=== PATIENT | female | born 1990 | race Caucasian/White ===

== ENCOUNTER 2023-04-15 14:06 | Outpatient (OUT) | payer MEDICAID, SELFPAY ==
[2023-04-15 14:37] LABS: Hematocrit 36.8 % (36.0-48.0); Hemoglobin 12.6 g/dL (12.0-16.0)
[2023-04-15 15:06] LABS: Thyroid Stimulating Hormone 0.007 uIU/mL (0.358-3.740)
[2023-04-15 15:23] LABS: Free T4 1.17 ng/dL (0.76-1.46)
== END 2023-04-15 14:07 ==
PROVIDERS: PCP Nurse Practitioner; Visit Provider Nurse Practitioner
DX: R53.83 Other fatigue (principal); E03.9 Hypothyroidism, unspecified
CPT/HCPCS: 36415; 82306; 82607; 82746; 83540; 84439; 84443; 85014; 85018

== ENCOUNTER 2023-07-23 14:34 | Outpatient (OUT) | payer MEDICAID, SELFPAY ==
[2023-07-23 15:27] LABS: Free T3 2.99 pg/mL (2.18-3.98); Thyroid Stimulating Hormone 1.413 uIU/mL (0.358-3.740)
[2023-07-23 15:32] LABS: Free T4 1.19 ng/dL (0.76-1.46)
== END 2023-07-23 14:35 | disposition home or self-care (01) ==
PROVIDERS: PCP Nurse Practitioner; Visit Provider Nurse Practitioner
DX: E03.9 Hypothyroidism, unspecified (principal)
CPT/HCPCS: 36415; 84439; 84443; 84481

== ENCOUNTER 2024-03-18 13:12 | Outpatient (OUT) | payer MEDICAID, SELFPAY ==
--- NOTE | 2024-03-18 13:14 | US_ITS ---
[address] [address] Patient Name: MOHAMUD CEE MRN: [id number] date: 1990 Sex: F Assigned Patient Location: [facility] Current Patient Location: [facility] Accession/Order Number: [id number] Exam Date: 03/18/2024 13:15 Report Date: 03/18/2024 14:10 At the request of: MARITZA BISWAS Procedure: US OB transvaginal EXAMINATION: US OB transvaginal HISTORY: MISSED MENSES COMPARISON: No relevant comparison available. FINDINGS: GESTATIONAL SAC: Present and normal appearing. YOLK SAC: Present and normal appearing. POLE: Present and normal appearing. CARDIAC: Present. UTERUS: Normal size and appearance. OVARIES: Right: Normal. Left: Normal. CERVIX: 5.2 cm in length and closed. CUL-DE-SAC: Normal. OTHER: None. AGE BY LMP: 8 weeks 5 days JAIR BY LMP: 10/23/2024 AGE BY US CRL: 8 weeks 2 days JAIR BY US CRL: 10/26/2024 US/US OB transvaginal IMPRESSION: 1. Single live intrauterine . Electronically authenticated by: RAHEL MACKAY Date: 03/18/2024 14:10
== END 2024-03-18 13:13 | disposition home or self-care (01) ==
LOC: NOMS 13:12
PROVIDERS: PCP Nurse Practitioner; Visit Provider Obstetrics & Gynecology
DX: Z34.91 Encounter for supervision of normal pregnancy, unspecified, first trimester (principal); Z3A.08 8 weeks gestation of pregnancy; N92.6 Irregular menstruation, unspecified
CPT/HCPCS: 76817

== ENCOUNTER 2024-04-07 15:58 | Outpatient (OUT) | payer MEDICAID, SELFPAY ==
--- OUTSIDE RECORDS SUMMARY | 2024-04-07 16:08 | XMS_ITS | CCD ---
Author Organization [facility] Informat [facility] Care Team Providers Care Pipe Setter Name Role Phone NITA BARROS Referring Unavailable NITA BARROS Primary Care Unavailable AICHHOLZ, MILITARY COMMUNICATIONS SPECIALIST REED Primary Care Unavailable AICHHOLZ, MILITARY COMMUNICATIONS SPECIALIST REED Consulting Unavailable AICHHOLZ, MILITARY COMMUNICATIONS SPECIALIST REED Attending Unavailable AICHHOLZ, MILITARY COMMUNICATIONS SPECIALIST REED Admitting Unavailable AICHHOLZ, MILITARY COMMUNICATIONS SPECIALIST REED Primary Care Unavailable AICHHOLZ, MILITARY COMMUNICATIONS SPECIALIST REED Consulting Unavailable AICHHOLZ, MILITARY COMMUNICATIONS SPECIALIST REED Attending Unavailable AICHHOLZ, MILITARY COMMUNICATIONS SPECIALIST REED Admitting Unavailable MAGALI MCKNIGHT Consulting Unavailable AICHHOLZ, MILITARY COMMUNICATIONS SPECIALIST REED Primary Care Unavailable AICHHOLZ, MILITARY COMMUNICATIONS SPECIALIST REED Consulting Unavailable AICHHOLZ, MILITARY COMMUNICATIONS SPECIALIST REED Attending Unavailable AICHHOLZ, MILITARY COMMUNICATIONS SPECIALIST REED Admitting Unavailable AICHHOLZ, REED Attending Unavailable Problems Problem Classification Problem Date Documented Da te Episodic/Chronic Essential hypertension (1 source) Essential (primary) hypertension; Translations: [ESSENTIAL PRIMARY HYPERTENSION] Onset: 11-29-2022 Chronic Other nutritional; endocrine; and metabolic disorders (1 source) Morbid (severe) obesity due to excess calories; Translations: [MORBID SEVERE OBES D/T EXCESS JOSÉ] Onset: 11-29-2022 Chronic Other nutritional; endocrine; and metabolic disorders (1 source) Body mass index (BMI) 40.0-44.9, adult; Translations: [BODY MASS INDEX BMI 40.0-44.9 ADULT] Onset: 11-29-2022 Chronic Thyroid disorders (4 sources) Hypothyroidism, unspecified; Translations: [HYPOTHYROIDISM UNSPECIFIED] Onset: 02-19-2023 Chronic Results Test Name Value Interpretation Reference Range Facil ity FREE T4on 02-19-2023 Free T4 [Mass/Vol] 1.39 ng/dL Normal 0.76-1.46 [facility] Comment on above: Performed By: #### F T4 #### [facility] [address] [address] [address] Alfredito Rendon TSHon 02-19-2023 TSH 0.012 uIU/mL Critically low 0.358-3.740 [facility] Comment on above: Performed By: #### T SH #### [facility] [address] [address] [address] Alfredito Rendon US THYROIDon 12-11-2022 US THYROID EXAM: US THYROID HISTORY: Hypothyroidism COMPARISON: None. TECHNIQUE: Multiple sonographic images of the thyroid gland were obtained, supplemented with Doppler. FINDINGS: The right lobe measures 3.9 x 1.3 x 1.4 cm. Homogeneous echoes are noted throughout. No nodule is identified within. The left lobe measures 3.5 x 1.1 x 1.4 cm. Homogeneous echoes are noted throughout. No nodule is identified within. The isthmus measures 3 mm in thickness. Along the left side there is a solid nodular structure measuring 0.8 x 0.6 x 0.4 cm. There is no evidence of a focal mass or abnormal fluid collection surrounding the gland. IMPRESSION: No nodule is identified in either lobe. A small nodule is seen in the isthmus eccentric to the left. This nodule is considered TI RADS 4. Biopsy is not recommended at this time. Direct comparison with a previous study would be helpful. A follow-up study in 12 months recommended. Electronically authenticated by: MAGALI MCKNIGHT Date: 2022-12-11 15:05 Normal [facility] THYROID ANTIBODIESon 023 Thyroglobulin Antibody 21.5 IU/mL Critically high 0.0-0.9 [facility] Comment on above: Result Comment: Thyr oglobulin Antibody measured by [facility] Performed By: #### T HYRABS #### [facility] [address] [address] [address] Alfredito Rendon Thyroid Peroxidase (TPO) Ab 73 IU/mL Critically high 0-34 [facility] Comment on above: Performed By: #### T HYRABS #### [facility] [address] [place] [address] Dr. Alfredito Rendon CBC AUTO DIFFon 11-28-2022 BASO # 0.0 103/ul Normal 0.0-0.1 [facility] Comment on above: Performed By: #### C BC #### [facility] [address] [place] [address] Dr. Alfredito Rendon Basophils/100 WBC (Bld) 0.3 % Normal 0.2-2.0 [facility] Comment on above: Performed By: #### C BC #### [facility] [address] [place] [address] Dr. Alfredito Rendon EO # 0.2 103/ul Normal 0.0-0.7 [facility] Comment on above: Performed By: #### C BC #### [facility] [address] [place] [address] Dr. Alfredito Rendon Eosinophils/100 WBC (Bld) 2.3 % Normal 0.9-7.0 [facility] Comment on above: Performed By: #### C BC #### [facility] [address] [place] [address] Dr. Alfredito Rendon Erythrocyte distribution width (RBC) [Ratio] 13.0 % Normal 11.0-15.0 [facility] Comment on above: Performed By: #### C BC #### [facility] [address] [place] [address] Dr. Alfredito Rendon Hematocrit (Bld) [Volume fraction] 41.2 % Normal 36.0-48.0 [facility] Comment on above: Performed By: #### C BC #### [facility] [address] [place] [address] Dr. Alfredito Rendon Hemoglobin (Bld) [Mass/Vol] 12.5 g/dL Normal 12.0-16.0 [facility] Comment on above: Performed By: #### C BC #### [facility] [address] [place] [address] Dr. Alfredito Rendon IG # 0.02 10e3/ul Normal 0.00-0.03 [facility] Comment on above: Performed By: #### C BC #### [facility] [address] [place] [address] Dr. Alfredito Rendon IG % 0.2 % Normal 0.0-0.5 [facility] Comment on above: Performed By: #### C BC #### [facility] [address] [place] [address] Dr. Alfredito Rendon LYMPH # 2.7 103/ul Normal 1.2-3.8 [facility] Comment on above: Performed By: #### C BC #### [facility] [address] [place] [address] Dr. Alfredito Rendon Lymphocytes/100 WBC (Bld) 25.3 % Normal 20.5-60.0 [facility] Comment on above: Performed By: #### C BC #### [facility] [address] [place] [address] Dr. Alfredito Rendon MANUAL DIFF REQ NO Normal [facility] Comment on above: Performed By: #### C BC #### [facility] [address] [place] [address] Dr. Alfredito Rendon MCH (RBC) [Entitic mass] 29.6 pg Normal 26.7-34.0 [facility] Comment on above: Performed By: #### C BC #### [facility] [address] [place] [address] Dr. Alfredito Rendon MCHC (RBC) [Mass/Vol] 30.3 g/dL Normal 29.9-35.2 [facility] Comment on above: Performed By: #### C BC #### [facility] [address] [place] [address] Dr. Alfredito Rendon MCV (RBC) [Entitic vol] 97.6 fL Normal 81.0-99.0 [facility] Comment on above: Performed By: #### C BC #### [facility] [address] [place] [address] Dr. Alfredito Rendon MONO # 0.7 103/ul Normal 0.3-0.8 [facility] Comment on above: Performed By: #### C BC #### [facility] [address] [place] [address] Dr. Alfredito Rendon Monocytes/100 WBC (Bld) 6.4 % Normal 1.7-12.0 [facility] Comment on above: Performed By: #### C BC #### [facility] [address] [address] [address] Alfredito Rendon NEUT # 6.9 103/ul Critically high 1.4-6.5 [facility] Comment on above: Performed By: #### C BC #### [facility] [address] [address] [address] Alfredito Rendon Neutrophils/100 WBC (Bld) 65.5 % Normal 43.0-75.0 [facility] Comment on above: Performed By: #### C BC #### [facility] [address] [address] [address] Alfredito Rendon Platelet mean volume (Bld) [Entitic vol] 10.1 fL Normal 9.5-13.5 [facility] Comment on above: Performed By: #### C BC #### [facility] [address] [place] [address] Dr. Alfredito Rendon PLT 253 103/ul Normal 150-450 [facility] Comment on above: Performed By: #### C BC #### [facility] [address] [address] [address] Alfredito Rendon RBC 4.22 106/ul Normal 4.20-5.40 [facility] Comment on above: Performed By: #### C BC #### [facility] [address] [place] [address] Dr. Alfredito Rendon WBC 10.6 103/ul Normal 4.0-11.0 [facility] Comment on above: Performed By: #### C BC #### [facility] [address] [place] [address] Dr. Alfredito Rendon FREE T3on 11-28-2022 FREE T3 2.65 pg/mlL Normal 2.18-3.98 [facility] Comment on above: Performed By: #### T SH, FT3, LIPID, CMP #### [facility] [address] [place] [address] Dr. Alfredito Rendon FREE T4on 11-28-2022 Free T4 [Mass/Vol] 0.86 ng/dL Normal 0.76-1.46 [facility] Comment on above: Performed By: #### F T4 #### [facility] [address] [address] [address] Alfredito Rendon LIPID PROFILEon 11-28-2022 CHOL-HDL RATIO NORM SEE BELOW Normal [facility] Comment on above: Result Comment: 3.3 - 4.4 LOW RISK 4.4 - 7.1 AVERAGE RISK 7.1 - 11.0 MODERATE RISK >11.0 HIGH RISK Performed By: #### T SH, FT3, LIPID, CMP #### [facility] [address] [address] [address] Alfredito Rendon Cholesterol [Mass/Vol] 172 mg/dL Normal <=200 [facility] Comment on above: Performed By: #### T SH, FT3, LIPID, CMP #### [facility] [address] [place] [address] Dr. Alfredito Rendon Cholesterol in HDL [Mass/Vol] 49 mg/dL Normal 40-60 [facility] Comment on above: Performed By: #### T SH, FT3, LIPID, CMP #### [facility] [address] [address] [address] Alfredito Rendon Cholesterol in LDL [Mass/Vol] 96.2 mg/dL Normal [facility] Comment on above: Performed By: #### T SH, FT3, LIPID, CMP #### [facility] [address] [place] [address] Dr. Alfredito Rendon Cholesterol.total/Ch olesterol in HDL [Mass ratio] 3.5 {ratio} Normal [facility] Comment on above: Performed By: #### T SH, FT3, LIPID, CMP #### [facility] [address] [address] [address] Alfredito Rendon HDL NORMAL > or = 60 mg/dl - LOW CARDIOVASCULAR RISK <40 mg/dl - HIGH CARDIOVASCULAR RISK Normal [facility] Comment on above: Performed By: #### T SH, FT3, LIPID, CMP #### [facility] [address] [place] [address] Dr. Alfredito Rendon LDL CALC NORMAL SEE BELOW Normal [facility] Comment on above: Result Comment: <100 mg/dl OPTIMAL 100 - 129 mg/dl NEAR OR ABOVE OPTIMAL 130 - 159 mg/dl BORDERLINE HIGH 160 - 189 mg/dl HIGH >190 mg/dl VERY HIGH Performed By: #### T SH, FT3, LIPID, CMP #### [facility] [address] [address] [address] Alfredito Rendon Triglyceride [Mass/Vol] 134 mg/dL Normal <=150 [facility] Comment on above: Performed By: #### T SH, FT3, LIPID, CMP #### [facility] [address] [address] [address] Alfredito Rendon VLDL CALC 26.8 mg/dL Normal [facility] Comment on above: Performed By: #### T SH, FT3, LIPID, CMP #### [facility] [address] [place] [address] Dr. Alfredito Rendon PROF 14(COMP METB)on 023 Albumin [Mass/Vol] 3.3 g/dL Critically low 3.4-5.0 [facility] Comment on above: Performed By: #### T SH, FT3, LIPID, CMP #### [facility] [address] [place] [address] Dr. Alfredito Rendon Albumin/Globulin [Mass ratio] 0.9 {ratio} Normal [facility] Comment on above: Performed By: #### T SH, FT3, LIPID, CMP #### [facility] [address] [place] [address] Dr. Alfredito Rendon ALP [Catalytic activity/Vol] 63 U/L Normal 46-116 [facility] Comment on above: Performed By: #### T SH, FT3, LIPID, CMP #### [facility] [address] [address] [address] Alfredito Rendon ALT [Catalytic activity/Vol] 27 U/L Normal 14-59 [facility] Comment on above: Performed By: #### T SH, FT3, LIPID, CMP #### [facility] [address] [place] [address] Dr. Alfredito Rendon Anion gap [Moles/Vol] 14.1 mmol/L Normal [facility] Comment on above: Performed By: #### T SH, FT3, LIPID, CMP #### [facility] [address] [place] [address] Dr. Alfredito Rendon AST [Catalytic activity/Vol] 20 U/L Normal 15-37 [facility] Comment on above: Performed By: #### T SH, FT3, LIPID, CMP #### [facility] [address] [address] [address] Alfredito Rendon Bilirubin [Mass/Vol] 0.3 mg/dL Normal 0.2-1.0 [facility] Comment on above: Performed By: #### T SH, FT3, LIPID, CMP #### [facility] [address] [place] [address] Dr. Alfredito Rendon Calcium [Mass/Vol] 9.2 mg/dL Normal 8.5-10.1 [facility] Comment on above: Performed By: #### T SH, FT3, LIPID, CMP #### [facility] [address] [place] [address] Dr. Alfredito Rendon Chloride [Moles/Vol] 103 mmol/L Normal 98-107 [facility] Comment on above: Performed By: #### T SH, FT3, LIPID, CMP #### [facility] [address] [place] [address] Dr. Alfredito Rendon CO2 [Moles/Vol] 24.1 mmol/L Normal 21.0-32.0 [facility] Comment on above: Performed By: #### T SH, FT3, LIPID, CMP #### [facility] [address] [place] [address] Dr. Alfredito Rendon Creatinine [Mass/Vol] 0.71 mg/dL Normal 0.55-1.02 [facility] Comment on above: Performed By: #### T SH, FT3, LIPID, CMP #### [facility] [address] [place] [address] Dr. Alfredito Rendon EGFR-AF DANISH >60 Normal >=60 [facility] Comment on above: Performed By: #### T SH, FT3, LIPID, CMP #### [facility] [address] [place] [address] Dr. Alfredito Rendon EGFR-NON AF DANISH >60 Normal >=60 [facility] Comment on above: Performed By: #### T SH, FT3, LIPID, CMP #### [facility] [address] [place] [address] Dr. Alfredito Rendon Globulin (S) [Mass/Vol] 3.8 g/dL Normal [facility] Comment on above: Performed By: #### T SH, FT3, LIPID, CMP #### [facility] [address] [place] [address] Dr. Alfredito Rendon Glucose [Mass/Vol] 106 mg/dL Normal 74-106 [facility] Comment on above: Performed By: #### T SH, FT3, LIPID, CMP #### [facility] [address] [place] [address] Dr. Alfredito Rendon Potassium [Moles/Vol] 4.2 mmol/L Normal 3.5-5.1 [facility] Comment on above: Performed By: #### T SH, FT3, LIPID, CMP #### [facility] [address] [place] [address] Dr. Alfredito Rendon Protein [Mass/Vol] 7.1 g/dL Normal 6.4-8.2 [facility] Comment on above: Performed By: #### T SH, FT3, LIPID, CMP #### [facility] [address] [place] [address] Dr. Alfredito Rendon Sodium [Moles/Vol] 137 mmol/L Normal 136-145 [facility] Comment on above: Performed By: #### T SH, FT3, LIPID, CMP #### [facility] [address] [place] [address] Dr. Alfredito Rendon Urea nitrogen [Mass/Vol] 14.0 mg/dL Normal 7.0-18.0 [facility] Comment on above: Performed By: #### T SH, FT3, LIPID, CMP #### [facility] [address] [place] [address] Dr. Alfredito Rendon Urea nitrogen/Creatinine [Mass ratio] 19.7 mg/mg Normal [facility] Comment on above: Performed By: #### T SH, FT3, LIPID, CMP #### [facility] [address] [address] [address] Alfredito Rendon TSHon 11-28-2022 TSH 5.010 uIU/mL Critically high 0.358-3.740 [facility] Comment on above: Performed By: #### T SH, FT3, LIPID, CMP #### [facility] [address] [address] [address] Alfredito Rendon Thyroid Stim. Horm.on 2020 TSH Qn 10.79 m[IU]/L High 0.30-5.00 [facility] Comment on above: Performed By: #### T SH, FT4 #### [facility] [address] [place], [place] [id number] [employer] Estimator: Titus Pagan MD Thyroxine, Freeon 08-22-2021 Thyroxine, Free 0.89 ng/dL Low 0.93-1.70 [facility] Comment on above: Performed By: #### T SH, FT4 #### [facility] [address], [place] [id number] [employer] Estimator: Titus Pagan MD Basic Metab, Fastingon 03-15 (cont.) Normal [facility] Comment on above: Result Comment: Aver age GFR for 30-39 years old: 107 mL/min/1.73sq m Chronic Kidney Disease: <60 mL/min/1.73sq m Kidney failure: <15 mL/min/1.73sq m eGFR calculated using average adult body mass. Additional eGFR calculator available at: http://www.[employer].com/multiple_crcl_2012.htm Performed By: #### B MPF, FT4, TSH #### [facility] [address], [place] [id number] [employer] Estimator: Titus Pagan MD Anion gap [Moles/Vol] 10 mmol/L Normal 9-17 [facility] Comment on above: Performed By: #### B MPF, FT4, TSH #### [facility] [address] [place] [address] [employer] Est[employer]ator: Titus Pagan MD Calcium [Mass/Vol] 9.4 mg/dL Normal 8.6-10.4 [facility] Comment on above: Performed By: #### B MPF, FT4, TSH #### [facility] [address] [place] [id number] [employer] Est[employer]ator: Titus Pagan MD Chloride [Moles/Vol] 102 mmol/L Normal 98-107 [facility] Comment on above: Performed By: #### B MPF, FT4, TSH #### [address] [address] [employer]ator: Titus Pagan MD CO2 [Moles/Vol] 25 mmol/L Normal 20-31 [facility] Comment on above: Performed By: #### B MPF, FT4, TSH #### [address] [address] [employer] Estimator: Titus Pagan MD Creatinine [Mass/Vol] 0.62 mg/dL Normal 0.50-0.90 [facility] Comment on above: Performed By: #### B MPF, FT4, TSH #### [facility] [address] [place] [id number] [employer] Est[employer]ator: Titus Pagan MD GFR, Amer >60 Normal >60 [facility] Comment on above: Performed By: #### B MPF, FT4, TSH #### [facility] [address] [place] [address] [employer] Est[employer]ator: Titus Pagan MD GFR,non Amer >60 Normal >60 [facility] Comment on above: Performed By: #### B MPF, FT4, TSH #### [facility] [address] [place] [address] [employer] Est[employer]ator: Titus Pagan MD Glucose [Mass/Vol] 93 mg/dL Normal 70-99 [facility] Comment on above: Performed By: #### B MPF, FT4, TSH #### [facility] [address] [place] [id number] [employer] Est[employer]ator: Titus Pagan MD Potassium [Moles/Vol] 4.6 mmol/L Normal 3.7-5.3 [facility] Comment on above: Performed By: #### B MPF, FT4, TSH #### [facility] [address] [place] [address] [employer] Est[employer]ator: Titus Pagan MD Sodium [Moles/Vol] 137 mmol/L Normal 135-144 [facility] Comment on above: Performed By: #### B MPF, FT4, TSH #### [facility] [address] [place] [id number] [employer]ator: Titus Pagan MD Urea nitrogen [Mass/Vol] 13 mg/dL Normal -20 [facility] Comment on above: Performed By: #### B MPF, FT4, TSH #### [facility] [address] [place] [id number] [employer] Est[employer]ator: Titus Pagan MD BUN/CRE Ratio NOT REPORTED Normal -20 [facility] Comment on above: Performed By: #### B MPF, FT4, TSH #### [facility] [address] [place] [id number] [employer] Estimator: Titus Pagan MD Staging: NOT REPORTED Normal [facility] Comment on above: Performed By: #### B MPF, FT4, TSH #### [facility] [address] [place] [id number] [employer] Estimator: Titus Pagan MD Thyroid Stim. Horm.on 2020 TSH Qn 13.08 m[IU]/L High 0.30-5.00 [facility] Comment on above: Performed By: #### B MPF, FT4, TSH #### [facility] [address], [place] [id number] [employer] Est[employer]ator: Titus Pagan MD Thyroxine, Freeon 03-15-2021 Thyroxine, Free 0.90 ng/dL Low 0.93-1.70 [facility] Comment on above: Performed By: #### B MPF, FT4, TSH #### [facility] [address] [place] [address] [employer] Est[employer]ator: Titus Pagan MD Encounters Encounter Date Encounter Type Care Provider Facility Start: 03-18-2024 End: 03-18-2024 ambulatory REED AICHHOLZ Not Available Start: 12-31-2023 End: 12-31-2023 ambulatory REED AICHHOLZ Not Available Start: 02-19-2023 End: 02-20-2023 ambulatory MILITARY COMMUNICATIONS SPECIALIST REED AICHHOLZ Facility:[facility] Start: 12-11-2022 End: 12-12-2022 ambulatory MILITARY COMMUNICATIONS SPECIALIST REED AICHHOLZ Facility:[facility] Start: 11-28-2022 End: 11-29-2022 ambulatory MILITARY COMMUNICATIONS SPECIALIST REED AICHHOLZ Facility:[facility] Start: 03-15-2021 End: 03-16-2021 ambulatory NITA BARROS [facility] Payers Date Payer Category Payer Medicaid [id number] 2019 Unknown [id number] 1989 Unknown [id number] 2.16.8 [id number] 1989 Unknown [id number] 2.16.84 [id number] 1989 Unknown [id number] 2.16.84 [id number] 1989 Unknown [id number] 2.16.84 [id number] 1989 Unknown [id number] 2.16.84 [id number] 1989 Unknown [id number] 2.16.84 [id number] 1959 Unknown [id number] Summary Purpose Family History No Family History Records FoundNo Family History Records FoundNo Family History Records FoundNo Family History Records Found Advance Directives No Advanced Directives Records FoundNo Advanced Directives Records FoundNo Advanced Directives Records FoundNo Advanced Directives Records Found Additional Source Comments INFORMATION SOURCE (unrecogn ized section and content) DATE CREATED AUTHOR 03/17/2021 [facility] DATE CREATED AUTHOR AUTHOR'S ORGANIZ ATION 08/23/2021 [facility] DATE CREATED AUTHOR AUTHOR'S ORGANIZ ATION 02/23/2023 [facility] DATE CREATED AUTHOR AUTHOR'S ORGANIZ ATION 03/21/2024 [facility] FOR RECORDS PERTAINING TO PATIENTS WHO ARE OR HAVE BEEN ENROLLED IN A CHEMICAL DEPENDENCY/SUBSTANCEABUSE PROGRAM, SOME INFORMATION MAY BE OMITTED. This clinical summary was aggregated from multiple sources. Caution should be exercised in using it in the provision of clinical care. This summary normalizes information from multiple sources, and as a consequence, information in this document may materially change the coding, format and clinical context of patient data. In addition, data may be omitted in some cases. CLINICAL DECISIONS SHOULD BE BASED ON THE PRIMARY CLINICAL RECORDS. [employer] provides no warranty or guarantee of the accuracy or completeness of information in this document.
[2024-04-07 16:27] LABS: BOX Test Sent Out Y
[2024-04-07 16:29] LABS: Basophils Percent Auto 0.1 % (0.2-2.0); Eosinophils Absolute Auto 0.2 10^3/uL (0.0-0.7); Eosinophils Percent Auto 1.3 % (0.9-7.0); Hematocrit 39.2 % (36.0-48.0); Hemoglobin 13.6 g/dL (12.0-16.0); Immature Granulocytes Abs Auto 0.02 10^3/uL (0.00-0.03); Immature Granulocytes Pct Auto 0.2 % (0.0-0.5); Lymphocytes Percent Auto 25.7 % (20.5-60.0); Mean Corpuscular HGB Conc 34.7 g/dL (29.9-35.2); Mean Corpuscular Hemoglobin 30.7 pg (26.7-34.0); Mean Corpuscular Volume 88.5 fL (81.0-99.0); Monocytes Absolute Auto 0.6 10^3/uL (0.3-0.8); Monocytes Percent Auto 5.2 % (1.7-12.0); Neutrophils Absolute Auto 7.8 10^3/uL (1.4-6.5); Neutrophils Percent Auto 67.5 % (43.0-75.0); Platelet Count 231 10^3/uL (150-450); Red Blood Count 4.43 10^6/uL (4.20-5.40); Red Cell Distribution Width 12.7 % (11.0-15.0); White Blood Count 11.5 10^3/uL (4.0-11.0)
[2024-04-07 17:09] LABS: Estimated Average Glucose 108 mg/dL; Glycohemoglobin A1C 5.4 % (4.5-6.2)
[2024-04-09 06:10] LABS: HBsAg Screen Negative (Negative); HCV Ab Non Reactive (Non Reactive); HIV Ab/p24 Ag Screen Non Reactive (Non Reactive); Rubella Antibodies, IgG 3.12 index (Immune >0.99)
[2024-04-09 11:09] LABS: Rapid Plasma Reagin, Quant Non Reactive titer (NonRea<1:1)
== END 2024-04-07 15:59 | disposition home or self-care (01) ==
LOC: LAB 15:59
PROVIDERS: PCP Nurse Practitioner; Visit Provider Obstetrics & Gynecology
DX: Z36.0 Encounter for antenatal screening for chromosomal anomalies (principal); N92.6 Irregular menstruation, unspecified
CPT/HCPCS: 36415; 81003; 83036; 85025; 86592; 86762; 86803; 86850; 86900; 86901; 87086; 87150; 87186; 87340; 87389

== ENCOUNTER 2024-04-21 16:15 | Outpatient (OUT) | payer MEDICAID, SELFPAY ==
--- OUTSIDE RECORDS SUMMARY | 2024-04-21 16:22 | XMS_ITS | CCD ---
Author Organization [facility] Informat ion Partnership [facility] Care Team Providers Care Switchboard Manager Name Role Phone NITA BARROS Referring Unavailable NITA BARROS Primary Care Unavailable AICHHOLZ, HOME APPLIANCE TECHNICIAN REED Primary Care Unavailable AICHHOLZ, HOME APPLIANCE TECHNICIAN REED Consulting Unavailable AICHHOLZ, HOME APPLIANCE TECHNICIAN REED Attending Unavailable AICHHOLZ, HOME APPLIANCE TECHNICIAN REED Admitting Unavailable AICHHOLZ, HOME APPLIANCE TECHNICIAN REED Primary Care Unavailable AICHHOLZ, HOME APPLIANCE TECHNICIAN REED Consulting Unavailable AICHHOLZ, HOME APPLIANCE TECHNICIAN REED Attending Unavailable AICHHOLZ, HOME APPLIANCE TECHNICIAN REED Admitting Unavailable MAGALI MCKNIGHT Consulting Unavailable AICHHOLZ, HOME APPLIANCE TECHNICIAN REED Primary Care Unavailable AICHHOLZ, HOME APPLIANCE TECHNICIAN REED Consulting Unavailable AICHHOLZ, HOME APPLIANCE TECHNICIAN REED Attending Unavailable AICHHOLZ, HOME APPLIANCE TECHNICIAN REED Admitting Unavailable AICHHOLZ, REED Attending Unavailable [...] T4 [Mass/Vol] 1.39 ng/dL Normal 0.76-1.46 [facility] Comment on above: Performed By: #### F T4 #### [facility] [address] [address] [address] Alfredito Rendon TSHon 02-19-2023 TSH 0.012 uIU/mL Critically low 0.358-3.740 [facility] Comment on above: Performed By: #### T SH #### [facility] [address] [address] [address] Alfredito Rendon US THYROIDon 12-11-2022 US [...] MAGALI MCKNIGHT Date: 2022-12-11 15:05 Normal [facility] THYROID ANTIBODIESon 023 Thyroglobulin Antibody 21.5 IU/mL Critically high 0.0-0.9 [facility] Comment on above: Result Comment: Thyr oglobulin Antibody measured by [facility] [place] Methodology Performed By: #### T HYRABS #### [facility] [address] [address] [address] Alfredito Rendon Thyroid Peroxidase (TPO) Ab 73 IU/mL Critically high 0-34 [facility] Comment on above: Performed By: #### T HYRABS #### [facility] [address] [place] [address] Dr. Alfredito Rendon CBC AUTO DIFFon 11-28-2022 BASO # 0.0 103/ul Normal 0.0-0.1 [facility] Comment on above: Performed By: #### C BC #### [facility] [address] [place] [address] Dr. Alfredito Rendon Basophils/100 WBC (Bld) 0.3 % Normal 0.2-2.0 [facility] Comment on above: Performed By: #### C BC #### [facility] [address] [place] [address] Dr. Alfredito Rendon EO # 0.2 103/ul Normal 0.0-0.7 [facility] Comment on above: Performed By: #### C BC #### [facility] [address] [place] [address] Dr. Alfredito Rendon Eosinophils/100 WBC (Bld) 2.3 % Normal 0.9-7.0 [facility] Comment on above: Performed By: #### C BC #### [facility] [address] [place] [address] Dr. Alfredito Rendon Erythrocyte distribution width (RBC) [Ratio] 13.0 % Normal 11.0-15.0 [facility] Comment on above: Performed By: #### C BC #### [facility] [address] [place] [address] Dr. Alfredito Rendon Hematocrit (Bld) [Volume fraction] 41.2 % Normal 36.0-48.0 [facility] Comment on above: Performed By: #### C BC #### [facility] [address] [place] [address] Dr. Alfredito Rendon Hemoglobin (Bld) [Mass/Vol] 12.5 g/dL Normal 12.0-16.0 [facility] Comment on above: Performed By: #### C BC #### [facility] [address] [place] [address] Dr. Alfredito Rendon IG # 0.02 10e3/ul Normal 0.00-0.03 [facility] Comment on above: Performed By: #### C BC #### [facility] [address] [place] [address] Dr. Alfredito Rendon IG % 0.2 % Normal 0.0-0.5 [facility] Comment on above: Performed By: #### C BC #### [facility] [address] [place] [address] Dr. Alfredito Rendon LYMPH # 2.7 103/ul Normal 1.2-3.8 [facility] Comment on above: Performed By: #### C BC #### [facility] [address] [place] [address] Dr. Alfredito Rendon Lymphocytes/100 WBC (Bld) 25.3 % Normal 20.5-60.0 [facility] Comment on above: Performed By: #### C BC #### [facility] [address] [place] [address] Dr. Alfredito Rendon MANUAL DIFF REQ NO Normal [facility] Comment on above: Performed By: #### C BC #### [facility] [address] [place] [address] Dr. Alfredito Rendon MCH (RBC) [Entitic mass] 29.6 pg Normal 26.7-34.0 [facility] Comment on above: Performed By: #### C BC #### [facility] [address] [place] [address] Dr. Alfredito Rendon MCHC (RBC) [Mass/Vol] 30.3 g/dL Normal 29.9-35.2 [facility] Comment on above: Performed By: #### C BC #### [facility] [address] [place] [address] Dr. Alfredito Rendon MCV (RBC) [Entitic vol] 97.6 fL Normal 81.0-99.0 [facility] Comment on above: Performed By: #### C BC #### [facility] [address] [place] [address] Dr. Alfredito Rendon MONO # 0.7 103/ul Normal 0.3-0.8 [facility] Comment on above: Performed By: #### C BC #### [facility] [address] [place] [address] Dr. Alfredito Rendon Monocytes/100 WBC (Bld) 6.4 % Normal 1.7-12.0 [facility] Comment on above: Performed By: #### C BC #### [facility] [address] [address] [address] Alfredito Rendon NEUT # 6.9 103/ul Critically high 1.4-6.5 [facility] Comment on above: Performed By: #### C BC #### [facility] [address] [address] [address] Alfredito Rendon Neutrophils/100 WBC (Bld) 65.5 % Normal 43.0-75.0 [facility] Comment on above: Performed By: #### C BC #### [facility] [address] [address] [address] Alfredito Rendon Platelet mean volume (Bld) [Entitic vol] 10.1 fL Normal 9.5-13.5 [facility] Comment on above: Performed By: #### C BC #### [facility] [address] [place] [address] Dr. Alfredito Rendon PLT 253 103/ul Normal 150-450 [facility] Comment on above: Performed By: #### C BC #### [facility] [address] [address] [address] Alfredito Rendon RBC 4.22 106/ul Normal 4.20-5.40 [facility] Comment on above: Performed By: #### C BC #### [facility] [address] [place] [address] Dr. Alfredito Rendon WBC 10.6 103/ul Normal 4.0-11.0 [facility] Comment on above: Performed By: #### C BC #### [facility] [address] [place] [address] Dr. Alfredito Rendon FREE T3on 11-28-2022 FREE T3 2.65 pg/mlL Normal 2.18-3.98 [facility] Comment on above: Performed By: #### T SH, FT3, LIPID, CMP #### [facility] [address] [place] [address] Dr. Alfredito Rendon FREE T4on 11-28-2022 Free T4 [Mass/Vol] 0.86 ng/dL Normal 0.76-1.46 [facility] Comment on above: Performed By: #### F T4 #### [facility] [address] [address] [address] Alfredito Rendon LIPID PROFILEon 11-28-2022 CHOL-HDL RATIO NORM SEE BELOW Normal [facility] Comment on above: Result Comment: 3.3 - 4.4 LOW RISK 4.4 - 7.1 AVERAGE RISK 7.1 - 11.0 MODERATE RISK >11.0 HIGH RISK Performed By: #### T SH, FT3, LIPID, CMP #### [facility] [address] [address] [address] Alfredito Rendon Cholesterol [Mass/Vol] 172 mg/dL Normal <=200 [facility] Comment on above: Performed By: #### T SH, FT3, LIPID, CMP #### [facility] [address] [place] [address] Dr. Alfredito Rendon Cholesterol in HDL [Mass/Vol] 49 mg/dL Normal 40-60 [facility] Comment on above: Performed By: #### T SH, FT3, LIPID, CMP #### [facility] [address] [address] [address] Alrfedito Rendon Cholesterol in LDL [Mass/Vol] 96.2 mg/dL Normal [facility] Comment on above: Performed By: #### T SH, FT3, LIPID, CMP #### [facility] [address] [place] [address] Dr. Alfredito Rendon Cholesterol.total/Ch olesterol in HDL [Mass ratio] 3.5 {ratio} Normal [facility] Comment on above: Performed By: #### T SH, FT3, LIPID, CMP #### [facility] [address] [address] [address] Alfredito Rendon HDL NORMAL > or = 60 mg/dl - LOW CARDIOVASCULAR RISK <40 mg/dl - HIGH CARDIOVASCULAR RISK Normal [facility] Comment on above: Performed By: #### T SH, FT3, LIPID, CMP #### [facility] [address] [place] [address] Dr. Alfredito Rendon LDL CALC NORMAL SEE BELOW Normal [facility] Comment on above: Result Comment: <100 mg/dl OPTIMAL 100 - 129 mg/dl NEAR OR ABOVE OPTIMAL 130 - 159 mg/dl BORDERLINE HIGH 160 - 189 mg/dl HIGH >190 mg/dl VERY HIGH Performed By: #### T SH, FT3, LIPID, CMP #### [facility] [address] [address] [address] Alfredito Rendon Triglyceride [Mass/Vol] 134 mg/dL Normal <=150 [facility] Comment on above: Performed By: #### T SH, FT3, LIPID, CMP #### [facility] [address] [address] [address] Alfredito Rendon VLDL CALC 26.8 mg/dL Normal [facility] Comment on above: Performed By: #### T SH, FT3, LIPID, CMP #### [facility] [address] [place] [address] Dr. Alfredito Rendon PROF 14(COMP METB)on 023 Albumin [Mass/Vol] 3.3 g/dL Critically low 3.4-5.[address] [facility] Comment on above: Performed By: #### T SH, FT3, LIPID, CMP #### [facility] [address] [place] [address] Dr. Alfredito Rendon Albumin/Globulin [Mass ratio] 0.9 {ratio} Normal [facility] Comment on above: Performed By: #### T SH, FT3, LIPID, CMP #### [facility] [address] [place] [address] Dr. Alfredito Rendon ALP [Catalytic activity/Vol] 63 U/L Normal 46-116 [facility] Comment on above: Performed By: #### T SH, FT3, LIPID, CMP #### [facility] [address] [address] [address] Alfredito Rendon ALT [Catalytic activity/Vol] 27 U/L Normal 14-59 [facility] Comment on above: Performed By: #### T SH, FT3, LIPID, CMP #### [facility] [address] [place] [address] Dr. Alfredito Rendon Anion gap [Moles/Vol] 14.1 mmol/L Normal [facility] Comment on above: Performed By: #### T SH, FT3, LIPID, CMP #### [facility] [address] [place] [address] Dr. Alfredito Rendon AST [Catalytic activity/Vol] 20 U/L Normal 15-37 [facility] Comment on above: Performed By: #### T SH, FT3, LIPID, CMP #### [facility] [address] [address] [address] Alfredito Rendon Bilirubin [Mass/Vol] 0.3 mg/dL Normal 0.2-1.0 [facility] Comment on above: Performed By: #### T SH, FT3, LIPID, CMP #### [facility] [address] [place] [address] Dr. Alfredito Rendon Calcium [Mass/Vol] 9.2 mg/dL Normal 8.5-10.1 [facility] Comment on above: Performed By: #### T SH, FT3, LIPID, CMP #### [facility] [address] [place] [address] Dr. Alfredito Rendon Chloride [Moles/Vol] 103 mmol/L Normal 98-107 [facility] Comment on above: Performed By: #### T SH, FT3, LIPID, CMP #### [facility] [address] [place] [address] Dr. Alfredito Rendon CO2 [Moles/Vol] 24.1 mmol/L Normal 21.0-32.0 [facility] Comment on above: Performed By: #### T SH, FT3, LIPID, CMP #### [facility] [address] [place] [address] Dr. Alfredito Rendon Creatinine [Mass/Vol] 0.71 mg/dL Normal 0.55-1.02 [facility] Comment on above: Performed By: #### T SH, FT3, LIPID, CMP #### [facility] [address] [place] [address] Dr. Alfredito Rendon EGFR-AF POLISH >60 Normal >=60 [facility] Comment on above: Performed By: #### T SH, FT3, LIPID, CMP #### [facility] [address] [place] [address] Dr. Alfredito Rendon EGFR-NON AF POLISH >60 Normal >=60 [facility] Comment on above: Performed By: #### T SH, FT3, LIPID, CMP #### [facility] [address] [place] [address] Dr. Alfredito Rendon Globulin (S) [Mass/Vol] 3.8 g/dL Normal [facility] Comment on above: Performed By: #### T SH, FT3, LIPID, CMP #### [facility] [address] [place] [address] Dr. Alfredito Rendon Glucose [Mass/Vol] 106 mg/dL Normal 74-106 [facility] Comment on above: Performed By: #### T SH, FT3, LIPID, CMP #### [facility] [address] [place] [address] Dr. Alfredito Rendon Potassium [Moles/Vol] 4.2 mmol/L Normal 3.5-5.1 [facility] Comment on above: Performed By: #### T SH, FT3, LIPID, CMP #### [facility] [address] [place] [address] Dr. Alfredito Rendon Protein [Mass/Vol] 7.1 g/dL Normal 6.4-8.2 [facility] Comment on above: Performed By: #### T SH, FT3, LIPID, CMP #### [facility] [address] [place] [address] Dr. Alfredito Rendon Sodium [Moles/Vol] 137 mmol/L Normal 136-145 [facility] Comment on above: Performed By: #### T SH, FT3, LIPID, CMP #### [facility] [address] [place] [address] Dr. Alfredito Rendon Urea nitrogen [Mass/Vol] 14.0 mg/dL Normal 7.0-18.0 [facility] Comment on above: Performed By: #### T SH, FT3, LIPID, CMP #### [facility] [address] [place] [address] Dr. Alfredito Rendon Urea nitrogen/Creatinine [Mass ratio] 19.7 mg/mg Normal [facility] Comment on above: Performed By: #### T SH, FT3, LIPID, CMP #### [facility] [address] [address] [address] Alfredito Rendon TSHon 11-28-2022 TSH 5.010 uIU/mL Critically high 0.358-3.740 [facility] Comment on above: Performed By: #### T SH, FT3, LIPID, CMP #### [facility] [address] [address] [address] Alfredito Rendon Thyroid Stim. Horm.on 2020 TSH Qn 10.79 m[IU]/L High 0.30-5.00 [facility] Comment on above: Performed By: #### T SH, FT4 #### [facility] [employer] [address] [place], [place] [id number] Fiber Analyst: Titus Pagan MD Thyroxine, Freeon 08-22-2021 Thyroxine, Free 0.89 ng/dL Low 0.93-1.70 [facility] Comment on above: Performed By: #### T SH, FT4 #### [facility] [employer] [address] [place], [place] [id number] Fiber Analyst: Titus Pagan MD Basic Metab, Fastingon 03-15 (cont.) Normal [facility] Comment on above: Result Comment: Aver age GFR for 30-39 years old: 107 mL/min/1.73sq m Chronic Kidney Disease: <60 mL/min/1.73sq m Kidney failure: <15 mL/min/1.73sq m eGFR calculated using average adult body mass. Additional eGFR calculator available at: http://www.[employer]com/multiple_crcl_2012.htm Performed By: #### B MPF, FT4, TSH #### [facility] [employer] [address] [place], [place] [id number] Fiber Analyst: Titus Pagan MD Anion gap [Moles/Vol] 10 mmol/L Normal 9-17 [facility] Comment on above: Performed By: #### B MPF, FT4, TSH #### [facility] [employer] [address] [place] [address] Fiber Analyst: Titus Pagan MD Calcium [Mass/Vol] 9.4 mg/dL Normal 8.6-10.4 [facility] Comment on above: Performed By: #### B MPF, FT4, TSH #### [facility] [employer] [address] [place] [address] Fiber Analyst: Titus Pagan MD Chloride [Moles/Vol] 102 mmol/L Normal 98-107 [facility] Comment on above: Performed By: #### B MPF, FT4, TSH #### [address] [address] Fiber Analyst: Titus Pagan MD CO2 [Moles/Vol] 25 mmol/L Normal 20-31 [facility] Comment on above: Performed By: #### B MPF, FT4, TSH #### [address] [address] Fiber Analyst: Titus Pagan MD Creatinine [Mass/Vol] 0.62 mg/dL Normal 0.50-0.90 [facility] Comment on above: Performed By: #### B MPF, FT4, TSH #### [facility] [employer] [address] [place] [address] Fiber Analyst: Titus Pagan MD GFR, Amer >60 Normal >60 [facility] Comment on above: Performed By: #### B MPF, FT4, TSH #### [facility] [employer] [address] [place] [address] Fiber Analyst: Titus Pagan MD GFR,non Amer >60 Normal >60 [facility] Comment on above: Performed By: #### B MPF, FT4, TSH #### [facility] [address] [place] [address] Fiber Analyst: Titus Pagan MD Glucose [Mass/Vol] 93 mg/dL Normal 70-99 [facility] Comment on above: Performed By: #### B MPF, FT4, TSH #### [facility] [address] [place] [address] Fiber Analyst: Titus Pagan MD Potassium [Moles/Vol] 4.6 mmol/L Normal 3.7-5.3 [facility] Comment on above: Performed By: #### B MPF, FT4, TSH #### [facility] [address] [place] [address] Fiber Analyst: Titus Pagan MD Sodium [Moles/Vol] 137 mmol/L Normal 135-144 [facility] Comment on above: Performed By: #### B MPF, FT4, TSH #### [facility] [address] [place] [address] Fiber Analyst: Titus Pagan MD Urea nitrogen [Mass/Vol] 13 mg/dL Normal -20 [facility] Comment on above: Performed By: #### B MPF, FT4, TSH #### [facility] [address] [place] [address] Fiber Analyst: Titus Pagan MD BUN/CRE Ratio NOT REPORTED Normal -20 [facility] Comment on above: Performed By: #### B MPF, FT4, TSH #### [facility] [address] [place] [address] Fiber Analyst: Titus Pagan MD Staging: NOT REPORTED Normal [facility] Comment on above: Performed By: #### B MPF, FT4, TSH #### [facility] [address] [place] [address] Fiber Analyst: Titus Pagan MD Thyroid Stim. Horm.on 2020 TSH Qn 13.08 m[IU]/L High 0.30-5.00 [facility] Comment on above: Performed By: #### B MPF, FT4, TSH #### [facility] [address] [place], [place] [id number] Fiber Analyst: Titus Pagan MD Thyroxine, Freeon 03-15-2021 Thyroxine, Free 0.90 ng/dL Low 0.93-1.70 [facility] Comment on above: Performed By: #### B MPF, FT4, TSH #### [facility] [address] [place] [address] Fiber Analyst: Titus Pagan MD Encounters Encounter Date Encounter Type Care Provider Facility Start: 03-18-2024 End: 03-18-2024 ambulatory REED AICHHOLZ Not Available Start: 12-31-2023 End: 12-31-2023 ambulatory REED AICHHOLZ Not Available Start: 02-19-2023 End: 02-20-2023 ambulatory HOME APPLIANCE TECHNICIAN REED AICHHOLZ Facility:[facility] Start: 12-11-2022 End: 12-12-2022 ambulatory HOME APPLIANCE TECHNICIAN REED AICHHOLZ Facility:[facility] Start: 11-28-2022 End: 11-29-2022 ambulatory HOME APPLIANCE TECHNICIAN REED AICHHOLZ Facility:[facility] Start: 03-15-2021 End: 03-16-2021 ambulatory NITA BARROS [facility] Payers Date Payer Category Payer Medicaid [id number] 2019 Unknown [id number] 1989 Unknown [id number] 2.16.8 [id number] 1989 Unknown [id number] 2.16.84 [id number] 1989 Unknown [id number] 2.16.84 [id number] 1989 Unknown [id number] 2.16.84 [id number] 1989 Unknown [id number] 2.16.84 [id number] 1989 Unknown [id number] 2.16.84 [id number] 1959 Unknown [id number] Summary Purpose Family History No Family History Records FoundNo Family History Records FoundNo Family History Records FoundNo Family History Records Found Advance Directives No Advanced Directives Records FoundNo Advanced Directives Records FoundNo Advanced Directives Records FoundNo Advanced Directives Records Found Additional Source Comments INFORMATION SOURCE (unrecogn ized section and content) DATE CREATED AUTHOR 03/17/2021 [facility] DATE CREATED AUTHOR AUTHOR'S ORGANIZ ATION 08/23/2021 [facility] DATE CREATED AUTHOR AUTHOR'S ORGANIZ ATION 02/23/2023 [facility] DATE CREATED AUTHOR AUTHOR'S ORGANIZ ATION 03/21/2024 [facility] FOR RECORDS PERTAINING TO PATIENTS WHO ARE [...] BE BASED ON THE PRIMARY CLINICAL RECORDS. [employer] provides no warranty or guarantee of the accuracy or completeness of information in this document.
== END 2024-04-21 16:16 | disposition home or self-care (01) ==
LOC: LAB 16:17
PROVIDERS: PCP Nurse Practitioner; Visit Provider Obstetrics & Gynecology
DX: Z34.92 Encounter for supervision of normal pregnancy, unspecified, second trimester (principal); E03.9 Hypothyroidism, unspecified
CPT/HCPCS: 36415; 84443

== ENCOUNTER 2024-05-19 11:52 | Outpatient (OUT) | payer MEDICAID, SELFPAY ==
--- OUTSIDE RECORDS SUMMARY | 2024-05-19 12:12 | XMS_ITS | CCD ---
Author Organization [facility] Inform ion Partnership [facility] Care Team Providers Care Crew Leader Gluing Name Role Phone NITA BARROS Referring Unavailable NITA BARROS Primary Care Unavailable AICHHOLZ, HIGH SCHOOL ASSISTANT FOOTBALL COACH REED Primary Care Unavailable AICHHOLZ, HIGH SCHOOL ASSISTANT FOOTBALL COACH REED Consulting Unavailable AICHHOLZ, HIGH SCHOOL ASSISTANT FOOTBALL COACH REED Attending Unavailable AICHHOLZ, HIGH SCHOOL ASSISTANT FOOTBALL COACH REED Admitting Unavailable AICHHOLZ, HIGH SCHOOL ASSISTANT FOOTBALL COACH REED Primary Care Unavailable AICHHOLZ, HIGH SCHOOL ASSISTANT FOOTBALL COACH REED Consulting Unavailable AICHHOLZ, HIGH SCHOOL ASSISTANT FOOTBALL COACH REED Attending Unavailable AICHHOLZ, HIGH SCHOOL ASSISTANT FOOTBALL COACH REED Admitting Unavailable MAGALI MCKNIGHT Consulting Unavailable AICHHOLZ, HIGH SCHOOL ASSISTANT FOOTBALL COACH REED Primary Care Unavailable AICHHOLZ, HIGH SCHOOL ASSISTANT FOOTBALL COACH REED Consulting Unavailable AICHHOLZ, HIGH SCHOOL ASSISTANT FOOTBALL COACH REED Attending Unavailable AICHHOLZ, HIGH SCHOOL ASSISTANT FOOTBALL COACH REED Admitting Unavailable AICHHOLZ, REED Attending Unavailable MARITZA BISWAS Attending Unavailable Problems Problem Classification Problem Date [...] T4 [Mass/Vol] 1.39 ng/dL Normal 0.76-1.46 [facility] Comment on above: Performed By: #### F T4 #### [facility] [address] [address] [address] Alfredito Rendon TSHon 02-19-2023 TSH 0.012 uIU/mL Critically low 0.358-3.740 [facility] Comment on above: Performed By: #### T SH #### [facility] [address] [address] [address] Alfredito Rendon US THYROIDon 12-11-2022 US [...] by: MAGALI MCKNIGHT Date: 2022-12-11 15:05 Normal [facility] THYROID ANTIBODIESon 023 Thyroglobulin Antibody 21.5 IU/mL Critically high 0.0-0.9 [facility] Comment on above: Result Comment: Thyr oglobulin Antibody measured by High[employer] Performed By: #### T HYRABS #### [facility] [address] [place] [address] Dr. Alfredito Rendon Thyroid Peroxidase (TPO) Ab 73 IU/mL Critically high 0-34 [facility] Comment on above: Performed By: #### T HYRABS #### [facility] [address] [place] [address] Dr. Alfredito Rendon CBC AUTO DIFFon 11-28-2022 BASO # 0.0 103/ul Normal 0.0-0.1 [facility] Comment on above: Performed By: #### C BC #### [facility] [address] [place] [address] Dr. Alfredito Rendon Basophils/100 WBC (Bld) 0.3 % Normal 0.2-2.0 [facility] Comment on above: Performed By: #### C BC #### [facility] [address] [place] [address] Dr. Alfredito Rendon EO # 0.2 103/ul Normal 0.0-0.7 [facility] Comment on above: Performed By: #### C BC #### [facility] [address] [place] [address] Dr. Alfredito Rendon Eosinophils/100 WBC (Bld) 2.3 % Normal 0.9-7.0 [facility] Comment on above: Performed By: #### C BC #### [facility] [address] [place] [address] Dr. Alfredito Rendon Erythrocyte distribution width (RBC) [Ratio] 13.0 % Normal 11.0-15.0 [facility] Comment on above: Performed By: #### C BC #### [facility] [address] [place] [address] Dr. Alfredito Rendon Hematocrit (Bld) [Volume fraction] 41.2 % Normal 36.0-48.0 [facility] Comment on above: Performed By: #### C BC #### [facility] [address] [place] [address] Dr. Alfredito Rendon Hemoglobin (Bld) [Mass/Vol] 12.5 g/dL Normal 12.0-16.0 [facility] Comment on above: Performed By: #### C BC #### [facility] [address] [place] [address] Dr. Alfredito Rendon IG # 0.02 10e3/ul Normal 0.00-0.03 [facility] Comment on above: Performed By: #### C BC #### [facility] [address] [place] [address] Dr. Alfredito Rendon IG % 0.2 % Normal 0.0-0.5 [facility] Comment on above: Performed By: #### C BC #### [facility] [address] [place] [address] Dr. Alfredito Rendon LYMPH # 2.7 103/ul Normal 1.2-3.8 [facility] Comment on above: Performed By: #### C BC #### [facility] [address] [place] [address] Dr. Alfredito Rendon Lymphocytes/100 WBC (Bld) 25.3 % Normal 20.5-60.0 [facility] Comment on above: Performed By: #### C BC #### [facility] [address] [place] [address] Dr. Alfredito Rendon MANUAL DIFF REQ NO Normal [facility] Comment on above: Performed By: #### C BC #### [facility] [address] [place] [address] Dr. Alfredito Rendon MCH (RBC) [Entitic mass] 29.6 pg Normal 26.7-34.0 [facility] Comment on above: Performed By: #### C BC #### [facility] [address] [place] [address] Dr. Alfredito Rendon MCHC (RBC) [Mass/Vol] 30.3 g/dL Normal 29.9-35.2 [facility] Comment on above: Performed By: #### C BC #### [facility] [address] [place] [address] Dr. Alfredito Rendon MCV (RBC) [Entitic vol] 97.6 fL Normal 81.0-99.0 [facility] Comment on above: Performed By: #### C BC #### [facility] [address] [place] [address] Dr. Alfredito Rendon MONO # 0.7 103/ul Normal 0.3-0.8 [facility] Comment on above: Performed By: #### C BC #### [facility] [address] [place] [address] Dr. Alfredito Rendon Monocytes/100 WBC (Bld) 6.4 % Normal 1.7-12.0 [facility] Comment on above: Performed By: #### C BC #### [facility] [address] [place] [address] Dr. Alfrdeito Rendon NEUT # 6.9 103/ul Critically high 1.4-6.5 [facility] Comment on above: Performed By: #### C BC #### [facility] [address] [address] [address] Alfredito Rendon Neutrophils/100 WBC (Bld) 65.5 % Normal 43.0-75.0 [facility] Comment on above: Performed By: #### C BC #### [facility] [address] [place] [address] Dr. Alfredito Rendon Platelet mean volume (Bld) [Entitic vol] 10.1 fL Normal 9.5-13.5 [facility] Comment on above: Performed By: #### C BC #### [facility] [address] [place] [address] Dr. Alfredito Rendon PLT 253 103/ul Normal 150-450 [facility] Comment on above: Performed By: #### C BC #### [facility] [address] [place] [address] Dr. Alfredito Rendon RBC 4.22 106/ul Normal 4.20-5.40 [facility] Comment on above: Performed By: #### C BC #### [facility] [address] [place] [address] Dr. Alfredito Rendon WBC 10.6 103/ul Normal 4.0-11.0 [facility] Comment on above: Performed By: #### C BC #### [facility] [address] [place] [address] Dr. Alfredito Rendon FREE T3on 11-28-2022 FREE T3 2.65 pg/mlL Normal 2.18-3.98 [facility] Comment on above: Performed By: #### T SH, FT3, LIPID, CMP #### [facility] [address] [place] [address] Dr. Alfredito Rendon FREE T4on 11-28-2022 Free T4 [Mass/Vol] 0.86 ng/dL Normal 0.76-1.46 [facility] Comment on above: Performed By: #### F T4 #### [facility] [address] [place] [address] Dr. Alfredito Rendon LIPID PROFILEon 11-28-2022 CHOL-HDL RATIO NORM SEE BELOW Normal [facility] Comment on above: Result Comment: 3.3 - 4.4 LOW RISK 4.4 - 7.1 AVERAGE RISK 7.1 - 11.0 MODERATE RISK >11.0 HIGH RISK Performed By: #### T SH, FT3, LIPID, CMP #### [facility] [address] [place] [address] Dr. Alfredito Rendon Cholesterol [Mass/Vol] 172 mg/dL Normal <=200 [facility] Comment on above: Performed By: #### T SH, FT3, LIPID, CMP #### [facility] [address] [place] [address] Dr. Alfredito Rendon Cholesterol in HDL [Mass/Vol] 49 mg/dL Normal 40-60 [facility] Comment on above: Performed By: #### T SH, FT3, LIPID, CMP #### [facility] [address] [place] [address] Dr. Alfredito Rendon Cholesterol in LDL [Mass/Vol] 96.2 mg/dL Normal [facility] Comment on above: Performed By: #### T SH, FT3, LIPID, CMP #### [facility] [address] [place] [address] Dr. Alfredito Rendon Cholesterol.total/Ch olesterol in HDL [Mass ratio] 3.5 {ratio} Normal [facility] Comment on above: Performed By: #### T SH, FT3, LIPID, CMP #### [facility] [address] [place] [address] Dr. Alfredito Rendon HDL NORMAL > or = 60 mg/dl - LOW CARDIOVASCULAR RISK <40 mg/dl - HIGH CARDIOVASCULAR RISK Normal [facility] Comment on above: Performed By: #### T SH, FT3, LIPID, CMP #### [facility] [address] [place] [address] Dr. Alfredito Rendon LDL CALC NORMAL SEE BELOW Normal [facility] Comment on above: Result Comment: <100 mg/dl OPTIMAL 100 - 129 mg/dl NEAR OR ABOVE OPTIMAL 130 - 159 mg/dl BORDERLINE HIGH 160 - 189 mg/dl HIGH >190 mg/dl VERY HIGH Performed By: #### T SH, FT3, LIPID, CMP #### [facility] [address] [address] [address] Alfredito Rendon Triglyceride [Mass/Vol] 134 mg/dL Normal <=150 [facility] Comment on above: Performed By: #### T SH, FT3, LIPID, CMP #### [facility] [address] [address] [address] Alfredito Rendon VLDL CALC 26.8 mg/dL Normal [facility] Comment on above: Performed By: #### T SH, FT3, LIPID, CMP #### [facility] [address] [place] [address] Dr. Alfredito Rendon PROF 14(COMP METB)on 023 Albumin [Mass/Vol] 3.3 g/dL Critically low 3.4-5.0 [facility] Comment on above: Performed By: #### T SH, FT3, LIPID, CMP #### [facility] [address] [address] [address] Alfredito Rendon Albumin/Globulin [Mass ratio] 0.9 {ratio} Normal [facility] Comment on above: Performed By: #### T SH, FT3, LIPID, CMP #### [facility] [address] [address] [address] Alfredito Rendon ALP [Catalytic activity/Vol] 63 U/L Normal 46-116 [facility] Comment on above: Performed By: #### T SH, FT3, LIPID, CMP #### [facility] [address] [address] [address] Alfredito Rendon ALT [Catalytic activity/Vol] 27 U/L Normal 14-59 [facility] Comment on above: Performed By: #### T SH, FT3, LIPID, CMP #### [facility] [address] [address] [address] Alfredito Rendon Anion gap [Moles/Vol] 14.1 mmol/L Normal [facility] Comment on above: Performed By: #### T SH, FT3, LIPID, CMP #### [facility] [address] [place] [address] Dr. Alfredito Rendon AST [Catalytic activity/Vol] 20 U/L Normal 15-37 [facility] Comment on above: Performed By: #### T SH, FT3, LIPID, CMP #### [facility] [address] [place] [address] Dr. Alfredito Rendon Bilirubin [Mass/Vol] 0.3 mg/dL Normal 0.2-1.0 [facility] Comment on above: Performed By: #### T SH, FT3, LIPID, CMP #### [facility] [address] [place] [address] Dr. Alfredito Rendon Calcium [Mass/Vol] 9.2 mg/dL Normal 8.5-10.1 [facility] Comment on above: Performed By: #### T SH, FT3, LIPID, CMP #### [facility] [address] [place] [address] Dr. Alfredito Rendon Chloride [Moles/Vol] 103 mmol/L Normal 98-107 [facility] Comment on above: Performed By: #### T SH, FT3, LIPID, CMP #### [facility] [address] [place] [address] Dr. Alfredito Rendon CO2 [Moles/Vol] 24.1 mmol/L Normal 21.0-32.0 [facility] Comment on above: Performed By: #### T SH, FT3, LIPID, CMP #### [facility] [address] [place] [address] Dr. Alfredito Rendon Creatinine [Mass/Vol] 0.71 mg/dL Normal 0.55-1.02 [facility] Comment on above: Performed By: #### T SH, FT3, LIPID, CMP #### [facility] [address] [place] [address] Dr. Alfredito Rendon EGFR-AF SYRIAN >60 Normal >=60 [facility] Comment on above: Performed By: #### T SH, FT3, LIPID, CMP #### [facility] [address] [address] [address] Alfredito Rendon EGFR-NON AF SYRIAN >60 Normal >=60 [facility] Comment on above: Performed By: #### T SH, FT3, LIPID, CMP #### [facility] [address] [place] [address] Dr. Alfredito Rendon Globulin (S) [Mass/Vol] 3.8 g/dL Normal [facility] Comment on above: Performed By: #### T SH, FT3, LIPID, CMP #### [facility] [address] [place] [address] Dr. Alfredito Rendon Glucose [Mass/Vol] 106 mg/dL Normal 74-106 [facility] Comment on above: Performed By: #### T SH, FT3, LIPID, CMP #### [facility] [address] [place] [address] Dr. Alfredito Rendon Potassium [Moles/Vol] 4.2 mmol/L Normal 3.5-5.1 [facility] Comment on above: Performed By: #### T SH, FT3, LIPID, CMP #### [facility] [address] [place] [address] Dr. Alfredito Rendon Protein [Mass/Vol] 7.1 g/dL Normal 6.4-8.2 [facility] Comment on above: Performed By: #### T SH, FT3, LIPID, CMP #### [facility] [address] [place] [address] Dr. Alfredito Rendon Sodium [Moles/Vol] 137 mmol/L Normal 136-145 [facility] Comment on above: Performed By: #### T SH, FT3, LIPID, CMP #### [facility] [address] [place] [address] Dr. Alfredito Rendon Urea nitrogen [Mass/Vol] 14.0 mg/dL Normal 7.0-18.0 [facility] Comment on above: Performed By: #### T SH, FT3, LIPID, CMP #### [facility] [address] [address] [address] Alfredito Rendon Urea nitrogen/Creatinine [Mass ratio] 19.7 mg/mg Normal [facility] Comment on above: Performed By: #### T SH, FT3, LIPID, CMP #### [facility] [address] [address] [address] Alfredito Rendon TSHon 11-28-2022 TSH 5.010 uIU/mL Critically high 0.358-3.740 [facility] Comment on above: Performed By: #### T SH, FT3, LIPID, CMP #### [facility] [address] [address] [address] Alfredito Rendon Thyroid Stim. Horm.on 2020 TSH Qn 10.79 m[IU]/L High 0.30-5.00 [facility] Comment on above: Performed By: #### T SH, FT4 #### [facility] [place], [place] [id number] [employer] Equipment Mechanic: Titus Pagan MD Thyroxine, Freeon 08-22-2021 Thyroxine, Free 0.89 ng/dL Low 0.93-1.70 [facility] Comment on above: Performed By: #### T SH, FT4 #### [facility] [address] [place], [place] [id number] [employer] Equipment Mechanic: Titus Pagan MD Basic Metab, Fastingon 03-15 (cont.) Normal [facility] Comment on above: Result Comment: Aver age GFR for 30-39 years old: 107 mL/min/1.73sq m Chronic Kidney Disease: <60 mL/min/1.73sq m Kidney failure: <15 mL/min/1.73sq m eGFR calculated using average adult body mass. Additional eGFR calculator available at: http://www.Meilapp.com.NUMBER26/multiple_crcl_2012.htm Performed By: #### B MPF, FT4, TSH #### [facility] [facility] [place], [place] [id number] [employer] Equipment Mechanic: Titus Pagan MD Anion gap [Moles/Vol] 10 mmol/L Normal 9-17 [facility] Comment on above: Performed By: #### B MPF, FT4, TSH #### [facility] [employer] [address] [place] [phone] [employer] Equipment Mechanic: Titus Pagan MD Calcium [Mass/Vol] 9.4 mg/dL Normal 8.6-10.4 [facility] Comment on above: Performed By: #### B MPF, FT4, TSH #### [facility] [employer] [address] [place] [phone] [employer] Equipment Mechanic: Titus Pagan MD Chloride [Moles/Vol] 102 mmol/L Normal 98-107 [facility] Comment on above: Performed By: #### B MPF, FT4, TSH #### [facility] [employer] [address] [place] [phone] [employer] Equipment Mechanic: Titus Pagan MD CO2 [Moles/Vol] 25 mmol/L Normal 20-31 [facility] Comment on above: Performed By: #### B MPF, FT4, TSH #### [facility] [employer] [address] [place] [phone] [employer] Equipment Mechanic: Titus Pagan MD Creatinine [Mass/Vol] 0.62 mg/dL Normal 0.50-0.90 [facility] Comment on above: Performed By: #### B MPF, FT4, TSH #### [facility] [address] [place] [phone] [employer] Equipment Mechanic: Ttius Pagan MD GFR, Amer >60 Normal >60 [facility] Comment on above: Performed By: #### B MPF, FT4, TSH #### [facility] [address] [place] [phone] [employer] Equipment Mechanic: Titus Pagan MD GFR,non Amer >60 Normal >60 [facility] Comment on above: Performed By: #### B MPF, FT4, TSH #### [facility] [address] [place] [id number] [employer] Equipment Mechanic: Titus Pagan MD Glucose [Mass/Vol] 93 mg/dL Normal 70-99 [facility] Comment on above: Performed By: #### B MPF, FT4, TSH #### [facility] [address] [place] [address] [employer] Equipment Mechanic: Titus Pagan MD Potassium [Moles/Vol] 4.6 mmol/L Normal 3.7-5.3 [facility] Comment on above: Performed By: #### B MPF, FT4, TSH #### [facility] [address] [place] [phone] [employer] Equipment Mechanic: Titus Pagan MD Sodium [Moles/Vol] 137 mmol/L Normal 135-144 [facility] Comment on above: Performed By: #### B MPF, FT4, TSH #### [facility] [address] [place] [phone] [employer] Equipment Mechanic: Titus Pagan MD Urea nitrogen [Mass/Vol] 13 mg/dL Normal -20 [facility] Comment on above: Performed By: #### B MPF, FT4, TSH #### [facility] [address] [place] [address] [employer] Equipment Mechanic: Titus Pagan MD BUN/CRE Ratio NOT REPORTED Normal -20 [facility] Comment on above: Performed By: #### B MPF, FT4, TSH #### [facility] [address] [place] [id number] [employer] Equipment Mechanic: Titus Pagan MD Staging: NOT REPORTED Normal [facility] Comment on above: Performed By: #### B MPF, FT4, TSH #### [facility] [address] [place] [phone] [employer] Equipment Mechanic: Titus Pagan MD Thyroid Stim. Horm.on 2020 TSH Qn 13.08 m[IU]/L High 0.30-5.00 [facility] Comment on above: Performed By: #### B MPF, FT4, TSH #### [facility] [address] [place], [place] [id number] [employer] Ray Equipment Mechanic: Titus Pagan MD Thyroxine, Freeon 03-15-2021 Thyroxine, Free 0.90 ng/dL Low 0.93-1.70 [facility] Comment on above: Performed By: #### B MPF, FT4, TSH #### [facility] [address] [place], [place] [phone] [employer] Ray Equipment Mechanic: Titus Pagan MD Encounters Encounter Date Encounter Type Care Provider Facility Start: 04-21-2024 End: 04-21-2024 ambulatory MARITZA WEINERO Not Available Start: 03-18-2024 End: 03-18-2024 ambulatory REED AICHHOLZ Not Available Start: 12-31-2023 End: 12-31-2023 ambulatory REED AICHHOLZ Not Available Start: 02-19-2023 End: 02-20-2023 ambulatory [employer]OTBALL COACH REED AICHHOLZ Facility:[facility] Start: 12-11-2022 End: 12-12-2022 ambulatory H[employer]OL ASSISTANT FOOTBALL COACH REED AICHHOLZ Facility:[facility] Start: 11-28-2022 End: 11-29-2022 ambulatory H[employer]OL ASSISTANT FOOTBALL COACH REED AICHHOLZ Facility:[facility] Start: 03-15-2021 End: 03-16-2021 ambulatory NITA BARROS [facility] Payers Date Payer Category Payer Medicaid [id number] 2019 Unknown [id number] 1989 Unknown [id number] 2.16.8 [id number] 1989 Unknown [id number] 2.16.84 [id number] 1989 Unknown [id number] 2.16.84 [id number] 1989 Unknown [id number] 2.16.84 [id number] 1989 Unknown [id number] 2.16.84 [id number] 1989 Unknown [id number] 2.16.84 [id number] 1989 Unknown [id number] 2.16.84 [id number] 1959 Unknown [id number] Summary Purpose Family History No Family History Records FoundNo Family History Records FoundNo Family History Records FoundNo Family History Records Found Advance Directives No Advanced Directives Records FoundNo Advanced Directives Records FoundNo Advanced Directives Records FoundNo Advanced Directives Records Found Additional Source Comments INFORMATION SOURCE (unrecogn ized section and content) DATE CREATED AUTHOR 03/17/2021 [facility] DATE CREATED AUTHOR AUTHOR'S ORGANIZ ATION 08/23/2021 [facility] DATE CREATED AUTHOR AUTHOR'S ORGANIZ ATION 02/23/2023 [facility] DATE CREATED AUTHOR AUTHOR'S ORGANIZ ATION 04/23/2024 [facility] FOR RECORDS PERTAINING TO PATIENTS WHO ARE [...] BE BASED ON THE PRIMARY CLINICAL RECORDS. [facility] [employer] provides no warranty or guarantee of the accuracy or completeness of information in this document.
[2024-05-21 13:09] LABS: AFP Value 33.1 ng/mL (.); Gest. Age on Collection Date 17.1 weeks (.); Gestat. Age Based On Ultrasound (.); Insulin Dep Diabetes No (.); Maternal Age At EDD 35.1 yr (.); OSBR Risk 1 IN 10000 (.); Results Report (.)
== END 2024-05-19 11:53 | disposition home or self-care (01) ==
LOC: LAB 11:53
PROVIDERS: PCP Nurse Practitioner; Visit Provider Obstetrics & Gynecology
DX: Z34.92 Encounter for supervision of normal pregnancy, unspecified, second trimester (principal); Z3A.17 17 weeks gestation of pregnancy
CPT/HCPCS: 36415; 82105

== ENCOUNTER 2024-05-19 20:52 | Outpatient (REF) | payer MEDICAID, SELFPAY ==
--- OUTSIDE RECORDS SUMMARY | 2024-05-19 20:56 | XMS_ITS | CCD ---
Author Organization [facility] Inform ion Partnership [facility] Care Team Providers Care Tax Assessor Name Role Phone NITA BARROS Referring Unavailable NITA BARROS Primary Care Unavailable AICHHOLZ, CLINICAL SAFETY SPECIALIST REED Primary Care Unavailable AICHHOLZ, CLINICAL SAFETY SPECIALIST REED Consulting Unavailable AICHHOLZ, CLINICAL SAFETY SPECIALIST REED Attending Unavailable AICHHOLZ, CLINICAL SAFETY SPECIALIST REED Admitting Unavailable AICHHOLZ, CLINICAL SAFETY SPECIALIST REED Primary Care Unavailable AICHHOLZ, CLINICAL SAFETY SPECIALIST REED Consulting Unavailable AICHHOLZ, CLINICAL SAFETY SPECIALIST REED Attending Unavailable AICHHOLZ, CLINICAL SAFETY SPECIALIST REED Admitting Unavailable MAGALI MCKNIGHT Consulting Unavailable AICHHOLZ, CLINICAL SAFETY SPECIALIST REED Primary Care Unavailable AICHHOLZ, CLINICAL SAFETY SPECIALIST REED Consulting Unavailable AICHHOLZ, CLINICAL SAFETY SPECIALIST REED Attending Unavailable AICHHOLZ, CLINICAL SAFETY SPECIALIST REED Admitting Unavailable AICHHOLZ, REED Attending [...] T4 [Mass/Vol] 1.39 ng/dL Normal 0.76-1.46 [facility] Comment on above: Performed By: #### F T4 #### [facility] [address] [address] [address] Alfredito Rendon TSHon 02-19-2023 TSH 0.012 uIU/mL Critically low 0.358-3.740 [facility] Comment on above: Performed By: #### T SH #### [facility] [address] [address] [address] Alfredito Rendon US THYROIDon 12-11-2022 US [...] by: MAGALI MCKNIGHT Date: 2022-12-11 15:05 Normal [facility] THYROID ANTIBODIESon 023 Thyroglobulin Antibody 21.5 IU/mL Critically high 0.0-0.9 [facility] Comment on above: Result Comment: Thyr oglobulin Antibody measured by [employer] Methodology Performed By: #### T HYRABS #### [facility] [address] [place] [address] Dr. Alfredito Rendon Thyroid Peroxidase (TPO) Ab 73 IU/mL Critically high 0-34 [facility] Comment on above: Performed By: #### T HYRABS #### [facility] [address] [place] [address] Dr. Alfredito Rendon CBC AUTO DIFFon 11-28-2022 BASO # 0.0 103/ul Normal 0.0-0.1 [facility] Comment on above: Performed By: #### C BC #### [facility] [address] [place] [address] Dr. Alfredito Rendon Basophils/100 WBC (Bld) 0.3 % Normal 0.2-2.0 [facility] Comment on above: Performed By: #### C BC #### [facility] [address] [place] [address] Dr. Alfredito Rendon EO # 0.2 103/ul Normal 0.0-0.7 [facility] Comment on above: Performed By: #### C BC #### [facility] [address] [place] [address] Dr. Alfredito Rendon Eosinophils/100 WBC (Bld) 2.3 % Normal 0.9-7.0 [facility] Comment on above: Performed By: #### C BC #### [facility] [address] [place] [address] Dr. Alfredito Rendon Erythrocyte distribution width (RBC) [Ratio] 13.0 % Normal 11.0-15.0 [facility] Comment on above: Performed By: #### C BC #### [facility] [address] [place] [address] Dr. Alfredito Rendon Hematocrit (Bld) [Volume fraction] 41.2 % Normal 36.0-48.0 [facility] Comment on above: Performed By: #### C BC #### [facility] [address] [place] [address] Dr. Alfredito Rendon Hemoglobin (Bld) [Mass/Vol] 12.5 g/dL Normal 12.0-16.0 [facility] Comment on above: Performed By: #### C BC #### [facility] [address] [place] [address] Dr. Alfredito Rendon IG # 0.02 10e3/ul Normal 0.00-0.03 [facility] Comment on above: Performed By: #### C BC #### [facility] [address] [place] [address] Dr. Alfredito Rendon IG % 0.2 % Normal 0.0-0.5 [facility] Comment on above: Performed By: #### C BC #### [facility] [address] [place] [address] Dr. Alfredito Rendon LYMPH # 2.7 103/ul Normal 1.2-3.8 [facility] Comment on above: Performed By: #### C BC #### [facility] [address] [place] [address] Dr. Alfredito Rendon Lymphocytes/100 WBC (Bld) 25.3 % Normal 20.5-60.0 [facility] Comment on above: Performed By: #### C BC #### [facility] [address] [place] [address] Dr. Alfredito Rendon MANUAL DIFF REQ NO Normal [facility] Comment on above: Performed By: #### C BC #### [facility] [address] [place] [address] Dr. Alfredito Rendon MCH (RBC) [Entitic mass] 29.6 pg Normal 26.7-34.0 [facility] Comment on above: Performed By: #### C BC #### [facility] [address] [place] [address] Dr. Alfredito Rendon MCHC (RBC) [Mass/Vol] 30.3 g/dL Normal 29.9-35.2 [facility] Comment on above: Performed By: #### C BC #### [facility] [address] [place] [address] Dr. Alfredito Rendon MCV (RBC) [Entitic vol] 97.6 fL Normal 81.0-99.0 [facility] Comment on above: Performed By: #### C BC #### [facility] [address] [place] [address] Dr. Alfredito Rendon MONO # 0.7 103/ul Normal 0.3-0.8 [facility] Comment on above: Performed By: #### C BC #### [facility] [address] [place] [address] Dr. Alfredito Rendon Monocytes/100 WBC (Bld) 6.4 % Normal 1.7-12.0 [facility] Comment on above: Performed By: #### C BC #### [facility] [address] [place] [address] Dr. Alfredito Rendon NEUT # 6.9 103/ul Critically high 1.4-6.5 [facility] Comment on above: Performed By: #### C BC #### [facility] [address] [address] [address] Alfredito Rendon Neutrophils/100 WBC (Bld) 65.5 % Normal 43.0-75.0 [facility] Comment on above: Performed By: #### C BC #### [facility] [address] [place] [address] Dr. Alfredito Rendon Platelet mean volume (Bld) [Entitic vol] 10.1 fL Normal 9.5-13.5 [facility] Comment on above: Performed By: #### C BC #### [facility] [address] [place] [address] Dr. Alfredito Rendon PLT 253 103/ul Normal 150-450 [facility] Comment on above: Performed By: #### C BC #### [facility] [address] [place] [address] Dr. Alfredito Rendon RBC 4.22 106/ul Normal 4.20-5.40 [facility] Comment on above: Performed By: #### C BC #### [facility] [address] [place] [address] Dr. Alfredito Rendon WBC 10.6 103/ul Normal 4.0-11.0 [facility] Comment on above: Performed By: #### C BC #### [facility] [address] [place] [address] Dr. Alfredito Rendon FREE T3on 11-28-2022 FREE T3 2.65 pg/mlL Normal 2.18-3.98 [facility] Comment on above: Performed By: #### T SH, FT3, LIPID, CMP #### [facility] [address] [place] [address] Dr. Alfredito Rendon FREE T4on 11-28-2022 Free T4 [Mass/Vol] 0.86 ng/dL Normal 0.76-1.46 [facility] Comment on above: Performed By: #### F T4 #### [facility] [address] [place] [address] Dr. Alfredito Rendon LIPID PROFILEon 11-28-2022 CHOL-HDL RATIO NORM SEE BELOW Normal [facility] Comment on above: Result Comment: 3.3 - 4.4 LOW RISK 4.4 - 7.1 AVERAGE RISK 7.1 - 11.0 MODERATE RISK >11.0 HIGH RISK Performed By: #### T SH, FT3, LIPID, CMP #### [facility] [address] [place] [address] Dr. Alfredito Rendon Cholesterol [Mass/Vol] 172 mg/dL Normal <=200 [facility] Comment on above: Performed By: #### T SH, FT3, LIPID, CMP #### [facility] [address] [place] [address] Dr. Alfredito Rendon Cholesterol in HDL [Mass/Vol] 49 mg/dL Normal 40-60 [facility] Comment on above: Performed By: #### T SH, FT3, LIPID, CMP #### [facility] [address] [place] [address] Dr. Alfredito Rendon Cholesterol in LDL [Mass/Vol] 96.2 mg/dL Normal [facility] Comment on above: Performed By: #### T SH, FT3, LIPID, CMP #### [facility] [address] [place] [address] Dr. Alfredito Rendon Cholesterol.total/Ch olesterol in HDL [Mass ratio] 3.5 {ratio} Normal [facility] Comment on above: Performed By: #### T SH, FT3, LIPID, CMP #### [facility] [address] [place] [address] Dr. Alfredito Rendon HDL NORMAL > or = 60 mg/dl - LOW CARDIOVASCULAR RISK <40 mg/dl - HIGH CARDIOVASCULAR RISK Normal [facility] Comment on above: Performed By: #### T SH, FT3, LIPID, CMP #### [facility] [address] [place] [address] Dr. Alfredito Rendon LDL CALC NORMAL SEE BELOW Normal [facility] Comment on above: Result Comment: <100 mg/dl OPTIMAL 100 - 129 mg/dl NEAR OR ABOVE OPTIMAL 130 - 159 mg/dl BORDERLINE HIGH 160 - 189 mg/dl HIGH >190 mg/dl VERY HIGH Performed By: #### T SH, FT3, LIPID, CMP #### [facility] [address] [address] [address] Alfredito Rendon Triglyceride [Mass/Vol] 134 mg/dL Normal <=150 [facility] Comment on above: Performed By: #### T SH, FT3, LIPID, CMP #### [facility] [address] [address] [address] Alfredito Rendon VLDL CALC 26.8 mg/dL Normal [facility] Comment on above: Performed By: #### T SH, FT3, LIPID, CMP #### [facility] [address] [place] [address] Dr. Alfredito Rendon PROF 14(COMP METB)on 023 Albumin [Mass/Vol] 3.3 g/dL Critically low 3.4-5.0 [facility] Comment on above: Performed By: #### T SH, FT3, LIPID, CMP #### [facility] [address] [address] [address] Alfredito Rendon Albumin/Globulin [Mass ratio] 0.9 {ratio} Normal [facility] Comment on above: Performed By: #### T SH, FT3, LIPID, CMP #### [facility] [address] [address] [address] Alfredito Rendon ALP [Catalytic activity/Vol] 63 U/L Normal 46-116 [facility] Comment on above: Performed By: #### T SH, FT3, LIPID, CMP #### [facility] [address] [address] [address] Alfredito Rendon ALT [Catalytic activity/Vol] 27 U/L Normal 14-59 [facility] Comment on above: Performed By: #### T SH, FT3, LIPID, CMP #### [facility] [address] [address] [address] Alfredito Rendon Anion gap [Moles/Vol] 14.1 mmol/L Normal [facility] Comment on above: Performed By: #### T SH, FT3, LIPID, CMP #### [facility] [address] [place] [address] Dr. Alfredito Rendon AST [Catalytic activity/Vol] 20 U/L Normal 15-37 [facility] Comment on above: Performed By: #### T SH, FT3, LIPID, CMP #### [facility] [address] [place] [address] Dr. Alfredito Rendon Bilirubin [Mass/Vol] 0.3 mg/dL Normal 0.2-1.0 [facility] Comment on above: Performed By: #### T SH, FT3, LIPID, CMP #### [facility] [address] [place] [address] Dr. Alfredito Rendon Calcium [Mass/Vol] 9.2 mg/dL Normal 8.5-10.1 [facility] Comment on above: Performed By: #### T SH, FT3, LIPID, CMP #### [facility] [address] [place] [address] Dr. Alfredito Rendon Chloride [Moles/Vol] 103 mmol/L Normal 98-107 [facility] Comment on above: Performed By: #### T SH, FT3, LIPID, CMP #### [facility] [address] [place] [address] Dr. Alfredito Rendon CO2 [Moles/Vol] 24.1 mmol/L Normal 21.0-32.0 [facility] Comment on above: Performed By: #### T SH, FT3, LIPID, CMP #### [facility] [address] [place] [address] Dr. Alfredito Rendon Creatinine [Mass/Vol] 0.71 mg/dL Normal 0.55-1.02 [facility] Comment on above: Performed By: #### T SH, FT3, LIPID, CMP #### [facility] [address] [place] [address] Dr. Alfredito Rendon EGFR-AF SAO TOMEAN >60 Normal >=60 [facility] Comment on above: Performed By: #### T SH, FT3, LIPID, CMP #### [facility] [address] [address] [address] Alfredito Rendon EGFR-NON AF SAO TOMEAN >60 Normal >=60 [facility] Comment on above: Performed By: #### T SH, FT3, LIPID, CMP #### [facility] [address] [place] [address] Dr. Alfredito Rendon Globulin (S) [Mass/Vol] 3.8 g/dL Normal [facility] Comment on above: Performed By: #### T SH, FT3, LIPID, CMP #### [facility] [address] [place] [address] Dr. Alfredito Rendon Glucose [Mass/Vol] 106 mg/dL Normal 74-106 [facility] Comment on above: Performed By: #### T SH, FT3, LIPID, CMP #### [facility] [address] [place] [address] Dr. Alfredito Rendon Potassium [Moles/Vol] 4.2 mmol/L Normal 3.5-5.1 [facility] Comment on above: Performed By: #### T SH, FT3, LIPID, CMP #### [facility] [address] [place] [address] Dr. Alfredito Rendon Protein [Mass/Vol] 7.1 g/dL Normal 6.4-8.2 [facility] Comment on above: Performed By: #### T SH, FT3, LIPID, CMP #### [facility] [address] [place] [address] Dr. Alfredito Rendon Sodium [Moles/Vol] 137 mmol/L Normal 136-145 [facility] Comment on above: Performed By: #### T SH, FT3, LIPID, CMP #### [facility] [address] [place] [address] Dr. Alfredito Rendon Urea nitrogen [Mass/Vol] 14.0 mg/dL Normal 7.0-18.0 [facility] Comment on above: Performed By: #### T SH, FT3, LIPID, CMP #### [facility] [address] [address] [address] Alfredito Rendon Urea nitrogen/Creatinine [Mass ratio] 19.7 mg/mg Normal [facility] Comment on above: Performed By: #### T SH, FT3, LIPID, CMP #### [facility] [address] [address] [address] Alfredito Rendon TSHon 11-28-2022 TSH 5.010 uIU/mL Critically high 0.358-3.740 [facility] Comment on above: Performed By: #### T SH, FT3, LIPID, CMP #### [facility] [address] [address] [address] Alfredito Rendon Thyroid Stim. Horm.on 2020 TSH Qn 10.79 m[IU]/L High 0.30-5.00 [facility] Comment on above: Performed By: #### T SH, FT4 #### [facility] [employer] [facility] [place], [place] [id number] Sheriffs: Titus Pagan MD Thyroxine, Freeon 08-22-2021 Thyroxine, Free 0.89 ng/dL Low 0.93-1.70 [facility] Comment on above: Performed By: #### T SH, FT4 #### [facility] [employer] [address] [place], [place] [id number] Sheriffs: Titus Pagan MD Basic Metab, Fastingon 03-15 (cont.) Normal [facility] Comment on above: Result Comment: Aver age GFR for 30-39 years old: 107 mL/min/1.73sq m Chronic Kidney Disease: <60 mL/min/1.73sq m Kidney failure: <15 mL/min/1.73sq m eGFR calculated using average adult body mass. Additional eGFR calculator available at: http://www.[employer]Turn/multiple_crcl_2012.htm Performed By: #### B MPF, FT4, TSH #### [facility] [employer] [facility] [place], [place] [id number] Sheriffs: Titus Pagan MD Anion gap [Moles/Vol] 10 mmol/L Normal 9-17 [facility] Comment on above: Performed By: #### B MPF, FT4, TSH #### [facility] [employer] [address] [place] [address] Sheriffs: Titus Pgaan MD Calcium [Mass/Vol] 9.4 mg/dL Normal 8.6-10.4 [facility] Comment on above: Performed By: #### B MPF, FT4, TSH #### [facility] [employer] [address] [place] [address] Sheriffs: Titus Pagan MD Chloride [Moles/Vol] 102 mmol/L Normal 98-107 [facility] Comment on above: Performed By: #### B MPF, FT4, TSH #### [facility] [employer] [address] [place] [address] Sheriffs: Titus Pagan MD CO2 [Moles/Vol] 25 mmol/L Normal 20-31 [facility] Comment on above: Performed By: #### B MPF, FT4, TSH #### [facility] [employer] [address] [place] [address] Sheriffs: Titus Pagan MD Creatinine [Mass/Vol] 0.62 mg/dL Normal 0.50-0.90 [facility] Comment on above: Performed By: #### B MPF, FT4, TSH #### [facility] [employer] [address] [place] [phone] Sheriffs: Titus Pagan MD GFR, Amer >60 Normal >60 [facility] Comment on above: Performed By: #### B MPF, FT4, TSH #### [facility] [employer] [address] [place] [phone] Sheriffs: Titus Pagan MD GFR,non Amer >60 Normal >60 [facility] Comment on above: Performed By: #### B MPF, FT4, TSH #### [facility] [address] [place] [phone] Sheriffs: Titus Pagan MD Glucose [Mass/Vol] 93 mg/dL Normal 70-99 [facility] Comment on above: Performed By: #### B MPF, FT4, TSH #### [facility] [address] [place] [address] Sheriffs: Titus Pagan MD Potassium [Moles/Vol] 4.6 mmol/L Normal 3.7-5.3 [facility] Comment on above: Performed By: #### B MPF, FT4, TSH #### [facility] [address] [place] [address] Sheriffs: Titus Pagan MD Sodium [Moles/Vol] 137 mmol/L Normal 135-144 [facility] Comment on above: Performed By: #### B MPF, FT4, TSH #### [facility] [employer] [address] [place] [address] Sheriffs: Titus Pagan MD Urea nitrogen [Mass/Vol] 13 mg/dL Normal -20 [facility] Comment on above: Performed By: #### B MPF, FT4, TSH #### [facility] [employer] [address] [place] [address] Sheriffs: Titus Pagan MD BUN/CRE Ratio NOT REPORTED Normal -20 [facility] Comment on above: Performed By: #### B MPF, FT4, TSH #### [facility] [employer] [address] [place] [address] Sheriffs: Titus Pagan MD Staging: NOT REPORTED Normal [facility] Comment on above: Performed By: #### B MPF, FT4, TSH #### [facility] [employer] [address] [place] [address] Sheriffs: Titus Pagan MD Thyroid Stim. Horm.on 2020 TSH Qn 13.08 m[IU]/L High 0.30-5.00 [facility] Comment on above: Performed By: #### B MPF, FT4, TSH #### [facility] [address] [place], [place] [id number] Sheriffs: Titus Pagan MD Thyroxine, Freeon 03-15-2021 Thyroxine, Free 0.90 ng/dL Low 0.93-1.70 [facility] Comment on above: Performed By: #### B MPF, FT4, TSH #### [facility] [address] [place], [place] [id number] Sheriffs: Titus Pagan MD Encounters Encounter Date Encounter Type Care Provider Facility Start: 04-21-2024 End: 04-21-2024 ambulatory MARITZA WEINERO Not Available Start: 03-18-2024 End: 03-18-2024 ambulatory REED AICHHOLZ Not Available Start: 12-31-2023 End: 12-31-2023 ambulatory REED AICHHOLZ Not Available Start: 02-19-2023 End: 02-20-2023 ambulatory CLINICAL SAFETY SPECIALIST REED AICHHOLZ Facility:[facility] Start: 12-11-2022 End: 12-12-2022 ambulatory CLINICAL SAFETY SPECIALIST REED AICHHOLZ Facility:[facility] Start: 11-28-2022 End: 11-29-2022 ambulatory CLINICAL SAFETY SPECIALIST REED AICHHOLZ Facility:[facility] Start: 03-15-2021 End: 03-16-2021 ambulatory NITA ABRROS [facility] Payers Date Payer Category Payer Medicaid [id number] 2019 Unknown [id number] 1989 Unknown [id number] 2.16.8 [id number] 1989 Unknown [id number] 2.16.84 [id number] 1989 Unknown [id number] 2.16.84 [id number] 1989 Unknown [id number] 2.16.84 [id number] 1989 Unknown [id number] 2.16.84 [id number] 1989 Unknown [id number] 2.16.84 [id number] 1989 Unknown [id number] 2.16.84 [id number] 1959 Unknown [id number] Summary Purpose Family History No Family History Records FoundNo Family History Records FoundNo Family History Records FoundNo Family History Records Found Advance Directives No Advanced Directives Records FoundNo Advanced Directives Records FoundNo Advanced Directives Records FoundNo Advanced Directives Records Found Additional Source Comments INFORMATION SOURCE (unrecogn ized section and content) DATE CREATED AUTHOR 03/17/2021 [facility] DATE CREATED AUTHOR AUTHOR'S ORGANIZ ATION 08/23/2021 [facility] DATE CREATED AUTHOR AUTHOR'S ORGANIZ ATION 02/23/2023 [facility] DATE CREATED AUTHOR AUTHOR'S ORGANIZ ATION 04/23/2024 [facility] FOR RECORDS PERTAINING TO PATIENTS WHO ARE [...] BE BASED ON THE PRIMARY CLINICAL RECORDS. [facility] [employer] provides no warranty or guarantee of the accuracy or completeness of information in this document.
[2024-05-25 11:11] LABS: Age Gdln ACOG Testing Note (.); HPV Aptima Negative (Negative); IGP, Aptima HPV, rfx 16/18,45 Note (.)
== END 2024-05-19 20:53 | disposition home or self-care (01) ==
LOC: LAB 20:52
PROVIDERS: PCP Nurse Practitioner; Visit Provider Obstetrics & Gynecology
DX: Z34.92 Encounter for supervision of normal pregnancy, unspecified, second trimester (principal); Z3A.17 17 weeks gestation of pregnancy
CPT/HCPCS: 36415; 82105; 87624; 88175

== ENCOUNTER 2024-06-22 10:56 | Outpatient (OUT) | payer MEDICAID, SELFPAY ==
--- OUTSIDE RECORDS SUMMARY | 2024-06-22 11:13 | XMS_ITS | CCD ---
Author Organization [facility] Inform ion Partnership [facility] Care Team Providers Care Radiology Therapist Name Role Phone NITA BARROS Referring Unavailable NITA BARROS Primary Care Unavailable AICHHOLZ, CHARGE ACCOUNT IDENTIFICATION CLERK REED Primary Care Unavailable AICHHOLZ, CHARGE ACCOUNT IDENTIFICATION CLERK REED Consulting Unavailable AICHHOLZ, CHARGE ACCOUNT IDENTIFICATION CLERK REED Attending Unavailable AICHHOLZ, CHARGE ACCOUNT IDENTIFICATION CLERK REED Admitting Unavailable AICHHOLZ, CHARGE ACCOUNT IDENTIFICATION CLERK REED Primary Care Unavailable AICHHOLZ, CHARGE ACCOUNT IDENTIFICATION CLERK REED Consulting Unavailable AICHHOLZ, CHARGE ACCOUNT IDENTIFICATION CLERK REED Attending Unavailable AICHHOLZ, CHARGE ACCOUNT IDENTIFICATION CLERK REED Admitting Unavailable MAGALI MCKNIGHT Consulting Unavailable AICHHOLZ, CHARGE ACCOUNT IDENTIFICATION CLERK REED Primary Care Unavailable AICHHOLZ, CHARGE ACCOUNT IDENTIFICATION CLERK REED Consulting Unavailable AICHHOLZ, CHARGE ACCOUNT IDENTIFICATION CLERK REED Attending Unavailable AICHHOLZ, CHARGE ACCOUNT IDENTIFICATION CLERK REED Admitting Unavailable AICHHOLZ, REED Attending Unavailable MARITZA BISWAS Attending Unavailable MARITZA BISWAS Attending Unavailable Problems [...] T4 [Mass/Vol] 1.39 ng/dL Normal 0.76-1.46 [facility] Comment on above: Performed By: #### F T4 #### [facility] [address] [address] [address] Alfredito Rendon TSHon 02-19-2023 TSH 0.012 uIU/mL Critically low 0.358-3.740 [facility] Comment on above: Performed By: #### T SH #### [facility] [address] [place] [address] Dr. Alfredito Rendon US THYROIDon 12-11-2022 US [...] by: MAGALI MCKNIGHT Date: 2022-12-11 15:05 Normal [facility] THYROID ANTIBODIESon 023 Thyroglobulin Antibody 21.5 IU/mL Critically high 0.0-0.9 [facility] Comment on above: Result Comment: Thyr oglobulin Antibody measured by VDI Space Methodology Performed By: #### T HYRABS #### [facility] [address] [place] [address] Dr. Alfredito Rendon Thyroid Peroxidase (TPO) Ab 73 IU/mL Critically high 0-34 [facility] Comment on above: Performed By: #### T HYRABS #### [facility] [address] [place] [address] Dr. Alfredito Rendon CBC AUTO DIFFon 11-28-2022 BASO # 0.0 103/ul Normal 0.0-0.1 [facility] Comment on above: Performed By: #### C BC #### [facility] [address] [place] [address] Dr. Alfredito Rendon Basophils/100 WBC (Bld) 0.3 % Normal 0.2-2.0 [facility] Comment on above: Performed By: #### C BC #### [facility] [address] [place] [address] Dr. Alfredito Rendon EO # 0.2 103/ul Normal 0.0-0.7 [facility] Comment on above: Performed By: #### C BC #### [facility] [address] [place] [address] Dr. Alfredito Rendon Eosinophils/100 WBC (Bld) 2.3 % Normal 0.9-7.0 [facility] Comment on above: Performed By: #### C BC #### [facility] [address] [place] [address] Dr. Alfredito Rendon Erythrocyte distribution width (RBC) [Ratio] 13.0 % Normal 11.0-15.0 [facility] Comment on above: Performed By: #### C BC #### [facility] [address] [place] [address] Dr. Alfredito Rendon Hematocrit (Bld) [Volume fraction] 41.2 % Normal 36.0-48.0 [facility] Comment on above: Performed By: #### C BC #### [facility] [address] [place] [address] Dr. Alfredito Rendon Hemoglobin (Bld) [Mass/Vol] 12.5 g/dL Normal 12.0-16.0 [facility] Comment on above: Performed By: #### C BC #### [facility] [address] [place] [address] Dr. Alfredito Rendon IG # 0.02 10e3/ul Normal 0.00-0.03 [facility] Comment on above: Performed By: #### C BC #### [facility] [address] [place] [address] Dr. Alfredito Rendon IG % 0.2 % Normal 0.0-0.5 [facility] Comment on above: Performed By: #### C BC #### [facility] [address] [place] [address] Dr. Alfredito Rendon LYMPH # 2.7 103/ul Normal 1.2-3.8 [facility] Comment on above: Performed By: #### C BC #### [facility] [address] [place] [address] Dr. Alfredito Rendon Lymphocytes/100 WBC (Bld) 25.3 % Normal 20.5-60.0 [facility] Comment on above: Performed By: #### C BC #### [facility] [address] [place] [address] Dr. Alfredito Rendon MANUAL DIFF REQ NO Normal [facility] Comment on above: Performed By: #### C BC #### [facility] [address] [place] [address] Dr. Alfredito Rendon MCH (RBC) [Entitic mass] 29.6 pg Normal 26.7-34.0 [facility] Comment on above: Performed By: #### C BC #### [facility] [address] [place] [address] Dr. Alfredito Rendon MCHC (RBC) [Mass/Vol] 30.3 g/dL Normal 29.9-35.2 [facility] Comment on above: Performed By: #### C BC #### [facility] [address] [place] [address] Dr. Alfredito Rendon MCV (RBC) [Entitic vol] 97.6 fL Normal 81.0-99.0 [facility] Comment on above: Performed By: #### C BC #### [facility] [address] [place] [address] Dr. Alfredito Rendon MONO # 0.7 103/ul Normal 0.3-0.8 [facility] Comment on above: Performed By: #### C BC #### [facility] [address] [place] [address] Dr. Alfredito Rendon Monocytes/100 WBC (Bld) 6.4 % Normal 1.7-12.0 [facility] Comment on above: Performed By: #### C BC #### [facility] [address] [place] [address] Dr. Alfredito Rendon NEUT # 6.9 103/ul Critically high 1.4-6.5 [facility] Comment on above: Performed By: #### C BC #### [facility] [address] [place] [address] Dr. Alfredito Rendon Neutrophils/100 WBC (Bld) 65.5 % Normal 43.0-75.0 [facility] Comment on above: Performed By: #### C BC #### [facility] [address] [place] [address] Dr. Alfredito Rendon Platelet mean volume (Bld) [Entitic vol] 10.1 fL Normal 9.5-13.5 [facility] Comment on above: Performed By: #### C BC #### [facility] [address] [place] [address] Dr. Alfredito Rendon PLT 253 103/ul Normal 150-450 [facility] Comment on above: Performed By: #### C BC #### [facility] [address] [place] [address] Dr. Alfredito Rendon RBC 4.22 106/ul Normal 4.20-5.40 [facility] Comment on above: Performed By: #### C BC #### [facility] [address] [place] [address] Dr. Alfredito Rendon WBC 10.6 103/ul Normal 4.0-11.0 [facility] Comment on above: Performed By: #### C BC #### [facility] [address] [place] [address] Dr. Alfredito Rendon FREE T3on 11-28-2022 FREE T3 2.65 pg/mlL Normal 2.18-3.98 [facility] Comment on above: Performed By: #### T SH, FT3, LIPID, CMP #### [facility] [address] [place] [address] Dr. Alfredito Rendon FREE T4on 11-28-2022 Free T4 [Mass/Vol] 0.86 ng/dL Normal 0.76-1.46 [facility] Comment on above: Performed By: #### F T4 #### [facility] [address] [place] [address] Dr. Alfredito Rendon LIPID PROFILEon 11-28-2022 CHOL-HDL RATIO NORM SEE BELOW Normal [facility] Comment on above: Result Comment: 3.3 - 4.4 LOW RISK 4.4 - 7.1 AVERAGE RISK 7.1 - 11.0 MODERATE RISK >11.0 HIGH RISK Performed By: #### T SH, FT3, LIPID, CMP #### [facility] [address] [place] [address] Dr. Alfredito Rendon Cholesterol [Mass/Vol] 172 mg/dL Normal <=200 [facility] Comment on above: Performed By: #### T SH, FT3, LIPID, CMP #### [facility] [address] [place] [address] Dr. Alfredito Rendon Cholesterol in HDL [Mass/Vol] 49 mg/dL Normal 40-60 [facility] Comment on above: Performed By: #### T SH, FT3, LIPID, CMP #### [facility] [address] [place] [address] Dr. Alfredito Rendon Cholesterol in LDL [Mass/Vol] 96.2 mg/dL Normal [facility] Comment on above: Performed By: #### T SH, FT3, LIPID, CMP #### [facility] [address] [place] [address] Dr. Alfredito Rendon Cholesterol.total/Ch olesterol in HDL [Mass ratio] 3.5 {ratio} Normal [facility] Comment on above: Performed By: #### T SH, FT3, LIPID, CMP #### [facility] [address] [place] [address] Dr. Alfredito Rendon HDL NORMAL > or = 60 mg/dl - LOW CARDIOVASCULAR RISK <40 mg/dl - HIGH CARDIOVASCULAR RISK Normal [facility] Comment on above: Performed By: #### T SH, FT3, LIPID, CMP #### [facility] [address] [place], [place] [id number] Dr. Alfredito Rendon LDL CALC NORMAL SEE BELOW Normal [facility] Comment on above: Result Comment: <100 mg/dl OPTIMAL 100 - 129 mg/dl NEAR OR ABOVE OPTIMAL 130 - 159 mg/dl BORDERLINE HIGH 160 - 189 mg/dl HIGH >190 mg/dl VERY HIGH Performed By: #### T SH, FT3, LIPID, CMP #### [facility] [address] [address] [address] Alfredito Rendon Triglyceride [Mass/Vol] 134 mg/dL Normal <=150 [facility] Comment on above: Performed By: #### T SH, FT3, LIPID, CMP #### [facility] [address] [address] [address] Alfredito Rendon VLDL CALC 26.8 mg/dL Normal [facility] Comment on above: Performed By: #### T SH, FT3, LIPID, CMP #### [facility] [address] [place] [address] Dr. Alfredito Rendon PROF 14(COMP METB)on 023 Albumin [Mass/Vol] 3.3 g/dL Critically low 3.4-5.0 [facility] Comment on above: Performed By: #### T SH, FT3, LIPID, CMP #### [facility] [address] [place] [address] Dr. Alfredito Rendon Albumin/Globulin [Mass ratio] 0.9 {ratio} Normal [facility] Comment on above: Performed By: #### T SH, FT3, LIPID, CMP #### [facility] [address] [place] [address] Dr. Alfredito Rendon ALP [Catalytic activity/Vol] 63 U/L Normal 46-116 [facility] Comment on above: Performed By: #### T SH, FT3, LIPID, CMP #### [facility] [address] [place] [address] Dr. Alfredito Rendon ALT [Catalytic activity/Vol] 27 U/L Normal 14-59 [facility] Comment on above: Performed By: #### T SH, FT3, LIPID, CMP #### [facility] [address] [address] [address] Alfredito Rendon Anion gap [Moles/Vol] 14.1 mmol/L Normal [facility] Comment on above: Performed By: #### T SH, FT3, LIPID, CMP #### [facility] [address] [address] [address] Alfredito Rendon AST [Catalytic activity/Vol] 20 U/L Normal 15-37 [facility] Comment on above: Performed By: #### T SH, FT3, LIPID, CMP #### [facility] [address] [place] [address] Dr. Alfredito Rendon Bilirubin [Mass/Vol] 0.3 mg/dL Normal 0.2-1.0 [facility] Comment on above: Performed By: #### T SH, FT3, LIPID, CMP #### [facility] [address] [place] [address] Dr. Alfredito Rendon Calcium [Mass/Vol] 9.2 mg/dL Normal 8.5-10.1 [facility] Comment on above: Performed By: #### T SH, FT3, LIPID, CMP #### [facility] [address] [address] [address] Alfredito Rendon Chloride [Moles/Vol] 103 mmol/L Normal 98-107 [facility] Comment on above: Performed By: #### T SH, FT3, LIPID, CMP #### [facility] [address] [place] [address] Dr. Alfredito Rendon CO2 [Moles/Vol] 24.1 mmol/L Normal 21.0-32.0 [facility] Comment on above: Performed By: #### T SH, FT3, LIPID, CMP #### [facility] [address] [address] [address] Alfredito Rendon Creatinine [Mass/Vol] 0.71 mg/dL Normal 0.55-1.02 [facility] Comment on above: Performed By: #### T SH, FT3, LIPID, CMP #### [facility] [address] [address] [address] Alfredito Rendon EGFR-AF GUYANESE >60 Normal >=60 [facility] Comment on above: Performed By: #### T SH, FT3, LIPID, CMP #### [facility] [address] [address] [address] Alfredito Rendon EGFR-NON AF GUYANESE >60 Normal >=60 [facility] Comment on above: Performed By: #### T SH, FT3, LIPID, CMP #### [facility] [address] [address] [address] Alfredito Rendon Globulin (S) [Mass/Vol] 3.8 g/dL Normal [facility] Comment on above: Performed By: #### T SH, FT3, LIPID, CMP #### [facility] [address] [place] [address] Dr. Alfredito Rendon Glucose [Mass/Vol] 106 mg/dL Normal 74-106 [facility] Comment on above: Performed By: #### T SH, FT3, LIPID, CMP #### [facility] [address] [place] [address] Dr. Alfredito Rendon Potassium [Moles/Vol] 4.2 mmol/L Normal 3.5-5.1 [facility] Comment on above: Performed By: #### T SH, FT3, LIPID, CMP #### [facility] [address] [place] [address] Dr. Alfredito Rendon Protein [Mass/Vol] 7.1 g/dL Normal 6.4-8.2 [facility] Comment on above: Performed By: #### T SH, FT3, LIPID, CMP #### [facility] [address] [place] [address] Dr. Alfredito Rendon Sodium [Moles/Vol] 137 mmol/L Normal 136-145 [facility] Comment on above: Performed By: #### T SH, FT3, LIPID, CMP #### [facility] [address] [place] [address] Dr. Alfredito Rendon Urea nitrogen [Mass/Vol] 14.0 mg/dL Normal 7.0-18.0 [facility] Comment on above: Performed By: #### T SH, FT3, LIPID, CMP #### [facility] [address] [address] [address] Alfredito Rendon Urea nitrogen/Creatinine [Mass ratio] 19.7 mg/mg Normal [facility] Comment on above: Performed By: #### T SH, FT3, LIPID, CMP #### [facility] [address] [place], [place] [address] Dr. Alfredito Rendon TSHon 11-28-2022 TSH 5.010 uIU/mL Critically high 0.358-3.740 [facility] Comment on above: Performed By: #### T SH, FT3, LIPID, CMP #### [facility] [address] [address] [address] Alfredito Rendon Thyroid Stim. Horm.on 2020 TSH Qn 10.79 m[IU]/L High 0.30-5.00 [facility] Comment on above: Performed By: #### T SH, FT4 #### [facility] [address] [place] [address] [phone] Work Order Sorting Clerk: Titus Pagan MD Thyroxine, Freeon 08-22-2021 Thyroxine, Free 0.89 ng/dL Low 0.93-1.70 [facility] Comment on above: Performed By: #### T SH, FT4 #### [facility] [address] [place] [address] [phone] Work Order Sorting Clerk: Titus Pgaan MD Basic Metab, Fastingon 03-15 (cont.) Normal [facility] Comment on above: Result Comment: Aver age GFR for 30-39 years old: 107 mL/min/1.73sq m Chronic Kidney Disease: <60 mL/min/1.73sq m Kidney failure: <15 mL/min/1.73sq m eGFR calculated using average adult body mass. Additional eGFR calculator available at: http://www.[employer].Vook/multiple_crcl_2012.htm Performed By: #### B MPF, FT4, TSH #### [facility] [address] [place] [address] [phone] Work Order Sorting Clerk: Titus Pagan MD Anion gap [Moles/Vol] 10 mmol/L Normal 9-17 [facility] Comment on above: Performed By: #### B MPF, FT4, TSH #### [facility] [address] [place] [phone] Work Order Sorting Clerk: Titus Pagan MD Calcium [Mass/Vol] 9.4 mg/dL Normal 8.6-10.4 [facility] Comment on above: Performed By: #### B MPF, FT4, TSH #### [facility] [address] [place] [phone] Work Order Sorting Clerk: Titus Pagan MD Chloride [Moles/Vol] 102 mmol/L Normal 98-107 [facility] Comment on above: Performed By: #### B MPF, FT4, TSH #### [facility] [address] [place] [phone] Work Order Sorting Clerk: Titus Pagan MD CO2 [Moles/Vol] 25 mmol/L Normal 20-31 [facility] Comment on above: Performed By: #### B MPF, FT4, TSH #### [facility] [address] [place] [phone] Work Order Sorting Clerk: Titus Pagan MD Creatinine [Mass/Vol] 0.62 mg/dL Normal 0.50-0.90 [facility] Comment on above: Performed By: #### B MPF, FT4, TSH #### [facility] [address] [place] [phone] Work Order Sorting Clerk: Titus Pagan MD GFR, Amer >60 Normal >60 [facility] Comment on above: Performed By: #### B MPF, FT4, TSH #### [facility] [address] [place] [phone] Work Order Sorting Clerk: Titus Pagan MD GFR,non Amer >60 Normal >60 [facility] Comment on above: Performed By: #### B MPF, FT4, TSH #### [facility] [address] [place] [phone] Work Order Sorting Clerk: Titus Pagan MD Glucose [Mass/Vol] 93 mg/dL Normal 70-99 [facility] Comment on above: Performed By: #### B MPF, FT4, TSH #### [facility] [address] [place] [phone] Work Order Sorting Clerk: Titus Pagan MD Potassium [Moles/Vol] 4.6 mmol/L Normal 3.7-5.3 [facility] Comment on above: Performed By: #### B MPF, FT4, TSH #### [facility] [address] [place] [phone] Work Order Sorting Clerk: Titus Pagan MD Sodium [Moles/Vol] 137 mmol/L Normal 135-144 [facility] Comment on above: Performed By: #### B MPF, FT4, TSH #### [facility] [address] [place] [phone] Work Order Sorting Clerk: Titus Pagan MD Urea nitrogen [Mass/Vol] 13 mg/dL Normal 6-20 [facility] Comment on above: Performed By: #### B MPF, FT4, TSH #### [facility] [address] [place] [phone] Work Order Sorting Clerk: Titus Pagan MD BUN/CRE Ratio NOT REPORTED Normal 9-20 [facility] Comment on above: Performed By: #### B MPF, FT4, TSH #### [facility] [address] [place] [phone] Work Order Sorting Clerk: Titus Pagan MD Staging: NOT REPORTED Normal [facility] Comment on above: Performed By: #### B MPF, FT4, TSH #### [facility] [address] [place] [address] [phone] Work Order Sorting Clerk: Titus Pagan MD Thyroid Stim. Horm.on 2020 TSH Qn 13.08 m[IU]/L High 0.30-5.00 [facility] Comment on above: Performed By: #### B MPF, FT4, TSH #### [facility] [address] [place] [address] Work Order Sorting Clerk: Titus Pagan MD Thyroxine, Freeon 03-15-2021 Thyroxine, Free 0.90 ng/dL Low 0.93-1.70 [facility] Comment on above: Performed By: #### B MPF, FT4, TSH #### [facility] [address] [place] [address] Work Order Sorting Clerk: Titus Pagan MD Encounters Encounter Date Encounter Type Care Provider Facility Start: 05-19-2024 End: 05-19-2024 ambulatory MARITZA TRUE Not Available Start: 04-21-2024 End: 04-21-2024 ambulatory MARITZA TRUE Not Available Start: 03-18-2024 End: 03-18-2024 ambulatory REED AICHHOLZ Not Available Start: 12-31-2023 End: 12-31-2023 ambulatory REED AICHHOLZ Not Available Start: 02-19-2023 End: 02-20-2023 ambulatory CHARGE ACCOUNT IDENTIFICATION CLERK REED AICHHOLZ Facility:[facility] Start: 12-11-2022 End: 12-12-2022 ambulatory CHARGE ACCOUNT IDENTIFICATION CLERK REED AICHHOLZ Facility:[facility] Start: 11-28-2022 End: 11-29-2022 ambulatory CHARGE ACCOUNT IDENTIFICATION CLERK REED AICHHOLZ Facility:[facility] Start: 03-15-2021 End: 03-16-2021 ambulatory NITA BARROS [facility] Payers Date Payer Category Payer Medicaid [id number] 2019 Unknown [id number] 1989 Unknown [id number] 2.16.8 [id number] 1989 Unknown [id number] 2.16.84 [id number] 1989 Unknown [id number] 2.16.84 [id number] 1989 Unknown [id number] 2.16.84 [id number] 1989 Unknown [id number] 2.16.84 [id number] 1989 Unknown [id number] 2.16.84 [id number] 1989 Unknown [id number] 2.16.84 [id number] 1989 Unknown [id number] 2.16.84 [id number] 1959 Unknown [id number] Summary Purpose Family History No Family History Records FoundNo Family History Records FoundNo Family History Records FoundNo Family History Records Found Advance Directives No Advanced Directives Records FoundNo Advanced Directives Records FoundNo Advanced Directives Records FoundNo Advanced Directives Records Found Additional Source Comments INFORMATION SOURCE (unrecogn ized section and content) DATE CREATED AUTHOR 03/17/2021 [facility] DATE CREATED AUTHOR AUTHOR'S ORGANIZ ATION 08/23/2021 [facility] DATE CREATED AUTHOR AUTHOR'S ORGANIZ ATION 02/23/2023 [facility] DATE CREATED AUTHOR AUTHOR'S ORGANIZ ATION 05/23/2024 [facility] PSYCHIATRIC FOR RECORDS PERTAINING TO PATIENTS WHO ARE [...] THE PRIMARY CLINICAL RECORDS. [facility] [employer] [facility]. provides no warranty or guarantee of the accuracy or completeness of information in this document.
[2024-06-22 12:14] LABS: Basophils Percent Auto 0.2 % (0.2-2.0); Eosinophils Absolute Auto 0.3 10^3/uL (0.0-0.7); Eosinophils Percent Auto 2.1 % (0.9-7.0); Hematocrit 34.1 % (36.0-48.0); Hemoglobin 11.4 g/dL (12.0-16.0); Immature Granulocytes Abs Auto 0.03 10^3/uL (0.00-0.03); Immature Granulocytes Pct Auto 0.2 % (0.0-0.5); Lymphocytes Absolute Auto 2.4 10^3/uL (1.2-3.8); Lymphocytes Percent Auto 19.5 % (20.5-60.0); Mean Corpuscular HGB Conc 33.4 g/dL (29.9-35.2); Mean Corpuscular Hemoglobin 30.8 pg (26.7-34.0); Mean Corpuscular Volume 92.2 fL (81.0-99.0); Mean Platelet Volume 9.8 fL (9.5-13.5); Monocytes Absolute Auto 0.6 10^3/uL (0.3-0.8); Monocytes Percent Auto 4.6 % (1.7-12.0); Neutrophils Percent Auto 73.4 % (43.0-75.0); Platelet Count 226 10^3/uL (150-450); Red Cell Distribution Width 12.8 % (11.0-15.0); White Blood Count 12.3 10^3/uL (4.0-11.0)
[2024-06-22 12:32] LABS: Glucose 1 Hour 109 mg/dL (<130)
== END 2024-06-22 10:57 | disposition home or self-care (01) ==
LOC: LAB 10:57
PROVIDERS: PCP Nurse Practitioner; Visit Provider Obstetrics & Gynecology
DX: Z13.1 Encounter for screening for diabetes mellitus (principal)
CPT/HCPCS: 36415; 82950; 85025

== ENCOUNTER 2024-08-11 09:33 | Outpatient (OUT) | payer MEDICAID, SELFPAY ==
--- NOTE | 2024-08-11 09:37 | US_ITS ---
[address] [address] Patient Name: MOHAMUD CEE MRN: [id number] date: 1990 Sex: F Assigned Patient Location: [facility] Current Patient Location: [facility] Accession/Order Number: [id number] Exam Date: 08/11/2024 09:37 Report Date: 08/11/2024 10:22 At the request of: DAWOOD ANN Procedure: US OB growth EXAMINATION: US OB growth HISTORY: MELVA'S DISEASE COMPARISON: Ultrasound OB transvaginal 03/18/2024 FINDINGS: Heart Rate: 138 bpm Amniotic Fluid Volume: 17.5 cm; normal range Number: 1 Position: CEPHALIC BIOMETRY: BPD: 7.15 cm; 28 weeks 5 days; 24.30 % HC: 27.06 cm; 29 weeks 4 days; 26.90 % AC: 25.56 cm; 29 weeks 5 days; 62.20 % FL: 5.62 cm; 29 weeks 4 days; 46.50 % EFW: 1472.97 g; 53 % FL/AC: 21.99 FL/BPD: 78.60 HC/AC: 1.06 GESTATIONAL AGE: Age by EDC: 29 weeks 1 day JAIR by EDC: 2024-10-26 Age by US: 29 weeks 3 days JAIR by US: 2024-10-24 US/US OB growth IMPRESSION: 1. Single live intrauterine with growth detailed above. Electronically authenticated by: RAHEL MACKAY Date: 08/11/2024 10:22
--- OUTSIDE RECORDS SUMMARY | 2024-08-11 09:55 | XMS_ITS | CCD ---
Author Organization [facility] Inform ion Partnership [facility] Care Team Providers Care Hotel Or Motel Receptionist Name Role Phone NITA BARROS Referring Unavailable NITA BARROS Primary Care Unavailable AICHHOLZ, INFORMATION ASSURANCE MANAGER REED Primary Care Unavailable AICHHOLZ, INFORMATION ASSURANCE MANAGER REED Consulting Unavailable AICHHOLZ, INFORMATION ASSURANCE MANAGER REED Attending Unavailable AICHHOLZ, INFORMATION ASSURANCE MANAGER REED Admitting Unavailable AICHHOLZ, INFORMATION ASSURANCE MANAGER REED Primary Care Unavailable AICHHOLZ, INFORMATION ASSURANCE MANAGER REED Consulting Unavailable AICHHOLZ, INFORMATION ASSURANCE MANAGER REED Attending Unavailable AICHHOLZ, INFORMATION ASSURANCE MANAGER REED Admitting Unavailable MAGALI MCKNIGHT Consulting Unavailable AICHHOLZ, INFORMATION ASSURANCE MANAGER REED Primary Care Unavailable AICHHOLZ, INFORMATION ASSURANCE MANAGER REED Consulting Unavailable AICHHOLZ, INFORMATION ASSURANCE MANAGER REED Attending Unavailable AICHHOLZ, INFORMATION ASSURANCE MANAGER REED Admitting Unavailable AICHHOLZ, REED Attending Unavailable MARITZA BISWAS Attending Unavailable MARITZA BISWAS Attending Unavailable DAWOOD ANN Attending Unavailable MARITZA BISWAS Referring Unavailable NITA BARROS Primary Care Unavailable EULALIA KINCAID Attending Unavailable MARITZA BISWAS Referring Unavailable NITA BARROS Primary Care Unavailable Allergies Allergy Classification Reported Allergen(s) Allergy Type Date of Onset Reaction(s) Facility (1 source) varenicline; Translations: [VARENICLINE] Drug Allergy 05-20-2024 [facility] Problems Problem Classification Problem Date Documented Date Episodic/Chronic Attention-deficit, conduct, and disruptive behavior disorders (1 source) Attention-deficit hyperactivity disorder, combined type; Translations: [Attention-deficit hyperactivity disorder, combined type] Onset: 04-25-2020 Chronic Essential hypertension (1 source) Essential (primary) hypertension; Translations: [ESSENTIAL PRIMARY HYPERTENSION] Onset: 11-29-2022 Chronic Hypertension complicating ; childbirth and the puerperium (1 source) Unspecified pre-existing hypertension complicating , unspecified trimester; Translations: [Unspecified pre-existing hypertension complicating , unspecified trimester] Onset: 06-30-2024 Chronic Other complications of (1 source) Obesity complicating , unspecified trimester; Translations: [Obesity complicating , unspecified trimester] Onset: 06-30-2024 Chronic Other complications of (1 source) Supervision of high risk , unspecified, unspecified trimester; Translations: [Supervision of high risk , unspecified, unspecified trimester] Onset: 06-30-2024 Episodic Other nutritional; endocrine; and metabolic disorders (1 source) Morbid (severe) obesity due to excess calories; Translations: [MORBID SEVERE OBES D/T EXCESS JOSÉ] Onset: 11-29-2022 Chronic Other nutritional; endocrine; and metabolic disorders (1 source) Body mass index (BMI) 40.0-44.9, adult; Translations: [BODY MASS INDEX BMI 40.0-44.9 ADULT] Onset: 11-29-2022 Chronic Other screening for suspected conditions (not mental disorders or infectious disease) (2 sources) Encounter for other specified screening; Translations: [Encounter for screening for cervical length] Onset: 06-30-2024 Episodic Previous (1 source) Maternal care for unspecified type scar from previous delivery; Translations: [Maternal care for unspecified type scar from previous delivery] Onset: 06-30-2024 Episodic Thyroid disorders (5 sources) Hypothyroidism, unspecified; Translations: [Hypothyroidism] Onset: 02-19-2023 Chronic Unclassified (1 source) Suboxone Use Onset: 06-30-2024 Results Test Name Value Interpretation Reference Range Facil ity FREE T4on 02-19-2023 Free T4 [Mass/Vol] 1.39 ng/dL Normal 0.76-1.46 [facility] Comment on above: Performed By: #### F T4 #### [facility] [address] [address] [address] Alfredito Rendon TSHon 02-19-2023 TSH 0.012 uIU/mL Critically low 0.358-3.740 [facility] Comment on above: Performed By: #### T SH #### [facility] [address] [address] [address] Alfredito Rendon US THYROIDon 12-11-2022 US [...] MAGALI MCKNIGHT Date: 2022-12-11 15:05 Normal [facility] THYROID ANTIBODIESon 023 Thyroglobulin Antibody 21.5 IU/mL Critically high 0.0-0.9 [facility] Comment on above: Result Comment: Thyr oglobulin Antibody measured by Wedge Buster Methodology Performed By: #### T HYRABS #### [facility] [address] [place] [address] Dr. Alfredito Rendon Thyroid Peroxidase (TPO) Ab 73 IU/mL Critically high 0-34 [facility] Comment on above: Performed By: #### T HYRABS #### [facility] [address] [place] [address] Dr. Alfredito Rendon CBC AUTO DIFFon 11-28-2022 BASO # 0.0 103/ul Normal 0.0-0.1 [facility] Comment on above: Performed By: #### C BC #### [facility] [address] [place] [address] Dr. Alfredito Rendon Basophils/100 WBC (Bld) 0.3 % Normal 0.2-2.0 [facility] Comment on above: Performed By: #### C BC #### [facility] [address] [place] [address] Dr. Alfredito Rendon EO # 0.2 103/ul Normal 0.0-0.7 [facility] Comment on above: Performed By: #### C BC #### [facility] [address] [place] [address] Dr. Alfredito Rendon Eosinophils/100 WBC (Bld) 2.3 % Normal 0.9-7.0 [facility] Comment on above: Performed By: #### C BC #### [facility] [address] [place] [address] Dr. Alfredito Rendon Erythrocyte distribution width (RBC) [Ratio] 13.0 % Normal 11.0-15.0 [facility] Comment on above: Performed By: #### C BC #### [facility] [address] [place] [address] Dr. Alfredito Rendon Hematocrit (Bld) [Volume fraction] 41.2 % Normal 36.0-48.0 [facility] Comment on above: Performed By: #### C BC #### [facility] [address] [place] [address] Dr. Alfredito Rendon Hemoglobin (Bld) [Mass/Vol] 12.5 g/dL Normal 12.0-16.0 [facility] Comment on above: Performed By: #### C BC #### [facility] [address] [place] [address] Dr. Alfredito Rendon IG # 0.02 10e3/ul Normal 0.00-0.03 [facility] Comment on above: Performed By: #### C BC #### [facility] [address] [place] [address] Dr. Alfredito Rendon IG % 0.2 % Normal 0.0-0.5 [facility] Comment on above: Performed By: #### C BC #### [facility] [address] [place] [address] Dr. Alfredito Rendon LYMPH # 2.7 103/ul Normal 1.2-3.8 [facility] Comment on above: Performed By: #### C BC #### [facility] [address] [place] [address] Dr. Alfredito Rendon Lymphocytes/100 WBC (Bld) 25.3 % Normal 20.5-60.0 [facility] Comment on above: Performed By: #### C BC #### [facility] [address] [place] [address] Dr. Alfredito Rendon MANUAL DIFF REQ NO Normal [facility] Comment on above: Performed By: #### C BC #### [facility] [address] [address] [address] Alfredito Rendon MCH (RBC) [Entitic mass] 29.6 pg Normal 26.7-34.0 [facility] Comment on above: Performed By: #### C BC #### [facility] [address] [place] [address] Dr. Alfredito Rendon MCHC (RBC) [Mass/Vol] 30.3 g/dL Normal 29.9-35.2 [facility] Comment on above: Performed By: #### C BC #### [facility] [address] [place] [address] Dr. Alfredito Rendon MCV (RBC) [Entitic vol] 97.6 fL Normal 81.0-99.0 [facility] Comment on above: Performed By: #### C BC #### [facility] [address] [place] [address] Dr. Alfredito Rendon MONO # 0.7 103/ul Normal 0.3-0.8 [facility] Comment on above: Performed By: #### C BC #### [facility] [address] [place] [address] Dr. Alfredito Rendon Monocytes/100 WBC (Bld) 6.4 % Normal 1.7-12.0 [facility] Comment on above: Performed By: #### C BC #### [facility] [address] [place] [address] Dr. Alfredito Rendon NEUT # 6.9 103/ul Critically high 1.4-6.5 [facility] Comment on above: Performed By: #### C BC #### [facility] [address] [place] [address] Dr. Alfredito Rendon Neutrophils/100 WBC (Bld) 65.5 % Normal 43.0-75.0 [facility] Comment on above: Performed By: #### C BC #### [facility] [address] [address] [address] Alfredito Rendon Platelet mean volume (Bld) [Entitic vol] 10.1 fL Normal 9.5-13.5 [facility] Comment on above: Performed By: #### C BC #### [facility] [address] [address] [address] Alfredito Rendon PLT 253 103/ul Normal 150-450 [facility] Comment on above: Performed By: #### C BC #### [facility] [address] [place] [address] Dr. Alfredito Rendon RBC 4.22 106/ul Normal 4.20-5.40 [facility] Comment on above: Performed By: #### C BC #### [facility] [address] [address] [address] Alfredito Rendon WBC 10.6 103/ul Normal 4.0-11.0 [facility] Comment on above: Performed By: #### C BC #### [facility] [address] [place] [address] Dr. Alfredito Rendon FREE T3on 11-28-2022 FREE T3 2.65 pg/mlL Normal 2.18-3.98 [facility] Comment on above: Performed By: #### T SH, FT3, LIPID, CMP #### [facility] [address] [place] [address] Dr. Alfredito Rendon FREE T4on 11-28-2022 Free T4 [Mass/Vol] 0.86 ng/dL Normal 0.76-1.46 [facility] Comment on above: Performed By: #### F T4 #### [facility] [address] [place] [address] Dr. Alfredito Rendon LIPID PROFILEon 11-28-2022 CHOL-HDL RATIO NORM SEE BELOW Normal [facility] Comment on above: Result Comment: 3.3 - 4.4 LOW RISK 4.4 - 7.1 AVERAGE RISK 7.1 - 11.0 MODERATE RISK >11.0 HIGH RISK Performed By: #### T SH, FT3, LIPID, CMP #### [facility] [address] [place] [address] Dr. Alfredito Rendon Cholesterol [Mass/Vol] 172 mg/dL Normal <=200 [facility] Comment on above: Performed By: #### T SH, FT3, LIPID, CMP #### [facility] [address] [place] [address] Dr. Alfredito Rendon Cholesterol in HDL [Mass/Vol] 49 mg/dL Normal 40-60 [facility] Comment on above: Performed By: #### T SH, FT3, LIPID, CMP #### [facility] [address] [place] [address] Dr. Alfredito Rendon Cholesterol in LDL [Mass/Vol] 96.2 mg/dL Normal [facility] Comment on above: Performed By: #### T SH, FT3, LIPID, CMP #### [facility] [address] [place] [address] Dr. Alfredito Rendon Cholesterol.total/Ch olesterol in HDL [Mass ratio] 3.5 {ratio} Normal [facility] Comment on above: Performed By: #### T SH, FT3, LIPID, CMP #### [facility] [address] [place] [address] Dr. Alfredito Rendon HDL NORMAL > or = 60 mg/dl - LOW CARDIOVASCULAR RISK <40 mg/dl - HIGH CARDIOVASCULAR RISK Normal [facility] Comment on above: Performed By: #### T SH, FT3, LIPID, CMP #### [facility] [address] [place] [address] Dr. Alfredito Rendon LDL CALC NORMAL SEE BELOW Normal [facility] Comment on above: Result Comment: <100 mg/dl OPTIMAL 100 - 129 mg/dl NEAR OR ABOVE OPTIMAL 130 - 159 mg/dl BORDERLINE HIGH 160 - 189 mg/dl HIGH >190 mg/dl VERY HIGH Performed By: #### T SH, FT3, LIPID, CMP #### [facility] [address] [place] [address] Dr. Alfredito Rendon Triglyceride [Mass/Vol] 134 mg/dL Normal <=150 [facility] Comment on above: Performed By: #### T SH, FT3, LIPID, CMP #### [facility] [address] [address] [address] Alfredito Rendon VLDL CALC 26.8 mg/dL Normal [facility] Comment on above: Performed By: #### T SH, FT3, LIPID, CMP #### [facility] [address] [address] [address] Alfredito Rendon PROF 14(COMP METB)on 023 Albumin [Mass/Vol] 3.3 g/dL Critically low 3.4-5.0 [facility] Comment on above: Performed By: #### T SH, FT3, LIPID, CMP #### [facility] [address] [place] [address] Dr. Alfredito Rendon Albumin/Globulin [Mass ratio] 0.9 {ratio} Normal [facility] Comment on above: Performed By: #### T SH, FT3, LIPID, CMP #### [facility] [address] [place] [address] Dr. Alfredito Rendon ALP [Catalytic activity/Vol] 63 U/L Normal 46-116 [facility] Comment on above: Performed By: #### T SH, FT3, LIPID, CMP #### [facility] [address] [place] [address] Dr. Alfredito Rendon ALT [Catalytic activity/Vol] 27 U/L Normal 14-59 [facility] Comment on above: Performed By: #### T SH, FT3, LIPID, CMP #### [facility] [address] [address] [address] Alfredito Rendon Anion gap [Moles/Vol] 14.1 mmol/L Normal [facility] Comment on above: Performed By: #### T SH, FT3, LIPID, CMP #### [facility] [address] [place] [address] Dr. Alfredito Rendon AST [Catalytic activity/Vol] 20 U/L Normal 15-37 [facility] Comment on above: Performed By: #### T SH, FT3, LIPID, CMP #### [facility] [address] [place] [address] Dr. lAfredito Rendon Bilirubin [Mass/Vol] 0.3 mg/dL Normal 0.2-1.0 [facility] Comment on above: Performed By: #### T SH, FT3, LIPID, CMP #### [facility] [address] [place] [address] Dr. Alfredito Rendon Calcium [Mass/Vol] 9.2 mg/dL Normal 8.5-10.1 [facility] Comment on above: Performed By: #### T SH, FT3, LIPID, CMP #### [facility] [address] [place] [address] Dr. Alfredito Rendon Chloride [Moles/Vol] 103 mmol/L Normal 98-107 [facility] Comment on above: Performed By: #### T SH, FT3, LIPID, CMP #### [facility] [address] [place] [address] Dr. Alfredito Rendon CO2 [Moles/Vol] 24.1 mmol/L Normal 21.0-32.0 [facility] Comment on above: Performed By: #### T SH, FT3, LIPID, CMP #### [facility] [address] [place] [address] Dr. Alfredito Rendon Creatinine [Mass/Vol] 0.71 mg/dL Normal 0.55-1.02 [facility] Comment on above: Performed By: #### T SH, FT3, LIPID, CMP #### [facility] [address] [place] [address] Dr. Alfredito Rendon EGFR-AF BRITISH >60 Normal >=60 [facility] Comment on above: Performed By: #### T SH, FT3, LIPID, CMP #### [facility] [address] [place] [address] Dr. Alfredito Rendon EGFR-NON AF BRITISH >60 Normal >=60 [facility] Comment on above: Performed By: #### T SH, FT3, LIPID, CMP #### [facility] [address] [place] [address] Dr. Alfredito Rendon Globulin (S) [Mass/Vol] 3.8 g/dL Normal [facility] Comment on above: Performed By: #### T SH, FT3, LIPID, CMP #### [facility] [address] [address] [address] Alfredito Rendon Glucose [Mass/Vol] 106 mg/dL Normal 74-106 [facility] Comment on above: Performed By: #### T SH, FT3, LIPID, CMP #### [facility] [address] [address] [address] Alfredito Rendno Potassium [Moles/Vol] 4.2 mmol/L Normal 3.5-5.1 [facility] Comment on above: Performed By: #### T SH, FT3, LIPID, CMP #### [facility] [address] [place] [address] Dr. Alfredito Rendon Protein [Mass/Vol] 7.1 g/dL Normal 6.4-8.2 [facility] Comment on above: Performed By: #### T SH, FT3, LIPID, CMP #### [facility] [address] [place] [address] Dr. Alfredito Rendon Sodium [Moles/Vol] 137 mmol/L Normal 136-145 [facility] Comment on above: Performed By: #### T SH, FT3, LIPID, CMP #### [facility] [address] [place] [address] Dr. Alfredito Rendon Urea nitrogen [Mass/Vol] 14.0 mg/dL Normal 7.0-18.0 [facility] Comment on above: Performed By: #### T SH, FT3, LIPID, CMP #### [facility] [address] [place] [address] Dr. Alfredito Rendon Urea nitrogen/Creatinine [Mass ratio] 19.7 mg/mg Normal [facility] Comment on above: Performed By: #### T SH, FT3, LIPID, CMP #### [facility] [address] [place] [address] Dr. Alfredito Rendon TSHon 11-28-2022 TSH 5.010 uIU/mL Critically high 0.358-3.740 [facility] Comment on above: Performed By: #### T SH, FT3, LIPID, CMP #### [facility] [address] [address] [address] Alfredito Rendon Thyroid Stim. Horm.on 2020 TSH Qn 10.79 m[IU]/L High 0.30-5.00 [facility] Comment on above: Performed By: #### T SH, FT4 #### [address] [address] [employer] Operator: Titus Pagan MD Thyroxine, Freeon 08-22-2021 Thyroxine, Free 0.89 ng/dL Low 0.93-1.70 [facility] Comment on above: Performed By: #### T SH, FT4 #### [address] [address] [employer] Operator: Titus Pagan MD Basic Metab, Fastingon 03-15 (cont.) Normal [facility] Comment on above: Result Comment: Aver age GFR for 30-39 years old: 107 mL/min/1.73sq m Chronic Kidney Disease: <60 mL/min/1.73sq m Kidney failure: <15 mL/min/1.73sq m eGFR calculated using average adult body mass. Additional eGFR calculator available at: http://www.InVisioneer.Razmir/multiple_crcl_2012.htm Performed By: #### B MPF, FT4, TSH #### [facility] [place], [place] [id number] [employer] Operator: Titus Pagan MD Anion gap [Moles/Vol] 10 mmol/L Normal 9-17 [facility] Comment on above: Performed By: #### B MPF, FT4, TSH #### [facility] [address] [place] [address] [employer] Operator: Titus Pagan MD Calcium [Mass/Vol] 9.4 mg/dL Normal 8.6-10.4 [facility] Comment on above: Performed By: #### B MPF, FT4, TSH #### [facility] [address] [place] [address] [employer] Operator: Titus Pagan MD Chloride [Moles/Vol] 102 mmol/L Normal 98-107 [facility] Comment on above: Performed By: #### B MPF, FT4, TSH #### [facility] [address] [place] [address] [employer] Operator: Titus Pagan MD CO2 [Moles/Vol] 25 mmol/L Normal 20-31 [facility] Comment on above: Performed By: #### B MPF, FT4, TSH #### [facility] [address] [place] [address] [employer] Operator: Titus Pagan MD Creatinine [Mass/Vol] 0.62 mg/dL Normal 0.50-0.90 [facility] Comment on above: Performed By: #### B MPF, FT4, TSH #### [address] [address] [employer] Operator: Titus Pagan MD GFR, Amer >60 Normal >60 [facility] Comment on above: Performed By: #### B MPF, FT4, TSH #### [facility] [address] [place] [address] [employer] Operator: Titus Pagan MD GFR,non Amer >60 Normal >60 [facility] Comment on above: Performed By: #### B MPF, FT4, TSH #### [facility] [address] [place] [address] [employer] Operator: Titus Pagan MD Glucose [Mass/Vol] 93 mg/dL Normal 70-99 [facility] Comment on above: Performed By: #### B MPF, FT4, TSH #### [facility] [address] [place] [address] [employer] Operator: Titus Pagan MD Potassium [Moles/Vol] 4.6 mmol/L Normal 3.7-5.3 [facility] Comment on above: Performed By: #### B MPF, FT4, TSH #### [address] [address] [employer] Operator: Titus Pagan MD Sodium [Moles/Vol] 137 mmol/L Normal 135-144 [facility] Comment on above: Performed By: #### B MPF, FT4, TSH #### [address] [address] [employer] Operator: Titus Pagan MD Urea nitrogen [Mass/Vol] 13 mg/dL Normal 6-20 [facility] Comment on above: Performed By: #### B MPF, FT4, TSH #### [address] [address] [employer] Operator: Titus Pagan MD BUN/CRE Ratio NOT REPORTED Normal -20 [facility] Comment on above: Performed By: #### B MPF, FT4, TSH #### [address] [address] [employer] Operator: Titus Pagan MD Staging: NOT REPORTED Normal [facility] Comment on above: Performed By: #### B MPF, FT4, TSH #### [facility] [address] [place] [address] [employer] Operator: Titus Pagan MD Thyroid Stim. Horm.on 2020 TSH Qn 13.08 m[IU]/L High 0.30-5.00 [facility] Comment on above: Performed By: #### B MPF, FT4, TSH #### [facility] [address] [place] [phone] [employer] Operator: Titus Pagan MD Thyroxine, Freeon 03-15-2021 Thyroxine, Free 0.90 ng/dL Low 0.93-1.70 [facility] Comment on above: Performed By: #### B MPF, FT4, TSH #### [facility] [address] [place] [address] [employer] Operator: Titus Pagan MD Encounters Encounter Date Encounter Type Care Provider Facility Start: 06-30-2024 End: 06-30-2024 ambulatory MARITZA R TRUE [facility] Start: 06-22-2024 End: 06-22-2024 ambulatory DAWOOD ANN Not Available Start: 05-19-2024 End: 05-19-2024 ambulatory MARITZA TRUE Not Available Start: 04-21-2024 End: 04-21-2024 ambulatory MARITZA TRUE Not Available Start: 03-18-2024 End: 03-18-2024 ambulatory REED AICHHOLZ Not Available Start: 12-31-2023 End: 12-31-2023 ambulatory REED AICHHOLZ Not Available Start: 02-19-2023 End: 02-20-2023 ambulatory INFORMATION ASSURANCE MANAGER REED AICHHOLZ Facility:[facility] Start: 12-11-2022 End: 12-12-2022 ambulatory INFORMATION ASSURANCE MANAGER REED AICHHOLZ Facility:[facility] Start: 11-28-2022 End: 11-29-2022 ambulatory INFORMATION ASSURANCE MANAGER REED AICHHOLZ Facility:[facility] Start: 03-15-2021 End: 03-16-2021 ambulatory NITA BARROS [facility] [facility] Date Payer Category Payer Medicaid [id number] 2019 Unknown [id number] 1989 Unknown [id number] 2.16.8 40.1.747316.3.579.2.175 1989 Unknown [id number] 2.16.84 0.1.396661.3.579.2.593 1989 Unknown [id number] 2.16.84 0.1.417670.3.579.2.593 1989 Unknown [id number] 2.16.84 0.1.729101.3.579.2.593 1989 Unknown [id number] 2.16.84 0.1.892270.3.579.2.1259 1989 Unknown [id number] 2.16.84 0.1.791035.3.579.2.1259 1989 Unknown [id number] 2.16.84 0.1.614051.3.579.2.9 1989 Unknown [id number] 2.16.84 0.1.378930.3.579.2.1259 1989 Unknown [id number] 2.16.84 0.1.722116.3.579.2.1259 1989 Unknown [id number] 2.16.8 40.1.917665.3.579.2.1286 1989 Unknown [id number] 2.16.8 40.1.733014.3.579.2.1286 1959 Unknown [id number] Summary Purpose Family History No Family History Records FoundNo Family History Records FoundNo Family History Records FoundNo Family History Records FoundNo Family History Records Found Advance Directives No Advanced Directives Records FoundNo Advanced Directives Records FoundNo Advanced Directives Records FoundNo Advanced Directives Records FoundNo Advanced Directives Records Found Additional Source Comments INFORMATION SOURCE (unrecogn ized section and content) DATE CREATED AUTHOR 03/17/2021 [facility] DATE CREATED AUTHOR AUTHOR'S ORGANIZ ATION 08/23/2021 [facility] DATE CREATED AUTHOR AUTHOR'S ORGANIZ ATION 02/23/2023 [facility] DATE CREATED AUTHOR AUTHOR'S ORGANIZ ATION 06/23/2024 [facility] DATE CREATED AUTHOR AUTHOR'S ORGANIZ ATION 07/02/2024 [facility] FOR RECORDS PERTAINING TO PATIENTS WHO [...] BE BASED ON THE PRIMARY CLINICAL RECORDS. [employer] [facility]. provides no warranty or guarantee of the accuracy or completeness of information in this document.
== END 2024-08-11 09:34 | disposition home or self-care (01) ==
LOC: NOMS 09:33
PROVIDERS: PCP Nurse Practitioner; Visit Provider Physician Assistant
DX: E06.3 Autoimmune thyroiditis (principal); Z3A.29 29 weeks gestation of pregnancy
CPT/HCPCS: 76816

== ENCOUNTER 2024-09-13 14:37 | Outpatient (OUT) | payer MEDICAID, SELFPAY ==
--- OUTSIDE RECORDS SUMMARY | 2024-09-13 14:49 | XMS_ITS | CCD ---
Author Organization [facility] Care Team Providers Care Core Sticker Name Role Phone NITA BARROS Referring Unavailable NITA BARROS Primary Care Unavailable AICHHOLZ, PROTEIN CHEMIST MERRY Primary Care Unavailable AICHHOLZ, PROTEIN CHEMIST MERRY Consulting Unavailable AICHHOLZ, PROTEIN CHEMIST MERRY Attending Unavailable AICHHOLZ, PROTEIN CHEMIST MERRY Admitting Unavailable AICHHOLZ, PROTEIN CHEMIST MERRY Primary Care Unavailable AICHHOLZ, PROTEIN CHEMIST MERRY Consulting Unavailable AICHHOLZ, PROTEIN CHEMIST MERRY Attending Unavailable AICHHOLZ, PROTEIN CHEMIST MERRY Admitting Unavailable MAGALI MCKNIGHT Consulting Unavailable AICHHOLZ, PROTEIN CHEMIST MERRY Primary Care Unavailable AICHHOLZ, PROTEIN CHEMIST MERRY Consulting Unavailable AICHHOLZ, PROTEIN CHEMIST MERRY Attending Unavailable AICHHOLZ, PROTEIN CHEMIST MERRY Admitting Unavailable MARITZA HA Referring Unavailable NITA BARROS Primary Care Unavailable EULALIA KINCAID Attending Unavailable MARITZA HA Referring Unavailable NITA BARROS Primary Care Unavailable AICHHOLZ, MERRY Attending Unavailable JERICA HAY Attending Unavailable TRUE, MARITZA Attending Unavailable SPARKLE ANN Attending Unavailable SPARKLE ANN Attending Unavailable Aichholz MANUFACTURING RECRUITER, Merry Unavailable Billy Lopez MD Primary Care Provider [phone] Allergies Allergy Classification Reported Allergen(s) Allergy Type Date of Onset Reaction(s) Facility (4 sources) varenicline; Translations: [VARENICLINE] Drug Allergy 02-12-2021 [facility] Medications Current Medications Medication Drug Class(es) Dates Sig (Normalized) Sig (Original) buprenorphine 8 mg sublingual tablet (3 sources) Partial Opioid Agonist Start: 02-26-2024 buprenorphine (Subtex) 8 MG TAKE 1.5 TAB UNDER TONGUE 3 DAYS PER WEEK, 1.25 TAB UNDER TONGUE 4 DAYS PER WEEK 02/26/2024 Active 12 hr buPROPion hydrochloride 150 mg extended release oral tablet (3 sources) Aminoketone Start: 07-29-2024 End: 07-29-2025 take 1 tablet by mouth every twelve hours in the morning buPROPion SR (Wellbutrin SR) 150 MG 12 hr tablet Indications: Anxiety, generalized (CMS/HCC) Take 1 tablet (150 mg) by mouth in the morning and 1 tablet (150 mg) before bedtime. Do not crush, chew, or split.. 60 tablet 11 07/29/2024 07/29/2025 Active levothyroxine sodium 0.05 mg oral tablet (3 sources) l-Thyroxine Start: 04-22-2024 End: 04-22-2025 take 1 tablet by mouth before mealtime levothyroxine (Synthroid) 50 MCG tablet Indications: Hyperthyroidism (CMS/HCC) Take 1 tablet (50 mcg) by mouth in the morning. Take before meals. 90 tablet 3 04/22/2024 04/22/2025 Active metoclopramide 10 mg oral tablet (3 sources) Dopamine-2 Receptor Antagonist Start: 05-19-2024 End: 08-10-2024 metoclopramide (Reglan) 10 MG tablet Indications: Nausea and vomiting during Take 1 tablet (10 mg) by mouth in the morning and 1 tablet (10 mg) at noon and 1 tablet (10 mg) in the evening. Take before meals. 90 tablet 2 05/19/2024 08/10/2024 Discontinued ondansetron 4 mg oral tablet (3 sources) Serotonin-3 Receptor Antagonist Start: 07-12-2024 take 1 tablet by mouth every eight hours for nausea ondansetron (Zofran) 4 MG tablet Indications: Nausea and vomiting during Take 1 tablet (4 mg) by mouth every 8 (eight) hours if needed for nausea 20 tablet 3 07/12/2024 Active Vit-Fe Fumarate-FA ( Vitamins) 28-0.8 MG tablet (3 sources) Start: 08-03-2024 End: 08-03-2025 take 1 tablet by mouth once daily Vit-Fe Fumarate-FA ( Vitamins) 28-0.8 MG tablet Indications: 28 weeks gestation of , Third trimester Take 1 tablet by mouth Daily 30 tablet 3 08/03/2024 08/03/2025 Active Problems Active Problems Problem Classification Problem Date Documented Date Episodic/Chronic Anxiety disorders (3 sources) Mixed anxiety and depressive disorder; Translations: [Anxiety disorder, unspecified] Onset: 12-20-2020 12-10-2023 Chronic Attention-deficit, conduct, and disruptive behavior disorders (1 source) Attention-deficit hyperactivity disorder, combined type; Translations: [Attention-deficit hyperactivity disorder, combined type] Onset: 04-25-2020 Chronic Attention-deficit, conduct, and disruptive behavior disorders (3 sources) Attention deficit hyperactivity disorder, combined type; Translations: [Attention-deficit hyperactivity disorder, combined type] Onset: 10-15-2019 12-10-2023 Chronic Blindness and vision defects (3 sources) Visual impairment; Translations: [Unspecified visual loss] Onset: 12-31-2023 12-31-2023 Chronic Essential hypertension (4 sources) Essential (primary) hypertension; Translations: [Hypertensive disorder] Onset: 11-29-2022 12-31-2023 Chronic Hypertension complicating ; childbirth and the puerperium (1 source) Unspecified pre-existing hypertension complicating , unspecified trimester; Translations: [Unspecified pre-existing hypertension complicating , unspecified trimester] Onset: 06-30-2024 Chronic Nutritional deficiencies (3 sources) Vitamin D deficiency; Translations: [Vitamin D deficiency, unspecified] Onset: 12-31-2023 12-31-2023 Chronic Other complications of (1 source) Obesity [...] BMI 40.0-44.9 ADULT] Onset: 11-29-2022 Chronic Other nutritional; endocrine; and metabolic disorders (3 sources) Body mass index 30+ - obesity; Translations: [Obesity, unspecified] Onset: 12-31-2023 12-31-2023 Chronic Other and delivery including normal (2 sources) Third trimester ; Translations: [Encounter for supervision of normal , unspecified, third trimester] 08-10-2024 Episodic Previous (1 source) Maternal care for unspecified type scar from previous delivery; Translations: [Maternal care for unspecified type scar from previous delivery] Onset: 06-30-2024 Episodic Residual codes; unclassified (2 sources) Gestation period, 29 weeks; Translations: [29 weeks gestation of ] 08-10-2024 Episodic Substance-related disorders (9 sources) Opioid dependence; Translations: [Opioid dependence, uncomplicated] Onset: 11-03-2017 12-10-2023 Chronic Thyroid disorders (18 sources) Hypothyroidism, unspecified; Translations: [Hypothyroidism] Onset: 02-19-2023 Chronic Unclassified (1 source) Suboxone Use Onset: 06-30-2024 Past or Other Problems Problem Classification Problem Date Documented Date Episodic/Chronic Cardiac dysrhythmias (3 sources) Sinus tachycardia; Translations: [Tachycardia, unspecified] Onset: 12-20-2020 12-10-2023 Episodic Inflammatory diseases of female pelvic organs (3 sources) Bacterial vaginosis; Translations: [Acute vaginitis] Onset: 10-07-2023 10-07-2023 Episodic Nausea and vomiting (3 sources) Nausea; Translations: [Nausea] Onset: 01-07-2024 01-07-2024 Episodic Other aftercare (3 sources) Long-term current use of drug therapy; Translations: [Other penitentiary (current) drug therapy] Onset: 12-20-2020 12-10-2023 Episodic Other nutritional; endocrine; and metabolic disorders (3 sources) Obese class I; Translations: [Obesity (BMI 30.0-34.9)] Onset: 06-27-2015 Resolved: 12-31-2023 12-31-2023 Chronic Other nutritional; endocrine; and metabolic disorders (3 sources) Overweight in adulthood with body mass index of 25 or more but less than 30; Translations: [Body mass index (BMI) 28.0-28.9, adult] Onset: 12-31-2023 Resolved: 12-31-2023 12-31-2023 Episodic Other screening for suspected conditions (not mental disorders or infectious disease) (5 sources) Encounter for other specified screening; Translations: [Encounter for screening for cervical length] Onset: 12-31-2023 12-31-2023 Episodic Residual codes; unclassified (3 sources) Tobacco user; Translations: [Tobacco use] Onset: 12-31-2023 12-31-2023 Episodic Residual codes; unclassified (3 sources) H/O: ectopic ; Translations: [Personal history of other complications of , childbirth and the puerperium] Onset: 12-31-2023 Resolved: 12-31-2023 12-31-2023 Episodic Results Test Name Value Interpretation Reference Range Facility Urinalysis macro (dipstick) panel (U)on 08-10-2024 Bilirubin, UA Negative Negative - 4(70) +++ mg/dL [facility] Blood, UA Negative Negative - 50 Shaan/mcL [facility] Clarity, UA [facility] re Color, UA Yellow [facility] Glucose, UA Negative Negative - 1999(110) ++++ mg/dL [facility] Interpretation and review of laboratory results Normal [facility] Ketones, UA Negative Negative - 160(16) ++++ mg/dL [facility] Leukocytes, UA Negative Negative - 500+++ Milton/mcL [facility] Nitrite, UA Negative Negative - Positive [facility] pH, UA 6.0 5 - 9 [facility] Protein, UA Negative Negative - 1999(20) ++++ mg/dL [facility] Spec Grav, UA 1.030 1 - 1.03 [facility] Urobilinogen, UA 0.2 0.2 - 12 mg/dL [facility] FREE T4on 02-19-2023 Free T4 [Mass/Vol] 1.39 ng/dL Normal 0.76-1.46 [facility] Comment on above: Performed By: #### F T4 #### [facility] [address] [address] [address] Alfredito Rendon TSHon 02-19-2023 TSH 0.012 uIU/mL Critically low 0.358-3.740 [facility] Comment on above: Performed By: #### T SH #### [facility] [address] [address] [address] Alfredito Rendon US THYROIDon 12-11-2022 US [...] MAGALI MCKNIGHT Date: 2022-12-11 15:05 Normal [facility] THYROID ANTIBODIESon 023 Thyroglobulin Antibody 21.5 IU/mL Critically high 0.0-0.9 [facility] Comment on above: Result Comment: Thyr oglobulin Antibody measured by [facility] Methodology Performed By: #### T HYRABS #### [facility] [address] [address] [address] Alfredito Rendon Thyroid Peroxidase (TPO) Ab 73 IU/mL Critically high 0-34 [facility] Comment on above: Performed By: #### T HYRABS #### [facility] [address] [address] [address] Alfredito Rendon CBC AUTO DIFFon 11-28-2022 BASO # 0.0 103/ul Normal 0.0-0.1 [facility] Comment on above: Performed By: #### C BC #### [facility] [address] [address] [address] Alfredito Rendon Basophils/100 WBC (Bld) 0.3 % Normal 0.2-2.0 [facility] Comment on above: Performed By: #### C BC #### [facility] [address] [place] [address] Dr. Alfredito Rendon EO # 0.2 103/ul Normal 0.0-0.7 [facility] Comment on above: Performed By: #### C BC #### [facility] [address] [place] [address] Dr. Alfredito Rendon Eosinophils/100 WBC (Bld) 2.3 % Normal 0.9-7.0 [facility] Comment on above: Performed By: #### C BC #### [facility] [address] [place] [address] Dr. Alfredito Rendon Erythrocyte distribution width (RBC) [Ratio] 13.0 % Normal 11.0-15.0 [facility] Comment on above: Performed By: #### C BC #### [facility] [address] [place] [address] Dr. Alfredito Rendon Hematocrit (Bld) [Volume fraction] 41.2 % Normal 36.0-48.0 [facility] Comment on above: Performed By: #### C BC #### [facility] [address] [place] [address] Dr. Alfredito Rendon Hemoglobin (Bld) [Mass/Vol] 12.5 g/dL Normal 12.0-16.0 [facility] Comment on above: Performed By: #### C BC #### [facility] [address] [place] [address] Dr. Alfredito Rendon IG # 0.02 10e3/ul Normal 0.00-0.03 [facility] Comment on above: Performed By: #### C BC #### [facility] [address] [place] [address] Dr. Alfredito Rendon IG % 0.2 % Normal 0.0-0.5 [facility] Comment on above: Performed By: #### C BC #### [facility] [address] [place] [address] Dr. Alfredito Rendon LYMPH # 2.7 103/ul Normal 1.2-3.8 [facility] Comment on above: Performed By: #### C BC #### [facility] [address] [place] [address] Dr. Alfredito Rendon Lymphocytes/100 WBC (Bld) 25.3 % Normal 20.5-60.0 [facility] Comment on above: Performed By: #### C BC #### [facility] [address] [place] [address] Dr. Alfredito Rendon MANUAL DIFF REQ NO Normal [facility] Comment on above: Performed By: #### C BC #### [facility] [address] [place] [address] Dr. Alfredito Rendon MCH (RBC) [Entitic mass] 29.6 pg Normal 26.7-34.0 [facility] Comment on above: Performed By: #### C BC #### [facility] [address] [place] [address] Dr. Alfredito Rendon MCHC (RBC) [Mass/Vol] 30.3 g/dL Normal 29.9-35.2 [facility] Comment on above: Performed By: #### C BC #### [facility] [address] [place] [address] Dr. Alfredito Rendon MCV (RBC) [Entitic vol] 97.6 fL Normal 81.0-99.0 [facility] Comment on above: Performed By: #### C BC #### [facility] [address] [place] [address] Dr. Alfredito Rendon MONO # 0.7 103/ul Normal 0.3-0.8 [facility] Comment on above: Performed By: #### C BC #### [facility] [address] [place] [address] Dr. Alfredito Rendon Monocytes/100 WBC (Bld) 6.4 % Normal 1.7-12.0 [facility] Comment on above: Performed By: #### C BC #### [facility] [address] [place] [address] Dr. Alfredito Rendon NEUT # 6.9 103/ul Critically high 1.4-6.5 [facility] Comment on above: Performed By: #### C BC #### [facility] [address] [address] [address] Alfredito Rendon Neutrophils/100 WBC (Bld) 65.5 % Normal 43.0-75.0 [facility] Comment on above: Performed By: #### C BC #### [facility] [address] [address] [address] Alfredito Rendon Platelet mean volume (Bld) [Entitic vol] 10.1 fL Normal 9.5-13.5 [facility] Comment on above: Performed By: #### C BC #### [facility] [address] [place] [address] Dr. Alfredito Rendon PLT 253 103/ul Normal 150-450 [facility] Comment on above: Performed By: #### C BC #### [facility] [address] [place] [address] Dr. Alfredito Rendon RBC 4.22 106/ul Normal 4.20-5.40 [facility] Comment on above: Performed By: #### C BC #### [facility] [address] [place] [address] Dr. Alfredito Rendon WBC 10.6 103/ul Normal 4.0-11.0 [facility] Comment on above: Performed By: #### C BC #### [facility] [address] [place] [address] Dr. Alfredito Rendon FREE T3on 11-28-2022 FREE T3 2.65 pg/mlL Normal 2.18-3.98 [facility] Comment on above: Performed By: #### T SH, FT3, LIPID, CMP #### [facility] [address] [place] [address] Dr. Alfredito Rendon FREE T4on 11-28-2022 Free T4 [Mass/Vol] 0.86 ng/dL Normal 0.76-1.46 [facility] Comment on above: Performed By: #### F T4 #### [facility] [address] [place] [address] Dr. Alfredito Rendon LIPID PROFILEon 11-28-2022 CHOL-HDL RATIO NORM SEE BELOW Normal [facility] Comment on above: Result Comment: 3.3 - 4.4 LOW RISK 4.4 - 7.1 AVERAGE RISK 7.1 - 11.0 MODERATE RISK >11.0 HIGH RISK Performed By: #### T SH, FT3, LIPID, CMP #### [facility] [address] [address] [address] Alfredito Rendon Cholesterol [Mass/Vol] 172 mg/dL Normal <=200 [facility] Comment on above: Performed By: #### T SH, FT3, LIPID, CMP #### [facility] [address] [place] [address] Dr. Alfredito Rendon Cholesterol in HDL [Mass/Vol] 49 mg/dL Normal 40-60 [facility] Comment on above: Performed By: #### T SH, FT3, LIPID, CMP #### [facility] [address] [place] [address] Dr. Alfredito Rendon Cholesterol in LDL [Mass/Vol] 96.2 mg/dL Normal [facility] Comment on above: Performed By: #### T SH, FT3, LIPID, CMP #### [facility] [address] [place] [address] Dr. Alfredito Rendon Cholesterol.total/Ch olesterol in HDL [Mass ratio] 3.5 {ratio} Normal [facility] Comment on above: Performed By: #### T SH, FT3, LIPID, CMP #### [facility] [address] [place] [address] Dr. Alfredito Rendon HDL NORMAL > or = 60 mg/dl - LOW CARDIOVASCULAR RISK <40 mg/dl - HIGH CARDIOVASCULAR RISK Normal [facility] Comment on above: Performed By: #### T SH, FT3, LIPID, CMP #### [facility] [address] [place] [address] Dr. Alfredito Rendon LDL CALC NORMAL SEE BELOW Normal [facility] Comment on above: Result Comment: <100 mg/dl OPTIMAL 100 - 129 mg/dl NEAR OR ABOVE OPTIMAL 130 - 159 mg/dl BORDERLINE HIGH 160 - 189 mg/dl HIGH >190 mg/dl VERY HIGH Performed By: #### T SH, FT3, LIPID, CMP #### [facility] [address] [address] [address] Alfredito Rendon Triglyceride [Mass/Vol] 134 mg/dL Normal <=150 [facility] Comment on above: Performed By: #### T SH, FT3, LIPID, CMP #### [facility] [address] [address] [address] Alfredito Rendon VLDL CALC 26.8 mg/dL Normal [facility] Comment on above: Performed By: #### T SH, FT3, LIPID, CMP #### [facility] [address] [address] [address] Alfredito Rendon PROF 14(COMP METB)on 023 Albumin [Mass/Vol] 3.3 g/dL Critically low 3.4-5.0 [facility] Comment on above: Performed By: #### T SH, FT3, LIPID, CMP #### [facility] [address] [place] [address] Dr. Alfredito Rendon Albumin/Globulin [Mass ratio] 0.9 {ratio} Normal [facility] Comment on above: Performed By: #### T SH, FT3, LIPID, CMP #### [facility] [address] [address] [address] Alfredito Rendon ALP [Catalytic activity/Vol] 63 U/L Normal 46-116 [facility] Comment on above: Performed By: #### T SH, FT3, LIPID, CMP #### [facility] [address] [address] [address] Alfredito Rendon ALT [Catalytic activity/Vol] 27 U/L Normal 14-59 [facility] Comment on above: Performed By: #### T SH, FT3, LIPID, CMP #### [facility] [address] [address] [address] Alfredito Rendon Anion gap [Moles/Vol] 14.1 mmol/L Normal [facility] Comment on above: Performed By: #### T SH, FT3, LIPID, CMP #### [facility] [address] [place] [address] Dr. Alfredito Rendon AST [Catalytic activity/Vol] 20 U/L Normal 15-37 [facility] Comment on above: Performed By: #### T SH, FT3, LIPID, CMP #### [facility] [address] [place] [address] Dr. Alfredito Rendon Bilirubin [Mass/Vol] 0.3 mg/dL Normal 0.2-1.0 [facility] Comment on above: Performed By: #### T SH, FT3, LIPID, CMP #### [facility] [address] [place] [address] Dr. Alfredito Rendon Calcium [Mass/Vol] 9.2 mg/dL Normal 8.5-10.1 [facility] Comment on above: Performed By: #### T SH, FT3, LIPID, CMP #### [facility] [address] [place] [address] Dr. Alfredito Rendon Chloride [Moles/Vol] 103 mmol/L Normal 98-107 [facility] Comment on above: Performed By: #### T SH, FT3, LIPID, CMP #### [facility] [address] [place] [address] Dr. Alfredito Rendon CO2 [Moles/Vol] 24.1 mmol/L Normal 21.0-32.0 [facility] Comment on above: Performed By: #### T SH, FT3, LIPID, CMP #### [facility] [address] [place] [address] Dr. Alfredito Rendon Creatinine [Mass/Vol] 0.71 mg/dL Normal 0.55-1.02 [facility] Comment on above: Performed By: #### T SH, FT3, LIPID, CMP #### [facility] [address] [place] [address] Dr. Alfredito Rendon EGFR-AF BANGLADESHI >60 Normal >=60 [facility] Comment on above: Performed By: #### T SH, FT3, LIPID, CMP #### [facility] [address] [place] [address] Dr. Alfredito Rendon EGFR-NON AF BANGLADESHI >60 Normal >=60 [facility] Comment on above: Performed By: #### T SH, FT3, LIPID, CMP #### [facility] [address] [place] [address] Dr. Alfredito Rendon Globulin (S) [Mass/Vol] 3.8 g/dL Normal [facility] Comment on above: Performed By: #### T SH, FT3, LIPID, CMP #### [facility] [address] [place] [address] Dr. Alfredito Rendon Glucose [Mass/Vol] 106 mg/dL Normal 74-106 [facility] Comment on above: Performed By: #### T SH, FT3, LIPID, CMP #### [facility] [address] [place] [address] Dr. Alfredito Rendon Potassium [Moles/Vol] 4.2 mmol/L Normal 3.5-5.1 [facility] Comment on above: Performed By: #### T SH, FT3, LIPID, CMP #### [facility] [address] [place] [address] Dr. Alfredito Rendon Protein [Mass/Vol] 7.1 g/dL Normal 6.4-8.2 [facility] Comment on above: Performed By: #### T SH, FT3, LIPID, CMP #### [facility] [address] [place] [address] Dr. Alfredito Rendon Sodium [Moles/Vol] 137 mmol/L Normal 136-145 [facility] Comment on above: Performed By: #### T SH, FT3, LIPID, CMP #### [facility] [address] [place] [address] Dr. Alfredito Rendon Urea nitrogen [Mass/Vol] 14.0 mg/dL Normal 7.0-18.0 [facility] Comment on above: Performed By: #### T SH, FT3, LIPID, CMP #### [facility] [address] [place] [address] Dr. Alfredito Rendon Urea nitrogen/Creatinine [Mass ratio] 19.7 mg/mg Normal [facility] Comment on above: Performed By: #### T SH, FT3, LIPID, CMP #### [facility] [address] [place] [address] Dr. Alfredito Rendon TSHon 11-28-2022 TSH 5.010 uIU/mL Critically high 0.358-3.740 [facility] Comment on above: Performed By: #### T SH, FT3, LIPID, CMP #### [facility] [address] [address] [address] Alfredito Rendon Thyroid Stim. Horm.on 2020 TSH Qn 10.79 m[IU]/L High 0.30-5.00 [facility] Comment on above: Performed By: #### T SH, FT4 #### [facility] [place] [address] Customer Agent: Titus Pagan MD Thyroxine, Freeon 08-22-2021 Thyroxine, Free 0.89 ng/dL Low 0.93-1.70 [facility] Comment on above: Performed By: #### T SH, FT4 #### [address] [address] Customer Agent: Titus Pagan MD Basic Metab, Fastingon 03-15 (cont.) Normal [facility] Comment on above: Result Comment: Aver age GFR for 30-39 years old: 107 mL/min/1.73sq m Chronic Kidney Disease: <60 mL/min/1.73sq m Kidney failure: <15 mL/min/1.73sq m eGFR calculated using average adult body mass. Additional eGFR calculator available at: [email or web address]://[email or web address] Performed By: #### B MPF, FT4, TSH #### [address] [address] Customer Agent: Titus Pagan MD Anion gap [Moles/Vol] 10 mmol/L Normal - [facility] Comment on above: Performed By: #### B MPF, FT4, TSH #### [facility] [employer] [address] [place] [address] Customer Agent: Titus Pagan MD Calcium [Mass/Vol] 9.4 mg/dL Normal 8.6-10.4 [facility] Comment on above: Performed By: #### B MPF, FT4, TSH #### [address] [address] Customer Agent: Titus Pagan MD Chloride [Moles/Vol] 102 mmol/L Normal 98-107 [facility] Comment on above: Performed By: #### B MPF, FT4, TSH #### [facility] [employer] [address] [place] [address] Customer Agent: Titus Pagan MD CO2 [Moles/Vol] 25 mmol/L Normal 20-31 [facility] Comment on above: Performed By: #### B MPF, FT4, TSH #### [address] [address] Customer Agent: Titus Pagan MD Creatinine [Mass/Vol] 0.62 mg/dL Normal 0.50-0.90 [facility] Comment on above: Performed By: #### B MPF, FT4, TSH #### [facility] [employer] [address] [place] [address] Customer Agent: Titus Pagan MD GFR, Amer >60 Normal >60 [facility] Comment on above: Performed By: #### B MPF, FT4, TSH #### [facility] [employer] [address] [place] [address] Customer Agent: Titus Pagan MD GFR,non Amer >60 Normal >60 [facility] Comment on above: Performed By: #### B MPF, FT4, TSH #### [facility] [employer] [address] [place] [address] Customer Agent: Titus Pagan MD Glucose [Mass/Vol] 93 mg/dL Normal 70-99 [facility] Comment on above: Performed By: #### B MPF, FT4, TSH #### [facility] [employer] [address] [place] [address] Customer Agent: Titus Pagan MD Potassium [Moles/Vol] 4.6 mmol/L Normal 3.7-5.3 [facility] Comment on above: Performed By: #### B MPF, FT4, TSH #### [facility] [employer] [address] [place] [address] Customer Agent: Titus Pagan MD Sodium [Moles/Vol] 137 mmol/L Normal 135-144 [facility] Comment on above: Performed By: #### B MPF, FT4, TSH #### [address] [address] Customer Agent: Titus Pagan MD Urea nitrogen [Mass/Vol] 13 mg/dL Normal - [facility] Comment on above: Performed By: #### B MPF, FT4, TSH #### [address] [address] Customer Agent: Titus Pagan MD BUN/CRE Ratio NOT REPORTED Normal - [facility] Comment on above: Performed By: #### B MPF, FT4, TSH #### [facility] [employer] [address] [place] [address] Customer Agent: Titus Pagan MD Staging: NOT REPORTED Normal [facility] Comment on above: Performed By: #### B MPF, FT4, TSH #### [facility] [employer] [address] [place] [address] Customer Agent: Titus Pagan MD Thyroid Stim. Horm.on 2020 TSH Qn 13.08 m[IU]/L High 0.30-5.00 [facility] Comment on above: Performed By: #### B MPF, FT4, TSH #### [facility] [address] [place] [address], [place] [phone] Customer Agent: Titus Pagan MD Thyroxine, Freeon 03-15-2021 Thyroxine, Free 0.90 ng/dL Low 0.93-1.70 [facility] Comment on above: Performed By: #### B MPF, FT4, TSH #### [facility] [employer] [address] [place], [place] [phone] Customer Agent: Titus Pagan MD Vital Signs Date Time Vital Sign Value Performing Clinician Faci lity 08-10-2024 09: Body mass index (BMI) [Ratio] 40.53 kg/m2 Sparkle TRIMBLE Work Phone: [facility] 08-10-2024 09:13040 Body weight 103.78 kg Sparkle TRIMBLE Work Phone: [facility] 08-10-2024 09:13-0400 Diastolic blood pressure 70 mm[Hg] Sparkle TRIMBLE Work Phone: [facility] 08-10-2024 09:13-0400 Systolic blood pressure 110 mm[Hg] Sparkle TRIMBLE Work Phone: [facility] Healthcare Encounters Encounter Date Encounter Type Care Provider Facility Start: 08-10-2024 End: 08-10-2024 Bamboo flowsheet Sparkle TRIMBLE Work Phone: [facility] Start: 08-10-2024 End: 08-10-2024 Bamboo flowsheet Sparkle TRIMBLE Work Phone: [facility] Start: 08-10-2024 End: 08-10-2024 Office outpatient visit 15 minutes Sparkle TRIMBLE Work Phone: [facility] Comment on above: Third trimester preg marlin; 29 weeks gestation of ; Nava's disease (CMS/HCC); Hypothyroidism, unspecified type (CMS/HCC) Start: 08-10-2024 End: 08-10-2024 ambulatory SPARKLE ANN Not Available Start: 06-30-2024 End: 06-30-20[facility] Start: 06-22-2024 End: 06-22-2024 ambulatory SPARKLE ANN Not Available Start: 05-19-2024 End: 05-19-2024 ambulatory MARITZA YBARRAZIO Not Available Start: 04-21-2024 End: 04-21-2024 ambulatory MARITZA TRUE Not Available Start: 03-18-2024 End: 03-18-2024 ambulatory MERRY AICHHOLZ Not Available Start: 12-31-2023 End: 12-31-2023 ambulatory MERRY AICHHOLZ Not Available Start: 02-19-2023 End: 02-20-2023 ambulatory PROTEIN CHEMIST MERRY AICHHOLZ Facility:[facility]1 Start: 12-11-2022 End: 12-12-2022 ambulatory PROTEIN CHEMIST MERRY AICHHOLZ Facility:[facility] Start: 11-28-2022 End: 11-29-2022 ambulatory PROTEIN CHEMIST MERRY AICHHOLZ Facility:[facility] Start: 03-15-2021 End: 03-16-2021 ambulatory NITA ZAPATA [facility] Procedures Date Procedure Procedure Detail Performing Clinician Start: 08-10-2024 Urnls dip stick/tabl et rgnt non-auto w/o micrscp Sparkle Ann PA Work Phone: Plan of Treatment Date Care Activity Detail Author Start: 08-24-2024 End: 08-24-2024 Patient encounter procedure 08/24/2024 9:20 AM EDT Routine [facility] [address] [place] [address] Maritza Ha, DO [address] [place] [address] [facility] Start: 08-11-2024 End: 08-11-2024 Professional / ancillary services management 08/11/2024 9:30 AM EDT Ancillary Procedure [facility] [address] [place] [address] [facility] Start: 08-10-2024 End: 08-10-2025 US for US OB SCAN FOR GROWTH Imaging Routine Nava's disease (CMS/HCC) Hypothyroidism, unspecified type (CMS/HCC) Expected: 08/10/2024 (Approximate), Expires: 08/10/2025 [facility] Work Phone: Comment on above: Expected: 08/10/2024 (Approximate), Expires: 08/10/2025 Start: 08-10-2024 End: 08-10-2024 Patient encounter procedure 08/10/2024 8:50 AM EDT Routine [facility] [address] [place] [address] Sparkle Ann PA [address] [place] [address] Arrived [facility] Comment on above: Arrived Start: 2019 Screening for malign ant neoplasm of cervix [facility] Start: 2010 Screening for malign ant neoplasm of cervix Pap Smear [facility] Thyrotropin [Units/volume] in Serum or Plasma TSH Lab Routine Nava's disease (CMS/HCC) Hypothyroidism, unspecified type (CMS/HCC) Ordered: 08/10/2024 [facility] Comment on above: Ordered: 08/10/2024 Thyroxine (T4) free [Mass/volume] in Serum or Plasma T4, free Lab Routine Nava's disease (CMS/HCC) Hypothyroidism, unspecified type (CMS/HCC) Ordered: 08/10/2024 [facility] Comment on above: Ordered: 08/10/2024 Immunizations Immunization Date Immunization Notes Care Provider Farhad jackson 05-03-2018 tetanus toxoid, redu bravo diphtheria toxoid, and acellular pertussis vaccine, adsorbed Sparkle TRIMBLE Work Phone: [facility] 06-16-2008 human papilloma viru s vaccine, quadrivalent Sparkle TRIMBLE Work Phone: [facility] 03-08-2008 human papilloma viru s vaccine, quadrivalent Sparkle TRIMBLE Work Phone: [facility] Payers Date Payer Category Payer Medicaid [employer] [employer] [place] [id number] 2022-Present [address] [place] [address] [id number] 2022 Medicaid [id number] 2019 Unknown [id number] 1989 Unknown [id number] 1989 Unknown [id number] 1989 Unknown [id number] 1989 Unknown [id number] [id number] 1989 Unknown [id number] [id number] 1989 Unknown [id number] [id number] 1989 Unknown [id number] [id number] 1989 Unknown [id number] [id number] 1989 Unknown [id number] [id number] 1989 Unknown [id number] [id number] 1989 Unknown [id number] [id number] 1989 Unknown [id number] 1959 Unknown [id number] Social History Date Type Detail Facility Start: 12-31-2023 Tobacco smoking stat [facility] Ex-smoker [facility] End: 11-03-2021 History of tobacco use Current smoker [facility] End: 11-03-2021 History of tobacco use Cigarette Smoker [facility] Start: 12-31-2023 Tobacco use and exposure Smoke less tobacco non-user [facility] Start: 06-22-2024 End: 08-10-2024 Alcoholic beverage intake Lifetime non-drinker (finding) [facility] Start: 12-31-2023 History of Social function [facility] Start: 12-31-2023 Tobacco use panel [facility] Start: 12-31-2023 Alcohol Comment caffine: none [facility] Start: 02-03-2024 [facility] Start: 1989 Sex assigned at Not on file [facility] History of Present illness Narrative 08-10-2024 ATILIO Soliz - 08/10/2024 8:50 AM EDT Note Date & Type Note Facility 08-10-2024 History of Presen t illness Narrative Reason for Appointment: Patient ID: Giuliana Vazquez is a 33 y.o. female who presents for Routine Visit Patient presents today for Return OB appointment. MEDICATIONS Current Outpatient Medications Medication Instructions buprenorphine (Subtex) 8 MG TAKE 1.5 TAB UNDER TONGUE 3 DAYS PER WEEK, 1.25 TAB UNDER TONGUE 4 DAYS PER WEEK buPROPion SR (WELLBUTRIN SR) 150 mg, Oral, 2 times daily, Do not crush, chew, or split. levothyroxine (SYNTHROID) 50 mcg, Oral, Daily before breakfast ondansetron (ZOFRAN) 4 mg, Oral, Every 8 hours PRN Vit-Fe Fumarate-FA ( Vitamins) 28-0.8 MG tablet 1 tablet, Oral, Daily ALLERGIES Allergies Allergen Reactions Varenicline Made pt violent and mortensen. PROBLEMS Active Ambulatory Problems Diagnosis Date Noted Bacterial vaginosis 10/07/2023 Anxiety and depression ([facility] 12/20/2020 Attention deficit hyperactivity disorder (ADHD), combined type ([facility]) 10/15/2019 Encounter for long-term (current) use of high-risk medication 12/20/2020 Sinus tachycardia 12/20/2020 Uncomplicated opioid dependence ([facility]) 10/15/2019 Hypertension ([facility]) 12/31/2023 Vitamin D deficiency 12/31/2023 Thyroid nodule ([facility]) 12/31/2023 Hypothyroidism (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 History of ectopic 12/31/2023 History of opioid abuse ([facility] 2018 using subtex Hypertension ([facility]) 12/31/2023 Hypothyroidism ([facility]) 12/31/2023 Opioid abuse ([facility]) 12/31/2023 Thyroid nodule ([facility]) 12/31/2023 Tobacco user 12/31/2023 Visual impairment 12/31/2023 Vitamin D deficiency 12/31/2023 Social History Tobacco Use Smoking status: Former Current packs/day: 0.00 Types: Cigarettes Quit date: 2021 Years since quittin.7 Smokeless tobacco: Never Vaping Use Vaping status: Some Days Substances: Nicotine, Flavoring Devices: Disposable Passive vaping exposure: Yes Substance Use Topics Alcohol use: Never Comment: caffine: none Drug use: Never FAMILY HISTORY No family history on file. SURGICAL HISTORY Past Surgical History: Procedure Laterality Date SECTION, LOW TRANSVERSE 2017 SECTION, LOW TRANSVERSE 2014 ECTOPIC SURGERY REVIEW OF SYSTEMS Review of Systems: Review of Systems All other systems reviewed and are negative. OBJECTIVE Objective: Physical Exam Constitutional: Appearance: Normal appearance. She is well-developed. Cardiovascular: Rate and Rhythm: Normal rate and regular rhythm. Pulmonary: Effort: Pulmonary effort is normal. Breath sounds: Normal breath sounds. Abdominal: General: Bowel sounds are normal. There is no distension. Palpations: Abdomen is soft. Tenderness: There is no abdominal tenderness. There is no guarding or rebound. Musculoskeletal: General: No swelling. Normal range of motion. Right lower leg: No edema. Left lower leg: No edema. Neurological: Mental Status: She is alert and oriented to person, place, and time. Skin: General: Skin is warm and dry. Psychiatric: Mood and Affect: Mood normal. Behavior: Behavior normal. Vitals and nursing note reviewed. Exam conducted with a religious healer present. Vitals: Estimated body mass index is 40.53 kg/m as calculated from the following: Height as of 12/31/23: 5' 3 . Weight as of this encounter: 228 lb 12.8 oz. BP: 110/70 Patient's last menstrual period was 01/14/2024. ASSESSMENT & PLAN ICD-10-CM 1. Third trimester Z34.93 POCT urinalysis dipstick manually resulted 2. 29 weeks gestation of Z3A.29 POCT urinalysis dipstick manually resulted 3. 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 Hypothyroidism, unspecified type (CMS/HCC) E03.9 US OB SCAN FOR GROWTH TSH T4, free Return OB: Patient presents today for a routine obstetrics appointment. Patient is currently 29w0d . Patient states she is doing well but has complaints of being tired due to current . Patient has verbalizes frequent movement. labor precautions was discussed/given and patient was instructed to perform kick counts three times a day. Patient given orders for Growth ultrasound and labs to be completed every 4 weeks for Free T4 and TSH. Orders Placed This Encounter Procedures US OB SCAN FOR GROWTH TSH T4, free POCT urinalysis dipstick manually resulted Follow Up: Patient is to return to office in 2 week for routine OB appointment. Documented by Erma Moise LPN on behalf of: ATILIO Soliz documented in this encounter [facility] Evaluation note Note Date & Type Note Facility Evaluation note Diagnosis Third trimester state, incidental 29 weeks gestation of Nava's disease (CMS/HCC) Chronic lymphocytic thyroiditis Hypothyroidism, unspecified type (CMS/HCC) documented in this encounter [facility] Summary Purpose Family History No Family History Records FoundNo Family History Records FoundNo Family History Records FoundNo Family History Records FoundNo Family History Records Found Advance Directives No Advanced Directives Records FoundNo Advanced Directives Records FoundNo Advanced Directives Records FoundNo Advanced Directives Records FoundNo Advanced Directives Records Found Additional Source Comments INFORMATION SOURCE (unrecogn ized section and content) DATE CREATED AUTHOR 03/17/2021 [facility] DATE CREATED AUTHOR AUTHOR'S ORGANIZ ATION 08/23/2021 [facility] DATE CREATED AUTHOR AUTHOR'S ORGANIZ ATION 02/23/2023 [facility] DATE CREATED AUTHOR AUTHOR'S ORGANIZ ATION 07/02/2024 [facility] DATE CREATED AUTHOR AUTHOR'S ORGANIZ ATION 08/11/2024 [facility] EP[employer] Care Teams (unrecognized sec tion and content) Core Sticker Relationship Specialty Start Date End Date Billy Lopez MD [address] [place] [id number] PCP - General Family Medicine 11/21/23 Merry Arceo NP [address] [place] [address] Nurse Practitioner Family Medicine 11/03/22 Core Sticker Relationship Specialty Start Date End Date Billy Lopez MD [address] [place] [address] PCP - General Family Medicine 11/21/23 Merry Arceo NP [address] [place] [address] Nurse Practitioner Family Medicine 11/03/22 Reason for Visit (unrecogniz ed section and content) Reason Comments Routine Visit FOR RECORDS PERTAINING TO PATIENTS WHO ARE [...] BE BASED ON THE PRIMARY CLINICAL RECORDS. [facility] [employer] [facility]. provides no warranty or guarantee of the accuracy or completeness of information in this document.
[2024-09-13 15:30] LABS: Thyroid Stimulating Hormone 3.736 uIU/mL (0.358-3.740)
[2024-09-13 16:49] LABS: Free T4 0.82 ng/dL (0.76-1.46)
== END 2024-09-13 14:38 | disposition home or self-care (01) ==
LOC: LAB 14:38
PROVIDERS: PCP Nurse Practitioner; Visit Provider Physician Assistant
DX: E06.3 Autoimmune thyroiditis (principal)
CPT/HCPCS: 36415; 84439; 84443

== ENCOUNTER 2024-09-28 19:17 | Outpatient (REF) | payer MEDICAID, SELFPAY ==
--- OUTSIDE RECORDS SUMMARY | 2024-09-28 19:24 | XMS_ITS | CCD ---
Author Organization [facility] Inform ion Partnership [facility] Care Team Providers Care Vmware Consultant Name Role Phone NITA BARROS Referring Unavailable NITA BARROS Primary Care Unavailable AICHHOLZ, DENTAL TECHNOLOGY ADVISOR MERRY Primary Care Unavailable AICHHOLZ, DENTAL TECHNOLOGY ADVISOR MERRY Consulting Unavailable AICHHOLZ, DENTAL TECHNOLOGY ADVISOR MERRY Attending Unavailable AICHHOLZ, DENTAL TECHNOLOGY ADVISOR MERRY Admitting Unavailable AICHHOLZ, DENTAL TECHNOLOGY ADVISOR MERRY Primary Care Unavailable AICHHOLZ, DENTAL TECHNOLOGY ADVISOR MERRY Consulting Unavailable AICHHOLZ, DENTAL TECHNOLOGY ADVISOR MERRY Attending Unavailable AICHHOLZ, DENTAL TECHNOLOGY ADVISOR MERRY Admitting Unavailable MAGALI MCKNIGHT Consulting Unavailable AICHHOLZ, DENTAL TECHNOLOGY ADVISOR EMRRY Primary Care Unavailable AICHHOLZ, DENTAL TECHNOLOGY ADVISOR MERRY Consulting Unavailable AICHHOLZ, DENTAL TECHNOLOGY ADVISOR MERRY Attending Unavailable AICHHOLZ, DENTAL TECHNOLOGY ADVISOR MERRY Admitting Unavailable MARITZA HA Referring Unavailable NITA BARROS Primary Care Unavailable EULALIA KINCAID Attending Unavailable MARITZA HA Referring Unavailable NITA BARROS Primary Care Unavailable Aichholz LAB INTERN, Merry Unavailable Billy Lopez MD Primary Care Provider MANNY MERRY Attending Unavailable MARITZA HA Attending Unavailable MARITZA HA Attending Unavailable SPARKLE ANN Attending Unavailable SPARKLE ANN Attending Unavailable SPARKLE ANN Attending Unavailable EULALIA KINCAID Referring Unavailable NITA BARROS Primary Care Unavailable Allergies Allergy Classification Reported Allergen(s) Allergy Type Date of Onset Reaction(s) Facility (9 sources) varenicline; Translations: [VARENICLINE] Drug Allergy 02-12-2021 [facility] Medications Current Medications Medication Drug Class(es) Dates Sig (Normalized) Sig (Original) 24 hr amphetamine aspartate 5 mg / amphetamine sulfate 5 mg / dextroamphetamine saccharate 5 mg / dextroamphetamine sulfate 5 mg extended release oral capsule (2 sources) Central Nervous System Stimulant take 1 capsule by mouth in the morning, then take 1 capsule by mouth every twenty-four hours amphetamine-dextro amphetamine XR (Adderall XR) 20 MG 24 hr capsule Take 20 mg by mouth in the morning. Active buprenorphine 8 mg sublingual tablet (7 sources) Partial Opioid Agonist Start: 02-26-2024 buprenorphine (Subtex) 8 MG TAKE 1.5 TAB UNDER TONGUE 3 DAYS PER WEEK, 1.25 TAB UNDER TONGUE 4 DAYS PER WEEK 02/26/2024 Active buprenorphine 8 mg / naloxone 2 mg sublingual film (2 sources) Partial Opioid Agonist, Opioid Antagonist Start: 02-12-2024 Buprenorphine HCl-Naloxone HCl (Suboxone) 8-2 MG SL film DISSOLVE 1 AND 1/2 FILMS UNDER TONGUE 3 DAYS PER WEEK,1 AND 1/4 FILMS 4 DAYS PER WEEK 02/12/2024 Active 12 hr buPROPion hydrochloride 150 mg extended release oral tablet (7 sources) Aminoketone Start: 07-29-2024 End: 07-29-2025 take 1 tablet by mouth every twelve hours in the morning buPROPion SR (Wellbutrin SR) 150 MG 12 hr tablet Indications: Anxiety, generalized (CMS/HCC) Take 1 tablet (150 mg) by mouth in the morning and 1 tablet (150 mg) before bedtime. Do not crush, chew, or split.. 60 tablet 07/29/2024 07/29/2025 Active docusate sodium 100 mg oral capsule (2 sources) Start: 07-20-2024 docusate sodium (Colace) 100 MG capsule TAKE 2 CAPSULES BY MOUTH TWICE A DAY UNTIL ABLE TO HAVE REGULAR BOWEL MOVEMENTS THEN TAKE NEEDED 07/20/2024 Active levothyroxine sodium 0.15 mg oral tablet (9 sources) l-Thyroxine Start: 09-14-2024 End: 09-14-2025 take 1 tablet by mouth before mealtime levothyroxine (Synthroid) 150 MCG tablet Indications: Thyroid disease (CMS/HCC) Take 1 tablet (150 mcg) by mouth in the morning. Take before meals. 30 tablet 09/14/2024 09/14/2025 Active Start: 04-22-2024 End: 04-22-2025 take 1 tablet by mouth before mealtime levothyroxine (Synthroid) 50 MCG tablet Indications: Hyperthyroidism (CMS/HCC) Take 1 tablet (50 mcg) by mouth in the morning. Take before meals. 90 tablet 3 04/22/2024 09/16/2024 Discontinued metoclopramide 10 mg oral tablet (3 sources) Dopamine-2 Receptor Antagonist Start: 05-19-2024 End: 08-10-2024 metoclopramide (Reglan) 10 MG tablet Indications: Nausea and vomiting during Take 1 tablet (10 mg) by mouth in the morning and 1 tablet (10 mg) at noon and 1 tablet (10 mg) in the evening. Take before meals. 90 tablet 2 05/19/2024 08/10/2024 Discontinued ondansetron 4 mg oral tablet (7 sources) Serotonin-3 Receptor Antagonist Start: 07-12-2024 take 1 tablet by mouth every eight hours for nausea ondansetron (Zofran) 4 MG tablet Indications: Nausea and vomiting during Take 1 tablet (4 mg) by mouth every 8 (eight) hours if needed for nausea 20 tablet 3 07/12/2024 Active Vit-Fe Fumarate-FA ( Vitamins) 28-0.8 MG tablet (7 sources) Start: 08-03-2024 End: 08-03-2025 take 1 tablet by mouth once daily Vit-Fe Fumarate-FA ( Vitamins) 28-0.8 MG tablet Indications: 28 weeks gestation of , Third trimester Take 1 tablet by mouth Daily 30 tablet 3 08/03/2024 08/03/2025 Active Problems Active Problems Problem Classification Problem Date Documented Date Episodic/Chronic Anxiety disorders (7 sources) Mixed anxiety and depressive disorder; Translations: [Anxiety disorder, unspecified] Onset: 12-20-2020 12-10-2023 Chronic Attention-deficit, conduct, and disruptive behavior disorders (1 source) Attention-deficit hyperactivity disorder, combined type; Translations: [Attention-deficit hyperactivity disorder, combined type] Onset: 04-25-2020 Chronic Attention-deficit, conduct, and disruptive behavior disorders (7 sources) Attention deficit hyperactivity disorder, combined type; Translations: [Attention-deficit hyperactivity disorder, combined type] Onset: 10-15-2019 12-10-2023 Chronic Blindness and vision defects (7 sources) Visual impairment; Translations: [Unspecified visual loss] Onset: 12-31-2023 12-31-2023 Chronic Essential hypertension (8 sources) Essential (primary) hypertension; Translations: [Hypertensive disorder] Onset: 11-29-2022 12-31-2023 Chronic Hypertension complicating ; childbirth and the puerperium (1 source) Unspecified pre-existing hypertension complicating , unspecified trimester; Translations: [Unspecified pre-existing hypertension complicating , unspecified trimester] Onset: 06-30-2024 Chronic Nutritional deficiencies (7 sources) Vitamin D deficiency; Translations: [Vitamin D deficiency, unspecified] Onset: 12-31-2023 12-31-2023 Chronic Other complications of (1 source) Obesity complicating , unspecified trimester; Translations: [Obesity complicating , unspecified trimester] Onset: 06-30-2024 Chronic Other complications of (1 source) Supervision of high risk , unspecified, unspecified trimester; Translations: [Supervision of high risk , unspecified, unspecified trimester] Onset: 06-30-2024 Episodic Other complications of (1 source) Endocrine, nutritional and metabolic diseases complicating , unspecified trimester; Translations: [Endocrine, nutritional and metabolic diseases complicating , unspecified trimester] Onset: 09-23-2024 Episodic Other complications of (1 source) Supervision of with other poor reproductive or obstetric history, second trimester; Translations: [Supervision of with other poor reproductive or obstetric history, second trimester] Onset: 09-23-2024 Episodic Other nutritional; endocrine; and metabolic disorders (1 source) Morbid (severe) obesity due to excess calories; Translations: [MORBID SEVERE OBES D/T EXCESS JOSÉ] Onset: 11-29-2022 Chronic Other nutritional; endocrine; and metabolic disorders (1 source) Body mass index (BMI) 40.0-44.9, adult; Translations: [BODY MASS INDEX BMI 40.0-44.9 ADULT] Onset: 11-29-2022 Chronic Other nutritional; endocrine; and metabolic disorders (7 sources) Body mass index 30+ - obesity; Translations: [Obesity, unspecified] Onset: 12-31-2023 12-31-2023 Chronic Other and delivery including normal (4 sources) Third trimester ; Translations: [Encounter for supervision of normal , unspecified, third trimester] 08-10-2024 Episodic Previous (2 sources) Maternal care for unspecified type scar from previous delivery; Translations: [Maternal care for unspecified type scar from previous delivery] Onset: 06-30-2024 Episodic Residual codes; unclassified (2 sources) Gestation period, 29 weeks; Translations: [29 weeks gestation of ] 08-10-2024 Episodic Residual codes; unclassified (2 sources) Gestation period, 34 weeks; Translations: [34 weeks gestation of ] 09-14-2024 Episodic Substance-related disorders (20 sources) Opioid dependence; Translations: [Opioid dependence, uncomplicated] Onset: 11-03-2017 12-10-2023 Chronic Thyroid disorders (20 sources) Hypothyroidism, unspecified; Translations: [Hypothyroidism] Onset: 02-19-2023 Chronic Thyroid disorders (2 sources) Disorder of thyroid gland; Translations: [Disorder of thyroid, unspecified] 09-14-2024 Episodic Unclassified (1 source) Suboxone Use Onset: 06-30-2024 Past or Other Problems Problem Classification Problem Date Documented Date Episodic/Chronic Cardiac dysrhythmias (7 sources) Sinus tachycardia; Translations: [Tachycardia, unspecified] Onset: 12-20-2020 12-10-2023 Episodic Inflammatory diseases of female pelvic organs (7 sources) Bacterial vaginosis; Translations: [Acute vaginitis] Onset: 10-07-2023 10-07-2023 Episodic Nausea and vomiting (7 sources) Nausea; Translations: [Nausea] Onset: 01-07-2024 01-07-2024 Episodic Other aftercare (7 sources) Long-term current use of drug therapy; Translations: [Other terminal block assembler (current) drug therapy] Onset: 12-20-2020 12-10-2023 Episodic Other nutritional; endocrine; and metabolic disorders (7 sources) Obese class I; Translations: [Obesity (BMI 30.0-34.9)] Onset: 06-27-2015 Resolved: 12-31-2023 12-31-2023 Chronic Other nutritional; endocrine; and metabolic disorders (7 sources) Overweight in adulthood with body mass index of 25 or more but less than 30; Translations: [Body mass index (BMI) 28.0-28.9, adult] Onset: 12-31-2023 Resolved: 12-31-2023 12-31-2023 Episodic Other screening for suspected conditions (not mental disorders or infectious disease) (9 sources) Encounter for other specified screening; Translations: [Encounter for screening for cervical length] Onset: 12-31-2023 12-31-2023 Episodic Residual codes; unclassified (7 sources) Tobacco user; Translations: [Tobacco use] Onset: 12-31-2023 12-31-2023 Episodic Residual codes; unclassified (7 sources) H/O: ectopic ; Translations: [Personal history of other complications of , childbirth and the puerperium] Onset: 12-31-2023 Resolved: 12-31-2023 12-31-2023 Episodic Results Test Name Value Interpretation Reference Range Facility Urinalysis macro (dipstick) panel (U)on 09-14-2024 Bilirubin, UA Negative Negative - 4(70) +++ mg/dL [facility] Blood, UA Negative Negative - 50 Shaan/mcL [facility] Clarity, UA Clear [facility] re Color, UA Yellow [facility] Glucose, UA Negative Negative - 1999(110) ++++ mg/dL [facility] Interpretation and review of laboratory results Abnormal [facility] Ketones, UA Negative Negative - 160(16) ++++ mg/dL [facility] Leukocytes, UA Positive Negative - 500+++ Milton/mcL [facility] Comment on above: small Nitrite, UA Negative Negative - Positive [facility] pH, UA 6.5 5 - 9 [facility] Protein, UA Negative Negative - 1999(20) ++++ mg/dL [facility] Spec Grav, UA 1.03 1 - 1.03 [facility] Urobilinogen, UA 1.0 0.2 - 12 mg/dL [facility] e ALL THYROID STIM HORMONEon 1 11-13-2023 TSH Qn 3.736 m[IU]/L [facility]YROXINE (T4) FREEon Free T4 [Mass/Vol] 0.82 ng/dL 0.76 - 1. 46 ng/dL [facility] e Urinalysis macro (dipstick) panel (U)on 08-10-2024 Bilirubin, UA Negative Negative - 4(70) +++ mg/dL [facility] Blood, UA Negative Negative - 50 Shaan/mcL [facility] Clarity, UA Clear [facility] re Color, UA Yellow [facility] Glucose, UA Negative Negative - 1999(110) ++++ mg/dL [facility] Interpretation and review of laboratory results Normal [facility] Ketones, UA Negative Negative - 160(16) ++++ mg/dL [facility] Leukocytes, UA Negative Negative - 500+++ Milton/mcL [facility] Nitrite, UA Negative Negative - Positive [facility] pH, UA 6.0 5 - 9 [facility] e Protein, UA Negative Negative - 1999(20) ++++ mg/dL [facility] Spec Grav, UA 1.030 1 - 1.03 [facility] Urobilinogen, UA 0.2 0.2 - 12 mg/[facility] Cervical or vaginal smear or scraping studyon 05-19-2024 [facility] FREE T4on 02-19-2023 Free T4 [Mass/Vol] 1.39 ng/dL Normal 0.76-1.46 [facility] Comment on above: Performed By: #### F T4 #### [facility] [address] [address] [address] Alfredito Rendon TSHon 02-19-2023 TSH 0.012 uIU/mL Critically low 0.358-3.740 [facility] Comment on above: Performed By: #### T SH #### [facility] [id number] Alfredito Rendon US THYROIDon 12-11-2022 US [...] MAGALI MCKNIGHT Date: 2022-12-11 15:05 Normal [facility] THYROID ANTIBODIESon 023 Thyroglobulin Antibody 21.5 IU/mL Critically high 0.0-0.9 [facility] Comment on above: Result Comment: Thyr oglobulin Antibody measured by [employer] Performed By: #### T HYRABS #### [facility] [address] [place] [address] Dr. Alfredito Rendon Thyroid Peroxidase (TPO) Ab 73 IU/mL Critically high 0-34 [facility] Comment on above: Performed By: #### T HYRABS #### [facility] [address] [place] [address] Dr. Alfredito Rendon CBC AUTO DIFFon 11-28-2022 BASO # 0.0 103/ul Normal 0.0-0.1 [facility] Comment on above: Performed By: #### C BC #### [facility] [address] [place] [address] Dr. Alfredito Rendon Basophils/100 WBC (Bld) 0.3 % Normal 0.2-2.0 [facility] Comment on above: Performed By: #### C BC #### [facility] [address] [place] [address] Dr. Alfredito Rendon EO # 0.2 103/ul Normal 0.0-0.7 [facility] Comment on above: Performed By: #### C BC #### [facility] [address] [place] [address] Dr. Alfredito Rendon Eosinophils/100 WBC (Bld) 2.3 % Normal 0.9-7.0 [facility] Comment on above: Performed By: #### C BC #### [facility] [address] [place] [address] Dr. Alfredito Rendon Erythrocyte distribution width (RBC) [Ratio] 13.0 % Normal 11.0-15.0 [facility] Comment on above: Performed By: #### C BC #### [facility] [address] [place] [address] Dr. Alfredito Rendon Hematocrit (Bld) [Volume fraction] 41.2 % Normal 36.0-48.0 [facility] Comment on above: Performed By: #### C BC #### [facility] [address] [place] [address] Dr. Alfredito Rendon Hemoglobin (Bld) [Mass/Vol] 12.5 g/dL Normal 12.0-16.0 [facility] Comment on above: Performed By: #### C BC #### [facility] [address] [place] [address] Dr. Alfredito Rendon IG # 0.02 10e3/ul Normal 0.00-0.03 [facility] Comment on above: Performed By: #### C BC #### [facility] [address] [place] [address] Dr. Alfredito Rendon IG % 0.2 % Normal 0.0-0.5 [facility] Comment on above: Performed By: #### C BC #### [facility] [address] [place] [address] Dr. Alfredito Rendon LYMPH # 2.7 103/ul Normal 1.2-3.8 [facility] Comment on above: Performed By: #### C BC #### [facility] [address] [place] [address] Dr. Alfredito Rendon Lymphocytes/100 WBC (Bld) 25.3 % Normal 20.5-60.0 [facility] Comment on above: Performed By: #### C BC #### [facility] [address] [place] [address] Dr. Alfredito Rendon MANUAL DIFF REQ NO Normal [facility] Comment on above: Performed By: #### C BC #### [facility] [address] [place] [address] Dr. Alfredito Rendon MCH (RBC) [Entitic mass] 29.6 pg Normal 26.7-34.0 [facility] Comment on above: Performed By: #### C BC #### [facility] [address] [address] [address] Alfredito Rendon MCHC (RBC) [Mass/Vol] 30.3 g/dL Normal 29.9-35.2 [facility] Comment on above: Performed By: #### C BC #### [facility] [address] [address] [address] Alfredito Rendon MCV (RBC) [Entitic vol] 97.6 fL Normal 81.0-99.0 [facility] Comment on above: Performed By: #### C BC #### [facility] [address] [address] [address] Alfredito Rendon MONO # 0.7 103/ul Normal 0.3-0.8 [facility] Comment on above: Performed By: #### C BC #### [facility] [address] [address] [address] Alfredito Rendon Monocytes/100 WBC (Bld) 6.4 % Normal 1.7-12.0 [facility] Comment on above: Performed By: #### C BC #### [facility] [address] [place] [address] Dr. Alfredito Rendon NEUT # 6.9 103/ul Critically high 1.4-6.5 [facility] Comment on above: Performed By: #### C BC #### [facility] [address] [address] [address] Alfredito Rendon Neutrophils/100 WBC (Bld) 65.5 % Normal 43.0-75.0 [facility] Comment on above: Performed By: #### C BC #### [facility] [address] [address] [address] Alfredito Rendon Platelet mean volume (Bld) [Entitic vol] 10.1 fL Normal 9.5-13.5 [facility] Comment on above: Performed By: #### C BC #### [facility] [address] [address] [address] Alfredito Rendon PLT 253 103/ul Normal 150-450 [facility] Comment on above: Performed By: #### C BC #### [facility] [address] [place] [address] Dr. Alfredito Rendon RBC 4.22 106/ul Normal 4.20-5.40 [facility] Comment on above: Performed By: #### C BC #### [facility] [address] [place] [address] Dr. Alfredito Rendon WBC 10.6 103/ul Normal 4.0-11.0 [facility] Comment on above: Performed By: #### C BC #### [facility] [address] [place] [address] Dr. Alfredito Rendon FREE T3on 11-28-2022 FREE T3 2.65 pg/mlL Normal 2.18-3.98 [facility] Comment on above: Performed By: #### T SH, FT3, LIPID, CMP #### [facility] [address] [place] [address] Dr. Alfredito Rendon FREE T4on 11-28-2022 Free T4 [Mass/Vol] 0.86 ng/dL Normal 0.76-1.46 [facility] Comment on above: Performed By: #### F T4 #### [facility] [address] [place] [address] Dr. Alfredito Rendon LIPID PROFILEon 11-28-2022 CHOL-HDL RATIO NORM SEE BELOW Normal [facility] Comment on above: Result Comment: 3.3 - 4.4 LOW RISK 4.4 - 7.1 AVERAGE RISK 7.1 - 11.0 MODERATE RISK >11.0 HIGH RISK Performed By: #### T SH, FT3, LIPID, CMP #### [facility] [address] [place] [address] Dr. Alfredito Rendon Cholesterol [Mass/Vol] 172 mg/dL Normal <=200 [facility] Comment on above: Performed By: #### T SH, FT3, LIPID, CMP #### [facility] [address] [place] [address] Dr. Alfredito Rendon Cholesterol in HDL [Mass/Vol] 49 mg/dL Normal 40-60 [facility] Comment on above: Performed By: #### T SH, FT3, LIPID, CMP #### [facility] [address] [address] [address] Alfredito Rendon Cholesterol in LDL [Mass/Vol] 96.2 mg/dL Normal [facility] Comment on above: Performed By: #### T SH, FT3, LIPID, CMP #### [facility] [address] [address] [address] Alfredito Rendon Cholesterol.total/Ch olesterol in HDL [Mass ratio] 3.5 {ratio} Normal [facility] Comment on above: Performed By: #### T SH, FT3, LIPID, CMP #### [facility] [address] [address] [address] Alfredito Rendon HDL NORMAL > or = 60 mg/dl - LOW CARDIOVASCULAR RISK <40 mg/dl - HIGH CARDIOVASCULAR RISK Normal [facility] Comment on above: Performed By: #### T SH, FT3, LIPID, CMP #### [facility] [address] [address] [address] Alfredito Rendon LDL CALC NORMAL SEE BELOW Normal [facility] Comment on above: Result Comment: <100 mg/dl OPTIMAL 100 - 129 mg/dl NEAR OR ABOVE OPTIMAL 130 - 159 mg/dl BORDERLINE HIGH 160 - 189 mg/dl HIGH >190 mg/dl VERY HIGH Performed By: #### T SH, FT3, LIPID, CMP #### [facility] [address] [address] [address] Alfredito Rendon Triglyceride [Mass/Vol] 134 mg/dL Normal <=150 [facility] Comment on above: Performed By: #### T SH, FT3, LIPID, CMP #### [facility] [address] [address] [address] Alfredito Rendon VLDL CALC 26.8 mg/dL Normal [facility] Comment on above: Performed By: #### T SH, FT3, LIPID, CMP #### [facility] [address] [address] [address] Alfredito Rendon PROF 14(COMP METB)on 023 Albumin [Mass/Vol] 3.3 g/dL Critically low 3.4-5.0 [facility] Comment on above: Performed By: #### T SH, FT3, LIPID, CMP #### [facility] [address] [place] [address] Dr. Alfredito Rendon Albumin/Globulin [Mass ratio] 0.9 {ratio} Normal [facility] Comment on above: Performed By: #### T SH, FT3, LIPID, CMP #### [facility] [address] [place] [address] Dr. Alfredito Rendon ALP [Catalytic activity/Vol] 63 U/L Normal 46-116 [facility] Comment on above: Performed By: #### T SH, FT3, LIPID, CMP #### [facility] [address] [place] [address] Dr. Alfredito Rendon ALT [Catalytic activity/Vol] 27 U/L Normal 14-59 [facility] Comment on above: Performed By: #### T SH, FT3, LIPID, CMP #### [facility] [address] [place] [address] Dr. Alfredito Rendon Anion gap [Moles/Vol] 14.1 mmol/L Normal [facility] Comment on above: Performed By: #### T SH, FT3, LIPID, CMP #### [facility] [address] [place] [address] Dr. Alfredito Rendon AST [Catalytic activity/Vol] 20 U/L Normal 15-37 [facility] Comment on above: Performed By: #### T SH, FT3, LIPID, CMP #### [facility] [address] [place] [address] Dr. Alfredito Rendon Bilirubin [Mass/Vol] 0.3 mg/dL Normal 0.2-1.0 [facility] Comment on above: Performed By: #### T SH, FT3, LIPID, CMP #### [facility] [address] [place] [address] Dr. Alfredito Rendon Calcium [Mass/Vol] 9.2 mg/dL Normal 8.5-10.1 [facility] Comment on above: Performed By: #### T SH, FT3, LIPID, CMP #### [facility] [address] [address] [address] Alfredito Rendon Chloride [Moles/Vol] 103 mmol/L Normal 98-107 [facility] Comment on above: Performed By: #### T SH, FT3, LIPID, CMP #### [facility] [address] [address] [address] Alfredito Rendon CO2 [Moles/Vol] 24.1 mmol/L Normal 21.0-32.0 [facility] Comment on above: Performed By: #### T SH, FT3, LIPID, CMP #### [facility] [address] [address] [address] Alfredito Rendon Creatinine [Mass/Vol] 0.71 mg/dL Normal 0.55-1.02 [facility] Comment on above: Performed By: #### T SH, FT3, LIPID, CMP #### [facility] [address] [address] [address] Alfredito Rendon EGFR-AF BULGARIAN >60 Normal >=60 [facility] Comment on above: Performed By: #### T SH, FT3, LIPID, CMP #### [facility] [address] [address] [address] Alfredito Rendon EGFR-NON AF BULGARIAN >60 Normal >=60 [facility] Comment on above: Performed By: #### T SH, FT3, LIPID, CMP #### [facility] [address] [address] [address] Alfredito Rendon Globulin (S) [Mass/Vol] 3.8 g/dL Normal [facility] Comment on above: Performed By: #### T SH, FT3, LIPID, CMP #### [facility] [address] [address] [address] Alfredito Rendon Glucose [Mass/Vol] 106 mg/dL Normal 74-106 [facility] Comment on above: Performed By: #### T SH, FT3, LIPID, CMP #### [facility] [address] [address] [address] Alfredito Rendon Potassium [Moles/Vol] 4.2 mmol/L Normal 3.5-5.1 [facility] Comment on above: Performed By: #### T SH, FT3, LIPID, CMP #### [facility] [address] [place] [address] Dr. Alfredito Rendon Protein [Mass/Vol] 7.1 g/dL Normal 6.4-8.2 [facility] Comment on above: Performed By: #### T SH, FT3, LIPID, CMP #### [facility] [address] [place] [address] Dr. Alfredito Rendon Sodium [Moles/Vol] 137 mmol/L Normal 136-145 [facility] Comment on above: Performed By: #### T SH, FT3, LIPID, CMP #### [facility] [address] [place] [address] Dr. Alfredito Rendon Urea nitrogen [Mass/Vol] 14.0 mg/dL Normal 7.0-18.0 [facility] Comment on above: Performed By: #### T SH, FT3, LIPID, CMP #### [facility] [address] [place] [address] Dr. Alfredito Rendon Urea nitrogen/Creatinine [Mass ratio] 19.7 mg/mg Normal [facility] Comment on above: Performed By: #### T SH, FT3, LIPID, CMP #### [facility] [address] [place] [address] Dr. Alfredito Rendon TSHon 11-28-2022 TSH 5.010 uIU/mL Critically high 0.358-3.740 [facility] Comment on above: Performed By: #### T SH, FT3, LIPID, CMP #### [facility] [address] [place] [address] Dr. Alfredito Rendon Thyroid Stim. Horm.on 2020 TSH Qn 10.79 m[IU]/L High 0.30-5.00 [facility] Comment on above: Performed By: #### T SH, FT4 #### [address] [address] Supervisor Maintenance And Custodians: Titus Pagan MD Thyroxine, Freeon 08-22-2021 Thyroxine, Free 0.89 ng/dL Low 0.93-1.70 [facility] Comment on above: Performed By: #### T SH, FT4 #### [address] [address] Supervisor Maintenance And Custodians: Titus Pagan MD Basic Metab, Fastingon 03-15 (cont.) Normal [facility] Comment on above: Result Comment: Aver age GFR for 30-39 years old: 107 mL/min/1.73sq m Chronic Kidney Disease: <60 mL/min/1.73sq m Kidney failure: <15 mL/min/1.73sq m eGFR calculated using average adult body mass. Additional eGFR calculator available at: http://www.Cloud[employer]/multiple_crcl_2011.htm Performed By: #### B MPF, FT4, TSH #### [facility] [employer] [address] [place] [address] Supervisor Maintenance And Custodians: Titus Pagan MD Anion gap [Moles/Vol] 10 mmol/L Normal 9-17 [facility] Comment on above: Performed By: #### B MPF, FT4, TSH #### [facility] [address] [place] [address] Supervisor Maintenance And Custodians: Titus Pagan MD Calcium [Mass/Vol] 9.4 mg/dL Normal 8.6-10.4 [facility] Comment on above: Performed By: #### B MPF, FT4, TSH #### [facility] [address] [place] [address] Supervisor Maintenance And Custodians: Titus Pagan MD Chloride [Moles/Vol] 102 mmol/L Normal 98-107 [facility] Comment on above: Performed By: #### B MPF, FT4, TSH #### [employer] [address] [place] [address] Supervisor Maintenance And Custodians: Titus Pagan MD CO2 [Moles/Vol] 25 mmol/L Normal 20-31 [facility] Comment on above: Performed By: #### B MPF, FT4, TSH #### [facility] [employer] [address] [place] [address] Supervisor Maintenance And Custodians: Titus Pagan MD Creatinine [Mass/Vol] 0.62 mg/dL Normal 0.50-0.90 [facility] Comment on above: Performed By: #### B MPF, FT4, TSH #### [facility] [address] [place] [address] Supervisor Maintenance And Custodians: Titus Pagan MD GFR, Amer >60 Normal >60 [facility] Comment on above: Performed By: #### B MPF, FT4, TSH #### [facility] [employer] [address] [place] [address] Supervisor Maintenance And Custodians: Titus Pagan MD GFR,non Amer >60 Normal >60 [facility] Comment on above: Performed By: #### B MPF, FT4, TSH #### [facility] [employer] [address] [place] [address] Supervisor Maintenance And Custodians: Titsu Pagan MD Glucose [Mass/Vol] 93 mg/dL Normal 70-99 [facility] Comment on above: Performed By: #### B MPF, FT4, TSH #### [facility] [employer] [address] [place] [address] Supervisor Maintenance And Custodians: Titus Pagan MD Potassium [Moles/Vol] 4.6 mmol/L Normal 3.7-5.3 [facility] Comment on above: Performed By: #### B MPF, FT4, TSH #### [facility] [address] [place] [address] Supervisor Maintenance And Custodians: Titus Pagan MD Sodium [Moles/Vol] 137 mmol/L Normal 135-144 [facility] Comment on above: Performed By: #### B MPF, FT4, TSH #### [address] [place] [address] Supervisor Maintenance And Custodians: Titsu Pagan MD Urea nitrogen [Mass/Vol] 13 mg/dL Normal 04-22 [facility] Comment on above: Performed By: #### B MPF, FT4, TSH #### [address] [address] Supervisor Maintenance And Custodians: Titus Pagan MD BUN/CRE Ratio NOT REPORTED Normal 07-23 [facility] Comment on above: Performed By: #### B MPF, FT4, TSH #### [address] [address] Supervisor Maintenance And Custodians: Titus Pagan MD Staging: NOT REPORTED Normal [facility] Comment on above: Performed By: #### B MPF, FT4, TSH #### [address] [address] Supervisor Maintenance And Custodians: Titus Pagan MD Thyroid Stim. Horm.on 2020 TSH Qn 13.08 m[IU]/L High 0.30-5.00 [facility] Comment on above: Performed By: #### B MPF, FT4, TSH #### [address] [address] Supervisor Maintenance And Custodians: Titus Pagan MD Thyroxine, Freeon 03-15-2021 Thyroxine, Free 0.90 ng/dL Low 0.93-1.70 [facility] Comment on above: Performed By: #### B MPF, FT4, TSH #### [address] [address] Supervisor Maintenance And Custodians: Titus Pagan MD Vital Signs Date Time Vital Sign Value Performing Clinician Faci lity 09-14-2024 11:45-0500 Body mass index (BMI) [Ratio] 40.21 kg/m2 Sparkle TRIMBLE Work Phone: [facility] 09-14-2024 11:45-0500 Body weight 102.97 kg Sparkle Ann PA Work Phone: [facility] 09-14-2024 11:45-0500 Diastolic blood pressure 78 mm[Hg] Sparkle Ann PA Work Phone: [facility] 09-14-2024 11:45-0500 Systolic blood pressure 124 mm[Hg] Sparkle Ann PA Work Phone: [facility] 08-10-2024 09:13-0400 Body mass index (BMI) [Ratio] 40.53 kg/m2 Sparkle Ann PA Work Phone: [facility] 08-10-2024 09:13-0400 Body weight 103.78 kg Sparkle Ann PA Work Phone: [facility] 08-10-2024 09:13-0400 Diastolic blood pressure 70 mm[Hg] Sparkle Ann PA Work Phone: [facility] 08-10-2024 09:13-0400 Systolic blood pressure 110 mm[Hg] Sparkle Ann PA Work Phone: [facility] Healthcare Encounters Encounter Date Encounter Type Care Provider Facility Start: 09-23-2024 End: 09-23-[address] [facility] Start: 09-14-2024 End: 09-14-2024 Bamboo flowsheet Sparkle TRIMBLE Work Phone: [facility] Start: 09-14-2024 End: 09-14-2024 Bamboo flowsheet Sparkle Ann PA Work Phone: [facility] Start: 09-14-2024 End: 09-14-2024 Office outpatient visit 15 minutes Sparkle TRIMBLE Work Phone: [facility] Comment on above: Third trimester preg marlin; 34 weeks gestation of ; Thyroid disease (CMS/HCC) Start: 09-14-2024 End: 09-14-2024 ambulatory SPARKLE ANN Not Available Start: 09-13-2024 End: 09-13-2024 Clinisync Result Encounter Sparkle TRIMBLE Work Phone: [facility] Unsolicited Start: 09-13-2024 End: 09-13-2024 Clinisync Result Encounter Sparkle TRIMBLE Work Phone: [facility] Unsolicited Start: 08-10-2024 End: 08-10-2024 Bamboo flowsheet Sparkle TRIMBLE Work Phone: [facility] Start: 08-10-2024 End: 08-10-2024 Bamboo flowsheet Sparkle TRIMBLE Work Phone: [facility] Start: 08-10-2024 End: 08-10-2024 Office outpatient visit 15 minutes Sparkle TRIMBLE Work Phone: [facility] Comment on above: Third trimester preg marlin; 29 weeks gestation of ; Nava's disease (CMS/HCC); Hypothyroidism, unspecified type (CMS/HCC) Start: 08-10-2024 End: 08-10-2024 ambulatory SPARKLE ANN Not Available Start: 06-30-2024 End: 06-30-2024 ambulatory MARITZA R TRUE [facility] Start: 06-22-2024 End: 06-22-2024 ambulatory SPARKLE SETH Not Available Start: 05-19-2024 End: 05-19-2024 ambulatory MARITZA TRUE Not Available Start: 04-21-2024 End: 04-21-2024 ambulatory MARITZA TRUE Not Available Start: 03-18-2024 End: 03-18-2024 ambulatory MERRY AICHHOLZ Not Available Start: 12-31-2023 End: 12-31-2023 ambulatory MERRY AICHHOLZ Not Available Start: 02-19-2023 End: 02-20-2023 ambulatory DENTAL TECHNOLOGY ADVISOR MERRY AICHHOLZ Facility:[facility] Start: 12-11-2022 End: 12-12-2022 ambulatory DENTAL TECHNOLOGY ADVISOR MERRY AICHHOLZ Facility:[facility] Start: 11-28-2022 End: 11-29-2022 ambulatory DENTAL TECHNOLOGY ADVISOR MERRY AICHHOLZ Facility:[facility] Start: 03-15-2021 End: 03-16-2021 ambulatory NITA BARROS [facility] Procedures Date Procedure Procedure Detail Performing Clinician Start: 09-14-2024 Urnls dip stick/tabl et rgnt non-auto w/o micrscp Sparkle TRIMBLE Work Phone: Start: 09-13-2024 ALL THYROID STIM HORMONE Generic External Data Provider Start: 09-13-2024 ALL THYROXINE (T4) FREE Sparkle TRIMBLE Work Phone: Start: 08-10-2024 Urnls dip stick/tabl et rgnt non-auto w/o micrscp Sparkle TRIMBLE Work Phone: Start: 05-19-2024 Microscopic observat ion [Identifier] in Cervix by Cyto stain Sparkle TRIMBLE Work Phone: Start: 05-19-2024 Cytp cerv/vag auto t hin layer prep mnl screen Sparkle TRIMBLE Work Phone: Plan of Treatment Date Care Activity Detail Author Start: 05-19-2029 Screening for malign ant neoplasm of cervix [facility] Start: 09-28-2024 End: 09-28-2024 Patient encounter procedure 09/28/2024 10:00 AM EST Routine [facility] [address] [place] [id number] Maritza Ha, DO [address] [place] [address] [facility] Start: 08-24-2024 End: 08-24-2024 Patient encounter procedure 08/24/2024 9:20 AM EDT Routine [facility] [address] [place] [id number] Maritza Ha, DO [address] [place] [address] [facility] Start: 08-11-2024 End: 08-11-2024 Professional / ancillary services management 08/11/2024 9:30 AM EDT Ancillary Procedure [facility] [address] [place] [id number] [facility] Start: 08-10-2024 End: 08-10-2025 US for US OB SCAN FOR GROWTH Imaging Routine Nava's disease (CMS/HCC) Hypothyroidism, unspecified type (CMS/HCC) Expected: 08/10/2024 (Approximate), Expires: 08/10/2025 [facility] Work Phone: Comment on above: Expected: 08/10/2024 (Approximate), Expires: 08/10/2025 Start: 08-10-2024 End: 08-10-2024 Patient encounter procedure 08/10/2024 8:50 AM EDT Routine [facility] [address] [place] [address] Sparkle Ann PA [address] [place] [address] Arrived [facility] Comment on above: Arrived Start: 2019 Screening for malign ant neoplasm of cervix [facility] Start: 2010 Screening for malign ant neoplasm of cervix Pap Smear [facility] Thyrotropin [Units/volume] in Serum or Plasma TSH Lab Routine Nava's disease (CMS/HCC) Hypothyroidism, unspecified type (CMS/HCC) Ordered: 08/10/2024 [facility] Comment on above: Ordered: 08/10/2024 Thyroxine (T4) free [Mass/volume] in Serum or Plasma T4, free Lab Routine Nava's disease (CMS/HCC) Hypothyroidism, unspecified type (CMS/HCC) Ordered: 08/10/2024 [facility] Comment on above: Ordered: 08/10/2024 Immunizations Immunization Date Immunization Notes Care Provider Fa [facility] 05-03-2018 tetanus toxoid, redu bravo diphtheria toxoid, and acellular pertussis vaccine, adsorbed Sparkle TRIMBLE Work Phone: [facility] 06-16-2008 human papilloma viru s vaccine, quadrivalent Sparkle TRIMBLE Work Phone: [facility] 03-08-2008 human papilloma viru s vaccine, quadrivalent Sparkle TRIMBLE Work Phone: [facility] Payers Date Payer Category Payer Medicaid [id number] 2022 Medicaid [id number] 2019 Unknown [id number] 1989 Unknown [id number] 2.16.8 [id number] 1989 Unknown [id number] 2.16.84 [id number] 1989 Unknown [id number] 2.16.84 [id number] 1989 Unknown [id number] 2.16.84 [id number] 1989 Unknown [id number] 2.16.8 [id number] 1989 Unknown [id number] 2.16.8 [id number] 1989 Unknown [id number] 2.16.84 [id number] 1989 Unknown [id number] 2.16.84 [id number] 1989 Unknown [id number] 2.16.84 [id number] 1989 Unknown [id number] 2.16.84 [id number] 1989 Unknown [id number] 2.16.84 [id number] 1989 Unknown [id number] 2.16.84 [id number] 1989 Unknown [id number] 2.16.84 [id number] 1989 Unknown [id number] 2.16.8 [id number] 1959 Unknown [id number] Social History Date Type Detail Facility Start: [facility]31[facility]23 [facility] End: 11-03-2021 History of tobacco use Current smoker [facility] End: 11-03-2021 History of tobacco use Cigarette Smoker [facility] Start: 12-31-2023 Tobacco use and exposure Smoke less tobacco non-user [facility] Start: 06-22-2024 End: 09-14-2024 Alcoholic beverage intake Lifetime non-drinker (finding) [facility] Start: 12-31-2023 History of Social function [facility] Start: 12-31-2023 Tobacco use panel [facility] Start: 12-31-2023 Alcohol Comment caffine: none [facility] Start: 02-03-2024 [facility] Start: 1989 Sex assigned at Not on file [facility] History of Present illness Narrative 09-14-2024 ATILIO Solzi - 09/14/2024 11:30 AM EST Note Date & Type Note Facility 09-14-2024 History of Presen t illness Narrative Reason for Appointment: Patient ID: Giuliana Vazquez is a 34 y.o. female who presents for Routine Visit Patient presents today for Return OB appointment. MEDICATIONS Current Outpatient Medications Medication Instructions amphetamine-dextroamphetamine XR (Adderall XR) 20 MG 24 hr capsule 20 mg, Oral, Every morning buprenorphine (Subtex) 8 MG TAKE 1.5 TAB UNDER TONGUE 3 DAYS PER WEEK, 1.25 TAB UNDER TONGUE 4 DAYS PER WEEK Buprenorphine HCl-Naloxone HCl (Suboxone) 8-2 MG SL film DISSOLVE 1 AND 1/2 FILMS UNDER TONGUE 3 DAYS PER WEEK,1 AND 1/4 FILMS 4 DAYS PER WEEK buPROPion SR (WELLBUTRIN SR) 150 mg, Oral, 2 times daily, Do not crush, chew, or split. docusate sodium (Colace) 100 MG capsule TAKE 2 CAPSULES BY MOUTH TWICE A DAY UNTIL ABLE TO HAVE REGULAR BOWEL MOVEMENTS THEN TAKE NEEDED levothyroxine (SYNTHROID) 50 mcg, Oral, Daily before breakfast ondansetron (ZOFRAN) 4 mg, Oral, Every 8 hours PRN Vit-Fe Fumarate-FA ( Vitamins) 28-0.8 MG tablet 1 tablet, Oral, Daily ALLERGIES Allergies Allergen Reactions Varenicline Made pt violent and mrotensen. PROBLEMS Active Ambulatory Problems Diagnosis Date Noted Bacterial vaginosis 10/07/2023 Anxiety and depression ([facility]) 12/20/2020 Attention deficit hyperactivity disorder (ADHD), combined type ([facility]) 10/15/2019 Encounter for long-term (current) use of high-risk medication 12/20/2020 Sinus tachycardia 12/20/2020 Uncomplicated opioid dependence ([facility]) 10/15/2019 Hypertension ([facility]) 12/31/2023 Vitamin D deficiency 12/31/2023 Thyroid nodule ([facility]) 12/31/2023 Hypothyroidism ([facility]) 12/31/2023 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 Visual impairment 12/31/2023 Tobacco user 12/31/2023 Opioid abuse ([facility]) 12/31/2023 Obesity (BMI 30-39.9) 12/31/2023 Cervical cancer screening 12/31/2023 Nausea 01/07/2024 History of opioid abuse ([facility]) 2018 Resolved Ambulatory Problems Diagnosis Date Noted Obesity (BMI 30.0-34.9) 06/27/2015 History of ectopic 12/31/2023 BMI 28.0-28.9,adult 12/31/2023 No Additional Past Medical History HISTORY PAST MEDICAL HISTORY SOCIAL HISTORY Past Medical History: Diagnosis Date Anxiety and depression ([facility]) Bacterial vaginosis 10/07/2023 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 History of ectopic 12/31/2023 History of opioid abuse ([facility]) 2018 using subtex Hypertension ([facility]) 12/31/2023 Hypothyroidism ([facility]) 12/31/2023 Opioid abuse ([facility]) 12/31/2023 Thyroid nodule ([facility]) 12/31/2023 Tobacco user 12/31/2023 Visual impairment 12/31/2023 Vitamin D deficiency 12/31/2023 Social History Tobacco Use Smoking status: Former Current packs/day: 0.00 Types: Cigarettes Quit date: 2021 Years since quittin.8 Smokeless tobacco: Never Vaping Use Vaping status: [...] SYSTEMS Review of Systems: Review of Systems Constitutional: Negative. HENT: Negative. Eyes: Negative. Respiratory: Negative. Cardiovascular: Negative. Gastrointestinal: Negative. Genitourinary: Negative. Musculoskeletal: Negative. Skin: Negative. Neurological: Negative. All other systems reviewed and are negative. Hematological: Negative. Endocrine: Negative. Allergic/Immunologic: Negative. OBJECTIVE Objective: Physical Exam Constitutional: Appearance: Normal appearance. She is normal weight. HENT: Head: Normocephalic. Cardiovascular: Rate and Rhythm: Normal rate. Pulses: Normal pulses. Pulmonary: Effort: Pulmonary effort is normal. Breath sounds: Normal breath sounds. Abdominal: Palpations: Abdomen is soft. Musculoskeletal: General: Normal range of motion. Neurological: General: No focal deficit present. Mental Status: She is alert and oriented to person, place, and time. Psychiatric: Mood and Affect: Mood normal. Behavior: Behavior normal. Thought Content: Thought content normal. Judgment: Judgment normal. Vitals and nursing note reviewed. Vitals: Estimated body mass index is 40.21 kg/m as calculated from the following: Height as of 12/31/23: 5' 3 . Weight as of this encounter: 227 lb. BP: 124/78 Patient's last menstrual period was 01/14/2024. ASSESSMENT & PLAN ICD-10-CM 1. Third trimester Z34.93 POCT urinalysis dipstick manually resulted 2. 34 weeks gestation of Z3A.34 Return OB: Patient presents today for a routine obstetrics appointment. Patient is currently 34w0d . Patient states she is doing well but has complaints of being tired due to current . Patient has verbalizes frequent movement. labor precautions was discussed/given and patient was instructed to perform kick counts three times a day. Orders Placed This Encounter Procedures POCT urinalysis dipstick manually resulted Follow Up: Patient is to return to office in 2 week for routine OB appointment. Documented by ATILIO Soliz on behalf of: ATILIO Soliz documented in this encounter [facility] Healthcare Note 09-14-2024 Addendum Note - Renetta Leal LPN - 09/14/2024 11:30 AM EST Note Date & Type Note Facility 09-14-2024 Miscellaneous Notes Addended by: RENETTA LEAL on: 09/14/2024 03:28 PM Modules accepted: Orders documented in this encounter [facility] Clinical Note 09-14-2024 Addendum Note - Renetta Leal LPN - 09/14/2024 11:30 AM EST Note Date & Type Note Facility 09-14-2024 Note Addended by: RENETTA YORK on: 09/14/2024 03:28 PM Modules accepted: Orders [facility] Clinical Note 09-14-2024 Addendum Note - Renetta Leal LPN - 09/14/2024 11:30 AM EST Note Date & Type Note Facility 09-14-2024 Note Addended by: RENETTA YORK on: 09/14/2024 03:28 PM Modules accepted: Orders [facility] History of Present illness Narrative 08-10-2024 ATILIO [...] Noted Bacterial vaginosis 10/07/2023 Anxiety and depression ([facility]) 12/20/2020 Attention deficit hyperactivity disorder (ADHD), combined type ([facility]) 10/15/2019 Encounter for long-term (current) use of high-risk medication 12/20/2020 Sinus tachycardia 12/20/2020 Uncomplicated opioid dependence ([facility]) 10/15/2019 Hypertension ([facility]) 12/31/2023 Vitamin D deficiency 12/31/2023 Thyroid nodule ([facility]) 12/31/2023 Hypothyroidism ([facility]) 12/31/2023 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 Visual impairment 12/31/2023 Tobacco user 12/31/2023 Opioid abuse ([facility]) 12/31/2023 Obesity (BMI 30-39.9) 12/31/2023 Cervical cancer screening 12/31/2023 Nausea 01/07/2024 History of opioid abuse ([facility] [facility] 2018 Resolved Ambulatory Problems Diagnosis Date Noted Obesity (BMI 30.0-34.9) 06/27/2015 History of ectopic 12/31/2023 BMI 28.0-28.9,adult 12/31/2023 No Additional Past Medical History HISTORY PAST MEDICAL HISTORY SOCIAL HISTORY Past Medical History: Diagnosis Date Anxiety and depression ([facility] [place] Bacterial vaginosis 10/07/2023 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 History of ectopic 12/31/2023 History of opioid abuse ([facility] 2018 using subtex Hypertension ([facility]) 12/31/2023 Hypothyroidism ([facility]) 12/31/2023 Opioid abuse ([facility]) 12/31/2023 Thyroid nodule ([facility]) 12/31/2023 Tobacco user 12/31/2023 Visual impairment 12/31/2023 [...] nursing note reviewed. Exam conducted with a stage manager present. Vitals: Estimated body mass index is [...] (CMS/HCC) documented in this encounter [facility] Evaluation note Note Date & Type Note Facility Evaluation note Diagnosis Attention deficit hyperactivity disorder (ADHD), combined type (CMS/HCC)- Primary Opioid dependence, uncomplicated (F11.20) Vitamin D deficiency Hypothyroidism, unspecified type (CMS/HCC) Anxiety and depression (CMS/HCC) Primary hypertension (CMS/HCC) Unspecified essential hypertension Tobacco user Tobacco use disorder Obesity (BMI 30-39.9) Opioid abuse (CMS/HCC) Nondependent opioid abuse, unspecified Cervical cancer screening Screening for malignant neoplasm of the cervix Third trimester state, incidental 34 weeks gestation of Thyroid disease (CMS/HCC) Unspecified disorder of thyroid documented in this encounter [facility] Summary [...] section and content) DATE CREATED AUTHOR 03/17/2021 [facility] DATE CREATED AUTHOR AUTHOR'S ORGANIZ ATION 08/23/2021 [facility] DATE CREATED AUTHOR AUTHOR'S ORGANIZ ATION 02/23/2023 [facility] DATE CREATED AUTHOR AUTHOR'S ORGANIZ ATION 07/02/2024 [facility] DATE CREATED AUTHOR AUTHOR'S ORGANIZ ATION 09/16/2024 [facility] EPIC DATE CREATED AUTHOR AUTHOR'S ORGANIZ ATION 09/26/2024 [facility] Care Teams (unrecognized sec tion and content) [employer] Consultant Relationship Specialty Start Date End Date Billy Lopez MD [address] [place] [phone] PCP - General Family Medicine 11/21/23 Merry Arceo, SHUN [address] [place] [phone] Nurse Practitioner Family Medicine 11/03/22 [employer] Consult[employer] Relationship Specialty Start Date End Date Billy Lopez MD [address] [place] [phone] PCP - General Family Medicine 11/21/23 Merry Arceo NP [address] [place] [phone] Nurse Practitioner Family Medicine 11/03/22 [employer] Consultant Relationship Specialty Start Date End Date Billy Lopez MD [address] [place] [phone] PCP - General Family Medicine 11/21/23 Merry Arceo NP [address] [place] [phone] Nurse Practitioner Family Medicine 11/03/22 [employer] Consult[employer] Relationship Specialty Start Date End Date Billy Lopez MD [address] [place] [phone] PCP - General Family Medicine 11/21/23 Merry Arceo NP [address] [place] [phone] Nurse Practitioner [facility] 11/03/22 [employer] Consult[employer] Relationship Specialty Start Date End Date Billy Lopez MD [address] [place] [phone] PCP - General [facility] 11/21/23 Merry Arceo NP [address] [place] [phone] Nurse Practitioner [facility] 11/03/22 Reason for Visit (unrecogniz ed section [...] BE BASED ON THE PRIMARY CLINICAL RECORDS. [facility] [employer] [facility] provides no warranty or guarantee of the accuracy or completeness of information in this document.
== END 2024-09-28 19:18 | disposition home or self-care (01) ==
LOC: LAB 19:17
PROVIDERS: PCP Nurse Practitioner; Visit Provider Obstetrics & Gynecology
DX: Z34.93 Encounter for supervision of normal pregnancy, unspecified, third trimester (principal)
CPT/HCPCS: 87081; 87150

== ENCOUNTER 2024-10-13 12:56 | Outpatient (OUT) | payer MEDICAID, SELFPAY ==
[2024-10-13 13:08] VITALS: BP 140/94; PULSE 100
[2024-10-13 13:13] VITALS: BP 149/100; PULSE 92
--- OUTSIDE RECORDS SUMMARY | 2024-10-13 13:19 | XMS_ITS | CCD ---
Author Organization [facility] Care Team Providers Care Sales Branch Manager Name Role Phone NITA BARROS Referring Unavailable NITA BARROS Primary Care Unavailable AICHHOLZ, GOLF BALL TRIMMER MERRY Primary Care Unavailable AICHHOLZ, GOLF BALL TRIMMER MERRY Consulting Unavailable AICHHOLZ, GOLF BALL TRIMMER MERRY Attending Unavailable AICHHOLZ, GOLF BALL TRIMMER MERRY Admitting Unavailable AICHHOLZ, GOLF BALL TRIMMER MERRY Primary Care Unavailable AICHHOLZ, GOLF BALL TRIMMER MERRY Consulting Unavailable AICHHOLZ, GOLF BALL TRIMMER MERRY Attending Unavailable AICHHOLZ, GOLF BALL TRIMMER MERRY Admitting Unavailable MAGALI MCKNIGHT Consulting Unavailable AICHHOLZ, GOLF BALL TRIMMER MERRY Primary Care Unavailable AICHHOLZ, GOLF BALL TRIMMER MERRY Consulting Unavailable AICHHOLZ, GOLF BALL TRIMMER MERRY Attending Unavailable AICHHOLZ, GOLF BALL TRIMMER MERRY Admitting Unavailable MARITZA HA Referring Unavailable NITA BARROS Primary Care Unavailable EULALIA KINCAID Attending Unavailable MARITZA HA Referring Unavailable NITA BARROS Primary Care Unavailable Aichholz MIXER WHIPPED TOPPING, Merry Unavailable Billy Lopez MD Primary Care Provider LEA ARCEOA Attending Unavailable MARITZA HA Attending Unavailable MARITZA HA Attending Unavailable SPARKLE ANN Attending Unavailable SPARKLE ANN Attending Unavailable SPARKLE ANN Attending Unavailable EULALIA KINCAID Referring Unavailable NITA BARROS Primary Care Unavailable Allergies Allergy Classification Reported Allergen(s) Allergy Type Date of Onset Reaction(s) Facility (15 sources) varenicline; Translations: [VARENICLINE] Drug Allergy 02-12-2021 [facility] Medications Current Medications Medication Drug Class(es) Dates Sig (Normalized) Sig (Original) 24 hr amphetamine aspartate 5 mg / amphetamine sulfate 5 mg / dextroamphetamine saccharate 5 mg / dextroamphetamine sulfate 5 mg extended release oral capsule (8 sources) Central Nervous System Stimulant take 1 capsule by mouth in the morning, then take 1 capsule by mouth every twenty-four hours amphetamine-dextroam phetamine XR (Adderall XR) 20 MG 24 hr capsule Take 20 mg by mouth in the morning. Active buprenorphine 8 mg sublingual tablet (13 sources) Partial Opioid Agonist Start: 02-26-2024 buprenorphine (Subtex) 8 MG TAKE 1.5 TAB UNDER TONGUE 3 DAYS PER WEEK, 1.25 TAB UNDER TONGUE 4 DAYS PER WEEK 02/26/2024 Active buprenorphine 8 mg / naloxone 2 mg sublingual film (8 sources) Partial Opioid Agonist, Opioid Antagonist Start: 02-12-2024 Buprenorphine HCl-Naloxone HCl (Suboxone) 8-2 MG SL film DISSOLVE 1 AND 1/2 FILMS UNDER TONGUE 3 DAYS PER WEEK,1 AND 1/4 FILMS 4 DAYS PER WEEK 02/12/2024 Active 12 hr buPROPion hydrochloride 150 mg extended release oral tablet (13 sources) Aminoketone Start: 07-29-2024 End: 07-29-2025 take [...] Active docusate sodium 100 mg oral capsule (8 sources) Start: 07-20-2024 docusate sodium (Colace) 100 MG capsule TAKE 2 CAPSULES BY MOUTH TWICE A DAY UNTIL ABLE TO HAVE REGULAR BOWEL MOVEMENTS THEN TAKE NEEDED 07/20/2024 Active levothyroxine sodium 0.025 mg oral tablet (20 sources) l-Thyroxine Start: 09-16-2024 End: 09-16-2025 take 1 tablet by mouth in the morning levothyroxine (Synthroid) 25 MCG tablet Indications: Hyperthyroidism (CMS/HCC) Take 1 tablet (25 mcg) by mouth in the morning. Take before meals. Patient to take with current 150mcg dose to equal 175mcg total.. 30 tablet 09/16/2024 09/16/2025 Active Start: 09-14-2024 End: 09-14-2025 take 1 tablet by mouth before mealtime levothyroxine (Synthroid) 150 MCG tablet Indications: Thyroid disease (CMS/HCC) Take 1 tablet (150 mcg) by mouth in the morning. Take before meals. 30 tablet 11 09/14/2024 09/14/2025 Active Start: 04-22-2024 End: 04-22-2025 [...] 08/10/2024 Discontinued ondansetron 4 mg oral tablet (13 sources) Serotonin-3 Receptor Antagonist Start: 07-12-2024 take 1 tablet by mouth every eight hours for nausea ondansetron (Zofran) 4 MG tablet Indications: Nausea and vomiting during Take 1 tablet (4 mg) by mouth every 8 (eight) hours if needed for nausea 20 tablet 3 07/12/2024 Active Vit-Fe Fumarate-FA ( Vitamins) 28-0.8 MG tablet (13 sources) Start: 08-03-2024 End: 08-03-2025 take 1 tablet by mouth once daily Vit-Fe Fumarate-FA ( Vitamins) 28-0.8 MG tablet Indications: 28 weeks gestation of , Third trimester Take 1 tablet by mouth Daily 30 tablet 3 08/03/2024 08/03/2025 Active terconazole 4 mg/ml vaginal cream (2 sources) Azole Antifungal Start: 10-06-2024 End: 10-13-2024 terconazole (Terazol 7) 0.4 % vaginal cream Indications: Yeast infection Insert 1 applicator into the vagina at bedtime for 7 days 45 g 10/06/2024 10/13/2024 Active Problems Active Problems Problem Classification Problem Date Documented Date Episodic/Chronic Anxiety disorders (13 sources) Mixed anxiety and depressive disorder; Translations: [Anxiety disorder, unspecified] Onset: 12-20-2020 12-10-2023 Chronic Attention-deficit, conduct, and disruptive behavior disorders (1 source) Attention-deficit hyperactivity disorder, combined type; Translations: [Attention-deficit hyperactivity disorder, combined type] Onset: 04-25-2020 Chronic Attention-deficit, conduct, and disruptive behavior disorders (13 sources) Attention deficit hyperactivity disorder, combined type; Translations: [Attention-deficit hyperactivity disorder, combined type] Onset: 10-15-2019 12-10-2023 Chronic Blindness and vision defects (13 sources) Visual impairment; Translations: [Unspecified visual loss] Onset: 12-31-2023 12-31-2023 Chronic Essential hypertension (14 sources) Essential (primary) hypertension; Translations: [Hypertensive disorder] Onset: 11-29-2022 12-31-2023 Chronic Hypertension complicating ; childbirth and the puerperium (1 source) Unspecified pre-existing hypertension complicating , unspecified trimester; Translations: [Unspecified pre-existing hypertension complicating , unspecified trimester] Onset: 06-30-2024 Chronic Mycoses (2 sources) Mycosis; Translations: [Candidiasis, unspecified] 10-06-2024 Episodic Nutritional deficiencies (13 sources) Vitamin D deficiency; Translations: [Vitamin D [...] history, second trimester] Onset: 09-23-2024 Episodic Other complications of (2 sources) Vomiting of , unspecified; Translations: [Unspecified vomiting of , unspecified as to episode of care or not applicable] 09-29-2024 Episodic Other nutritional; endocrine; and metabolic disorders (1 source) Morbid (severe) obesity due to excess calories; Translations: [MORBID SEVERE OBES D/T EXCESS JOSÉ] Onset: 11-29-2022 Chronic Other nutritional; endocrine; and metabolic disorders (1 source) Body mass index (BMI) 40.0-44.9, adult; Translations: [BODY MASS INDEX BMI 40.0-44.9 ADULT] Onset: 11-29-2022 Chronic Other nutritional; endocrine; and metabolic disorders (13 sources) Body mass index 30+ - obesity; Translations: [Obesity, unspecified] Onset: 12-31-2023 12-31-2023 Chronic Other and delivery including normal (8 sources) Third trimester ; Translations: [Encounter for [...] [34 weeks gestation of ] 09-14-2024 Episodic Residual codes; unclassified (2 sources) Gestation period, 36 weeks; Translations: [36 weeks gestation of ] 09-29-2024 Episodic Residual codes; unclassified (2 sources) Gestation period, 37 weeks; Translations: [37 weeks gestation of ] 10-06-2024 Episodic Substance-related disorders (20 sources) Opioid dependence; Translations: [Opioid dependence, uncomplicated] Onset: 11-03-2017 12-10-2023 Chronic Thyroid disorders (20 sources) Hypothyroidism, unspecified; Translations: [Hypothyroidism] Onset: 02-19-2023 Chronic Thyroid disorders (2 sources) Disorder of thyroid gland; Translations: [Disorder of thyroid, unspecified] 09-14-2024 Episodic Unclassified (1 source) Suboxone Use Onset: 06-30-2024 Past or Other Problems Problem Classification Problem Date Documented Date Episodic/Chronic Cardiac dysrhythmias (13 sources) Sinus tachycardia; Translations: [Tachycardia, unspecified] Onset: 12-20-2020 12-10-2023 Episodic Inflammatory diseases of female pelvic organs (13 sources) Bacterial vaginosis; Translations: [Acute vaginitis] Onset: 10-07-2023 10-07-2023 Episodic Nausea and vomiting (13 sources) Nausea; Translations: [Nausea] Onset: 01-07-2024 01-07-2024 Episodic Other aftercare (13 sources) Long-term current use of drug therapy; Translations: [Other director long term care (current) drug therapy] Onset: 12-20-2020 12-10-2023 Episodic Other nutritional; endocrine; and metabolic disorders (13 sources) Obese class I; Translations: [Obesity (BMI 30.0-34.9)] Onset: 06-27-2015 Resolved: 12-31-2023 12-31-2023 Chronic Other nutritional; endocrine; and metabolic disorders (13 sources) Overweight in adulthood with body mass index of 25 or more but less than 30; Translations: [Body mass index (BMI) 28.0-28.9, adult] Onset: 12-31-2023 Resolved: 12-31-2023 12-31-2023 Episodic Other screening for suspected conditions (not mental disorders or infectious disease) (15 sources) Encounter for other specified screening; Translations: [Encounter for screening for cervical length] Onset: 12-31-2023 12-31-2023 Episodic Residual codes; unclassified (13 sources) Tobacco user; Translations: [Tobacco use] Onset: 12-31-2023 12-31-2023 Episodic Residual codes; unclassified (13 sources) H/O: ectopic ; Translations: [Personal history of other complications of , childbirth and the puerperium] Onset: 12-31-2023 Resolved: 12-31-2023 12-31-2023 Episodic Results Test Name Value Interpretation Reference Range Facility STREP GP B NAAon 10-01-2024 STREP GP B RICARDO Strep Gp B RICARDO [facility] STREP GP B RICARDO *ABNORMAL* [facility] STREP GP B RICARDO Positive [facility] STREP GP B RICARDO Centers for Disease Control and Prevention (CDC) and [facility] STREP GP B RICARDO [place] [employer] [facility] STREP GP B RICARDO (ACOG) guidelines for prevention of group B [facility] STREP GP B RICARDO streptococcal (GBS) disease specify co-collection of [facility] STREP GP B RICARDO a vaginal and rectal swab specimen to maximize [facility] STREP GP B RICARDO sensitivity of GBS detection. Per the CDC and ACOG, [facility] STREP GP B RICARDO swabbing both the lower vagina and rectum [facility] STREP GP B RICARDO substantially increases the yield of detection [facility] STREP GP B RICARDO compared with sampling the vagina alone. [facility] STREP GP B RICARDO Penicillin G, ampicillin, or cefazolin are indicated [facility] STREP GP B RICARDO for intrapartum prophylaxis of GBS [facility] STREP GP B RICARDO colonization. Reflex susceptibility testing should be [facility] STREP GP B RICARDO performed prior to use of clindamycin only on GBS [facility] STREP GP B RICARDO isolates from penicillin-allergic women who are [facility] STREP GP B RICARDO considered a high risk for anaphylaxis. Treatment with [facility] STREP GP B RICARDO vancomycin without additional testing is warranted if [facility] STREP GP B RICARDO resistance to clindamycin is noted. [facility] STREP GP B RICARDO Performed at: [facility] STREP GP B RICARDO [address], [place] [id number] [facility] STREP GP B RICARDO Pants Closer: Balwinder Pereira PhD, Phone: [phone] [facility] Urinalysis macro (dipstick) panel (U)on 09-29-2024 Bilirubin, UA Negative Negative - 4(70) +++ mg/dL [facility] Blood, UA Negative Negative - 50 Shaan/mcL [facility] Clarity, UA Clear [facility], UA Yellow [facility] Glucose, UA Negative Negative - 1999(110) ++++ mg/dL [facility] Interpretation and review of laboratory results Abnormal [facility] Ketones, UA Negative Negative - 160(16) ++++ mg/dL [facility] Leukocytes, UA Few Negative - 500+++ Milton/mcL [facility] Nitrite, UA Negative Negative - Positive [facility] pH, UA 6 5 - 9 [facility] Health[facility] e Protein, UA Trace Negative - 2000(20) ++++ mg/dL [facility] Spec Grav, UA 1.03 1 - 1.03 [facility] Urobilinogen, UA 1.0 0.2 - 12 mg/dL [facility] Health[facility] e Urinalysis macro (dipstick) panel (U)on 09-14-2024 Bilirubin, UA Negative Negative - 4(70) +++ mg/dL [facility] Blood, UA Negative Negative - 50 Shaan/mcL [facility] Clarity, UA Clear [facility] Healthca re Color, UA Yellow [facility] e Glucose, UA Negative Negative - 1999(110) ++++ mg/dL [facility] Interpretation and review of laboratory results Abnormal [facility] Ketones, UA Negative Negative - 160(16) ++++ mg/dL [facility] Leukocytes, UA Positive Negative - 500+++ [place]/mcL [facility] Comment on above: small Nitrite, UA Negative Negative - Positive [facility] pH, UA 6.5 5 - 9 [facility] Protein, UA Negative Negative - 1999(20) ++++ mg/dL [facility] Spec Grav, UA 1.03 1 - 1.03 [facility] Urobilinogen, UA 1.0 0.2 - 12 mg/dL [facility] ALL THYROID STIM HORMONEon 1 11-13-2023 TSH Qn 3.736 m[IU]/L Pending sale to [facility] e ALL THYROXINE (T4) FREEon Free T4 [Mass/Vol] 0.82 ng/dL 0.76 - 1. 46 ng/dL [facility] Urinalysis macro (dipstick) panel (U)on 08-10-2024 Bilirubin, UA Negative Negative - 4(70) +++ mg/dL [facility] Blood, UA Negative Negative - 50 Shaan/mcL [facility] Clarity, UA Clear [facility] Healthca re Color, UA Yellow [facility] Health[facility] Glucose, UA Negative Negative - 1999(110) ++++ mg/dL [facility] Interpretation and review of laboratory results Normal [facility] Ketones, UA Negative Negative - 160(16) ++++ mg/dL [facility] Leukocytes, UA Negative Negative - 500+++ [place]/mcL [facility] Nitrite, UA Negative Negative - Positive [facility] pH, UA 6.0 5 - 9 [facility] Health[facility] e Protein, UA Negative Negative - 1999(20) ++++ mg/dL [facility] Spec Grav, UA 1.030 1 - 1.03 [facility] care Urobilinogen, UA 0.2 0.2 - 12 mg/dL [facility] Cytology Cervical or vaginal smear or scraping studyon 05-19-2024 [facility] FREE T4on 02-19-2023 Free T4 [Mass/Vol] 1.39 ng/dL Normal 0.76-1.46 [facility] Comment on above: Performed By: #### F T4 #### [facility] [address] [address] [address] Alfredito Rendon TSHon 02-19-2023 TSH 0.012 uIU/mL Critically low 0.358-3.740 [facility] Comment on above: Performed By: #### T SH #### [facility] [address] [address] [address] Alfredito Rendon US THYROIDon 12-11-2022 US [...] by: MAGALI MCKNIGHT Date: 2022-12-11 15:05 Normal [facility] THYROID ANTIBODIESon 01-28-2 023 Thyroglobulin Antibody 21.5 IU/mL Critically high 0.0-0.9 [facility] Comment on above: Result Comment: Thyr oglobulin Antibody measured by [employer] Methodology Performed By: #### T HYRABS #### [facility] [address] [place] [address] Dr. Alfredito Rendon Thyroid Peroxidase (TPO) Ab 73 IU/mL Critically high 0-34 [facility] Comment on above: Performed By: #### T HYBS #### [facility] [address] [place] [address] Dr. Alfredito Rendon CBC AUTO DIFFon 11-28-2022 BASO # 0.0 103/ul Normal 0.0-0.1 [facility] Comment on above: Performed By: #### C BC #### [facility] [address] [place] [address] Dr. Alfredito Rendon Basophils/100 WBC (Bld) 0.3 % Normal 0.2-2.0 [facility] Comment on above: Performed By: #### C BC #### [facility] [address] [place] [address] Dr. Alfredito Rendon EO # 0.2 103/ul Normal 0.0-0.7 [facility] Comment on above: Performed By: #### C BC #### [facility] [address] [place] [address] Dr. Alfredito Rendon Eosinophils/100 WBC (Bld) 2.3 % Normal 0.9-7.0 [facility] Comment on above: Performed By: #### C BC #### [facility] [address] [place] [address] Dr. Alfredito Rendon Erythrocyte distribution width (RBC) [Ratio] 13.0 % Normal 11.0-15.0 [facility] Comment on above: Performed By: #### C BC #### [facility] [address] [place] [address] Dr. Alfredito Rendon Hematocrit (Bld) [Volume fraction] 41.2 % Normal 36.0-48.0 [facility] Comment on above: Performed By: #### C BC #### [facility] [address] [place] [address] Dr. Alfredito Rendon Hemoglobin (Bld) [Mass/Vol] 12.5 g/dL Normal 12.0-16.0 [facility] Comment on above: Performed By: #### C BC #### [facility] [address] [place] [address] Dr. Alfredito Rendon IG # 0.02 10e3/ul Normal 0.00-0.03 [facility] Comment on above: Performed By: #### C BC #### [facility] [address] [place] [address] Dr. Alfredito Rendon IG % 0.2 % Normal 0.0-0.5 [facility] Comment on above: Performed By: #### C BC #### [facility] [address] [place] [address] Dr. Alfredito Rendon LYMPH # 2.7 103/ul Normal 1.2-3.8 [facility] Comment on above: Performed By: #### C BC #### [facility] [address] [place] [address] Dr. Alfredito Rendon Lymphocytes/100 WBC (Bld) 25.3 % Normal 20.5-60.0 [facility] Comment on above: Performed By: #### C BC #### [facility] [address] [place] [address] Dr. Alfredito Rendon MANUAL DIFF REQ NO Normal [facility] Comment on above: Performed By: #### C BC #### [facility] [address] [place] [address] Dr. Alfredito Rendon MCH (RBC) [Entitic mass] 29.6 pg Normal 26.7-34.0 [facility] Comment on above: Performed By: #### C BC #### [facility] [address] [place] [address] Dr. Alfredito Rendon MCHC (RBC) [Mass/Vol] 30.3 g/dL Normal 29.9-35.2 [facility] Comment on above: Performed By: #### C BC #### [facility] [address] [place] [address] Dr. Alfredito Rendon MCV (RBC) [Entitic vol] 97.6 fL Normal 81.0-99.0 [facility] Comment on above: Performed By: #### C BC #### [facility] [address] [place] [address] Dr. Alfredito Rendon MONO # 0.7 103/ul Normal 0.3-0.8 [facility] Comment on above: Performed By: #### C BC #### [facility] [address] [place] [address] Dr. Alfredito Rendon Monocytes/100 WBC (Bld) 6.4 % Normal 1.7-12.0 [facility] Comment on above: Performed By: #### C BC #### [facility] [address] [place] [address] Dr. Alfredito Rendon NEUT # 6.9 103/ul Critically high 1.4-6.5 [facility] Comment on above: Performed By: #### C BC #### [facility] [address] [place] [address] Dr. Alfredito Rendon Neutrophils/100 WBC (Bld) 65.5 % Normal 43.0-75.0 [facility] Comment on above: Performed By: #### C BC #### [facility] [address] [place] [address] Dr. Alfredito Rendon Platelet mean volume (Bld) [Entitic vol] 10.1 fL Normal 9.5-13.5 [facility] Comment on above: Performed By: #### C BC #### [facility] [address] [place] [address] Dr. Alfredito Rendon PLT 253 103/ul Normal 150-450 [facility] Comment on above: Performed By: #### C BC #### [facility] [address] [place] [address] Dr. Alfredito Rendon RBC 4.22 106/ul Normal 4.20-5.40 [facility] Comment on above: Performed By: #### C BC #### [facility] [address] [place] [address] Dr. Alfredito Rendon WBC 10.6 103/ul Normal 4.0-11.0 [facility] Comment on above: Performed By: #### C BC #### [facility] [address] [place] [address] Dr. Alfredito Rendon FREE T3on 11-28-2022 FREE T3 2.65 pg/mlL Normal 2.18-3.98 [facility] Comment on above: Performed By: #### T SH, FT3, LIPID, CMP #### [facility] [address] [place] [address] Dr. Alfredito Rendon FREE T4on 11-28-2022 Free T4 [Mass/Vol] 0.86 ng/dL Normal 0.76-1.46 [facility] Comment on above: Performed By: #### F T4 #### [facility] [address] [place] [address] Dr. Alfredito Rendon LIPID PROFILEon 11-28-2022 CHOL-HDL RATIO NORM SEE BELOW Normal [facility] Comment on above: Result Comment: 3.3 - 4.4 LOW RISK 4.4 - 7.1 AVERAGE RISK 7.1 - 11.0 MODERATE RISK >11.0 HIGH RISK Performed By: #### T SH, FT3, LIPID, CMP #### [facility] [address] [place] [address] Dr. Alfredito Rendon Cholesterol [Mass/Vol] 172 mg/dL Normal <=200 [facility] Comment on above: Performed By: #### T SH, FT3, LIPID, CMP #### [facility] [address] [place] [address] Dr. Alfredito Rendon Cholesterol in HDL [Mass/Vol] 49 mg/dL Normal 40-60 [facility] Comment on above: Performed By: #### T SH, FT3, LIPID, CMP #### [facility] [address] [place] [address] Dr. Alfredito Rendon Cholesterol in LDL [Mass/Vol] 96.2 mg/dL Normal [facility] Comment on above: Performed By: #### T SH, FT3, LIPID, CMP #### [facility] [address] [place] [address] Dr. Alfredito Rendon Cholesterol.total/Ch olesterol in HDL [Mass ratio] 3.5 {ratio} Normal [facility] Comment on above: Performed By: #### T SH, FT3, LIPID, CMP #### [facility] [address] [address] [address] Alfredito Rendon HDL NORMAL > or = 60 mg/dl - LOW CARDIOVASCULAR RISK <40 mg/dl - HIGH CARDIOVASCULAR RISK Normal [facility] Comment on above: Performed By: #### T SH, FT3, LIPID, CMP #### [facility] [address] [place] [address] Dr. Alfredito Rendon LDL CALC NORMAL SEE BELOW Normal [facility] Comment on above: Result Comment: <100 mg/dl OPTIMAL 100 - 129 mg/dl NEAR OR ABOVE OPTIMAL 130 - 159 mg/dl BORDERLINE HIGH 160 - 189 mg/dl HIGH >190 mg/dl VERY HIGH Performed By: #### T SH, FT3, LIPID, CMP #### [facility] [address] [place] [address] Dr. Alfredito Rendon Triglyceride [Mass/Vol] 134 mg/dL Normal <=150 [facility] Comment on above: Performed By: #### T SH, FT3, LIPID, CMP #### [facility] [address] [place] [address] Dr. Alfredito Rendon VLDL CALC 26.8 mg/dL Normal [facility] Comment on above: Performed By: #### T SH, FT3, LIPID, CMP #### [facility] [address] [place] [address] Dr. Alfredito Rendon PROF 14(COMP METB)on 023 Albumin [Mass/Vol] 3.3 g/dL Critically low 3.4-5.0 Th e [facility] Comment on above: Performed By: #### T SH, FT3, LIPID, CMP #### [facility] [address] [place] [address] Dr. Alfredito Rendon Albumin/Globulin [Mass ratio] 0.9 {ratio} Normal [facility] Comment on above: Performed By: #### T SH, FT3, LIPID, CMP #### [facility] [address] [address] [address] Alfredito Rendon ALP [Catalytic activity/Vol] 63 U/L Normal 46-116 [facility] Comment on above: Performed By: #### T SH, FT3, LIPID, CMP #### [facility] [address] [address] [address] Alfredito Rendon ALT [Catalytic activity/Vol] 27 U/L Normal 14-59 [facility] Comment on above: Performed By: #### T SH, FT3, LIPID, CMP #### [facility] [address] [address] [address] Alfredito Rendon Anion gap [Moles/Vol] 14.1 mmol/L Normal [facility] Comment on above: Performed By: #### T SH, FT3, LIPID, CMP #### [facility] [address] [place] [address] Dr. Alfredito Rendon AST [Catalytic activity/Vol] 20 U/L Normal 15-37 [facility] Comment on above: Performed By: #### T SH, FT3, LIPID, CMP #### [facility] [address] [place] [address] Dr. Alfredito Rendon Bilirubin [Mass/Vol] 0.3 mg/dL Normal 0.2-1.0 [facility] Comment on above: Performed By: #### T SH, FT3, LIPID, CMP #### [facility] [address] [place] [address] Dr. Alfredito Rendon Calcium [Mass/Vol] 9.2 mg/dL Normal 8.5-10.1 [facility] Comment on above: Performed By: #### T SH, FT3, LIPID, CMP #### [facility] [address] [address] [address] Alfredito Rendon Chloride [Moles/Vol] 103 mmol/L Normal 98-107 [facility] Comment on above: Performed By: #### T SH, FT3, LIPID, CMP #### [facility] [address] [place] [address] Dr. Alfredito Rendon CO2 [Moles/Vol] 24.1 mmol/L Normal 21.0-32.0 [facility] Comment on above: Performed By: #### T SH, FT3, LIPID, CMP #### [facility] [address] [place] [address] Dr. Alfredito Rendon Creatinine [Mass/Vol] 0.71 mg/dL Normal 0.55-1.02 [facility] Comment on above: Performed By: #### T SH, FT3, LIPID, CMP #### [facility] [address] [place] [address] Dr. Alfredito Rendon EGFR-AF SYRIAN >60 Normal >=60 [facility] Comment on above: Performed By: #### T SH, FT3, LIPID, CMP #### [facility] [address] [place] [address] Dr. Alfredito Rendon EGFR-NON AF SYRIAN >60 Normal >=60 [facility] Comment on above: Performed By: #### T SH, FT3, LIPID, CMP #### [facility] [address] [place] [address] Dr. Alfredito Rendon Globulin (S) [Mass/Vol] 3.8 g/dL Normal [facility] Comment on above: Performed By: #### T SH, FT3, LIPID, CMP #### [facility] [address] [place] [address] Dr. Alfredito Rendon Glucose [Mass/Vol] 106 mg/dL Normal 74-106 [facility] Comment on above: Performed By: #### T SH, FT3, LIPID, CMP #### [facility] [address] [place] [address] Dr. Alfredito Rendon Potassium [Moles/Vol] 4.2 mmol/L Normal 3.5-5.1 [facility] Comment on above: Performed By: #### T SH, FT3, LIPID, CMP #### [facility] [address] [place] [address] Dr. Alfredito Rendon Protein [Mass/Vol] 7.1 g/dL Normal 6.4-8.2 [facility] Comment on above: Performed By: #### T SH, FT3, LIPID, CMP #### [facility] [address] [address] [address] Alfredito Rendon Sodium [Moles/Vol] 137 mmol/L Normal 136-145 [facility] Comment on above: Performed By: #### T SH, FT3, LIPID, CMP #### [facility] [address] [place] [address] Dr. Alfredito Rendon Urea nitrogen [Mass/Vol] 14.0 mg/dL Normal 7.0-18.0 [facility] Comment on above: Performed By: #### T SH, FT3, LIPID, CMP #### [facility] [address] [place] [address] Dr. Alfredito Rendon Urea nitrogen/Creatinine [Mass ratio] 19.7 mg/mg Normal [facility] Comment on above: Performed By: #### T SH, FT3, LIPID, CMP #### [facility] [address] [place] [address] Dr. Alfredito Rendon TSHon 11-28-2022 TSH 5.010 uIU/mL Critically high 0.358-3.740 [facility] Comment on above: Performed By: #### T SH, FT3, LIPID, CMP #### [facility] [address] [place] [address] Dr. Alfredito Rendon Thyroid Stim. Horm.on 2020 TSH Qn 10.79 m[IU]/L High 0.30-5.00 [facility] Comment on above: Performed By: #### T SH, FT4 #### [facility] [employer] [address] [place] [address] [phone] Pants Closer: Titus Pagan MD Thyroxine, Freeon 08-22-2021 Thyroxine, Free 0.89 ng/dL Low 0.93-1.70 [facility] Comment on above: Performed By: #### T SH, FT4 #### [facility] [address] [place] [address] [phone] Pants Closer: Titus Pagan MD Basic Metab, Fastingon 03-15 (cont.) Normal [facility] Comment on above: Result Comment: Aver age GFR for 30-39 years old: 107 mL/min/1.73sq m Chronic Kidney Disease: <60 mL/min/1.73sq m Kidney failure: <15 mL/min/1.73sq m eGFR calculated using average adult body mass. Additional eGFR calculator available at: http://www.[employer]/multiple_crcl_2012.htm Performed By: #### B MPF, FT4, TSH #### [facility] [address] [place] [address] [phone] Pants Closer: Titus Pagan MD Anion gap [Moles/Vol] 10 mmol/L Normal 9-17 [facility] Comment on above: Performed By: #### B MPF, FT4, TSH #### [facility] [address] [place] [address] [id number] Pants Closer: Titus Pagan MD Calcium [Mass/Vol] 9.4 mg/dL Normal 8.6-10.4 [facility] Comment on above: Performed By: #### B MPF, FT4, TSH #### [facility] [address] [place] [address] [phone] Pants Closer: Titus Pagan MD Chloride [Moles/Vol] 102 mmol/L Normal 98-107 [facility] Comment on above: Performed By: #### B MPF, FT4, TSH #### [facility] [address] [place] [address] [id number] P[employer] Closer: Titus Pagan MD CO2 [Moles/Vol] 25 mmol/L Normal 20-31 [facility] Comment on above: Performed By: #### B MPF, FT4, TSH #### [facility] [address] [place] [address] [phone] Pants Closer: Titus Pagan MD Creatinine [Mass/Vol] 0.62 mg/dL Normal 0.50-0.90 [facility] Comment on above: Performed By: #### B MPF, FT4, TSH #### [facility] [address] [place] [address] [phone] Pants Closer: Titus Pagan MD GFR, Amer >60 Normal >60 [facility] Comment on above: Performed By: #### B MPF, FT4, TSH #### [facility] [address] [place] [address] [phone] Pants Closer: Titus Pagan MD GFR,non Amer >60 Normal >60 [facility] Comment on above: Performed By: #### B MPF, FT4, TSH #### [facility] [address] [place] [address] [phone] Pants Closer: Titus Pagan MD Glucose [Mass/Vol] 93 mg/dL Normal 70-99 [facility] Comment on above: Performed By: #### B MPF, FT4, TSH #### [facility] [address] [place] [address] 13880 Pants Closer: Titus Pagan MD Potassium [Moles/Vol] 4.6 mmol/L Normal 3.7-5.3 [facility] Comment on above: Performed By: #### B MPF, FT4, TSH #### [facility] [address] [place] [address] [phone] Pants Closer: Titus Pagan MD Sodium [Moles/Vol] 137 mmol/L Normal 135-144 [facility] Comment on above: Performed By: #### B MPF, FT4, TSH #### [facility] [address] [place] [address] [phone] Pants Closer: Titus Pagan MD Urea nitrogen [Mass/Vol] 13 mg/dL Normal 6-20 [facility] Comment on above: Performed By: #### B MPF, FT4, TSH #### [facility] [address] [place] [address] [phone] Pants Closer: Titus Pagan MD BUN/CRE Ratio NOT REPORTED Normal - [facility] Comment on above: Performed By: #### B MPF, FT4, TSH #### [facility] [address] [place] [address] [phone] Pants Closer: Titus Pagan MD Staging: NOT REPORTED Normal [facility] Comment on above: Performed By: #### B MPF, FT4, TSH #### [facility] [address] [place] [address] [phone] Pants Closer: Titus Pagan MD Thyroid Stim. Horm.on 2020 TSH Qn 13.08 m[IU]/L High 0.30-5.00 [facility] Comment on above: Performed By: #### B MPF, FT4, TSH #### [facility] [address] [place] [address] [phone] Pants Closer: Titus Pagan MD Thyroxine, Freeon 03-15-2021 Thyroxine, Free 0.90 ng/dL Low 0.93-1.70 [facility] Comment on above: Performed By: #### B MPF, FT4, TSH #### [facility] [address] [place] [address] [phone] Pants Closer: Titus Pagan MD Vital Signs Date Time Vital Sign Value Performing Clinician Monica agudelo 10-06-2024 13:11-0500 Body mass index (BMI) [Ratio] 41.24 kg/m2 Sparkle TRIMBLE Work Phone: [facility] 10-06-2024 13:11050 Body weight 105.6 kg Sparkle TRIMBLE Work Phone: [facility] 10-06-2024 13:11-0500 Diastolic blood pressure 76 mm[Hg] Sparkle TRIMBLE Work Phone: [facility] 10-06-2024 13:11-0500 Systolic blood pressure 124 mm[Hg] Sparkle TRIMBLE Work Phone: [facility] 09-14-2024 11:45-0500 Body mass index (BMI) [Ratio] 40.21 kg/m2 Sparkle Ann PA Work Phone: [facility] 09-14-2024 11:45-0500 Body weight 102.97 kg Sparkle Seth PA Work Phone: [facility] 09-14-2024 11:45-0500 Diastolic blood pressure 78 mm[Hg] Sparkle Ann PA Work Phone: [facility] 09-14-2024 11:45-0500 Systolic blood pressure 124 mm[Hg] Sparkle Seth PA Work Phone: [facility] 08-10-2024 09:13-0400 Body mass index (BMI) [Ratio] 40.53 kg/m2 Sparkle [place] PA Work Phone: [facility] 08-10-2024 09:13-0400 Body weight 103.78 kg Sparkle Ann PA Work Phone: [facility] 08-10-2024 09:13-0400 Diastolic blood pressure 70 mm[Hg] Sparkle Seth PA Work Phone: [facility] 08-10-2024 09:13-0400 Systolic blood pressure 110 mm[Hg] Sparkle Ann PA Work Phone: [facility] Healthcare Encounters Encounter Date Encounter Type Care Provider Facility Start: 10-06-2024 End: 10-06-2024 Bamboo flowsheet Sparkle Ann PA Work Phone: [facility] Start: 10-06-2024 End: 10-06-2024 Bamboo flowsheet Sparkle Ann PA Work Phone: [facility] Start: 10-06-2024 End: 10-06-2024 Office outpatient visit 15 minutes Sparkle TRIMBLE Work Phone: [facility] Comment on above: Third trimester preg marlin; 37 weeks gestation of ; Yeast infection Start: 09-28-2024 End: 10-01-2024 Clinisync Result Encounter Generic External Data Provider [facility] External Department Unsolicited Start: 09-28-2024 End: 10-01-2024 Clinisync Result Encounter Generic External Data Provider [facility] External Department Unsolicited Start: 09-28-2024 End: 09-28-2024 Office outpatient visit 15 minutes Marizta Weinerti FERRER Work Phone: [facility] Comment on above: Third trimester preg marlin; 36 weeks gestation of ; Nausea/vomiting in Start: 09-23-2024 End: 09-23-2024 ambulatory [facility] Start: 09-14-2024 End: 09-14-2024 Bamboo flowsheet Sparkle TRIMBLE Work Phone: [facility] Start: 09-14-2024 End: 09-14-2024 Bamboo flowsheet Sparkle TRIMBLE Work Phone: [facility] Start: 09-14-2024 End: 09-14-2024 Office [...] Clinisync Result Encounter Sparkle TRIMBLE Work Phone: [facility] External Department Unsolicited Start: 08-10-2024 End: 08-10-2024 [...] (CMS/HCC) Start: 08-10-2024 End: 08-10-2024 ambulatory SPARKLE SETH Not Available Start: 06-30-2024 End: 06-30-2024 ambulatory MARITZA Nai WEINERO [facility] Start: 06-22-2024 End: 06-22-2024 ambulatory SPARKLE ANN Not Available Start: 05-19-2024 End: 05-19-2024 ambulatory MARITZA LELAND Not Available Start: 04-21-2024 End: 04-21-2024 ambulatory MARITZA LELAND Not Available Start: 03-18-2024 End: 03-18-2024 ambulatory MERRY AICHHOLZ Not Available Start: 12-31-2023 End: 12-31-2023 ambulatory MERRY AICHHOLZ Not Available Start: 02-19-2023 End: 02-20-2023 ambulatory GOLF BALL TRIMMER MERRY AICHHOLZ Facility:[facility] Start: 12-11-2022 End: 12-12-2022 ambulatory GOLF BALL TRIMMER MERRY AICHHOLZ Facility:[facility] Start: 11-28-2022 End: 11-29-2022 ambulatory GOLF BALL TRIMMER MERRY AICHHOLZ Facility:[facility] Start: 03-15-2021 End: 03-16-2021 ambulatory NITA BARROS [facility] Procedures Date Procedure Procedure Detail Performing Clinician Start: 09-28-2024 STREP GP B RICARDO Generic External Data Provider Start: 09-28-2024 Urnls dip stick/tabl et rgnt non-auto w/o micrscp Maritza Weinero DO Work Phone: Start: 09-14-2024 Urnls dip stick/tabl et rgnt [...] ant neoplasm of cervix [facility] Start: 10-13-2024 End: 10-13-2024 Patient encounter procedure 10/13/2024 11:20 AM EST Routine [facility] [address] [place] [address] Maritza Ha, DO [address] [place] [address] [facility] Start: 09-29-2024 End: 09-29-2025 Strep B DNA probe, amplification Strep B DNA probe, amplification Lab Routine Third trimester Expected: 09/29/2024 (Approximate), Expires: 09/29/2025 [facility] Work Phone: Comment on above: Expected: 09/29/2024 (Approximate), Expires: 09/29/2025 Start: 09-28-2024 End: 09-28-2024 Patient encounter procedure 09/28/2024 10:00 AM EST Routine [facility] [address] [place] [address] Maritza Ha, DO [address] [place], [place] [id number] [facility] Start: 08-24-2024 End: 08-24-2024 Patient encounter procedure 08/24/2024 9:20 AM EDT Routine [facility] [address] [place] [address] Maritza Ha, DO [address] [place] [address] [facility] Start: 08-11-2024 End: 08-11-2024 Professional / ancillary services management 08/11/2024 9:30 AM EDT Ancillary Procedure [facility] [address] [place] [id number] [facility] Start: 08-10-2024 End: 08-10-2025 US for US OB SCAN FOR GROWTH Imaging Routine Nava's disease (CMS/HCC) Hypothyroidism, unspecified type (CMS/HCC) Expected: 08/10/2024 (Approximate), Expires: 08/10/2025 [facility] Healthcare Work Phone: Comment on above: Expected: 08/10/2024 (Approximate), Expires: 08/10/2025 Start: 08-10-2024 End: 08-10-2024 Patient encounter procedure 08/10/2024 8:50 AM EDT Routine [facility] [address] [place] [id number] Sparkle Ann PA [address] [place] [address] Arrived [facility] Comment on above: Arrived Start: 2019 Screening for malign ant neoplasm of cervix [facility] Start: 2010 Screening for malign ant neoplasm of cervix Pap Smear [facility] Thyrotropin [Units/volume] in Serum or Plasma TSH Lab Routine Nava's disease (CMS/HCC) Hypothyroidism, unspecified type (CMS/HCC) Ordered: 08/10/2024 [facility] Comment on above: Ordered: 08/10/2024 Thyroxine (T4) free [Mass/volume] in Serum or Plasma T4, free Lab Routine Nava's disease (CMS/HCC) Hypothyroidism, unspecified type (CMS/HCC) Ordered: 08/10/2024 [facility] Comment on above: Ordered: 08/10/2024 Immunizations Immunization Date Immunization Notes Care Provider Fa manuel 05-03-2018 tetanus toxoid, redu bravo diphtheria toxoid, and acellular pertussis vaccine, adsorbed Sparkle TRIMBLE Work Phone: [facility] 06-16-2008 human papilloma viru s vaccine, quadrivalent Sparkle TRIMBLE Work Phone: [facility] 03-08-2008 human papilloma viru s vaccine, quadrivalent Sparkle TRIMBLE Work Phone: [facility] Payers Date Payer Category Payer Medicaid [id number] 2022 Medicaid [id number] 2019 Unknown [id number] 1989 Unknown [id number] 2.16.8 [id number] 1989 Unknown [id number] 2.16.84 [id number] 1989 Unknown [id number] 2.16.84 [id number] 1989 Unknown [id number] 2.16.84 [id number] 1989 Unknown [id number] 2.16.8 [id number] 1989 Unknown [id number] 2.16.8 [id number] 1989 Unknown [id number] 2.16.84 [id number] 1989 Unknown [id number] 2.16.84 [id number] 1989 Unknown [id number] 2.16.84 [id number] 1989 Unknown [id number] 2.16.84 [id number] 1989 Unknown [id number] 2.16.84 [id number] 1989 Unknown [id number] 2.16.84 [id number] 1989 Unknown [id number] 2.16.84 [id number] 1989 Unknown [id number] 2.16.8 [id number] 1959 Unknown [id number] Social History Date Type Detail Facility Start: 12-31-2023 Tobacco smoking stat [facility] Ex-smoker [facility] End: 11-03-2021 History of [...] Sex assigned at Not on file N [facility] Clinical Notes 08-10-2024 to 10-06-2024 ATILIO Soliz - 10/06/2024 1:00 PM Naga Dorado LPN - 09/28/2024 10:00 AM ATILIO Roca - 09/14/2024 11:30 AM ESTAddendum Note - Renetta Leal LPN - 09/14/2024 11:30 AM EST Note Date & Type Note Facility 10-06-2024 History of Presen t illness Narrative Reason [...] BOWEL MOVEMENTS THEN TAKE NEEDED levothyroxine (SYNTHROID) 150 mcg, Oral, Daily before breakfast levothyroxine (SYNTHROID) 25 mcg, Oral, Daily before breakfast, Patient to take with current 150mcg dose to equal 175mcg total. ondansetron (ZOFRAN) 4 mg, Oral, Every 8 hours PRN Vit-Fe Fumarate-FA ( Vitamins) 28-0.8 MG tablet 1 tablet, Oral, Daily terconazole (Terazol 7) 0.4 % vaginal cream 1 applicator, Vaginal, Nightly ALLERGIES Allergies Allergen Reactions Varenicline Made pt violent and mortensen. PROBLEMS Active Ambulatory Problems Diagnosis Date Noted Bacterial vaginosis 10/07/2023 Anxiety and depression ([facility]) 12/20/2020 Attention deficit hyperactivity disorder (ADHD), combined type ([facility]) 10/15/2019 Encounter for long-term (current) use of high-risk medication 12/20/2020 Sinus tachycardia 12/20/2020 Uncomplicated opioid dependence ([facility]) 10/15/2019 Hypertension ([facility]) 12/31/2023 Vitamin D deficiency 12/31/2023 Thyroid nodule ([facility]) 12/31/2023 Hypothyroidism ([facility]) 12/31/2023 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 Visual impairment 12/31/2023 Tobacco user 12/31/2023 Opioid abuse ([facility]) 12/31/2023 Obesity (BMI 30-39.9) 12/31/2023 Cervical cancer screening 12/31/2023 Nausea 01/07/2024 History of opioid abuse ([facility]) 2018 Resolved Ambulatory Problems Diagnosis Date Noted Obesity (BMI 30.0-34.9) 06/27/2015 History of ectopic 12/31/2023 BMI 28.0-28.9,adult 12/31/2023 No Additional Past Medical History HISTORY PAST MEDICAL HISTORY SOCIAL HISTORY Past Medical History: Diagnosis Date Anxiety and depression ([facility]) Bacterial vaginosis 10/07/2023 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 History of ectopic 12/31/2023 History of opioid abuse ([facility]) 2018 using subtex Hypertension ([facility]) 12/31/2023 Hypothyroidism ([facility]) 12/31/2023 Opioid abuse ([facility]) 12/31/2023 Thyroid nodule ([facility]) 12/31/2023 Tobacco user 12/31/2023 Visual impairment 12/31/2023 Vitamin D deficiency 12/31/2023 Social History Tobacco Use Smoking status: Former Current packs/day: 0.00 Types: Cigarettes Quit date: 2021 Years since quittin.9 Smokeless tobacco: Never Vaping Use Vaping status: [...] reviewed. Vitals: Estimated body mass index is 41.24 kg/m as calculated from the following: Height as of 12/31/23: 5' 3 . Weight as of this encounter: 232 lb 12.8 oz. BP: 124/76 Patient's last menstrual period was 01/14/2024. ASSESSMENT & PLAN ICD-10-CM 1. Third trimester Z34.93 2. 37 weeks gestation of Z3A.37 3. Yeast infection B37.9 terconazole (Terazol 7) 0.4 % vaginal cream Return OB: Patient presents today for a routine obstetrics appointment. Patient is currently 37w1d . Patient states she is doing well but has complaints of being tired due to current . Patient has verbalizes frequent movement. labor precautions was discussed/given and patient was instructed to perform kick counts three times a day. No orders of the defined types were placed in this encounter. Follow Up: Patient is to return to office in 1 week for routine OB appointment. Documented by ATILIO Soliz on behalf of: ATILIO Soliz documented in this encounter [facility] 09-28-2024 History of Presen t illness Narrative Reason for Appointment: Patient ID: Giuliana Vazquez is a 34 y.o. female who presents for No chief complaint on file. Patient presents today for Return OB appointment. [...] BOWEL MOVEMENTS THEN TAKE NEEDED levothyroxine (SYNTHROID) 150 mcg, Oral, Daily before breakfast levothyroxine (SYNTHROID) 25 mcg, Oral, Daily before breakfast, Patient to take with current 150mcg dose to equal 175mcg total. ondansetron (ZOFRAN) 4 mg, Oral, Every 8 hours PRN Vit-Fe Fumarate-FA ( Vitamins) 28-0.8 MG tablet 1 tablet, Oral, Daily ALLERGIES Allergies Allergen Reactions Varenicline Made pt violent and mortensen. PROBLEMS Active Ambulatory Problems Diagnosis Date Noted Bacterial vaginosis 10/07/2023 Anxiety and depression ([facility]) 12/20/2020 Attention deficit hyperactivity disorder (ADHD), combined type ([facility]) 10/15/2019 Encounter for long-term (current) use of high-risk medication 12/20/2020 Sinus tachycardia 12/20/2020 Uncomplicated opioid dependence ([facility]) 10/15/2019 Hypertension ([facility]) 12/31/2023 Vitamin D deficiency 12/31/2023 Thyroid nodule ([facility]) 12/31/2023 Hypothyroidism ([facility]) 12/31/2023 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 Visual impairment 12/31/2023 Tobacco user 12/31/2023 Opioid abuse ([facility]) 12/31/2023 Obesity (BMI 30-39.9) 12/31/2023 Cervical cancer screening 12/31/2023 Nausea 01/07/2024 History of opioid abuse ([facility]) 2018 Resolved Ambulatory Problems Diagnosis Date Noted Obesity (BMI 30.0-34.9) 06/27/2015 History of ectopic 12/31/2023 BMI 28.0-28.9,adult 12/31/2023 No Additional Past Medical History HISTORY PAST MEDICAL HISTORY SOCIAL HISTORY Past Medical History: Diagnosis Date Anxiety and depression ([facility]) Bacterial vaginosis 10/07/2023 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 History of ectopic 12/31/2023 History of opioid abuse ([facility]) 2018 using subtex Hypertension ([facility]) 12/31/2023 Hypothyroidism ([facility]) 12/31/2023 Opioid abuse ([facility]) 12/31/2023 Thyroid nodule ([facility]) 12/31/2023 Tobacco user 12/31/2023 Visual impairment 12/31/2023 Vitamin D deficiency 12/31/2023 Social History Tobacco Use Smoking status: Former Current packs/day: 0.00 Types: Cigarettes Quit date: 2021 Years since quittin.9 Smokeless tobacco: Never Vaping Use Vaping status: [...] Negative. Endocrine: Negative. Allergic/Immunologic: Negative. OBJECTIVE Objective: OBGyn Exam Vitals: Estimated body mass index is 40.21 kg/m as calculated from the following: Height as of 12/31/23: 5' 3 . Weight as of 09/14/24: 227 lb. BP: Patient's last menstrual period was 01/14/2024. ASSESSMENT & PLAN ICD-10-CM 1. Third trimester Z34.93 Strep B DNA probe, amplification Strep B DNA probe, amplification 2. 36 weeks gestation of Z3A.36 3. Nausea/vomiting in O21.9 Patient is doing well but has complaints of being tired and having maternal discomfort due to . Patient verbalized frequent movement and was instructed to perform kick counts three times per day. labor precautions were given, LARC consent was signed/declined, and GBS was obtained. Cervical check was performed and patient is 0cm dilated. As previously documented patient desires sterilization during the time of her repeat section. I have discussed with the patient in detail that a salpingectomy is considered to be permanent and patient verbalized understanding and that she does not desire anymore children. Patient will undergo repeat section and bilateral salpingectomy on 10/19/[address] Ha. Surgical consents were signed, partners instructions were given, mmc was reviewed, and patient is to proceed to [facility] OR on her scheduled day. Orders Placed This Encounter Procedures Strep B DNA probe, amplification Follow Up: Patient is to return in 1 week for routine OB appointment. Orders Placed This Encounter Procedures Strep B DNA probe, amplification Follow Up: Patient is to return to office in 1 week for routine OB appointment Documented by eDb Dorado LPN on behalf of: Maritza Ha DO documented in this encounter [facility] 09-14-2024 History of Presen t illness Narrative [...] Noted Bacterial vaginosis 10/07/2023 Anxiety and depression ([facility]) 12/20/2020 Attention deficit hyperactivity disorder (ADHD), combined type ([facility]) 10/15/2019 Encounter for long-term (current) use of high-risk medication 12/20/2020 Sinus tachycardia 12/20/2020 Uncomplicated opioid dependence ([facility]) 10/15/2019 Hypertension ([facility]) 12/31/2023 Vitamin D deficiency 12/31/2023 Thyroid nodule ([facility]) 12/31/2023 Hypothyroidism ([facility]) 12/31/2023 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 Visual impairment 12/31/2023 Tobacco user 12/31/2023 Opioid abuse ([facility]) 12/31/2023 Obesity (BMI 30-39.9) 12/31/2023 Cervical cancer screening 12/31/2023 Nausea 01/07/2024 History of opioid abuse ([facility]) 2018 Resolved Ambulatory Problems Diagnosis Date Noted Obesity (BMI 30.0-34.9) 06/27/2015 History of ectopic 12/31/2023 BMI 28.0-28.9,adult 12/31/2023 No Additional Past Medical History HISTORY PAST MEDICAL HISTORY SOCIAL HISTORY Past Medical History: Diagnosis Date Anxiety and depression ([facility]) Bacterial vaginosis 10/07/2023 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 09-14-2024 Miscellaneous Notes Addended by: RENETTA LEAL on: 09/14/2024 03:28 PM Modules accepted: Orders documented in this encounter [facility] 09-14-2024 Note Addended by: RENETTA YORK on: 09/14/2024 03:28 PM Modules accepted: Orders [facility] 09-14-2024 Note Addended by: RENETTA YORK on: 09/14/2024 03:28 PM Modules accepted: Orders [facility] 08-10-2024 History of Presen t illness Narrative [...] Noted Bacterial vaginosis 10/07/2023 Anxiety and depression ([facility]) 12/20/2020 Attention deficit hyperactivity disorder (ADHD), combined type ([facility]) 10/15/2019 Encounter for long-term (current) use of high-risk medication 12/20/2020 Sinus tachycardia 12/20/2020 Uncomplicated opioid dependence ([facility]) 10/15/2019 Hypertension ([facility]) 12/31/2023 Vitamin D deficiency 12/31/2023 Thyroid nodule ([facility]) 12/31/2023 Hypothyroidism ([facility]) 12/31/2023 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 Visual impairment 12/31/2023 Tobacco user 12/31/2023 Opioid abuse ([facility]) 12/31/2023 Obesity (BMI 30-39.9) 12/31/2023 Cervical cancer screening 12/31/2023 Nausea 01/07/2024 History of opioid abuse ([facility]) 2018 Resolved Ambulatory Problems Diagnosis Date Noted Obesity (BMI 30.0-34.9) 06/27/2015 History of ectopic 12/31/2023 BMI 28.0-28.9,adult 12/31/2023 No Additional Past Medical History HISTORY PAST MEDICAL HISTORY SOCIAL HISTORY Past Medical History: Diagnosis Date Anxiety and depression ([facility]) Bacterial vaginosis 10/07/2023 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 Exam conducted with a manager of creative services present. Vitals: Estimated body mass index is [...] in this encounter [facility] Evaluation note Diagnosis Third trimester state, incidental 29 weeks gestation of Nava's disease (CMS/HCC) Chronic lymphocytic thyroiditis Hypothyroidism, unspecified type (CMS/HCC) [facility] Diagnosis Attention deficit hyperactivity disorder (ADHD), combined [...] of thyroid [facility] Diagnosis Attention deficit hyperactivity disorder (ADHD), combined type (CMS/HCC)- Primary Opioid dependence, uncomplicated (F11.20) Vitamin D deficiency Hypothyroidism, unspecified type (CMS/HCC) Anxiety and depression (CMS/HCC) Primary hypertension (CMS/HCC) Unspecified essential hypertension Tobacco user Tobacco use disorder Obesity (BMI 30-39.9) Opioid abuse (CMS/HCC) Nondependent opioid abuse, unspecified Cervical cancer screening Screening for malignant neoplasm of the cervix Third trimester state, incidental 36 weeks gestation of Nausea/vomiting in Unspecified vomiting of , unspecified as to episode of care [facility] Diagnosis Attention deficit hyperactivity disorder (ADHD), combined type (CMS/HCC)- Primary Opioid dependence, uncomplicated (F11.20) Vitamin D deficiency Hypothyroidism, unspecified type (CMS/HCC) Anxiety and depression (CMS/HCC) Primary hypertension (CMS/HCC) Unspecified essential hypertension Tobacco user Tobacco use disorder Obesity (BMI 30-39.9) Opioid abuse (CMS/HCC) Nondependent opioid abuse, unspecified Cervical cancer screening Screening for malignant neoplasm of the cervix Third trimester state, incidental 37 weeks gestation of Yeast infection documented in this encounter [facility] Summary [...] section and content) DATE CREATED AUTHOR 03/17/2021 [facility] DATE CREATED AUTHOR AUTHOR'S ORGANIZ ATION 08/23/2021 [facility] DATE CREATED AUTHOR AUTHOR'S ORGANIZ ATION 02/23/2023 [facility] DATE CREATED AUTHOR AUTHOR'S ORGANIZ ATION 07/02/2024 [facility] DATE CREATED AUTHOR AUTHOR'S ORGANIZ ATION 09/16/2024 [facility] DATE CREATED AUTHOR AUTHOR'S ORGANIZ ATION 09/26/2024 [facility] Care Teams (unrecognized sec tion and content) Sales Branch Manager Relationship Specialty Start Date End Date Billy Lopez MD [address] [place] [phone] PCP - General Family Medicine 11/21/23 Merry Arceo NP [address] [place] [address] Nurse Practitioner Family Medicine 11/03/22 Sales Branch Manager Relationship Specialty Start Date End Date Billy Lopez MD [address] [place] [phone] PCP - General Family Medicine 11/21/23 Merry Arceo NP [address] [place] [phone] Nurse Practitioner Family Medicine 11/03/22 Sales Branch Manager Relationship Specialty Start Date End Date Billy Lopez MD [address] [place] [phone] PCP - General Family Medicine 11/21/23 Merry Arceo NP [address] [place] [phone] Nurse Practitioner Family Medicine 11/03/22 Sales Branch Manager Relationship Specialty Start Date End Date Billy Lopez MD [address] [place] [phone] PCP - General Family Medicine 11/21/23 Merry Arceo NP [address] [place] [phone] Nurse Practitioner Family Medicine 11/03/22 Sales Branch Manager Relationship Specialty Start Date End Date Billy Lopez MD [address] [place] [phone] PCP - General Family Medicine 11/21/23 Merry Arceo NP [address] [place] [phone] Nurse Practitioner Family Medicine 11/03/22 Sales Branch Manager Relationship Specialty Start Date End Date Billy Lopez MD [address] [place] [phone] PCP - General [facility] 11/21/23 Merry Arceo NP [address] [place] [phone] Nurse Practitioner Family Medicine 11/03/22 Sales Branch Manager Relationship Specialty Start Date End Date Billy Lopez MD [address] [place] [phone] PCP - General [facility] 11/21/23 Merry Arceo NP [address] [place] [phone] Nurse Practitioner Family Medicine 11/03/22 Reason for [...] BE BASED ON THE PRIMARY CLINICAL RECORDS. [facility] provides no warranty or guarantee of the accuracy or completeness of information in this document.
[2024-10-13 13:23] VITALS: BP 136/77; PULSE 96
--- NOTE | 2024-10-13 13:23 | US_ITS ---
[address] [address] Patient Name: MOHAMUD CEE MRN: [id number] date: 1990 Sex: F Assigned Patient Location: [facility] Current Patient Location: [facility] Accession/Order Number: [id number] Exam Date: 10/13/2024 13:30 Report Date: 10/13/2024 13:57 At the request of: MARITZA BISWAS Procedure: US OB BPP w non-stress EXAM: US OB BPP w non-stress HISTORY: . substance abuse subutex . COMPARISON: 08/11/2024 TECHNIQUE: Naranjo scale and color imaging was performed. FINDINGS: There is evidence of an intrauterine in the vertex presentation with a heart rate of 134. Amniotic fluid index is 13.8 cm. breathing 2, tone 2, movement 2, and fluid volume 2 for a score of 8/8. US/US OB BPP w non-stress Impression: 1. Intrauterine in the vertex presentation with a heart rate of 134. 2. Amniotic fluid index 8/8. Electronically authenticated by: DORIS SILVER Date: 10/13/2024 13:57
[2024-10-13 13:29] VITALS: BP 121/81; PULSE 92
--- NOTE | 2024-10-13 13:40 | PC.NURSE ---
Pt.s cuff was too big for first reading.
== END 2024-10-13 14:00 | disposition home or self-care (01) ==
LOC: FBCO 13:04 → FBC 13:05
PROVIDERS: PCP Nurse Practitioner; Visit Provider Obstetrics & Gynecology
DX: O99.320 Drug use complicating pregnancy, unspecified trimester (principal); F11.20 Opioid dependence, uncomplicated; Z3A.38 38 weeks gestation of pregnancy
CPT/HCPCS: 76818

== ENCOUNTER 2024-10-17 12:27 | Outpatient (OUT) | payer MEDICAID, SELFPAY ==
--- OUTSIDE RECORDS SUMMARY | 2024-10-16 00:12 | XMS_ITS | CCD ---
Author Organization [facility] Care Team Providers Care Enforcement Officer Name Role Phone NITA BARROS Referring Unavailable NITA BARROS Primary Care Unavailable AICHHOLZ, BOND TRADER MERRY Primary Care Unavailable AICHHOLZ, BOND TRADER MERRY Consulting Unavailable AICHHOLZ, BOND TRADER MERRY Attending Unavailable AICHHOLZ, BOND TRADER MERRY Admitting Unavailable AICHHOLZ, BOND TRADER MERRY Primary Care Unavailable AICHHOLZ, BOND TRADER MERRY Consulting Unavailable AICHHOLZ, BOND TRADER MERRY Attending Unavailable AICHHOLZ, BOND TRADER MERRY Admitting Unavailable MAGALI MCKNIGHT Consulting Unavailable AICHHOLZ, BOND TRADER MERRY Primary Care Unavailable AICHHOLZ, BOND TRADER MERRY Consulting Unavailable AICHHOLZ, BOND TRADER MERRY Attending Unavailable AICHHOLZ, BOND TRADER MERRY Admitting Unavailable MARITZA HA Referring Unavailable NITA BARROS Primary Care Unavailable EULALIA KINCAID Attending Unavailable MARITZA HA Referring Unavailable NITA BARROS Primary Care Unavailable Aichholz DOOR CLAMPER, Merry Unavailable Billy Lopez MD Primary Care [...] current use of drug therapy; Translations: [Other long term care phlebotomist (current) drug therapy] Onset: 12-20-2020 12-10-2023 Episodic [...] for Disease Control and Prevention (CDC) and [facility]RE[facility] B RICARDO [employer] [employer] [facility]RE[facility] B RICARDO (ACOG) guidelines for prevention of group B [facility]RE[facility] B RICARDO streptococcal (GBS) disease specify co-collection of [facility] STREP GP B RICARDO a vaginal and rectal swab specimen to maximize [facility]RE[facility] B RICARDO sensitivity of GBS detection. Per the CDC and ACOG, [facility] Healthcare STREP [facility] B RICARDO swabbing both the lower vagina and rectum [facility] STRE[facility] B RICARDO substantially increases the yield of detection [facility] B RICARDO compared with sampling the vagina alone. [facility] B RICARDO Penicillin G, ampicillin, or cefazolin are indicated [facility] B RICARDO for intrapartum prophylaxis of GBS [facility] B RIC[facility]O colonization. Reflex susceptibility testing should be [facility]RE[facility] B RICARDO performed prior to use of clindamycin only on GBS [facility] STRE[facility] B RICARDO isolates from penicillin-allergic women who are [facility] STREP GP B RICARDO considered a high risk for anaphylaxis. Treatment with [facility] STREP GP B RICARDO vancomycin without additional testing is warranted if [facility] STRE[facility] B RICARDO resistance to clindamycin is noted. [facility]RE[facility] B RICARDO Performed at: [facility] B [facility] [address] [place], [place] [id number] [facility] STRE[facility] B RICARDO Commercial Property Administrator: Balwinder Pereira PhD, Phone: [phone] [facility] Urinalysis macro (dipstick) panel (U)on 09-29-2024 Bilirubin, UA Negative Negative - 4(70) +++ mg/dL [facility] Blood, UA Negative Negative - 50 Shaan/mcL [facility] Clarity, UA Clear [facility] Color, UA Yellow [facility] Glucose, UA Negative Negative - 1999(110) ++++ mg/dL [facility] Interpretation and review of laboratory results Abnormal [facility] Ketones, UA Negative Negative - 160(16) ++++ mg/dL [facility] Leukocytes, UA Few Negative - 500+++ Milton/mcL [facility] Nitrite, UA Negative Negative - Positive [facility] pH, UA 6 5 - 9 [facility] Protein, UA Trace Negative - 2000(20) ++++ mg/dL [facility] Spec Grav, UA 1.03 1 - 1.03 [facility] Urobilinogen, UA 1.0 0.2 - 12 mg/dL [facility] e Urinalysis macro (dipstick) panel (U)on 09-14-2024 Bilirubin, UA Negative Negative - 4(70) +++ mg/dL [facility] Blood, UA Negative Negative - 50 Shaan/mcL [facility] Clarity, UA Clear [facility] re Color, UA Yellow [facility] e Glucose, UA Negative Negative - 1999(110) ++++ mg/dL [facility] Interpretation and review of laboratory results Abnormal [facility] Ketones, UA Negative Negative - 160(16) ++++ mg/dL [facility] Leukocytes, UA Positive Negative - 500+++ Milton/mcL [facility] Comment on above: small Nitrite, UA Negative Negative - Positive [facility] pH, UA 6.5 5 - 9 [facility] Protein, UA Negative Negative - 1999(20) ++++ mg/dL [facility] Spec Grav, UA 1.03 1 - 1.03 [facility] Urobilinogen, UA 1.0 0.2 - 12 mg/dL [facility] ALL THYROID STIM HORMONEon 1 11-13-2023 TSH Qn 3.736 m[IU]/L [facility] e ALL THYROXINE (T4) FREEon Free T4 [Mass/Vol] 0.82 ng/dL 0.76 - 1. 46 ng/dL [facility] Urinalysis macro (dipstick) panel (U)on 08-10-2024 Bilirubin, UA Negative Negative - 4(70) +++ mg/dL [facility] Blood, UA Negative Negative - 50 Shaan/mcL [facility] Clarity, UA Clear [facility] re Color, UA Yellow [facility] Glucose, UA Negative Negative - 1999(110) ++++ mg/dL [facility] Interpretation and review of laboratory results Normal [facility] Ketones, UA Negative Negative - 160(16) ++++ mg/dL [facility] Leukocytes, UA Negative Negative - 500+++ Milton/mcL [facility] Nitrite, UA Negative Negative - Positive [facility] pH, UA 6.0 5 - 9 [facility] Protein, UA Negative Negative - 1999(20) ++++ mg/dL [facility] Spec Grav, UA 1.030 1 - 1.03 [facility] care Urobilinogen, UA 0.2 0.2 - 12 mg/dL [facility] Cytology Cervical or vaginal smear or scraping studyon 05-19-2024 [facility] FREE T4on 02-19-2023 Free T4 [Mass/Vol] 1.39 ng/dL Normal 0.76-1.46 [facility] Comment on above: Performed By: #### F T4 #### [facility] [address] [address] [address] Alfredito Rendon TSHon 02-19-2023 TSH 0.012 uIU/mL Critically low 0.358-3.740 [facility] Comment on above: Performed By: #### T SH #### [facility] [address] [address] [address] Alfredito Rendon US THYROIDon 12-11-2022 US [...] MCKNIGHT Date: 2022-12-11 15:05 Normal [facility] THYROID ANTIBODIESon 01-28-2 023 Thyroglobulin Antibody 21.5 IU/mL Critically high 0.0-0.9 [facility] Comment on above: Result Comment: Thyr oglobulin Antibody measured by [employer] Performed By: #### T HYRABS #### [facility] [address] [place] [address] Dr. Alfredito Rendon Thyroid Peroxidase (TPO) Ab 73 IU/mL Critically high 0-34 [facility] Comment on above: Performed By: #### T HYBS #### [facility] [address] [place] [address] Dr. Alfredito Rendon CBC AUTO DIFFon 11-28-2022 BASO # 0.0 103/ul Normal 0.0-0.1 [facility] Comment on above: Performed By: #### C BC #### [facility] [address] [place] [address] Dr. Alfredito Rendon Basophils/100 WBC (Bld) 0.3 % Normal 0.2-2.0 [facility] Comment on above: Performed By: #### C BC #### [facility] [address] [place] [address] Dr. Alfredito Rendon EO # 0.2 103/ul Normal 0.0-0.7 [facility] Comment on above: Performed By: #### C BC #### [facility] [address] [place] [address] Dr. Alfredito Rendon Eosinophils/100 WBC (Bld) 2.3 % Normal 0.9-7.0 [facility] Comment on above: Performed By: #### C BC #### [facility] [address] [place] [address] Dr. Alfredito Rendon Erythrocyte distribution width (RBC) [Ratio] 13.0 % Normal 11.0-15.0 [facility] Comment on above: Performed By: #### C BC #### [facility] [address] [place] [address] Dr. Alfredito Rendon Hematocrit (Bld) [Volume fraction] 41.2 % Normal 36.0-48.0 [facility] Comment on above: Performed By: #### C BC #### [facility] [address] [place] [address] Dr. Alfredito Rendon Hemoglobin (Bld) [Mass/Vol] 12.5 g/dL Normal 12.0-16.0 [facility] Comment on above: Performed By: #### C BC #### [facility] [address] [place] [address] Dr. Alfredito Rendon IG # 0.02 10e3/ul Normal 0.00-0.03 [facility] Comment on above: Performed By: #### C BC #### [facility] [address] [place] [address] Dr. Alfredito Rendon IG % 0.2 % Normal 0.0-0.5 [facility] Comment on above: Performed By: #### C BC #### [facility] [address] [place] [address] Dr. Alfredito Rendon LYMPH # 2.7 103/ul Normal 1.2-3.8 [facility] Comment on above: Performed By: #### C BC #### [facility] [address] [place] [address] Dr. Alfredito Rendon Lymphocytes/100 WBC (Bld) 25.3 % Normal 20.5-60.0 [facility] Comment on above: Performed By: #### C BC #### [facility] [address] [place] [address] Dr. Alfredito Rendon MANUAL DIFF REQ NO Normal [facility] Comment on above: Performed By: #### C BC #### [facility] [address] [place] [address] Dr. Alfredito Rendon MCH (RBC) [Entitic mass] 29.6 pg Normal 26.7-34.0 [facility] Comment on above: Performed By: #### C BC #### [facility] [address] [place] [address] Dr. Alfredito Rendon MCHC (RBC) [Mass/Vol] 30.3 g/dL Normal 29.9-35.2 [facility] Comment on above: Performed By: #### C BC #### [facility] [address] [place] [address] Dr. Alfredito Rendon MCV (RBC) [Entitic vol] 97.6 fL Normal 81.0-99.0 [facility] Comment on above: Performed By: #### C BC #### [facility] [address] [place] [address] Dr. Alfredito Rendon MONO # 0.7 103/ul Normal 0.3-0.8 [facility] Comment on above: Performed By: #### C BC #### [facility] [address] [place] [address] Dr. Alfredito Rendon Monocytes/100 WBC (Bld) 6.4 % Normal 1.7-12.0 [facility] Comment on above: Performed By: #### C BC #### [facility] [address] [place] [address] Dr. Alfredito Rendon NEUT # 6.9 103/ul Critically high 1.4-6.5 [facility] Comment on above: Performed By: #### C BC #### [facility] [address] [place] [address] Dr. Alfredito Rendon Neutrophils/100 WBC (Bld) 65.5 % Normal 43.0-75.0 [facility] Comment on above: Performed By: #### C BC #### [facility] [address] [place] [address] Dr. Alfredito Rendon Platelet mean volume (Bld) [Entitic vol] 10.1 fL Normal 9.5-13.5 [facility] Comment on above: Performed By: #### C BC #### [facility] [address] [place] [address] Dr. Alfredito Rendon PLT 253 103/ul Normal 150-450 [facility] Comment on above: Performed By: #### C BC #### [facility] [address] [place] [address] Dr. Alfredito Rendon RBC 4.22 106/ul Normal 4.20-5.40 [facility] Comment on above: Performed By: #### C BC #### [facility] [address] [place] [address] Dr. Alfredito Rendon WBC 10.6 103/ul Normal 4.0-11.0 [facility] Comment on above: Performed By: #### C BC #### [facility] [address] [place] [address] Dr. Alfredito Rednon FREE T3on 11-28-2022 FREE T3 2.65 pg/mlL Normal 2.18-3.98 [facility] Comment on above: Performed By: #### T SH, FT3, LIPID, CMP #### [facility] [address] [place] [address] Dr. Alfredito Rendon FREE T4on 11-28-2022 Free T4 [Mass/Vol] 0.86 ng/dL Normal 0.76-1.46 [facility] Comment on above: Performed By: #### F T4 #### [facility] [address] [place] [address] Dr. Alfredito Rendon LIPID PROFILEon 11-28-2022 CHOL-HDL RATIO NORM SEE BELOW Normal [facility] Comment on above: Result Comment: 3.3 - 4.4 LOW RISK 4.4 - 7.1 AVERAGE RISK 7.1 - 11.0 MODERATE RISK >11.0 HIGH RISK Performed By: #### T SH, FT3, LIPID, CMP #### [facility] [address] [place] [address] Dr. Alfredito Rendon Cholesterol [Mass/Vol] 172 mg/dL Normal <=200 [facility] Comment on above: Performed By: #### T SH, FT3, LIPID, CMP #### [facility] [address] [place] [address] Dr. Alfredito Rendon Cholesterol in HDL [Mass/Vol] 49 mg/dL Normal 40-60 [facility] Comment on above: Performed By: #### T SH, FT3, LIPID, CMP #### [facility] [address] [place] [address] Dr. Alfredito Rendon Cholesterol in LDL [Mass/Vol] 96.2 mg/dL Normal [facility] Comment on above: Performed By: #### T SH, FT3, LIPID, CMP #### [facility] [address] [place] [address] Dr. Alfredito Rendon Cholesterol.total/Ch olesterol in HDL [Mass ratio] 3.5 {ratio} Normal [facility] Comment on above: Performed By: #### T SH, FT3, LIPID, CMP #### [facility] [address] [address] [address] Alfredito Rendon HDL NORMAL > or = 60 mg/dl - LOW CARDIOVASCULAR RISK <40 mg/dl - HIGH CARDIOVASCULAR RISK Normal [facility] Comment on above: Performed By: #### T SH, FT3, LIPID, CMP #### [facility] [address] [place] [address] Dr. Alfredito Rendon LDL CALC NORMAL SEE BELOW Normal [facility] Comment on above: Result Comment: <100 mg/dl OPTIMAL 100 - 129 mg/dl NEAR OR ABOVE OPTIMAL 130 - 159 mg/dl BORDERLINE HIGH 160 - 189 mg/dl HIGH >190 mg/dl VERY HIGH Performed By: #### T SH, FT3, LIPID, CMP #### [facility] [address] [place] [address] Dr. Alfredito Rendon Triglyceride [Mass/Vol] 134 mg/dL Normal <=150 [facility] Comment on above: Performed By: #### T SH, FT3, LIPID, CMP #### [facility] [address] [place] [address] Dr. Alfredito Rendon VLDL CALC 26.8 mg/dL Normal [facility] Comment on above: Performed By: #### T SH, FT3, LIPID, CMP #### [facility] [address] [place] [address] Dr. Alfredito Rendon PROF 14(COMP METB)on 023 Albumin [Mass/Vol] 3.3 g/dL Critically low 3.4-5.0 [facility] Comment on above: Performed By: #### T SH, FT3, LIPID, CMP #### [facility] [address] [place] [address] Dr. Alfredito Rendon Albumin/Globulin [Mass ratio] 0.9 {ratio} Normal [facility] Comment on above: Performed By: #### T SH, FT3, LIPID, CMP #### [facility] [address] [address] [address] Alfredito Rendon ALP [Catalytic activity/Vol] 63 U/L Normal 46-116 [facility] Comment on above: Performed By: #### T SH, FT3, LIPID, CMP #### [facility] [address] [address] [address] Alfredito Rendon ALT [Catalytic activity/Vol] 27 U/L Normal 14-59 [facility] Comment on above: Performed By: #### T SH, FT3, LIPID, CMP #### [facility] [address] [address] [address] Alfredito Rendon Anion gap [Moles/Vol] 14.1 mmol/L Normal [facility] Comment on above: Performed By: #### T SH, FT3, LIPID, CMP #### [facility] [address] [place] [address] Dr. Alfredito Rendon AST [Catalytic activity/Vol] 20 U/L Normal 15-37 [facility] Comment on above: Performed By: #### T SH, FT3, LIPID, CMP #### [facility] [address] [place] [address] Dr. Alfredito Rendon Bilirubin [Mass/Vol] 0.3 mg/dL Normal 0.2-1.0 [facility] Comment on above: Performed By: #### T SH, FT3, LIPID, CMP #### [facility] [address] [place] [address] Dr. Alfredito Rendon Calcium [Mass/Vol] 9.2 mg/dL Normal 8.5-10.1 [facility] Comment on above: Performed By: #### T SH, FT3, LIPID, CMP #### [facility] [address] [address] [address] Alfredito Rednon Chloride [Moles/Vol] 103 mmol/L Normal 98-107 [facility] Comment on above: Performed By: #### T SH, FT3, LIPID, CMP #### [facility] [address] [place] [address] Dr. Alfredito Rendon CO2 [Moles/Vol] 24.1 mmol/L Normal 21.0-32.0 [facility] Comment on above: Performed By: #### T SH, FT3, LIPID, CMP #### [facility] [address] [place] [address] Dr. Alfredito Rendon Creatinine [Mass/Vol] 0.71 mg/dL Normal 0.55-1.02 [facility] Comment on above: Performed By: #### T SH, FT3, LIPID, CMP #### [facility] [address] [place] [address] Dr. Alfredito Rendon EGFR-AF LATVIAN >60 Normal >=60 [facility] Comment on above: Performed By: #### T SH, FT3, LIPID, CMP #### [facility] [address] [place] [address] Dr. Alfredito Rendon EGFR-NON AF LATVIAN >60 Normal >=60 [facility] Comment on above: Performed By: #### T SH, FT3, LIPID, CMP #### [facility] [address] [place] [address] Dr. Alfredito Rendon Globulin (S) [Mass/Vol] 3.8 g/dL Normal [facility] Comment on above: Performed By: #### T SH, FT3, LIPID, CMP #### [facility] [address] [place] [address] Dr. Alfredito Rendon Glucose [Mass/Vol] 106 mg/dL Normal 74-106 [facility] Comment on above: Performed By: #### T SH, FT3, LIPID, CMP #### [facility] [address] [place] [address] Dr. Alfredito Rendon Potassium [Moles/Vol] 4.2 mmol/L Normal 3.5-5.1 [facility] Comment on above: Performed By: #### T SH, FT3, LIPID, CMP #### [facility] [address] [place] [address] Dr. Alfredito Rendon Protein [Mass/Vol] 7.1 g/dL Normal 6.4-8.2 [facility] Comment on above: Performed By: #### T SH, FT3, LIPID, CMP #### [facility] [address] [address] [address] Alfredito Rendon Sodium [Moles/Vol] 137 mmol/L Normal 136-145 [facility] Comment on above: Performed By: #### T SH, FT3, LIPID, CMP #### [facility] [address] [place] [address] Dr. Alfredito Rendon Urea nitrogen [Mass/Vol] 14.0 mg/dL Normal 7.0-18.0 [facility] Comment on above: Performed By: #### T SH, FT3, LIPID, CMP #### [facility] [address] [place] [address] Dr. Alfredito Rendon Urea nitrogen/Creatinine [Mass ratio] 19.7 mg/mg Normal [facility] Comment on above: Performed By: #### T SH, FT3, LIPID, CMP #### [facility] [address] [place] [address] Dr. Alfredito Rendon TSHon 11-28-2022 TSH 5.010 uIU/mL Critically high 0.358-3.740 [facility] Comment on above: Performed By: #### T SH, FT3, LIPID, CMP #### [facility] [address] [place] [address] Dr. Alfredito Rendon Thyroid Stim. Horm.on 2020 TSH Qn 10.79 m[IU]/L High 0.30-5.00 [facility] Comment on above: Performed By: #### T SH, FT4 #### [facility] [address] [place] [address] [phone] Commercial Property Administrator: Titus Pagan MD Thyroxine, Freeon 08-22-2021 Thyroxine, Free 0.89 ng/dL Low 0.93-1.70 [facility] Comment on above: Performed By: #### T SH, FT4 #### [facility] [address] [place] [address] [phone] Commercial Property Administrator: Titus Pagan MD Basic Metab, Fastingon 03-15 (cont.) Normal [facility] Comment on above: Result Comment: Aver age GFR for 30-39 years old: 107 mL/min/1.73sq m Chronic Kidney Disease: <60 mL/min/1.73sq m Kidney failure: <15 mL/min/1.73sq m eGFR calculated using average adult body mass. Additional eGFR calculator available at: http://www.[employer]Merchant View/multiple_crcl_2012.htm Performed By: #### B MPF, FT4, TSH #### [facility] [address] [place] [phone] Commercial Property Administrator: Titus Pagan MD Anion gap [Moles/Vol] 10 mmol/L Normal 9-17 [facility] Comment on above: Performed By: #### B MPF, FT4, TSH #### [facility] [address] [place] [phone] Commercial Property Administrator: Titus Pagan MD Calcium [Mass/Vol] 9.4 mg/dL Normal 8.6-10.4 [facility] Comment on above: Performed By: #### B MPF, FT4, TSH #### [facility] [address] [place] [phone] Commercial Property Administrator: Titus Pagan MD Chloride [Moles/Vol] 102 mmol/L Normal 98-107 [facility] Comment on above: Performed By: #### B MPF, FT4, TSH #### [facility] [address] [place] [phone] Commercial Property Administrator: Titus Pagan MD CO2 [Moles/Vol] 25 mmol/L Normal 20-31 [facility] Comment on above: Performed By: #### B MPF, FT4, TSH #### [facility] [address] [place] [phone] Commercial Property Administrator: Titus Pagan MD Creatinine [Mass/Vol] 0.62 mg/dL Normal 0.50-0.90 [facility] Comment on above: Performed By: #### B MPF, FT4, TSH #### [facility] [address] [place] [phone] Commercial Property Administrator: Titus Pagan MD GFR, Amer >60 Normal >60 [facility] Comment on above: Performed By: #### B MPF, FT4, TSH #### [facility] [address] [place] [phone] Commercial Property Administrator: Titus Pagan MD GFR,non Amer >60 Normal >60 [facility] Comment on above: Performed By: #### B MPF, FT4, TSH #### [facility] [address] [place] [phone] Commercial Property Administrator: Titus Pagan MD Glucose [Mass/Vol] 93 mg/dL Normal 70-99 [facility] Comment on above: Performed By: #### B MPF, FT4, TSH #### [facility] [address] [place] [phone] Commercial Property Administrator: Titus aPgan MD Potassium [Moles/Vol] 4.6 mmol/L Normal 3.7-5.3 [facility] Comment on above: Performed By: #### B MPF, FT4, TSH #### [facility] [address] [place] [phone] Commercial Property Administrator: Titus Pagan MD Sodium [Moles/Vol] 137 mmol/L Normal 135-144 [facility] Comment on above: Performed By: #### B MPF, FT4, TSH #### [facility] [address] [place] [phone] Commercial Property Administrator: Titus Pagan MD Urea nitrogen [Mass/Vol] 13 mg/dL Normal 6-20 [facility] Comment on above: Performed By: #### B MPF, FT4, TSH #### [facility] [address] [place] [phone] Commercial Property Administrator: Titus Pagan MD BUN/CRE Ratio NOT REPORTED Normal - [facility] Comment on above: Performed By: #### B MPF, FT4, TSH #### [facility] [address] [place] [phone] Commercial Property Administrator: Titus Pagan MD Staging: NOT REPORTED Normal [facility] Comment on above: Performed By: #### B MPF, FT4, TSH #### [facility] [address] [place] [address] [phone] Commercial Property Administrator: Titus Pagan MD Thyroid Stim. Horm.on 2020 TSH Qn 13.08 m[IU]/L High 0.30-5.00 [facility] Comment on above: Performed By: #### B MPF, FT4, TSH #### [facility] [address] [place] [id number] Commercial Property Administrator: Titus Pagan MD Thyroxine, Freeon 03-15-2021 Thyroxine, Free 0.90 ng/dL Low 0.93-1.70 [facility] Comment on above: Performed By: #### B MPF, FT4, TSH #### [facility] [address] [place] [address] [phone] Commercial Property Administrator: Titus Pagan MD Vital Signs Date Time Vital Sign Value Performing Clinician Monica agudelo 10-06-2024 13:11-0500 Body mass index (BMI) [Ratio] 41.24 kg/m2 Sparkle TRIMBLE Work Phone: [facility] 10-06-2024 13:11050 Body weight 105.6 kg Sparkle TRIMBLE Work Phone: [facility] 10-06-2024 13:11-0500 Diastolic blood pressure 76 mm[Hg] Sparkle TRIMBLE Work Phone: [facility] 10-06-2024 13:11-0500 Systolic blood pressure 124 mm[Hg] Sparkle TRIMBLE Work Phone: [facility] 09-14-2024 11:45-0500 Body mass index (BMI) [Ratio] 40.21 kg/m2 Sparkle Ann PA Work Phone: [facility] 09-14-2024 11:45-0500 Body weight 102.97 kg Sparkle Seth PA Work Phone: [facility] 09-14-2024 11:45-0500 Diastolic blood pressure 78 mm[Hg] Sparkle Ann PA Work Phone: [facility] 09-14-2024 11:45-0500 Systolic blood pressure 124 mm[Hg] Sparkle Seth PA Work Phone: [facility] 08-10-2024 09:13-0400 Body mass index (BMI) [Ratio] 40.53 kg/m2 Sparkle Orick PA Work Phone: [facility] 08-10-2024 09:13-0400 Body weight 103.78 kg Sparkle Ann PA Work Phone: [facility] 08-10-2024 09:13-0400 Diastolic blood pressure 70 mm[Hg] Sparkle Seth PA Work Phone: [facility] 08-10-2024 09:13-0400 Systolic blood pressure 110 mm[Hg] Sparkle Ann PA Work Phone: [facility] Encounters Encounter Date Encounter Type Care Provider Facility Start: 10-06-2024 End: 10-06-2024 Bamboo flowsheet Sparkle Ann PA Work Phone: [facility] Start: 10-06-2024 End: 10-06-2024 Bamboo flowsheet Sparkle Ann PA Work Phone: [facility] Start: 10-06-2024 End: 10-06-2024 Office outpatient visit 15 minutes Sparkle TRIMBLE Work Phone: [facility] Comment on above: Third trimester preg marlin; 37 weeks gestation of ; Yeast infection Start: 09-28-2024 End: 10-01-2024 Clinisync Result Encounter Generic External Data Provider [facility] External Department Unsolicited Start: 09-28-2024 End: 10-01-2024 Clinisync Result Encounter Generic External Data Provider [facility] External Department Unsolicited Start: 09-28-2024 End: 09-28-2024 Office outpatient visit 15 minutes Maritza Weinerti FERRER Work Phone: [facility] Comment on above: Third trimester preg marlin; 36 weeks gestation of ; Nausea/vomiting in Start: 09-23-2024 End: 09-23-2024 ambulatory [facility] Start: 09-14-2024 End: 09-14-2024 Bamboo flowsheet Sparkle TRIMBLE Work Phone: [facility] Start: 09-14-2024 End: 09-14-2024 Bamboo flowsheet Sparkle TRIMBLE Work Phone: [facility] Start: 09-14-2024 End: 09-14-2024 Office outpatient visit 15 minutes pSarkle TRIMBLE Work Phone: [facility] Comment on above: Third trimester preg marlin; 34 weeks gestation of ; Thyroid disease (CMS/HCC) Start: 09-14-2024 End: 09-14-2024 ambulatory SPARKLE ANN Not Available Start: 09-13-2024 End: 09-13-2024 Clinisync Result Encounter Sparkle TRIMBLE Work Phone: [facility] External Department Unsolicited Start: 09-13-2024 End: 09-13-2024 Clinisync Result Encounter Sparkle TRIMBLE Work Phone: [facility] External Department Unsolicited Start: 08-10-2024 End: 08-10-2024 [...] 06-30-2024 End: 06-30-2024 ambulatory MARITZA Nai WEINERO [facility] Start: 06-22-2024 End: 06-22-2024 ambulatory SPARKLE ANN Not Available Start: 05-19-2024 End: 05-19-2024 ambulatory MARITZA LELAND Not Available Start: 04-21-2024 End: 04-21-2024 ambulatory MARITZA LELAND Not Available Start: 03-18-2024 End: 03-18-2024 ambulatory MERRY AICHHOLZ Not Available Start: 12-31-2023 End: 12-31-2023 ambulatory MERRY AICHHOLZ Not Available Start: 02-19-2023 End: 02-20-2023 ambulatory BOND TRADER MERRY AICHHOLZ Facility:[facility] Start: 12-11-2022 End: 12-12-2022 ambulatory BOND TRADER MERRY AICHHOLZ Facility:[facility] Start: 11-28-2022 End: 11-29-2022 ambulatory BOND TRADER MERRY AICHHOLZ Facility:[facility] Start: 03-15-2021 End: 03-16-2021 ambulatory NITA BARROS [facility] Procedures Date Procedure Procedure Detail Performing Clinician [...] AM EST Routine [facility] [address] [place] [address] Maritza Ha, DO [address] [place] [address] [facility] Start: 09-29-2024 End: 09-29-2025 Strep B DNA probe, amplification Strep B DNA probe, amplification Lab Routine Third trimester Expected: 09/29/2024 (Approximate), Expires: 09/29/2025 [facility] Work Phone: Comment on above: Expected: 09/29/2024 (Approximate), Expires: 09/29/2025 Start: 09-28-2024 End: 09-28-2024 Patient encounter procedure 09/28/2024 10:00 AM EST Routine [facility] [address] [place] [address] Maritza Ha, DO [address] [place], [place] [id number] [facility] Start: 08-24-2024 End: 08-24-2024 Patient encounter procedure 08/24/2024 9:20 AM EDT Routine [facility] [address] [place] [address] Maritza Ha, DO [address] [place] [address] [facility] Start: 08-11-2024 End: 08-11-2024 Professional / ancillary services management 08/11/2024 9:30 AM EDT Ancillary Procedure [facility] [address] [place] [address] [facility] Start: 08-10-2024 End: 08-10-2025 US for US OB SCAN FOR GROWTH Imaging Routine Nava's disease (CMS/HCC) Hypothyroidism, unspecified type (CMS/HCC) Expected: 08/10/2024 (Approximate), Expires: 08/10/2025 [facility] Work Phone: Comment on above: Expected: 08/10/2024 (Approximate), Expires: 08/10/2025 Start: 08-10-2024 End: 08-10-2024 Patient encounter procedure 08/10/2024 8:50 AM EDT Routine [facility] [address] [place] [address] Sparkle Ann PA [address] [place] [address] Arrived [facility] Comment on above: Arrived Start: 2019 Screening for malign ant neoplasm of cervix [facility] Start: 2010 Screening for malign ant neoplasm of cervix Pap Smear [facility] Thyrotropin [Units/volume] in Serum or Plasma TSH Lab Routine Nava's disease (CMS/HCC) Hypothyroidism, unspecified type (CMS/HCC) Ordered: 08/10/2024 [facility] Comment on above: Ordered: 08/10/2024 Thyroxine (T4) free [Mass/volume] in Serum or Plasma T4, free Lab Routine Nava's disease (CMS/HCC) Hypothyroidism, unspecified type (CMS/HCC) Ordered: 08/10/2024 [facility] Comment on above: Ordered: 08/10/2024 Immunizations Immunization Date Immunization Notes Care Provider Fa manuel 05-03-2018 tetanus toxoid, redu bravo diphtheria toxoid, and acellular pertussis vaccine, adsorbed Sparkle TRIMBLE Work Phone: [facility] 06-16-2008 human papilloma viru s vaccine, quadrivalent Sparkle TRIMBLE Work Phone: [facility] 03-08-2008 human papilloma viru s vaccine, quadrivalent Sparkle TRIMBLE Work Phone: [facility] Payers Date Payer Category Payer Medicaid [id number] 2022 Medicaid [id number] 2019 Unknown [id number] 1989 Unknown [id number] 2.16.8 [id number] 1989 Unknown [id number] 2.16.84 [id number] 1989 Unknown [id number] 2.16.84 [id number] 1989 Unknown [id number] 2.16.84 [id number] 1989 Unknown [id number] 2.16.8 [id number] 1989 Unknown [id number] 2.16.8 [id number] 1989 Unknown [id number] 2.16.84 [id number] 1989 Unknown [id number] 2.16.84 [id number] 1989 Unknown [id number] 2.16.84 [id number] 1989 Unknown [id number] 2.16.84 [id number] 1989 Unknown [id number] 2.16.84 [id number] 1989 Unknown [id number] 2.16.84 0.1.329699.3.579.2.1259 1989 Unknown [id number] 2.16.84 [id number] 1989 Unknown [id number] 2.16.8 [id number] 1959 Unknown [id number] Social History Date Type Detail Facility Start: 12-31-2023 Tobacco smoking stat [facility] Ex-smoker [facility] End: 11-03-2021 History [...] Sex assigned at Not on file [facility] Clinical Notes 08-10-2024 to 10-06-2024 ATILIO [...] Noted Bacterial vaginosis 10/07/2023 Anxiety and depression ([facility] 12/20/2020 Attention deficit hyperactivity disorder (ADHD), combined type ([facility]) 10/15/2019 Encounter for long-term (current) use of high-risk medication 12/20/2020 Sinus tachycardia 12/20/2020 Uncomplicated opioid dependence ([facility]) 10/15/2019 Hypertension ([facility]) 12/31/2023 Vitamin D deficiency 12/31/2023 Thyroid nodule ([facility]) 12/31/2023 Hypothyroidism ([facility]) 12/31/2023 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 Visual impairment 12/31/2023 Tobacco user 12/31/2023 Opioid abuse ([facility]) 12/31/2023 Obesity (BMI 30-39.9) 12/31/2023 Cervical cancer screening 12/31/2023 Nausea 01/07/2024 History of opioid abuse ([facility]) 2018 Resolved Ambulatory Problems Diagnosis Date Noted Obesity (BMI 30.0-34.9) 06/27/2015 History of ectopic 12/31/2023 BMI 28.0-28.9,adult 12/31/2023 No Additional Past Medical History HISTORY PAST MEDICAL HISTORY SOCIAL HISTORY Past Medical History: Diagnosis Date Anxiety and depression ([facility]) Bacterial vaginosis 10/07/2023 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..] Noted Bacterial vaginosis 10/07/2023 Anxiety and depression ([facility]) 12/20/2020 Attention deficit hyperactivity disorder (ADHD), combined type ([facility]) 10/15/2019 Encounter for long-term (current) use of high-risk medication 12/20/2020 Sinus tachycardia 12/20/2020 Uncomplicated opioid dependence ([facility]) 10/15/2019 Hypertension ([facility]) 12/31/2023 Vitamin D deficiency 12/31/2023 Thyroid nodule ([facility] 12/31/2023 Hypothyroidism ([facility]) 12/31/2023 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 Visual impairment 12/31/2023 Tobacco user 12/31/2023 Opioid abuse ([facility]) 12/31/2023 Obesity (BMI 30-39.9) 12/31/2023 Cervical cancer screening 12/31/2023 Nausea 01/07/2024 History of opioid abuse ([facility] 2018 Resolved Ambulatory Problems Diagnosis Date Noted Obesity (BMI 30.0-34.9) 06/27/2015 History of ectopic 12/31/2023 BMI 28.0-28.9,adult 12/31/2023 No Additional Past Medical History HISTORY PAST MEDICAL HISTORY SOCIAL HISTORY Past Medical History: Diagnosis Date Anxiety and depression ([facility] Bacterial vaginosis 10/07/2023 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 History of ectopic 12/31/2023 History of opioid abuse ([facility] 2018 using subtex Hypertension ([facility]) 12/31/2023 Hypothyroidism ([facility]) 12/31/2023 Opioid abuse ([facility]) 12/31/2023 Thyroid nodule ([facility]) 12/31/2023 Tobacco user 12/31/2023 Visual impairment 12/31/2023 [...] reviewed, and patient is to proceed to [facility] OR on her scheduled day. Orders Placed This Encounter Procedures Strep B DNA probe, amplification Follow Up: Patient is to return in 1 week for routine OB appointment. Orders Placed This Encounter Procedures Strep B DNA probe, amplification Follow Up: Patient is to return to office in 1 week for routine OB appointment Documented by Deb Dorado LPN on behalf of: Maritza Ha DO documented in this encounter [facility] 09-14-2024 History of Presen t illness [...] Noted Bacterial vaginosis 10/07/2023 Anxiety and depression ([facility]) 12/20/2020 Attention deficit hyperactivity disorder (ADHD), combined type ([facility]) 10/15/2019 Encounter for long-term (current) use of high-risk medication 12/20/2020 Sinus tachycardia 12/20/2020 Uncomplicated opioid dependence ([facility]) 10/15/2019 Hypertension ([facility]) 12/31/2023 Vitamin D deficiency 12/31/2023 Thyroid nodule ([facility]) 12/31/2023 Hypothyroidism ([facility]) 12/31/2023 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 Visual impairment 12/31/2023 Tobacco user 12/31/2023 Opioid abuse ([facility]) 12/31/2023 Obesity (BMI 30-39.9) 12/31/2023 Cervical cancer screening 12/31/2023 Nausea 01/07/2024 History of opioid abuse ([facility] 2018 Resolved Ambulatory Problems Diagnosis Date Noted Obesity (BMI 30.0-34.9) 06/27/2015 History of ectopic 12/31/2023 BMI 28.0-28.9,adult 12/31/2023 No Additional Past Medical History HISTORY PAST MEDICAL HISTORY SOCIAL HISTORY Past Medical History: Diagnosis Date Anxiety and depression ([facility] Bacterial vaginosis 10/07/2023 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 History of ectopic 12/31/2023 History of opioid abuse ([facility] 2018 using subtex Hypertension ([facility]) 12/31/2023 Hypothyroidism ([facility]) 12/31/2023 Opioid abuse ([facility]) 12/31/2023 Thyroid nodule ([facility]) 12/31/2023 Tobacco user 12/31/2023 Visual impairment 12/31/2023 [...] of: ATILIO Soliz documented in this encounter [facility] 09-14-2024 Miscellaneous Notes Addended by: REENTTA LEAL on: 09/14/2024 03:28 PM Modules accepted: Orders documented in this encounter [facility] 09-14-2024 Note Addended by: RENETTA YORK on: 09/14/2024 03:28 PM Modules accepted: Orders [facility] 09-14-2024 Note Addended by: RENETTA YORK on: 09/14/2024 03:28 PM Modules accepted: Orders [facility] 08-10-2024 History of Presen t illness Narrative [...] Noted Bacterial vaginosis 10/07/2023 Anxiety and depression ([facility]) 12/20/2020 Attention deficit hyperactivity disorder (ADHD), combined type ([facility]) 10/15/2019 Encounter for long-term (current) use of high-risk medication 12/20/2020 Sinus tachycardia 12/20/2020 Uncomplicated opioid dependence ([facility]) 10/15/2019 Hypertension ([facility]) 12/31/2023 Vitamin D deficiency 12/31/2023 Thyroid nodule ([facility]) 12/31/2023 Hypothyroidism ([facility]) 12/31/2023 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 Visual impairment 12/31/2023 Tobacco user 12/31/2023 Opioid abuse ([facility]) 12/31/2023 Obesity (BMI 30-39.9) 12/31/2023 Cervical cancer screening 12/31/2023 Nausea 01/07/2024 History of opioid abuse ([facility] 2018 Resolved Ambulatory Problems Diagnosis Date Noted Obesity (BMI 30.0-34.9) 06/27/2015 History of ectopic 12/31/2023 BMI 28.0-28.9,adult 12/31/2023 No Additional Past Medical History HISTORY PAST MEDICAL HISTORY SOCIAL HISTORY Past Medical History: Diagnosis Date Anxiety and depression ([facility]) Bacterial vaginosis 10/07/2023 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 Exam conducted with a stone setter metal optical frames present. Vitals: Estimated body mass index is [...] content) DATE CREATED AUTHOR 03/17/2021 [facility] DATE CREATED AUTHOR AUTHOR'S ORGANIZ ATION 08/23/2021 [facility] DATE CREATED AUTHOR AUTHOR'S ORGANIZ ATION 02/23/2023 [facility] DATE CREATED AUTHOR AUTHOR'S ORGANIZ ATION 07/02/2024 [facility] DATE CREATED AUTHOR AUTHOR'S ORGANIZ ATION 09/16/2024 [facility] DATE CREATED AUTHOR AUTHOR'S ORGANIZ ATION 09/26/2024 [facility] Care Teams (unrecognized sec tion and content) Enforcement Officer Relationship Specialty Start Date End Date Billy Lopez MD [address] [place] [phone] PCP - General Family Medicine 11/21/23 Merry Arceo NP [address] [place] [address] Nurse Practitioner Family Medicine 11/03/22 Enforcement Officer Relationship Specialty Start Date End Date Billy Lopez MD [address] [place] [phone] PCP - General Family Medicine 11/21/23 Merry Arceo NP [address] [place] [phone] Nurse Practitioner Family Medicine 11/03/22 Enforcement Officer Relationship Specialty Start Date End Date Billy Lopez MD [address] [place] [phone] PCP - General Family Medicine 11/21/23 Merry Arceo NP [address] [place] [phone] Nurse Practitioner Family Medicine 11/03/22 Enforcement Officer Relationship Specialty Start Date End Date Billy Lopez MD [address] [place] [phone] PCP - General Family Medicine 11/21/23 Merry Arceo NP [address] [place] [phone] Nurse Practitioner Family Medicine 11/03/22 Enforcement Officer Relationship Specialty Start Date End Date Billy Lopez MD [address] [place] [phone] PCP - General Family Medicine 11/21/23 Merry Arceo NP [address] [place] [phone] Nurse Practitioner Family Medicine 11/03/22 Enforcement Officer Relationship Specialty Start Date End Date Billy Lopez MD [address] [place] [phone] PCP - General [facility] 11/21/23 Merry Arceo NP [address] [place] [phone] Nurse Practitioner Family Medicine 11/03/22 Enforcement Officer Relationship Specialty Start Date End Date Billy Lopez MD [address] [place] [phone] PCP - General [facility] 11/21/23 Merry Arceo NP [address] [place] [phone] Nurse Practitioner Family Medicine 11/03/22 Reason for [...] BE BASED ON THE PRIMARY CLINICAL RECORDS. [facility] provides no warranty or guarantee of the accuracy or completeness of information in this document.
--- OUTSIDE RECORDS SUMMARY | 2024-10-17 12:30 | XMS_ITS | CCD ---
Author Organization [facility] Care Team Providers Care Director Of Resource Development Name Role Phone NITA BARROS Referring Unavailable NITA BARROS Primary Care Unavailable AICHHOLZ, INSURANCE ACTUARY MERRY Primary Care Unavailable AICHHOLZ, INSURANCE ACTUARY MERRY Consulting Unavailable AICHHOLZ, INSURANCE ACTUARY MERRY Attending Unavailable AICHHOLZ, INSURANCE ACTUARY MERRY Admitting Unavailable AICHHOLZ, INSURANCE ACTUARY MERRY Primary Care Unavailable AICHHOLZ, INSURANCE ACTUARY MERRY Consulting Unavailable AICHHOLZ, INSURANCE ACTUARY MERRY Attending Unavailable AICHHOLZ, INSURANCE ACTUARY MERRY Admitting Unavailable MAGALI MCKNIGHT Consulting Unavailable AICHHOLZ, INSURANCE ACTUARY MERRY Primary Care Unavailable AICHHOLZ, INSURANCE ACTUARY MERRY Consulting Unavailable AICHHOLZ, INSURANCE ACTUARY MERRY Attending Unavailable AICHHOLZ, INSURANCE ACTUARY MERRY Admitting Unavailable MARITZA HA Referring Unavailable NITA BARROS Primary Care Unavailable EULALIA KINCAID Attending Unavailable MARITZA HA Referring Unavailable NITA BARROS Primary Care Unavailable Aichholz COMPOSITION WORKER, Merry Unavailable Billy Lopez MD Primary Care Provider [phone] EULALIA KINCAID Referring Unavailable NITA BARROS Primary Care Unavailable AICHHOLZ, MERRY Attending Unavailable JERICA HAY Attending Unavailable JERICA HAY Attending Unavailable SPARKLE ANN Attending Unavailable SPARKLE ANN Attending Unavailable SPARKLE ANN Attending Unavailable SPARKLE ANN Attending Unavailable MARITZA HA Attending Unavailable Allergies Allergy Classification Reported Allergen(s) Allergy Type Date of Onset Reaction(s) Facility (18 sources) varenicline; Translations: [VARENICLINE] Drug Allergy 02-12-2021 [facility] Medications Current Medications Medication Drug Class(es) Dates Sig (Normalized) Sig (Original) 24 hr amphetamine aspartate 5 mg / amphetamine sulfate 5 mg / dextroamphetamine saccharate 5 mg / dextroamphetamine sulfate 5 mg extended release oral capsule (11 sources) Central Nervous System Stimulant take 1 capsule by mouth in the morning, then take 1 capsule by mouth every twenty-four hours amphetamine-dextroam phetamine XR (Adderall XR) 20 MG 24 hr capsule Take 20 mg by mouth in the morning. Active buprenorphine 8 mg sublingual tablet (16 sources) Partial Opioid Agonist Start: 02-26-2024 buprenorphine (Subtex) 8 MG TAKE 1.5 TAB UNDER TONGUE 3 DAYS PER WEEK, 1.25 TAB UNDER TONGUE 4 DAYS PER WEEK 02/26/2024 Active buprenorphine 8 mg / naloxone 2 mg sublingual film (11 sources) Partial Opioid Agonist, Opioid Antagonist Start: 02-12-2024 Buprenorphine HCl-Naloxone HCl (Suboxone) 8-2 MG SL film DISSOLVE 1 AND 1/2 FILMS UNDER TONGUE 3 DAYS PER WEEK,1 AND 1/4 FILMS 4 DAYS PER WEEK 02/12/2024 Active 12 hr buPROPion hydrochloride 150 mg extended release oral tablet (16 sources) Aminoketone Start: 07-29-2024 End: 07-29-2025 take [...] Active docusate sodium 100 mg oral capsule (11 sources) Start: 07-20-2024 docusate sodium (Colace) 100 [...] 08/10/2024 Discontinued ondansetron 4 mg oral tablet (16 sources) Serotonin-3 Receptor Antagonist Start: 07-12-2024 take 1 tablet by mouth every eight hours for nausea ondansetron (Zofran) 4 MG tablet Indications: Nausea and vomiting during Take 1 tablet (4 mg) by mouth every 8 (eight) hours if needed for nausea 20 tablet 3 07/12/2024 Active Vit-Fe Fumarate-FA ( Vitamins) 28-0.8 MG tablet (16 sources) Start: 08-03-2024 End: 08-03-2025 take 1 tablet by mouth once daily Vit-Fe Fumarate-FA ( Vitamins) 28-0.8 MG tablet Indications: 28 weeks gestation of , Third trimester Take 1 tablet by mouth Daily 30 tablet 3 08/03/2024 08/03/2025 Active terconazole 4 mg/ml vaginal cream (5 sources) Azole Antifungal Start: 10-06-2024 End: 10-13-2024 terconazole (Terazol 7) 0.4 % vaginal cream Indications: Yeast infection Insert 1 applicator into the vagina at bedtime for 7 days 45 g 10/06/2024 10/13/2024 Active Problems Active Problems Problem Classification Problem Date Documented Date Episodic/Chronic Anxiety disorders (16 sources) Mixed anxiety and depressive disorder; Translations: [Anxiety disorder, unspecified] Onset: 12-20-2020 12-10-2023 Chronic Attention-deficit, conduct, and disruptive behavior disorders (1 source) Attention-deficit hyperactivity disorder, combined type; Translations: [Attention-deficit hyperactivity disorder, combined type] Onset: 04-25-2020 Chronic Attention-deficit, conduct, and disruptive behavior disorders (16 sources) Attention deficit hyperactivity disorder, combined type; Translations: [Attention-deficit hyperactivity disorder, combined type] Onset: 10-15-2019 12-10-2023 Chronic Blindness and vision defects (16 sources) Visual impairment; Translations: [Unspecified visual loss] Onset: 12-31-2023 12-31-2023 Chronic Essential hypertension (17 sources) Essential (primary) hypertension; Translations: [Hypertensive disorder] Onset: 11-29-2022 12-31-2023 Chronic Hypertension complicating ; childbirth and the puerperium (1 source) Unspecified pre-existing hypertension complicating , unspecified trimester; Translations: [Unspecified pre-existing hypertension complicating , unspecified trimester] Onset: 06-30-2024 Chronic Mycoses (2 sources) Mycosis; Translations: [Candidiasis, unspecified] 10-06-2024 Episodic Nutritional deficiencies (16 sources) Vitamin D deficiency; Translations: [Vitamin D [...] Chronic Other nutritional; endocrine; and metabolic disorders (16 sources) Body mass index 30+ - obesity; Translations: [Obesity, unspecified] Onset: 12-31-2023 12-31-2023 Chronic Other and delivery including normal (10 sources) Third trimester ; Translations: [Encounter for [...] [37 weeks gestation of ] 10-06-2024 Episodic Residual codes; unclassified (2 sources) Gestation period, 38 weeks; Translations: [38 weeks gestation of ] 10-13-2024 Episodic Substance-related disorders (20 sources) Opioid dependence; Translations: [Opioid dependence, uncomplicated] Onset: 11-03-2017 12-10-2023 Chronic Substance-related disorders (2 sources) Drug use complicating , unspecified trimester; Translations: [Drug dependence of mother, antepartum condition or complication] 10-13-2024 Episodic Thyroid disorders (20 sources) Hypothyroidism, unspecified; Translations: [Hypothyroidism] Onset: 02-19-2023 Chronic Thyroid disorders (4 sources) Disorder of thyroid gland; Translations: [Disorder of thyroid, unspecified] 09-14-2024 Episodic Unclassified (1 source) Suboxone Use Onset: 06-30-2024 Past or Other Problems Problem Classification Problem Date Documented Date Episodic/Chronic Cardiac dysrhythmias (16 sources) Sinus tachycardia; Translations: [Tachycardia, unspecified] Onset: 12-20-2020 12-10-2023 Episodic Inflammatory diseases of female pelvic organs (16 sources) Bacterial vaginosis; Translations: [Acute vaginitis] Onset: 10-07-2023 10-07-2023 Episodic Nausea and vomiting (16 sources) Nausea; Translations: [Nausea] Onset: 01-07-2024 01-07-2024 Episodic Other aftercare (16 sources) Long-term current use of drug therapy; Translations: [Other termination clerk (current) drug therapy] Onset: 12-20-2020 12-10-2023 Episodic Other nutritional; endocrine; and metabolic disorders (16 sources) Obese class I; Translations: [Obesity (BMI 30.0-34.9)] Onset: 06-27-2015 Resolved: 12-31-2023 12-31-2023 Chronic Other nutritional; endocrine; and metabolic disorders (16 sources) Overweight in adulthood with body mass index of 25 or more but less than 30; Translations: [Body mass index (BMI) 28.0-28.9, adult] Onset: 12-31-2023 Resolved: 12-31-2023 12-31-2023 Episodic Other screening for suspected conditions (not mental disorders or infectious disease) (18 sources) Encounter for other specified screening; Translations: [Encounter for screening for cervical length] Onset: 12-31-2023 12-31-2023 Episodic Residual codes; unclassified (16 sources) Tobacco user; Translations: [Tobacco use] Onset: 12-31-2023 12-31-2023 Episodic Residual codes; unclassified (16 sources) H/O: ectopic ; Translations: [Personal history of other complications of , childbirth and the puerperium] Onset: 12-31-2023 Resolved: 12-31-2023 12-31-2023 Episodic Results Test Name Value Interpretation Reference Range Facility Urinalysis macro (dipstick) panel (U)on 10-13-2024 Bilirubin, UA Negative Negative - 4(70) +++ mg/dL [facility] Blood, UA Negative Negative - 50 [place]aan/mcL [facility] Clarity, UA Clear [facility] re Color, UA Yellow [facility] Glucose, UA Negative Negative - 1999(110) ++++ mg/dL [facility] Interpretation and review of laboratory results Normal [facility] Ketones, UA Negative Negative - 160(16) ++++ mg/dL [facility] Leukocytes, UA Negative Negative - 500+++ [place]/mcL [facility] Nitrite, UA Negative Negative - Positive [facility] pH, UA 5.5 5 - 9 [facility] e Protein, UA Negative Negative - 1999(20) ++++ mg/dL [facility] Spec Grav, UA 1.03 1 - 1.03 [facility] Urobilinogen, UA 1.0 0.2 - 12 mg/dL [facility] STREP GP B NAAon 10-01-2024 STREP GP B RICARDO Strep Gp B RICARDO [facility] STREP GP B RICARDO *ABNORMAL* [facility] STREP GP B RICARDO Positive [facility] Healt [facility]care STREP GP B RICARDO Centers for Disease Control and Prevention (CDC) and [facility] STREP GP B RICARDO [employer] [facility] STREP GP B RICARDO (ACOG) guidelines for prevention of group B [facility] STREP GP B RICARDO streptococcal (GBS) disease specify co-collection of [facility] Healthcare STREP GP B RICARDO a vaginal and rectal swab specimen to maximize [facility] Healthcare STREP GP B RICARDO sensitivity of GBS detection. Per the CDC and ACOG, [facility] STREP GP B RICARDO swabbing both the lower vagina and rectum [facility] STREP GP B RICARDO substantially increases the yield of detection [facility] Healthcare STREP GP B RICARDO compared with sampling the vagina alone. [facility] STREP GP B RICARDO Penicillin G, ampicillin, or cefazolin are indicated [facility] STREP GP B RICARDO for intrapartum prophylaxis of GBS [facility] Healthcare STREP GP B RICARDO colonization. Reflex susceptibility testing should be [facility] Healthcare STREP GP B RICARDO performed prior to use of clindamycin only on GBS [facility] STREP GP B RICARDO isolates from penicillin-allergic women who are [facility] STREP GP B RICARDO considered a high risk for anaphylaxis. Treatment with [facility] STREP GP B RICARDO vancomycin without additional testing is warranted if [facility] STREP GP B RICARDO resistance to clindamycin is noted. [facility] STREP GP B RICARDO Performed at: [facility] GP B RICARDO [address] [place], [place] [id number] [facility] STREP GP B RICARDO Casting Associate: Balwinder Pereira PhD, Phone: [phone] [facility] Urinalysis macro (dipstick) panel (U)on 09-29-2024 Bilirubin, UA Negative Negative - 4(70) +++ mg/dL [facility] Blood, UA Negative Negative - 50 [place]aan/mcL [facility] Clarity, UA Clear [facility] re Color, UA Yellow [facility] Glucose, UA Negative Negative - 1999(110) ++++ mg/dL [facility] Interpretation and review of laboratory results Abnormal [facility] Ketones, UA Negative Negative - 160(16) ++++ mg/dL [facility] Leukocytes, UA Few Negative - 500+++ [place]/mcL [facility] Nitrite, UA Negative Negative - Positive [facility] pH, UA 6 5 - 9 [facility] e Protein, UA Trace Negative - 1999(20) ++++ mg/dL [facility] Spec Grav, UA 1.03 1 - 1.03 [facility] Urobilinogen, UA 1.0 0.2 - 12 mg/dL [facility] Urinalysis macro (dipstick) panel (U)on 09-14-2024 Bilirubin, UA Negative Negative - 4(70) +++ mg/dL [facility] Blood, UA Negative Negative - 50 [place]/mcL [facility] Clarity, UA Clear [facility] re Color, UA Yellow [facility] Glucose, UA Negative Negative - 1999(110) ++++ mg/dL [facility] Interpretation and review of laboratory results Abnormal [facility] Ketones, UA Negative Negative - 160(16) ++++ mg/dL [facility] Leukocytes, UA Positive Negative - 500+++ [place]/mcL [facility] Comment on above: small Nitrite, UA Negative Negative - Positive [facility] pH, UA 6.5 5 - 9 [facility] Protein, UA Negative Negative - 1999(20) ++++ mg/dL [facility] Spec Grav, UA 1.03 1 - 1.03 [facility] Urobilinogen, UA 1.0 0.2 - 12 mg/dL [facility] ALL THYROID STIM HORMONEon 1 11-13-2023 TSH Qn 3.736 m[IU]/L [facility] ALL THYROXINE (T4) FREEon Free T4 [Mass/Vol] 0.82 ng/dL 0.76 - 1. 46 ng/dL [facility] e Urinalysis macro (dipstick) panel (U)on 08-10-2024 Bilirubin, UA Negative Negative - 4(70) +++ mg/dL [facility] Blood, UA Negative Negative - 50 [place]/mcL [facility] Clarity, UA Clear [facility] re Color, UA Yellow [facility] Glucose, UA Negative Negative - 1999(110) ++++ mg/dL [facility] Interpretation and review of laboratory results Normal [facility] Ketones, UA Negative Negative - 160(16) ++++ mg/dL [facility] Leukocytes, UA Negative Negative - 500+++ [place]/mcL [facility] Nitrite, UA Negative Negative - Positive [facility] pH, UA 6.0 5 - 9 [facility] e Protein, UA Negative Negative - 1999(20) ++++ mg/dL [facility] Spec Grav, UA 1.030 1 - 1.03 [facility] Urobilinogen, UA 0.2 0.2 - 12 mg/dL [facility] Cytology Cervical or vaginal smear or scraping studyon 05-19-2024 [facility] FREE T4on 02-19-2023 Free T4 [Mass/Vol] 1.39 ng/dL Normal 0.76-1.[address] [facility] Comment on above: Performed By: #### F T4 #### [facility] [address] [address] [address] Alfredito Rendon TSHon 02-19-2023 TSH 0.012 uIU/mL Critically low 0.358-3.740 [facility] Comment on above: Performed By: #### T SH #### [facility] [address] [place] [address] Dr. Alfredito Rendon US THYROIDon 12-11-2022 US [...] MAGALI MCKNIGHT Date: 2022-12-11 15:05 Normal [facility] THYROID ANTIBODIESon 023 Thyroglobulin Antibody 21.5 IU/mL Critically high 0.0-0.9 Comment on above: Result Comment: Thyr oglobulin Antibody measured by [employer] Methodology Performed By: #### T RAFA #### [facility] [address] [place] [address] Dr. Alfredito Rendon Thyroid Peroxidase (TPO) Ab 73 IU/mL Critically high 0-34 Comment on above: Performed By: #### T RAFA #### [facility] [address] [place] [address] Dr. Alfredito Rendon CBC AUTO DIFFon 11-28-2022 BASO # 0.0 103/ul Normal 0.0-0.1 Comment on above: Performed By: #### C BC #### [facility] [address] [address] [address] Alfredito Rendon Basophils/100 WBC (Bld) 0.3 % Normal 0.2-2.0 Comment on above: Performed By: #### C BC #### [facility] [address] [place] [address] Dr. Alfredito Rendon EO # 0.2 103/ul Normal 0.0-0.7 [facility] Comment on above: Performed By: #### C BC #### [facility] [address] [place] [address] Dr. Alfredito Rendon Eosinophils/100 WBC (Bld) 2.3 % Normal 0.9-7.0 [facility] Comment on above: Performed By: #### C BC #### [facility] [address] [place] [address] Dr. Alfredito Rendon Erythrocyte distribution width (RBC) [Ratio] 13.0 % Normal 11.0-15.0 Comment on above: Performed By: #### C BC #### [facility] [address] [place] [address] Dr. Alfredito Rendon Hematocrit (Bld) [Volume fraction] 41.2 % Normal 36.0-48.0 Comment on above: Performed By: #### C BC #### [facility] [address] [place] [address] Dr. Alfredito Rendon Hemoglobin (Bld) [Mass/Vol] 12.5 g/dL Normal 12.0-16.0 [facility] Comment on above: Performed By: #### C BC #### [facility] [address] [place] [address] Dr. Alfredito Rendon IG # 0.02 10e3/ul Normal 0.00-0.03 [facility] Comment on above: Performed By: #### C BC #### [facility] [address] [place] [address] Dr. Alfredito Rendon IG % 0.2 % Normal 0.0-0.5 [facility] Comment on above: Performed By: #### C BC #### [facility] [address] [place] [address] Dr. Alfredito Rendon LYMPH # 2.7 103/ul Normal 1.2-3.8 [facility] Comment on above: Performed By: #### C BC #### [facility] [address] [place] [address] Dr. Alfredito Rendon Lymphocytes/100 WBC (Bld) 25.3 % Normal 20.5-60.0 Comment on above: Performed By: #### C BC #### [facility] [address] [place] [address] Dr. Alfredito Rendon MANUAL DIFF REQ NO Normal [facility] Comment on above: Performed By: #### C BC #### [facility] [address] [place] [address] Dr. Alfredito Rendon MCH (RBC) [Entitic mass] 29.6 pg Normal 26.7-34.0 Comment on above: Performed By: #### C BC #### [facility] [address] [place] [address] Dr. Alfredito Rendon MCHC (RBC) [Mass/Vol] 30.3 g/dL Normal 29.9-35.2 [facility] Comment on above: Performed By: #### C BC #### [facility] [address] [place] [address] Dr. Alfredito Rendon MCV (RBC) [Entitic vol] 97.6 fL Normal 81.0-99.0 Comment on above: Performed By: #### C BC #### [facility] [address] [place] [address] Dr. Alfredito Rendon MONO # 0.7 103/ul Normal 0.3-0.8 [facility] Comment on above: Performed By: #### C BC #### [facility] [address] [place] [address] Dr. Alfredito Rendon Monocytes/100 WBC (Bld) 6.4 % Normal 1.7-12.0 [facility] Comment on above: Performed By: #### C BC #### [facility] [address] [place] [address] Dr. Alfredito Rendon NEUT # 6.9 103/ul Critically high 1.4-6.5 [facility] Comment on above: Performed By: #### C BC #### [facility] [address] [place] [address] Dr. Alfredito Rendon Neutrophils/100 WBC (Bld) 65.5 % Normal 43.0-75.0 Comment on above: Performed By: #### C BC #### [facility] [address] [place] [address] Dr. Alfredito Rendon Platelet mean volume (Bld) [Entitic vol] 10.1 fL Normal 9.5-13.5 Comment on above: Performed By: #### C BC #### [facility] [address] [place] [address] Dr. Alfredito Rendon PLT 253 103/ul Normal 150-450 [facility] Comment on above: Performed By: #### C BC #### [facility] [address] [place] [address] Dr. Alfredito Rendon RBC 4.22 106/ul Normal 4.20-5.40 Comment on above: Performed By: #### C BC #### [facility] [address] [place] [address] Dr. Alfredito Rendon WBC 10.6 103/ul Normal 4.0-11.0 Comment on above: Performed By: #### C BC #### [facility] [address] [place] [address] Dr. Alfredito Rendon FREE T3on 11-28-2022 FREE T3 2.65 pg/mlL Normal 2.18-3.98 Comment on above: Performed By: #### T SH, FT3, LIPID, CMP #### [facility] [address] [place] [address] Dr. Alfredito Rendon FREE T4on 11-28-2022 Free T4 [Mass/Vol] 0.86 ng/dL Normal 0.76-1.[address] [facility] Comment on above: Performed By: #### F T4 #### [facility] [address] [place] [address] Dr. Alfredito Rendon LIPID PROFILEon 11-28-2022 CHOL-HDL RATIO NORM SEE BELOW Normal [facility] Comment on above: Result Comment: 3.3 - 4.4 LOW RISK 4.4 - 7.1 AVERAGE RISK 7.1 - 11.0 MODERATE RISK >11.0 HIGH RISK Performed By: #### T SH, FT3, LIPID, CMP #### [facility] [address] [place] [address] Dr. Alfredito Rendno Cholesterol [Mass/Vol] 172 mg/dL Normal <=200 Comment on above: Performed By: #### T SH, FT3, LIPID, CMP #### [facility] [address] [place] [address] Dr. Alfredito Rendon Cholesterol in HDL [Mass/Vol] 49 mg/dL Normal 40-60 Comment on above: Performed By: #### T SH, FT3, LIPID, CMP #### [facility] [address] [place] [address] Dr. Alfredito Rendon Cholesterol in LDL [Mass/Vol] 96.2 mg/dL Normal Comment on above: Performed By: #### T SH, FT3, LIPID, CMP #### [facility] [address] [place] [address] Dr. Alfredito Rendon Cholesterol.total/Ch olesterol in HDL [Mass ratio] 3.5 {ratio} Normal Comment on above: Performed By: #### T SH, FT3, LIPID, CMP #### [facility] [address] [place] [address] Dr. Alfredito Rendon HDL NORMAL > or = 60 mg/dl - LOW CARDIOVASCULAR RISK <40 mg/dl - HIGH CARDIOVASCULAR RISK Normal Comment on above: Performed By: #### T SH, FT3, LIPID, CMP #### [facility] [address] [place] [address] Dr. Alfredito Rendon LDL CALC NORMAL SEE BELOW Normal [facility] Comment on above: Result Comment: <100 mg/dl OPTIMAL 100 - 129 mg/dl NEAR OR ABOVE OPTIMAL 130 - 159 mg/dl BORDERLINE HIGH 160 - 189 mg/dl HIGH >190 mg/dl VERY HIGH Performed By: #### T SH, FT3, LIPID, CMP #### [facility] [address] [address] [address] Alfredito Rendon Triglyceride [Mass/Vol] 134 mg/dL Normal <=150 Comment on above: Performed By: #### T SH, FT3, LIPID, CMP #### [facility] [address] [address] [address] Alfredito Rendon VLDL CALC 26.8 mg/dL Normal Comment on above: Performed By: #### T SH, FT3, LIPID, CMP #### [facility] [address] [place] [address] Dr. Alfredito Rendon PROF 14(COMP METB)on 023 Albumin [Mass/Vol] 3.3 g/dL Critically low 3.4-5.[address] [facility] Comment on above: Performed By: #### T SH, FT3, LIPID, CMP #### [facility] [address] [place] [address] Dr. Alfredito Rendon Albumin/Globulin [Mass ratio] 0.9 {ratio} Normal Comment on above: Performed By: #### T SH, FT3, LIPID, CMP #### [facility] [address] [place] [address] Dr. Alfredito Rendon ALP [Catalytic activity/Vol] 63 U/L Normal 46-116 Comment on above: Performed By: #### T SH, FT3, LIPID, CMP #### [facility] [address] [place] [address] Dr. Alfredito Rendon ALT [Catalytic activity/Vol] 27 U/L Normal 14-59 Comment on above: Performed By: #### T SH, FT3, LIPID, CMP #### [facility] [address] [place] [address] Dr. Alfredito Rendon Anion gap [Moles/Vol] 14.1 mmol/L Normal Comment on above: Performed By: #### T SH, FT3, LIPID, CMP #### [facility] [address] [address] [address] Alfredito Rendon AST [Catalytic activity/Vol] 20 U/L Normal 15-37 Comment on above: Performed By: #### T SH, FT3, LIPID, CMP #### [facility] [address] [address] [address] Alfredito Rendon Bilirubin [Mass/Vol] 0.3 mg/dL Normal 0.2-1.0 Comment on above: Performed By: #### T SH, FT3, LIPID, CMP #### [facility] [address] [place] [address] Dr. Alfredito Rendon Calcium [Mass/Vol] 9.2 mg/dL Normal 8.5-10.[address] [facility] Comment on above: Performed By: #### T SH, FT3, LIPID, CMP #### [facility] [address] [place] [address] Dr. Alfredito Rendon Chloride [Moles/Vol] 103 mmol/L Normal 98-107 [facility] Comment on above: Performed By: #### T SH, FT3, LIPID, CMP #### [facility] [address] [place] [address] Dr. Alfredito Rendon CO2 [Moles/Vol] 24.1 mmol/L Normal 21.0-32.0 [facility] Comment on above: Performed By: #### T SH, FT3, LIPID, CMP #### [facility] [address] [place] [address] Dr. Alfredito Rendon Creatinine [Mass/Vol] 0.71 mg/dL Normal 0.55-1.02 Comment on above: Performed By: #### T SH, FT3, LIPID, CMP #### [facility] [address] [place] [address] Dr. Alfredito Rendon EGFR-AF CITIZEN OF [place] >60 Normal >=60 [facility] Comment on above: Performed By: #### T SH, FT3, LIPID, CMP #### [facility] [address] [place] [address] Dr. Alfredito Rendon EGFR-NON AF CITIZEN OF [place] >60 Normal >=60 [facility] Comment on above: Performed By: #### T SH, FT3, LIPID, CMP #### [facility] [address] [place] [address] Dr. Alfredito Rendon Globulin (S) [Mass/Vol] 3.8 g/dL Normal Comment on above: Performed By: #### T SH, FT3, LIPID, CMP #### [facility] [address] [place] [address] Dr. Alfredito Rendon Glucose [Mass/Vol] 106 mg/dL Normal 74-106 [facility] Comment on above: Performed By: #### T SH, FT3, LIPID, CMP #### [facility] [address] [place] [address] Dr. Alfredito Rendon Potassium [Moles/Vol] 4.2 mmol/L Normal 3.5-5.1 [facility] Comment on above: Performed By: #### T SH, FT3, LIPID, CMP #### [facility] [address] [place] [address] Dr. Alfredito Rendon Protein [Mass/Vol] 7.1 g/dL Normal 6.4-8.2 [facility] Comment on above: Performed By: #### T SH, FT3, LIPID, CMP #### [facility] [address] [place] [address] Dr. Alfredito Rendon Sodium [Moles/Vol] 137 mmol/L Normal 136-145 [facility] Comment on above: Performed By: #### T SH, FT3, LIPID, CMP #### [facility] [address] [place] [address] Dr. Alfredito Rendon Urea nitrogen [Mass/Vol] 14.0 mg/dL Normal 7.0-18.0 [facility] Comment on above: Performed By: #### T SH, FT3, LIPID, CMP #### [facility] [address] [place] [address] Dr. Alfredito Rendon Urea nitrogen/Creatinine [Mass ratio] 19.7 mg/mg Normal Comment on above: Performed By: #### T SH, FT3, LIPID, CMP #### [facility] [address] [place], [place] [address] Dr. Alfredito Rendon TSHon 11-28-2022 TSH 5.010 uIU/mL Critically high 0.358-3.[address] [facility] Comment on above: Performed By: #### T SH, FT3, LIPID, CMP #### [facility] [id number] [address] Alfredito Rendon Thyroid Stim. Horm.on 2020 TSH Qn 10.79 m[IU]/L High 0.30-5.00 [facility] Comment on above: Performed By: #### T SH, FT4 #### [facility] [address] [place] [address] Casting Associate: Titus Pagan MD Thyroxine, Freeon 08-22-2021 Thyroxine, Free 0.89 ng/dL Low 0.93-1.70 [facility] Comment on above: Performed By: #### T SH, FT4 #### [facility] [address] [place], [place] [id number] Casting Associate: Titus Pagan MD Basic Metab, Fastingon 03-15 (cont.) Normal [facility] Comment on above: Result Comment: Aver age GFR for 30-39 years old: 107 mL/min/1.73sq m Chronic Kidney Disease: <60 mL/min/1.73sq m Kidney failure: <15 mL/min/1.73sq m eGFR calculated using average adult body mass. Additional eGFR calculator available at: http://www.PWRF.com/multiple_crcl_2012.htm Performed By: #### B MPF, FT4, TSH #### [facility] [address] [place] [address] Casting Associate: Titus Pagan MD Anion gap [Moles/Vol] 10 mmol/L Normal 9-17 [facility] Comment on above: Performed By: #### B MPF, FT4, TSH #### [address] [address] Casting Associate: Titus Pagan MD Calcium [Mass/Vol] 9.4 mg/dL Normal 8.6-10.4 [facility] Comment on above: Performed By: #### B MPF, FT4, TSH #### [facility] [address] [place] [address] Casting Associate: Titus Pagan MD Chloride [Moles/Vol] 102 mmol/L Normal 98-107 [facility] Comment on above: Performed By: #### B MPF, FT4, TSH #### [facility] [address] [place] [address] Casting Associate: Titus Pagan MD CO2 [Moles/Vol] 25 mmol/L Normal 20-31 [facility] Comment on above: Performed By: #### B MPF, FT4, TSH #### [facility] [address] [place] [address] Casting Associate: Titus Pagan MD Creatinine [Mass/Vol] 0.62 mg/dL Normal 0.50-0.90 [facility] Comment on above: Performed By: #### B MPF, FT4, TSH #### [facility] [address] [place] [address] Casting Associate: Titus Pagan MD GFR, Amer >60 Normal >60 [facility] Comment on above: Performed By: #### B MPF, FT4, TSH #### [facility] [address] [place] [address] Casting Associate: Titus Pagan MD GFR,non Amer >60 Normal >60 [facility] Comment on above: Performed By: #### B MPF, FT4, TSH #### [facility] [address] [place] [address] Casting Associate: Titus Pagan MD Glucose [Mass/Vol] 93 mg/dL Normal 70-99 [facility] Comment on above: Performed By: #### B MPF, FT4, TSH #### [facility] [address] [place] [address] Casting Associate: Titus Pagan MD Potassium [Moles/Vol] 4.6 mmol/L Normal 3.7-5.3 [facility] Comment on above: Performed By: #### B MPF, FT4, TSH #### [facility] [address] [place] [address] Casting Associate: Titus Pagan MD Sodium [Moles/Vol] 137 mmol/L Normal 135-144 [facility] Comment on above: Performed By: #### B MPF, FT4, TSH #### [address] [address] Casting Associate: Titus Pagan MD Urea nitrogen [Mass/Vol] 13 mg/dL Normal 6-20 [facility] Comment on above: Performed By: #### B MPF, FT4, TSH #### [address] [address] Casting Associate: Titus Pagan MD BUN/CRE Ratio NOT REPORTED Normal 9-20 [facility] Comment on above: Performed By: #### B MPF, FT4, TSH #### [facility] [address] [place] [address] Casting Associate: Titus Pagan MD Staging: NOT REPORTED Normal [facility] Comment on above: Performed By: #### B MPF, FT4, TSH #### [facility] [address] [place] [address] Casting Associate: Titus Pagan MD Thyroid Stim. Horm.on 2020 TSH Qn 13.08 m[IU]/L High 0.30-5.00 [facility] Comment on above: Performed By: #### B MPF, FT4, TSH #### [facility] [address] [place], [place] [address] Casting Associate: Titus Pagan MD Thyroxine, Freeon 03-15-2021 Thyroxine, Free 0.90 ng/dL Low 0.93-1.70 [facility] Comment on above: Performed By: #### B MPF, FT4, TSH #### [facility] [address] [place], [place] [id number] Casting Associate: Titus Pagan MD Vital Signs Date Time Vital Sign Value Performing Clinician Monica agudelo 10-13-2024 12:30-0500 Body mass index (BMI) [Ratio] 41.27 kg/m2 Maritza Leland DO Work Phone: [facility] 10-13-2024 12:30-0500 Body weight 105.69 kg Maritza Leland DO Work Phone: [facility] 10-13-2024 12:30-0500 Diastolic blood pressure 78 mm[Hg] Maritza Leland DO Work Phone: [facility] 10-13-2024 12:30-0500 Systolic blood pressure 124 mm[Hg] Maritza Leland DO Work Phone: [facility] 10-06-2024 13:11-0500 Body mass index (BMI) [Ratio] 41.24 kg/m2 Sparkle TRIMBLE Work Phone: [facility] 10-06-2024 13:11-0500 Body weight 105.6 kg Sparkle TRIMBLE Work Phone: [facility] 10-06-2024 13:11-0500 Diastolic blood pressure 76 mm[Hg] Sparkle TRIMBLE Work Phone: [facility] 10-06-2024 13:11-0500 Systolic blood pressure 124 mm[Hg] Sparkle TRIMBLE Work Phone: [facility] 09-14-2024 11:45-0500 Body mass index (BMI) [Ratio] 40.21 kg/m2 Sparkle Yuki PA Work Phone: [facility] 09-14-2024 11:45-0500 Body weight 102.97 kg Sparkle Yuki PA Work Phone: [facility] 09-14-2024 11:45-0500 Diastolic blood pressure 78 mm[Hg] Sparkle Caldwell PA Work Phone: [facility] 09-14-2024 11:45-0500 Systolic blood pressure 124 mm[Hg] Sparkle Caldwell PA Work Phone: [facility] 08-10-2024 09:13-0400 Body mass index (BMI) [Ratio] 40.53 kg/m2 Sparkle Yuki PA Work Phone: [facility] 08-10-2024 09:13-0400 Body weight 103.78 kg Sparkle Yuki PA Work Phone: [facility] 08-10-2024 09:13-0400 Diastolic blood pressure 70 mm[Hg] Sparkle Yuki PA Work Phone: [facility] 08-10-2024 09:13-0400 Systolic blood pressure 110 mm[Hg] Sparkle Yuki PA Work Phone: [facility] Healthcare Encounters Encounter Date Encounter Type Care Provider Facility Start: 10-13-2024 End: 10-13-2024 Bamboo flowsheet Maritza Leland DO Work Phone: [facility] Start: 10-13-2024 End: 10-13-2024 Bamboo flowsheet Maritza Leland DO Work Phone: [facility] Start: 10-13-2024 End: 10-13-2024 ambulatory MARITZA LELAND Not Available Start: 10-13-2024 End: 10-13-2024 Office outpatient visit 15 minutes Maritza Leland DO Work Phone: [facility] Comment on above: Third trimester preg marlin; 38 weeks gestation of ; Thyroid disease (CMS/HCC); Suboxone maintenance treatment complicating , antepartum (CMS/HCC) Start: 10-06-2024 End: 10-06-2024 Bamboo flowsheet Sparkle TRIMBLE Work Phone: [facility] Start: 10-06-2024 End: 10-06-2024 Bamboo flowsheet Sparkle Ann PA Work Phone: [facility] Start: 10-06-2024 End: 10-06-2024 ambulatory SPARKLE ANN Not Available Start: 10-06-2024 End: 10-06-2024 Office outpatient visit 15 minutes Sparkle TRIMBLE Work Phone: [facility] Comment on above: Third trimester preg marlin; 37 weeks gestation of ; Yeast infection Start: 09-28-2024 End: 10-01-2024 Clinisync Result Encounter Generic External Data Provider [facility] External [facility] Unsolicited Start: 09-28-2024 End: 10-01-2024 Clinisync Result Encounter Generic External Data Provider [facility] External [facility] Unsolicited Start: 09-28-2024 End: 09-28-2024 Office outpatient visit 15 minutes Maritza Lelandanthony FERRER Work Phone: [facility] Comment on above: Third trimester preg marlin; 36 weeks gestation of ; Nausea/vomiting in Start: 09-23-2024 End: 09-23-2024 ambulatory [facility] Start: 09-14-2024 End: 09-14-2024 Bamboo flowsheet Sparkle TRIMBLE Work Phone: [facility] Start: 09-14-2024 End: 09-14-2024 Bamboo flowsheet Sparkle Ann PA Work Phone: [facility] Start: 09-14-2024 End: 09-14-2024 Office outpatient visit 15 minutes Sparkle TRIMBLE Work Phone: [facility] Comment on above: Third trimester preg marlin; 34 weeks gestation of ; Thyroid disease (CMS/HCC) Start: 09-14-2024 End: 09-14-2024 ambulatory SPARKLE ANN Not Available Start: 09-13-2024 End: 09-13-2024 Clinisync Result Encounter Sparkle TRIMBLE Work Phone: [facility] External Department Unsolicited Start: 09-13-2024 End: 09-13-2024 Clinisync Result Encounter Sparkle TRIMBLE Work Phone: [facility] External Department Unsolicited Start: 08-10-2024 End: 08-10-2024 Bamboo flowsheet Sparkle TRIMBLE Work Phone: [facility] Start: 08-10-2024 End: 08-10-2024 Bamboo flowsheet Sparkle TRIMBLE Work Phone: [facility] Start: 08-10-2024 End: 08-10-2024 Office outpatient visit 15 minutes Spakrle TRIMBLE Work Phone: [facility] Comment on above: Third trimester preg marlin; 29 weeks gestation of ; Nava's disease (CMS/HCC); Hypothyroidism, unspecified type (CMS/HCC) Start: 08-10-2024 End: 08-10-2024 ambulatory SPARKLE ANN Not Available Start: 06-30-2024 End: 06-30-2024 ambulatory MARITZA R LELAND [facility] Start: 06-22-2024 End: 06-22-2024 ambulatory SPARKLE ANN Not Available Start: 05-19-2024 End: 05-19-2024 ambulatory MARITZA LELAND Not Available Start: 04-21-2024 End: 04-21-2024 ambulatory MARITZA LELAND Not Available Start: 03-18-2024 End: 03-18-2024 ambulatory MERRY AICHHOLZ Not Available Start: 12-31-2023 End: 12-31-2023 ambulatory MERRY AICHHOLZ Not Available Start: 02-19-2023 End: 02-20-2023 ambulatory INSURANCE ACTUARY MERRY AICHHOLZ Facility:[facility] Start: 12-11-2022 End: 12-12-2022 ambulatory INSURANCE ACTUARY MERRY AICHHOLZ Facility:[facility] Start: 11-28-2022 End: 11-29-2022 ambulatory INSURANCE ACTUARY MERRY AICHHOLZ Facility:[facility] Start: 03-15-2021 End: 03-16-2021 ambulatory NITA BARROS [facility] Procedures Date Procedure Procedure Detail Performing Clinician Start: 10-13-2024 Urnls dip stick/tabl et rgnt non-auto w/o micrscp Maritza Leland DO Work Phone: Start: 09-28-2024 STREP GP B RICARDO Generic External Data Provider Start: 09-28-2024 Urnls dip stick/tabl et rgnt non-auto w/o micrscp Maritza Leland DO Work Phone: Start: 09-14-2024 Urnls dip [...] Screening for malign ant neoplasm of cervix [facility] Start: 10-25-2024 End: 10-25-2024 Patient encounter procedure 10/25/2024 9:40 AM EST Office Visit [facility] [address] [address] Sparkle Ann PA [address] [place] [address] [facility] Start: 10-13-2024 End: 10-13-2025 US biophysical profile w non stress test US biophysical profile w non stress test Imaging Routine Suboxone maintenance treatment complicating , antepartum (CMS/HCC) Expected: 10/13/2024 (Approximate), Expires: 10/13/2025 [facility] Work Phone: Comment on above: Expected: 10/13/2024 (Approximate), Expires: 10/13/2025 Start: 10-13-2024 End: 10-13-2024 Patient encounter procedure 10/13/2024 11:20 AM EST Routine [facility] [address] [place] [address] Maritza Ha, DO [address] [place], [place] [id number] [facility] Start: 09-29-2024 End: 09-29-2025 Strep B DNA probe, amplification Strep B DNA probe, amplification Lab Routine Third trimester Expected: 09/29/2024 (Approximate), Expires: 09/29/2025 [facility] Work Phone: Comment on above: Expected: 09/29/2024 (Approximate), Expires: 09/29/2025 Start: 09-28-2024 End: 09-28-2024 Patient encounter procedure 09/28/2024 10:00 AM EST Routine [facility] [address] [place] [id number] Maritza Ha, DO [address] [place] [address] [facility] Start: 08-24-2024 End: 08-24-2024 Patient encounter procedure 08/24/2024 9:20 AM EDT Routine [facility] [address] [place] [id number] Maritza Ha, DO [address] [place], [place] [id number] [facility] Start: 08-11-2024 End: 08-11-2024 Professional / ancillary services management 08/11/2024 9:30 AM EDT Ancillary Procedure [facility] [address] [address] [place] [address] [facility] Start: 08-10-2024 End: 08-10-2025 US for US OB SCAN FOR GROWTH Imaging Routine Nava's disease (CMS/HCC) Hypothyroidism, unspecified type (CMS/HCC) Expected: 08/10/2024 (Approximate), Expires: 08/10/2025 [facility] Work Phone: Comment on above: Expected: 08/10/2024 (Approximate), Expires: 08/10/2025 Start: 08-10-2024 End: 08-10-2024 Patient encounter procedure 08/10/2024 8:50 AM EDT Routine [facility] [address] [facility] [address] [place] [id number] Sparkle Ann PA [address] [place] [address] Arrived [facility] Comment on above: Arrived Start: 2019 Screening for malign ant neoplasm of cervix [facility] Start: 2010 Screening for malign ant neoplasm of cervix Pap Smear [facility] Thyrotropin [Units/volume] in Serum or Plasma TSH Lab Routine Nava's disease (CMS/HCC) Hypothyroidism, unspecified type (CMS/HCC) Ordered: 08/10/2024 [facility] Comment on above: Ordered: 08/10/2024 Thyroxine (T4) free [Mass/volume] in Serum or Plasma T4, free Lab Routine Nava's disease (CMS/HCC) Hypothyroidism, unspecified type (CMS/HCC) Ordered: 08/10/2024 [facility] Comment on above: Ordered: 08/10/2024 Immunizations Immunization Date Immunization Notes Care Provider Fa [facility] 05-03-2018 tetanus toxoid, redu bravo diphtheria toxoid, and acellular pertussis vaccine, adsorbed Sparkle TRIMBLE Work Phone: [facility] 06-16-2008 human papilloma viru s vaccine, quadrivalent Sparkle TRIMBLE Work Phone: [facility] 03-08-2008 human papilloma viru s vaccine, quadrivalent Sparkle TRIMBLE Work Phone: [facility] Healthcare Payers Date Payer Category Payer Medicaid [id number] 2022 Medicaid [id number] 2019 Unknown [id number] 1989 Unknown [id number] 2.16.8 [id number] 1989 Unknown [id number] 2.16.84 [id number] 1989 Unknown [id number] 2.16.84 [id number] 1989 Unknown [id number] 2.16.84 [id number] 1989 Unknown [id number] 2.16.8 40.1.183832.3.579.2.1286 1989 Unknown [id number] 2.16.8 40.1.430033.3.579.2.1286 1989 Unknown [id number] 2.16.8 40.1.348008.3.579.2.1286 1989 Unknown [id number] 2.16.84 0.1.353488.3.579.2.1259 1989 Unknown [id number] 2.16.84 0.1.152613.3.579.2.1259 1989 Unknown [id number] 2.16.84 0.1.669906.3.579.2.1259 1989 Unknown [id number] 2.16.84 0.1.837940.3.579.2.1259 1989 Unknown [id number] 2.16.84 0.1.771719.3.579.2.1259 1989 Unknown [id number] 2.16.84 0.1.564721.3.579.2.1259 1989 Unknown [id number] 2.16.84 0.1.130967.3.579.2.1259 1989 Unknown [id number] 2.16.84 [id number] 1989 Unknown [id number] 2.16.84 [id number] 1959 Unknown [id number] Social History Date Type Detail Facility Start: 12-31-[address] [facility] Ex-smoker [facility] End: 11-03-2021 History of tobacco use Current smoker [facility] End: 11-03-2021 History of tobacco use Cigarette Smoker [facility] Start: 12-31-2023 Tobacco use and exposure Smoke less tobacco non-user [facility] Start: 06-22-2024 End: 10-06-2024 Alcoholic beverage intake Lifetime non-drinker (finding) [facility] Start: 12-31-2023 History of Social function [facility] Start: 12-31-2023 Tobacco use panel [facility] Start: 12-31-2023 Alcohol Comment caffine: none [facility] Start: 02-03-2024 [facility] Start: 1990 Sex assigned at Not on file [facility] Clinical Notes 08-10-2024 to 10-13-2024 Deb Dorado LPN - 10/13/2024 11:20 AM ATILIO Roca - 10/06/2024 1:00 PM Naga Dorado LPN - 09/28/2024 10:00 AM ATILIO Roca - 09/14/2024 11:30 AM ATILIO Roca - 08/10/2024 8:50 AM EDT Note Date & Type Note Facility 10-13-2024 History of Presen t illness Narrative Reason for Appointment: Patient ID: Giuliana Vazquez is a 34 y.o. female who presents for Routine Visit Patient presents today for Return OB appointment.. MEDICATIONS Current Outpatient Medications Medication Instructions amphetamine-dextroamphetamine [...] Noted Bacterial vaginosis 10/07/2023 Anxiety and depression ([facility]) 12/20/2020 Attention deficit hyperactivity disorder (ADHD), combined type ([facility]) 10/15/2019 Encounter for long-term (current) use of high-risk medication 12/20/2020 Sinus tachycardia 12/20/2020 Uncomplicated opioid dependence ([facility]) 10/15/2019 Hypertension ([facility]) 12/31/2023 Vitamin D deficiency 12/31/2023 Thyroid nodule ([facility]) 12/31/2023 Hypothyroidism ([facility]) 12/31/2023 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 Visual impairment 12/31/2023 Tobacco user 12/31/2023 Opioid abuse ([facility]) 12/31/2023 Obesity (BMI 30-39.9) 12/31/2023 Cervical cancer screening 12/31/2023 Nausea 01/07/2024 History of opioid abuse ([facility]) 2018 Resolved Ambulatory Problems Diagnosis Date Noted Obesity (BMI 30.0-34.9) 06/27/2015 History of ectopic 12/31/2023 BMI 28.0-28.9,adult 12/31/2023 No Additional Past Medical History HISTORY PAST MEDICAL HISTORY SOCIAL HISTORY Past Medical History: Diagnosis Date [place] Bacterial vaginosis 10/07/2023 Nava's disease [place] 12/31/2023 History of ectopic 12/31/2023 History of opioid abuse [place] 2018 using subtex Hypertension [place] 12/31/2023 Hypothyroidism [place] 12/31/2023 Opioid abuse [place] 12/31/2023 Thyroid nodule [place] 12/31/2023 Tobacco user 12/31/2023 [...] Constitutional: Appearance: Normal appearance. She is well-developed. Genitourinary: Vulva normal. Cardiovascular: Rate and Rhythm: Normal rate and [...] nursing note reviewed. Exam conducted with a bill poster installer present. Vitals: Estimated body mass index is 41.27 kg/m as calculated from the following: Height as of 12/31/23: 5' 3 . Weight as of this encounter: 233 lb. BP: 124/78 Patient's last menstrual period was 01/14/2024. ASSESSMENT & PLAN ICD-10-CM 1. Third trimester Z34.93 POCT urinalysis dipstick manually resulted 2. 38 weeks gestation of Z3A.38 Return OB: Patient presents today for a routine obstetrics appointment. Patient is currently 38w1d . Patient states she is doing well but has complaints of being tired due to current . Patient has verbalizes frequent movement. labor precautions was discussed/given and patient was instructed to perform kick counts three times a day. Pt is taking suboxone being sent over for NST/BPP will repeat NST on Friday. Pt voiced understanding. Pt to have section on 10/19/24. Orders Placed This Encounter Procedures POCT urinalysis dipstick manually resulted Follow Up: Patient is to return to office 1 week after section. Documented by Deb Dorado LPN on behalf of: Maritza Ha DO documented in this encounter [facility] 10-06-2024 History of Presen t illness Narrative [...] Noted Bacterial vaginosis 10/07/2023 Anxiety and depression ([facility]) 12/20/2020 Attention deficit hyperactivity disorder (ADHD), combined type ([facility]) 10/15/2019 Encounter for long-term (current) use of high-risk medication 12/20/2020 Sinus tachycardia 12/20/2020 Uncomplicated opioid dependence ([facility]) 10/15/2019 Hypertension ([facility]) 12/31/2023 Vitamin D deficiency 12/31/2023 Thyroid nodule ([facility]) 12/31/2023 Hypothyroidism ([facility]) 12/31/2023 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 Visual impairment 12/31/2023 Tobacco user 12/31/2023 Opioid abuse ([facility]) 12/31/2023 Obesity (BMI 30-39.9) 12/31/2023 Cervical cancer screening 12/31/2023 Nausea 01/07/2024 History of opioid abuse ([facility]) 2018 Resolved Ambulatory Problems Diagnosis Date Noted Obesity (BMI 30.0-34.9) 06/27/2015 History of ectopic 12/31/2023 BMI 28.0-28.9,adult 12/31/2023 No Additional Past Medical History HISTORY PAST MEDICAL HISTORY SOCIAL HISTORY Past Medical History: Diagnosis Date Anxiety and depression ([facility]) Bacterial vaginosis 10/07/2023 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 History of ectopic 12/31/2023 History of opioid abuse ([facility]) 2018 using subtex Hypertension ([facility]) 12/31/2023 Hypothyroidism ([facility]) 12/31/2023 Opioid abuse ([facility]) 12/31/2023 [place] 12/31/2023 Tobacco user 12/31/2023 [...] of: ATILIO Soliz documented in this encounter [facility] 09-28-2024 History of Presen t illness Narrative [...] Noted Bacterial vaginosis 10/07/2023 Anxiety and depression ([facility]) 12/20/2020 Attention deficit hyperactivity disorder (ADHD), combined type ([facility]) 10/15/2019 Encounter for long-term (current) use of high-risk medication 12/20/2020 Sinus tachycardia 12/20/2020 Uncomplicated opioid dependence ([facility]) 10/15/2019 Hypertension ([facility]) 12/31/2023 Vitamin D deficiency 12/31/2023 Thyroid nodule ([facility]) 12/31/2023 Hypothyroidism ([facility]) 12/31/2023 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 Visual impairment 12/31/2023 Tobacco user 12/31/2023 Opioid abuse ([facility]) 12/31/2023 Obesity (BMI 30-39.9) 12/31/2023 Cervical cancer screening 12/31/2023 Nausea 01/07/2024 History of opioid abuse ([facility]) 2018 Resolved Ambulatory Problems Diagnosis Date Noted Obesity (BMI 30.0-34.9) 06/27/2015 History of ectopic 12/31/2023 BMI 28.0-28.9,adult 12/31/2023 No Additional Past Medical History HISTORY PAST MEDICAL HISTORY SOCIAL HISTORY Past Medical History: Diagnosis Date Anxiety and [place] [place] Bacterial vaginosis 10/07/2023 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 Orders [...] Maritza Ha DO documented in this encounter [facility] 09-14-2024 History of Presen t illness Narrative [...] Noted Bacterial vaginosis 10/07/2023 Anxiety and depression ([facility]) 12/20/2020 Attention deficit hyperactivity disorder (ADHD), combined type ([facility]) 10/15/2019 Encounter for long-term (current) use of high-risk medication 12/20/2020 Sinus tachycardia 12/20/2020 Uncomplicated opioid dependence ([facility]) 10/15/2019 Hypertension (CMS/HCC) 12/31/2023 Vitamin D deficiency 12/31/2023 Thyroid nodule (CMS/HCC) 12/31/2023 Hypothyroidism (CMS/HCC) 12/31/2023 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 Visual impairment 12/31/2023 Tobacco user 12/31/2023 Opioid abuse ([facility]) 12/31/2023 Obesity (BMI 30-39.9) 12/31/2023 Cervical cancer screening 12/31/2023 Nausea 01/07/2024 History of opioid abuse [place] [place] 2018 Resolved Ambulatory Problems Diagnosis Date Noted Obesity (BMI 30.0-34.9) 06/27/2015 History of ectopic 12/31/2023 BMI 28.0-28.9,adult 12/31/2023 No Additional Past Medical History HISTORY PAST MEDICAL HISTORY SOCIAL HISTORY Past Medical History: Diagnosis Date Anxiety and depression [place] [place] Bacterial vaginosis 10/07/2023 Nava's disease [place] [place] 12/31/2023 History of ectopic 12/31/2023 History of opioid abuse [place] [place] 2018 using subtex Hypertension [place] [place] 12/31/2023 Hypothyroidism [place] [place] 12/31/2023 Opioid abuse [place] [place] 12/31/2023 Thyroid nodule [place] [place] [place] 12/31/2023 Tobacco user 12/31/2023 [...] of: ATILIO Soliz documented in this encounter [facility] 09-14-2024 Miscellaneous Notes Addended by: RENETTA LEAL on: 09/14/2024 03:28 PM Modules accepted: Orders documented in this encounter [facility] 09-14-2024 Note Addended by: RENETTA YORK on: 09/14/2024 03:28 PM Modules accepted: Orders [facility] 09-14-2024 Note Addended by: RENETTA YORK on: 09/14/2024 03:28 PM Modules accepted: Orders [facility] 08-10-2024 History of Presen t illness [...] Noted Bacterial vaginosis 10/07/2023 Anxiety and depression ([facility]) 12/20/2020 Attention deficit hyperactivity disorder (ADHD), combined type ([facility]) 10/15/2019 Encounter for long-term (current) use of high-risk medication 12/20/2020 Sinus tachycardia 12/20/2020 Uncomplicated opioid dependence ([facility]) 10/15/2019 Hypertension ([facility]) 12/31/2023 Vitamin D deficiency 12/31/2023 Thyroid nodule ([facility]) 12/31/2023 Hypothyroidism ([facility]) 12/31/2023 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 Visual impairment 12/31/2023 Tobacco user 12/31/2023 Opioid abuse ([facility]) 12/31/2023 Obesity (BMI 30-39.9) 12/31/2023 Cervical cancer screening 12/31/2023 Nausea 01/07/2024 History of opioid abuse ([facility]) 2018 Resolved Ambulatory Problems Diagnosis Date Noted Obesity (BMI 30.0-34.9) 06/27/2015 History of ectopic 12/31/2023 BMI 28.0-28.9,adult 12/31/2023 No Additional Past Medical History HISTORY PAST MEDICAL HISTORY SOCIAL HISTORY Past Medical History: Diagnosis Date Anxiety and depression ([facility]) Bacterial vaginosis 10/07/2023 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 Exam conducted with a bill poster installer present. Vitals: Estimated body mass index is [...] [facility] [...] of the cervix Third trimester state, incidental 38 weeks gestation of Thyroid disease (CMS/HCC) Unspecified disorder of thyroid Suboxone maintenance treatment complicating , antepartum (CMS/HCC) documented in this encounter [facility] [...] section and content) DATE CREATED AUTHOR 03/17/2021 [facility] DATE CREATED AUTHOR AUTHOR'S ORGANIZ ATION 08/23/2021 [facility] DATE CREATED AUTHOR AUTHOR'S ORGANIZ ATION 02/23/2023 [facility] DATE CREATED AUTHOR AUTHOR'S ORGANIZ ATION 07/02/2024 [facility] DATE CREATED AUTHOR AUTHOR'S ORGANIZ ATION 09/26/2024 [facility] DATE CREATED AUTHOR AUTHOR'S ORGANIZ ATION 10/16/2024 [facility] EP[employer] Care Teams (unrecognized sec tion and content) Director Of Resource Development Relationship Specialty Start Date End Date Billy Lopez MD [address] [place] [phone] PCP - General Family Medicine 11/21/23 Merry Arceo NP [address] [place] [phone] Nurse Practitioner Family Medicine 11/03/22 Director Of Resource Development Relationship Specialty Start Date End Date Billy Lopez MD [address] [place] [phone] PCP - General Family Medicine 11/21/23 Merry Arceo NP [address] [place] [phone] Nurse Practitioner Family Medicine 11/03/22 Director Of Resource Development Relationship Specialty Start Date End Date Billy Lopez MD [address] [place] [phone] PCP - General Family Medicine 11/21/23 Merry Arceo NP [address] [place] [phone] Nurse Practitioner Family Medicine 11/03/22 Director Of Resource Development Relationship Specialty Start Date End Date Billy Lopez MD [address] [place] [phone] PCP - General Family Medicine 11/21/23 Merry Arceo NP [address] [place] [phone] Nurse Practitioner Family Medicine 11/03/22 Director Of Resource Development Relationship Specialty Start Date End Date Billy Lopez MD [address] [place] [phone] PCP - General Family Medicine 11/21/23 Merry Arceo NP [address] [place] [phone] Nurse Practitioner Family Medicine 11/03/22 Director Of Resource Development Relationship Specialty Start Date End Date Billy Lopez MD [address] [place] [phone] PCP - General Family Medicine 11/21/23 Merry Arceo NP [address] [place] [phone] Nurse Practitioner Family Medicine 11/03/22 Director Of Resource Development Relationship Specialty Start Date End Date Billy Lopez MD [address] [place] [phone] PCP - General Family Medicine 11/21/23 Merry Arceo NP [address] [place] [phone] Nurse Practitioner Family Medicine 11/03/22 Director Of Resource Development Relationship Specialty Start Date End Date Billy Lopez MD [address] [place] [phone] PCP - General Family Medicine 11/21/23 Merry Arceo NP [address] [place] [phone] Nurse Practitioner Family Medicine 11/03/22 Director Of Resource Development Relationship Specialty Start Date End Date Billy Lopez MD [address] [place] [phone] PCP - General Family Medicine 11/21/23 Merry Arceo NP [address] [place] [phone] Nurse Practitioner Family Medicine 11/03/22 Reason for [...] BE BASED ON THE PRIMARY CLINICAL RECORDS. [facility] provides no warranty or guarantee of the accuracy or completeness of information in this document.
[2024-10-17 12:49] VITALS: BP 126/72; PULSE 93
== END 2024-10-17 13:30 | disposition home or self-care (01) ==
LOC: FBCO 12:28 → FBC 12:33
PROVIDERS: PCP Nurse Practitioner; Visit Provider Obstetrics & Gynecology
DX: O36.5990 Maternal care for other known or suspected poor fetal growth, unspecified trimester, not applicable or unspecified (principal); Z3A.00 Weeks of gestation of pregnancy not specified
CPT/HCPCS: 59025

== ENCOUNTER 2024-10-19 06:47 | Inpatient (IN) | payer MEDICAID, SELFPAY ==
[2024-10-19] VITALS (25 sets, daily range): BP systolic 95–127; BP diastolic 59–84; PULSE 68–102; TEMP 36.1–36.9; O2SAT 93–97
--- OUTSIDE RECORDS SUMMARY | 2024-10-19 06:50 | XMS_ITS | CCD ---
Author Organization [facility] Care Team Providers Care Car Deliverer Name Role Phone NITA BARROS Referring Unavailable NITA BARROS Primary Care Unavailable AICHHOLZ, CONSERVATION AGENT MERRY Primary Care Unavailable AICHHOLZ, CONSERVATION AGENT MERRY Consulting Unavailable AICHHOLZ, CONSERVATION AGENT MERRY Attending Unavailable AICHHOLZ, CONSERVATION AGENT MERRY Admitting Unavailable AICHHOLZ, CONSERVATION AGENT MERRY Primary Care Unavailable AICHHOLZ, CONSERVATION AGENT MERRY Consulting Unavailable AICHHOLZ, CONSERVATION AGENT MERRY Attending Unavailable AICHHOLZ, CONSERVATION AGENT MERRY Admitting Unavailable MAGALI MCKNIGHT Consulting Unavailable AICHHOLZ, CONSERVATION AGENT MERRY Primary Care Unavailable AICHHOLZ, CONSERVATION AGENT MERRY Consulting Unavailable AICHHOLZ, CONSERVATION AGENT MERRY Attending Unavailable AICHHOLZ, CONSERVATION AGENT MERRY Admitting Unavailable MARITZA HA Referring Unavailable NITA BARROS Primary Care Unavailable EULALIA KINCAID Attending Unavailable MARITZA HA Referring Unavailable NITA BARROS Primary Care Unavailable Aichholz SKI PATROL OFFICER, Merry Unavailable Billy Lopez MD Primary Care Provider [phone] EULALIA KINCAID Referring Unavailable NITA BARROS Primary [...] current use of drug therapy; 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] Onset: 12-20-2020 12-10-2023 Episodic [...] Negative - 4(70) +++ mg/dL [facility] Blood, UA Negative Negative - 50 Shaan/mcL [facility] Clarity, UA Clear [facility] re Color, UA Yellow [facility] Gl[facility], [facility]A Negative Negative - 1999(110) ++++ mg/dL [facility] Interpretation and review of laboratory results Normal [facility] Ketones, UA Negative Negative - 160(16) ++++ mg/dL [facility] Leukocytes, UA Negative Negative - 500+++ Milton/mcL [facility] Nitrite, UA Negative Negative - Positive [facility] pH, UA 5.5 5 - 9 [facility] e Protein, UA Negative Negative - 1999(20) ++++ mg/dL [facility] Spec Grav, UA 1.03 1 - 1.03 [facility] Urobilinogen, UA 1.0 0.2 - 12 mg/dL [facility] STREP GP B NAAon 10-01-2024 STREP GP B RICARDO Strep Gp B RICARDO [facility] STREP GP B RICARDO *ABNORMAL* [facility] STREP GP B RICARDO Positive [facility]alt [facility] STREP GP B RICARDO Centers for Disease Control and Prevention (CDC) and [facility] STREP GP B RICARDO [employer] [facility] STREP GP B RICARDO (ACOG) guidelines for prevention of group B [facility] STREP GP B RICARDO streptococcal (GBS) disease specify co-collection of [facility] Healthcare STREP GP B RICARDO a vaginal and rectal swab specimen to maximize [facility] STREP GP B RICARDO sensitivity of GBS detection. Per the CDC and ACOG, [facility] STREP GP B RICARDO swabbing both the lower vagina and rectum [facility] STREP GP B RICARDO substantially increases the yield of detection [facility] STREP GP B RICARDO compared with sampling the vagina alone. [facility] STREP GP B RICARDO Penicillin G, ampicillin, or cefazolin are indicated [facility] STREP GP B RICARDO for intrapartum prophylaxis of GBS [facility] STREP GP B RICARDO colonization. Reflex susceptibility testing should be [facility] STREP GP B RICARDO performed prior to use of clindamycin only on GBS [facility] STREP GP B RICARDO isolates from penicillin-allergic women who are [facility] STREP GP B RICARDO considered a high risk for anaphylaxis. Treatment with [facility] STREP GP B RICARDO vancomycin without additional testing is warranted if [facility] STREP GP B RICARDO resistance to clindamycin is noted. [facility] STREP GP B RICARDO Performed at: [facility] STREP GP B RICARDO [address] [place], [place] [id number] [facility] STREP GP B RICARDO Station Baggage Porter: Balwinder Pereira PhD, Phone: [phone] [facility] Health[facility] e Urinalysis macro (dipstick) panel (U)on 09-29-2024 Bilirubin, UA Negative Negative - 4(70) +++ mg/dL [facility] Blood, UA Negative Negative - 50 Shaan/mcL [facility] Clarity, UA Clear [facility] re Color, UA Yellow [facility] e Glucose, UA Negative Negative - 1999(110) ++++ mg/dL [facility] Interpretation and review of laboratory results Abnormal [facility] Ketones, UA Negative Negative - 160(16) ++++ mg/dL [facility] Leukocytes, UA Few Negative - 500+++ Milton/mcL [facility] Nitrite, UA Negative Negative - Positive [facility] pH, UA 6 5 - 9 [facility] e Protein, UA Trace Negative - 1999(20) ++++ mg/dL [facility] Spec Grav, UA 1.03 1 - 1.03 [facility] Urobilinogen, UA 1.0 0.2 - 12 mg/dL [facility] Urinalysis macro (dipstick) panel (U)on 09-14-2024 Bilirubin, UA Negative Negative - 4(70) +++ mg/dL [facility] Blood, UA Negative Negative - 50 Shaan/mcL [facility] Clarity, UA Clear [facility]ca re Color, UA Yellow [facility] e Glucose, UA Negative Negative - 1999(110) ++++ mg/dL [facility] Interpretation and review of laboratory results Abnormal [facility] Ketones, UA Negative Negative - 160(16) ++++ mg/dL [facility] Leukocytes, UA Positive Negative - 500+++ Milton/mcL [facility] Comment on above: small Nitrite, UA Negative Negative - Positive [facility] pH, UA 6.5 5 - 9 [facility] e Protein, UA Negative Negative - 1999(20) ++++ mg/dL [facility] Spec Grav, UA 1.03 1 - 1.03 [facility] Urobilinogen, UA 1.0 0.2 - 12 mg/dL [facility] ALL THYROID STIM HORMONEon 1 11-13-2023 TSH Qn 3.736 m[IU]/L [facility] ALL THYROXINE (T4) FREEon Free T4 [Mass/Vol] 0.82 ng/dL 0.76 - 1. 46 ng/dL [facility] e Urinalysis macro (dipstick) panel (U)on 08-10-2024 Bilirubin, UA Negative Negative - 4(70) +++ mg/dL [facility] Blood, UA Negative Negative - 50 Shaan/mcL [facility] Clarity, UA Clear [facility] re Color, UA Yellow [facility] Glucose, UA Negative Negative - 1999(110) ++++ mg/dL [facility] Interpretation and review of laboratory results Normal [facility] Ketones, UA Negative Negative - 160(16) ++++ mg/dL [facility] Leukocytes, UA Negative Negative - 500+++ Milton/mcL [facility] Nitrite, UA Negative Negative - Positive [facility] pH, UA 6.0 5 - 9 [facility] e Protein, UA Negative Negative - 1999(20) ++++ mg/dL [facility] Spec Grav, UA 1.030 1 - 1.03 [facility] Urobilinogen, UA 0.2 0.2 - 12 mg/dL [facility] Cytology Cervical or vaginal smear or scraping studyon 05-19-2024 [facility] Healthcar e FREE T4on 02-19-2023 Free T4 [Mass/Vol] 1.39 ng/dL Normal 0.76-1.46 [facility] Comment on above: Performed By: #### F T4 #### [facility] [address] [address] [address] Alfredito Rendon TSHon 02-19-2023 TSH 0.012 uIU/mL Critically low 0.358-3.740 [facility] Comment on above: Performed By: #### T SH #### [facility] [address] [place] [address] Dr. Alfredito Rendon US THYROIDon 12-11-2022 US [...] MAGALI MCKNIGHT Date: 2022-12-11 15:05 Normal [facility] THYROID ANTIBODIESon 023 Thyroglobulin Antibody 21.5 IU/mL Critically high 0.0-0.9 [facility] Comment on above: Result Comment: Thyr oglobulin Antibody measured by [employer] Method[employer] Performed By: #### T RAFA #### [facility] [address] [place] [address] Dr. Alfredito Rendon Thyroid Peroxidase (TPO) Ab 73 IU/mL Critically high 0-34 [facility] Comment on above: Performed By: #### T RAFA #### [facility] [address] [place] [address] Dr. Alfredito Rendon CBC AUTO DIFFon 11-28-2022 BASO # 0.0 103/ul Normal 0.0-0.1 [facility] Comment on above: Performed By: #### C BC #### [facility] [address] [address] [address] Alfredito Rendon Basophils/100 WBC (Bld) 0.3 % Normal 0.2-2.0 [facility] Comment on above: Performed By: #### C BC #### [facility] [address] [place] [address] Dr. Alfredito Rendon EO # 0.2 103/ul Normal 0.0-0.7 [facility] Comment on above: Performed By: #### C BC #### [facility] [address] [place] [address] Dr. Alfredito Rendon Eosinophils/100 WBC (Bld) 2.3 % Normal 0.9-7.0 [facility] Comment on above: Performed By: #### C BC #### [facility] [address] [place] [address] Dr. Alfredito Rendon Erythrocyte distribution width (RBC) [Ratio] 13.0 % Normal 11.0-15.0 [facility] Comment on above: Performed By: #### C BC #### [facility] [address] [place] [address] Dr. Alfredito Rendon Hematocrit (Bld) [Volume fraction] 41.2 % Normal 36.0-48.0 [facility] Comment on above: Performed By: #### C BC #### [facility] [address] [place] [address] Dr. Alfredito Rendon Hemoglobin (Bld) [Mass/Vol] 12.5 g/dL Normal 12.0-16.0 [facility] Comment on above: Performed By: #### C BC #### [facility] [address] [place] [address] Dr. Alfredito Rendon IG # 0.02 10e3/ul Normal 0.00-0.03 [facility] Comment on above: Performed By: #### C BC #### [facility] [address] [place] [address] Dr. Alfredito Rendon IG % 0.2 % Normal 0.0-0.5 [facility] Comment on above: Performed By: #### C BC #### [facility] [address] [place] [address] Dr. Alfredito Rendon LYMPH # 2.7 103/ul Normal 1.2-3.8 [facility] Comment on above: Performed By: #### C BC #### [facility] [address] [place] [address] Dr. Alfredito Rendon Lymphocytes/100 WBC (Bld) 25.3 % Normal 20.5-60.0 [facility] Comment on above: Performed By: #### C BC #### [facility] [address] [place] [address] Dr. Alfredito Rendon MANUAL DIFF REQ NO Normal [facility] Comment on above: Performed By: #### C BC #### [facility] [address] [place] [address] Dr. Alfredito Rendon MCH (RBC) [Entitic mass] 29.6 pg Normal 26.7-34.0 [facility] Comment on above: Performed By: #### C BC #### [facility] [address] [place] [address] Dr. Alfredito Rendon MCHC (RBC) [Mass/Vol] 30.3 g/dL Normal 29.9-35.2 [facility] Comment on above: Performed By: #### C BC #### [facility] [address] [place] [address] Dr. Alfredito Rendon MCV (RBC) [Entitic vol] 97.6 fL Normal 81.0-99.0 [facility] Comment on above: Performed By: #### C BC #### [facility] [address] [place] [address] Dr. Alfredito Rendon MONO # 0.7 103/ul Normal 0.3-0.8 [facility] Comment on above: Performed By: #### C BC #### [facility] [address] [place] [address] Dr. Alfredito Rendon Monocytes/100 WBC (Bld) 6.4 % Normal 1.7-12.0 [facility] Comment on above: Performed By: #### C BC #### [facility] [address] [place] [address] Dr. Alfredito Rendon NEUT # 6.9 103/ul Critically high 1.4-6.5 [facility] Comment on above: Performed By: #### C BC #### [facility] [address] [place] [address] Dr. Alfredito Rendon Neutrophils/100 WBC (Bld) 65.5 % Normal 43.0-75.0 [facility] Comment on above: Performed By: #### C BC #### [facility] [address] [place] [address] Dr. Alfredito Rendon Platelet mean volume (Bld) [Entitic vol] 10.1 fL Normal 9.5-13.5 [facility] Comment on above: Performed By: #### C BC #### [facility] [address] [place] [address] Dr. Alfredito Rendon PLT 253 103/ul Normal 150-450 [facility] Comment on above: Performed By: #### C BC #### [facility] [address] [place] [address] Dr. Alfredito Rendon RBC 4.22 106/ul Normal 4.20-5.40 [facility] Comment on above: Performed By: #### C BC #### [facility] [address] [place] [address] Dr. Alfredito Rendon WBC 10.6 103/ul Normal 4.0-11.0 [facility] Comment on above: Performed By: #### C BC #### [facility] [address] [place] [address] Dr. Alfredito Rendon FREE T3on 11-28-2022 FREE T3 2.65 pg/mlL Normal 2.18-3.98 [facility] Comment on above: Performed By: #### T SH, FT3, LIPID, CMP #### [facility] [address] [place] [address] Dr. Alfredito Rendon FREE T4on 11-28-2022 Free T4 [Mass/Vol] 0.86 ng/dL Normal 0.76-1.46 [facility] Comment on above: Performed By: #### F T4 #### [facility] [address] [place] [address] Dr. Alfredito Rendon LIPID PROFILEon 11-28-2022 CHOL-HDL RATIO NORM SEE BELOW Normal [facility] Comment on above: Result Comment: 3.3 - 4.4 LOW RISK 4.4 - 7.1 AVERAGE RISK 7.1 - 11.0 MODERATE RISK >11.0 HIGH RISK Performed By: #### T SH, FT3, LIPID, CMP #### [facility] [address] [place] [address] Dr. Alfredito Rendon Cholesterol [Mass/Vol] 172 mg/dL Normal <=200 [facility] Comment on above: Performed By: #### T SH, FT3, LIPID, CMP #### [facility] [address] [place] [address] Dr. Alfredito Rendon Cholesterol in HDL [Mass/Vol] 49 mg/dL Normal 40-60 [facility] Comment on above: Performed By: #### T SH, FT3, LIPID, CMP #### [facility] [address] [place] [address] Dr. Alfredito Rendon Cholesterol in LDL [Mass/Vol] 96.2 mg/dL Normal [facility] Comment on above: Performed By: #### T SH, FT3, LIPID, CMP #### [facility] [address] [place] [address] Dr. Alfredito Rendon Cholesterol.total/Ch olesterol in HDL [Mass ratio] 3.5 {ratio} Normal [facility] Comment on above: Performed By: #### T SH, FT3, LIPID, CMP #### [facility] [address] [place] [address] Dr. Alfredito Rendon HDL NORMAL > or = 60 mg/dl - LOW CARDIOVASCULAR RISK <40 mg/dl - HIGH CARDIOVASCULAR RISK Normal [facility] Comment on above: Performed By: #### T SH, FT3, LIPID, CMP #### [facility] [address] [place] [address] Dr. Alfredito Rendon LDL CALC NORMAL SEE BELOW Normal [facility] Comment on above: Result Comment: <100 mg/dl OPTIMAL 100 - 129 mg/dl NEAR OR ABOVE OPTIMAL 130 - 159 mg/dl BORDERLINE HIGH 160 - 189 mg/dl HIGH >190 mg/dl VERY HIGH Performed By: #### T SH, FT3, LIPID, CMP #### [facility] [address] [address] [address] Alfredito Rendon Triglyceride [Mass/Vol] 134 mg/dL Normal <=150 [facility] Comment on above: Performed By: #### T SH, FT3, LIPID, CMP #### [facility] [address] [address] [address] Alfredito Rendon VLDL CALC 26.8 mg/dL Normal [facility] Comment on above: Performed By: #### T SH, FT3, LIPID, CMP #### [facility] [address] [place] [address] Dr. Alfredito Rendon PROF 14(COMP METB)on 023 Albumin [Mass/Vol] 3.3 g/dL Critically low 3.4-5.0 [facility] Comment on above: Performed By: #### T SH, FT3, LIPID, CMP #### [facility] [address] [place] [address] Dr. Alfredito Rendon Albumin/Globulin [Mass ratio] 0.9 {ratio} Normal [facility] Comment on above: Performed By: #### T SH, FT3, LIPID, CMP #### [facility] [address] [place] [address] Dr. Alfredito Rendon ALP [Catalytic activity/Vol] 63 U/L Normal 46-116 [facility] Comment on above: Performed By: #### T SH, FT3, LIPID, CMP #### [facility] [address] [place] [address] Dr. Alfredito Rendon ALT [Catalytic activity/Vol] 27 U/L Normal 14-59 [facility] Comment on above: Performed By: #### T SH, FT3, LIPID, CMP #### [facility] [address] [place] [address] Dr. Alfredito Rendon Anion gap [Moles/Vol] 14.1 mmol/L Normal [facility] Comment on above: Performed By: #### T SH, FT3, LIPID, CMP #### [facility] [address] [address] [address] Alfredito Rendon AST [Catalytic activity/Vol] 20 U/L Normal 15-37 [facility] Comment on above: Performed By: #### T SH, FT3, LIPID, CMP #### [facility] [address] [address] [address] Alfredito Rendon Bilirubin [Mass/Vol] 0.3 mg/dL Normal 0.2-1.0 [facility] Comment on above: Performed By: #### T SH, FT3, LIPID, CMP #### [facility] [address] [place] [address] Dr. Alfredito Rendon Calcium [Mass/Vol] 9.2 mg/dL Normal 8.5-10.1 [facility] Comment on above: Performed By: #### T SH, FT3, LIPID, CMP #### [facility] [address] [place] [address] Dr. Alfredito Rendon Chloride [Moles/Vol] 103 mmol/L Normal 98-107 [facility] Comment on above: Performed By: #### T SH, FT3, LIPID, CMP #### [facility] [address] [place] [address] Dr. Alfredito Rendon CO2 [Moles/Vol] 24.1 mmol/L Normal 21.0-32.0 [facility] Comment on above: Performed By: #### T SH, FT3, LIPID, CMP #### [facility] [address] [place] [address] Dr. Alfredito Rendon Creatinine [Mass/Vol] 0.71 mg/dL Normal 0.55-1.02 [facility] Comment on above: Performed By: #### T SH, FT3, LIPID, CMP #### [facility] [address] [place] [address] Dr. Alfredito Rendon EGFR-AF TURKMEN >60 Normal >=60 [facility] Comment on above: Performed By: #### T SH, FT3, LIPID, CMP #### [facility] [address] [place] [address] Dr. Alfredito Rendon EGFR-NON AF TURKMEN >60 Normal >=60 [facility] Comment on above: Performed By: #### T SH, FT3, LIPID, CMP #### [facility] [address] [place] [address] Dr. Alfredito Rendon Globulin (S) [Mass/Vol] 3.8 g/dL Normal [facility] Comment on above: Performed By: #### T SH, FT3, LIPID, CMP #### [facility] [address] [place] [address] Dr. Alfredito Rendon Glucose [Mass/Vol] 106 mg/dL Normal 74-106 [facility] Comment on above: Performed By: #### T SH, FT3, LIPID, CMP #### [facility] [address] [place] [address] Dr. Alfredito Rendon Potassium [Moles/Vol] 4.2 mmol/L Normal 3.5-5.1 [facility] Comment on above: Performed By: #### T SH, FT3, LIPID, CMP #### [facility] [address] [place] [address] Dr. Alfredito Rendon Protein [Mass/Vol] 7.1 g/dL Normal 6.4-8.2 [facility] Comment on above: Performed By: #### T SH, FT3, LIPID, CMP #### [facility] [address] [place] [address] Dr. Alfredito Rendon Sodium [Moles/Vol] 137 mmol/L Normal 136-145 [facility] Comment on above: Performed By: #### T SH, FT3, LIPID, CMP #### [facility] [address] [place] [address] Dr. Alfredito Rendon Urea nitrogen [Mass/Vol] 14.0 mg/dL Normal 7.0-18.0 [facility] Comment on above: Performed By: #### T SH, FT3, LIPID, CMP #### [facility] [address] [place] [address] Dr. Alfredito Rendon Urea nitrogen/Creatinine [Mass ratio] 19.7 mg/mg Normal [facility] Comment on above: Performed By: #### T SH, FT3, LIPID, CMP #### [facility] [address] [place], [place] [address] Dr. Alfredito Rendon TSHon 11-28-2022 TSH 5.010 uIU/mL Critically high 0.358-3.740 [facility] Comment on above: Performed By: #### T SH, FT3, LIPID, CMP #### [facility] [address] [id number] Alfredito Rendno Thyroid Stim. Horm.on 2020 TSH Qn 10.79 m[IU]/L High 0.30-5.00 [facility] Comment on above: Performed By: #### T SH, FT4 #### [employer] [address] [place] [address] Station [employer]: Titus Pagan MD Thyroxine, Freeon 08-22-2021 Thyroxine, Free 0.89 ng/dL Low 0.93-1.70 [facility] Comment on above: Performed By: #### T SH, FT4 #### [facility] [address] [place], [place] [id number] Station [employer]: Titus Pagan MD Basic Metab, Fastingon 03-15 (cont.) Normal [facility] Comment on above: Result Comment: Aver age GFR for 30-39 years old: 107 mL/min/1.73sq m Chronic Kidney Disease: <60 mL/min/1.73sq m Kidney failure: <15 mL/min/1.73sq m eGFR calculated using average adult body mass. Additional eGFR calculator available at: http://www.RelTel.com/multiple_crcl_2012.htm Performed By: #### B MPF, FT4, TSH #### [facility] [address] [place] [address] Station [employer]: Titus Pagan MD Anion gap [Moles/Vol] 10 mmol/L Normal 9-17 [facility] Comment on above: Performed By: #### B MPF, FT4, TSH #### [address] [address] Station [employer]: Titus Paagn MD Calcium [Mass/Vol] 9.4 mg/dL Normal 8.6-10.4 [facility] Comment on above: Performed By: #### B MPF, FT4, TSH #### [facility] [address] [place] [address] Station [employer]: Titus Pagan MD Chloride [Moles/Vol] 102 mmol/L Normal 98-107 [facility] Comment on above: Performed By: #### B MPF, FT4, TSH #### [facility] [address] [place] [address] Station [employer]: Titus Pagan MD CO2 [Moles/Vol] 25 mmol/L Normal 20-31 [facility] Comment on above: Performed By: #### B MPF, FT4, TSH #### [facility] [address] [place] [address] [employer]: Titus Pagan MD Creatinine [Mass/Vol] 0.62 mg/dL Normal 0.50-0.90 [facility] Comment on above: Performed By: #### B MPF, FT4, TSH #### [facility] [employer] [address] [place] [address] [employer]: Titus Pagan MD GFR, Amer >60 Normal >60 [facility] Comment on above: Performed By: #### B MPF, FT4, TSH #### [facility] [address] [place] [address] [employer]: Titus Pagan MD GFR,non Amer >60 Normal >60 [facility] Comment on above: Performed By: #### B MPF, FT4, TSH #### [facility] [address] [place] [address] [employer]: Titus Pagan MD Glucose [Mass/Vol] 93 mg/dL Normal 70-99 [facility] Comment on above: Performed By: #### B MPF, FT4, TSH #### [facility] [employer] [address] [place] [address] [employer]: Titus Pagan MD Potassium [Moles/Vol] 4.6 mmol/L Normal 3.7-5.3 [facility] Comment on above: Performed By: #### B MPF, FT4, TSH #### [facility] [employer] [address] [place] [address] [employer]: Titus Pagan MD Sodium [Moles/Vol] 137 mmol/L Normal 135-144 [facility] Comment on above: Performed By: #### B MPF, FT4, TSH #### [address] [address] Station [employer]: Tiuts Pagan MD Urea nitrogen [Mass/Vol] 13 mg/dL Normal 6-20 [facility] Comment on above: Performed By: #### B MPF, FT4, TSH #### [address] [address] Station [employer] Porter: Titus Pagan MD BUN/CRE Ratio NOT REPORTED Normal 9-20 [facility] Comment on above: Performed By: #### B MPF, FT4, TSH #### [facility] [employer] [address] [place] [address] [employer]: Titus Pagan MD Staging: NOT REPORTED Normal [facility] Comment on above: Performed By: #### B MPF, FT4, TSH #### [facility] [employer] [address] [place] [address] [employer]: Titus Pagan MD Thyroid Stim. Horm.on 2020 TSH Qn 13.08 m[IU]/L High 0.30-5.00 [facility] Comment on above: Performed By: #### B MPF, FT4, TSH #### [facility] [address] [place], [place] [id number] Station [employer] Porter: Titus Pagan MD Thyroxine, Freeon 03-15-2021 Thyroxine, Free 0.90 ng/dL Low 0.93-1.70 [facility] Comment on above: Performed By: #### B MPF, FT4, TSH #### [facility] [address], [place] [id number] [employer]: Titus Pagan MD Vital Signs Date Time Vital Sign Value Performing Clinician Monica agudelo 10-13-2024 12:30-0500 Body mass index (BMI) [Ratio] 41.27 kg/m2 Maritza Leland DO Work Phone: [facility] 10-13-2024 12:30-0500 Body weight 105.69 kg Maritza Leland DO Work Phone: [facility] 10-13-2024 12:30-0500 Diastolic blood pressure 78 mm[Hg] Maritza Leland DO Work Phone: [facility] 10-13-2024 12:30-0500 Systolic blood pressure 124 mm[Hg] Maritza Leland DO Work Phone: [facility] 10-06-2024 13:11-0500 Body mass index (BMI) [Ratio] 41.24 kg/m2 Sparkle TRIMBLE Work Phone: [facility] 10-06-2024 13:11-0500 Body weight 105.6 kg Sparkle TRIMBLE Work Phone: [facility] 10-06-2024 13:11-0500 Diastolic blood pressure 76 mm[Hg] Sparkle TRIMBLE Work Phone: [facility] 10-06-2024 13:11-0500 Systolic blood pressure 124 mm[Hg] Sparkle TRIMBLE Work Phone: [facility] 09-14-2024 11:45-0500 Body mass index (BMI) [Ratio] 40.21 kg/m2 Sparkle Yuki PA Work Phone: [facility] 09-14-2024 11:45-0500 Body weight 102.97 kg Sparkle Yuki PA Work Phone: [facility] 09-14-2024 11:45-0500 Diastolic blood pressure 78 mm[Hg] Sparkle [place] PA Work Phone: [facility] 09-14-2024 11:45-0500 Systolic blood pressure 124 mm[Hg] Sparkle [place] PA Work Phone: [facility] 08-10-2024 09:13-0400 Body mass index (BMI) [Ratio] 40.53 kg/m2 Sparkle Yuki PA Work Phone: [facility] 08-10-2024 09:13-0400 Body weight 103.78 kg Sparkle Yuki PA Work Phone: [facility] 08-10-2024 09:13-0400 Diastolic blood pressure 70 mm[Hg] Sparkle Yuki PA Work Phone: [facility] 08-10-2024 09:13-0400 Systolic blood pressure 110 mm[Hg] Sparkle Yuki PA Work Phone: [facility] Healthcare Encounters Encounter Date Encounter Type Care Provider Facility Start: 10-13-2024 End: 10-13-2024 Bamboo flowsheet Maritza Leland DO Work Phone: [facility] Start: 10-13-2024 End: 10-13-2024 Bamboo flowsheet Maritza Leland DO Work Phone: [facility] Start: 10-13-2024 End: 10-13-2024 ambulatory MARITZA LELAND Not Available Start: 10-13-2024 End: 10-13-2024 Office outpatient visit 15 minutes Maritza Leland DO Work Phone: [facility] Comment on above: Third trimester [...] Nausea/vomiting in Start: 09-23-2024 End: 09-23-2024 ambulatory [facility] Start: 09-14-2024 End: 09-14-2024 Bamboo flowsheet Sparkle TRIMBLE Work Phone: [facility] Start: 09-14-2024 End: 09-14-2024 Bamboo flowsheet Sparkle Ann PA Work Phone: [facility] Start: 09-14-2024 End: 09-14-2024 Office outpatient visit 15 minutes Sparkle TRIMBLE Work Phone: [facility] Comment on above: Third trimester preg marlni; 34 weeks gestation of ; Thyroid disease (CMS/HCC) Start: 09-14-2024 End: 09-14-2024 ambulatory SPARKLE ANN Not Available Start: 09-13-2024 End: 09-13-2024 Clinisync Result Encounter Sparkle TRIMBLE Work Phone: [facility] External Department Unsolicited Start: 09-13-2024 End: 09-13-2024 Clinisync Result Encounter Sparkle TRIMBLE Work Phone: [facility] External Department Unsolicited Start: 08-10-2024 End: [...] 06-30-2024 End: 06-30-2024 ambulatory MARITZA R LELAND [facility] Start: 06-22-2024 End: 06-22-2024 ambulatory SPARKLE ANN Not Available Start: 05-19-2024 End: 05-19-2024 ambulatory MARITZA LELAND Not Available Start: 04-21-2024 End: 04-21-2024 ambulatory MARITZA LELAND Not Available Start: 03-18-2024 End: 03-18-2024 ambulatory MERRY AICHHOLZ Not Available Start: 12-31-2023 End: 12-31-2023 ambulatory MERRY AICHHOLZ Not Available Start: 02-19-2023 End: 02-20-2023 ambulatory [employer] MERRY AICHHOLZ Facility:[facility]1 Start: 12-11-2022 End: 12-12-2022 ambulatory [employer] MERRY AICHHOLZ Facility:[facility] Start: 11-28-2022 End: 11-29-2022 ambulatory [employer] MERRY AICHHOLZ Facility:[facility] Start: 03-15-2021 End: 03-16-2021 ambulatory NITA BARROS [facility] Procedures Date Procedure Procedure Detail Performing [...] malign ant neoplasm of cervix [facility] Start: 10-25-2024 End: 10-25-2024 Patient encounter procedure 10/25/2024 9:40 AM EST Office Visit [facility] [address] [place] [address] Sparkle Ann PA [address] [place] [address] [facility] Start: 10-13-2024 End: 10-13-2025 [...] Maritza Ha, DO [address] [place], [place] [id number] [facility] Start: 09-29-2024 End: 09-29-2025 Strep B DNA probe, amplification Strep B DNA probe, amplification Lab Routine Third trimester Expected: 09/29/2024 (Approximate), Expires: 09/29/2025 [facility] Work Phone: Comment on above: Expected: 09/29/2024 (Approximate), Expires: 09/29/2025 Start: 09-28-2024 End: 09-28-2024 Patient encounter procedure 09/28/2024 10:00 AM EST Routine [facility] [address] [place] [id number] Maritza Ha, DO [address] [place] [address] [facility] Start: 08-24-2024 End: 08-24-2024 Patient encounter procedure 08/24/2024 9:20 AM EDT Routine [facility] [address] [place] [id number] Maritza Ha, DO [address] [place], [place] [id number] [facility] Start: 08-11-2024 End: 08-11-2024 Professional / ancillary services management 08/11/2024 9:30 AM EDT Ancillary Procedure [facility] [address] [address] [facility] Start: 08-10-2024 End: 08-10-2025 US for US OB SCAN FOR GROWTH Imaging Routine Nava's disease (CMS/HCC) Hypothyroidism, unspecified type (CMS/HCC) Expected: 08/10/2024 (Approximate), Expires: 08/10/2025 [facility] Work Phone: Comment on above: Expected: 08/10/2024 (Approximate), Expires: 08/10/2025 Start: 08-10-2024 End: 08-10-2024 Patient encounter procedure 08/10/2024 8:50 AM EDT Routine [facility] [address] [phone] Sparkle Ann PA [address] [place] [address] Arrived [facility] Comment on above: Arrived Start: 2019 Screening for malign ant neoplasm of cervix [facility] Start: 2010 Screening for malign ant neoplasm of cervix Pap Smear [facility] Thyrotropin [Units/volume] in Serum or Plasma TSH Lab Routine Nava's disease (CMS/HCC) Hypothyroidism, unspecified type (CMS/HCC) Ordered: 08/10/2024 [facility] Comment on above: Ordered: 08/10/2024 Thyroxine (T4) free [Mass/volume] in Serum or Plasma T4, free Lab Routine Nava's disease (CMS/HCC) Hypothyroidism, unspecified type (CMS/HCC) Ordered: 08/10/2024 [facility] Comment on above: Ordered: 08/10/2024 Immunizations Immunization Date Immunization Notes Care Provider Fa [facility] 05-03-2018 tetanus toxoid, redu bravo diphtheria toxoid, and acellular pertussis vaccine, adsorbed Sparkle TRIMBLE Work Phone: [facility] 06-16-2008 human papilloma viru s vaccine, quadrivalent Sparkle TRIMBLE Work Phone: [facility] 03-08-2008 human papilloma viru s vaccine, quadrivalent Sparkle TRIMBLE Work Phone: [facility] Healthcare Payers Date Payer Category Payer Medicaid [id number] 2022 Medicaid [id number] 2019 Unknown [id number] 1989 Unknown [id number] 2.16.8 [id number] 1989 Unknown [id number] 2.16.84 [id number] 1989 Unknown [id number] 2.16.84 [id number] 1989 Unknown [id number] 2.16.84 [id number] 1989 Unknown [id number] 2.16.8 40.1.254285.3.579.2.1286 1989 Unknown [id number] 2.16.8 40.1.747095.3.579.2.1286 1989 Unknown [id number] 2.16.8 40.1.327940.3.579.2.1286 1989 Unknown [id number] 2.16.84 0.1.585199.3.579.2.1259 1989 Unknown [id number] 2.16.84 0.1.549115.3.579.2.1259 1989 Unknown [id number] 2.16.84 0.1.230285.3.579.2.1259 1989 Unknown [id number] 2.16.84 0.1.485001.3.579.2.1259 1989 Unknown [id number] 2.16.84 0.1.080832.3.579.2.1259 1989 Unknown [id number] 2.16.84 0.1.331870.3.579.2.1259 1989 Unknown [id number] 2.16.84 0.1.722327.3.579.2.1259 1989 Unknown [id number] 2.16.84 0.1.130299.3.579.2.1259 1989 Unknown [id number] 2.16.84 [id number] 1959 Unknown [id number] Social History Date Type Detail Facility Start: 12-31-2023 Tobacco smoking stat [facility] Ex-smoker [facility] End: 11-03-2021 [...] Sex assigned at Not on file [facility] Clinical Notes 08-10-2024 to 10-13-2024 Deb Dorado LPN - 10/13/2024 11:20 AM ATILIO Roca - 10/06/2024 1:00 PM Naga Dorado LPN - 09/28/2024 10:00 AM ATILIO Roca - 09/14/2024 11:30 AM ATILIO Roca - 08/10/2024 8:50 AM EDT Note Date & Type Note Facility 10-13-2024 History of Presen t illness Narrative Reason for Appointment: Patient ID: Giuliana aVzquez is a 34 y.o. female who presents [...] Noted Bacterial vaginosis 10/07/2023 Anxiety and depression ([facility]) 12/20/2020 Attention deficit hyperactivity disorder (ADHD), combined type ([facility]) 10/15/2019 Encounter for long-term (current) use of high-risk medication 12/20/2020 Sinus tachycardia 12/20/2020 Uncomplicated opioid dependence ([facility]) 10/15/2019 Hypertension ([facility]) 12/31/2023 Vitamin D deficiency 12/31/2023 Thyroid nodule ([facility]) 12/31/2023 Hypothyroidism (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) 12/31/2023 Obesity (BMI 30-39.9) 12/31/2023 Cervical cancer screening 12/31/2023 Nausea 01/07/2024 History of opioid abuse (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 Exam conducted with a manager cleaning present. Vitals: Estimated body mass index is [...] Maritza Ha DO documented in this encounter [facility] 10-06-2024 History of Presen t illness Narrative [...] Noted Bacterial vaginosis 10/07/2023 Anxiety and depression ([facility]) 12/20/2020 Attention deficit hyperactivity disorder (ADHD), combined type ([facility]) 10/15/2019 Encounter for long-term (current) use of high-risk medication 12/20/2020 Sinus tachycardia 12/20/2020 Uncomplicated opioid dependence ([facility]) 10/15/2019 Hypertension ([facility]) 12/31/2023 Vitamin D deficiency 12/31/2023 Thyroid nodule ([facility]) 12/31/2023 Hypothyroidism (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) 12/31/2023 Obesity (BMI 30-39.9) 12/31/2023 Cervical cancer screening 12/31/2023 Nausea 01/07/2024 History of opioid abuse ([facility]) 2018 Resolved Ambulatory Problems Diagnosis Date Noted Obesity (BMI 30.0-34.9) 06/27/2015 History of ectopic 12/31/2023 BMI 28.0-28.9,adult 12/31/2023 No Additional Past Medical History HISTORY PAST MEDICAL HISTORY SOCIAL HISTORY Past Medical History: Diagnosis Date Anxiety and depression (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) 2018 using subtex Hypertension ([facility]) 12/31/2023 Hypothyroidism ([facility]) 12/31/2023 Opioid abuse ([facility]) 12/31/2023 Thyroid nodule ([facility]) 12/31/2023 Tobacco user 12/31/2023 Visual impairment 12/31/2023 [...] of: ATILIO Soliz documented in this encounter [facility] 09-28-2024 History of Presen t [...] Noted Bacterial vaginosis 10/07/2023 Anxiety and depression ([facility]) 12/20/2020 Attention deficit hyperactivity disorder (ADHD), combined type ([facility]) 10/15/2019 Encounter for long-term (current) use of high-risk medication 12/20/2020 Sinus tachycardia 12/20/2020 Uncomplicated opioid dependence ([facility]) 10/15/2019 Hypertension ([facility]) 12/31/2023 Vitamin D deficiency 12/31/2023 Thyroid nodule ([facility]) 12/31/2023 Hypothyroidism (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) 12/31/2023 Obesity (BMI 30-39.9) 12/31/2023 Cervical cancer screening 12/31/2023 Nausea 01/07/2024 History of opioid abuse (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) 2018 using subtex Hypertension ([facility]) 12/31/2023 Hypothyroidism ([facility]) 12/31/2023 Opioid abuse ([facility]) 12/31/2023 Thyroid nodule ([facility]) 12/31/2023 Tobacco user 12/31/2023 Visual impairment [...] reviewed, and patient is to proceed [facility] on her scheduled day. [...] Maritza Ha DO documented in this encounter [facility] 09-14-2024 History of Presen t [...] Noted Bacterial vaginosis 10/07/2023 Anxiety and depression ([facility]) 12/20/2020 Attention deficit hyperactivity disorder (ADHD), combined type ([facility]) 10/15/2019 Encounter for long-term (current) use of high-risk medication 12/20/2020 Sinus tachycardia 12/20/2020 Uncomplicated opioid dependence (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 Visual impairment 12/31/2023 Tobacco user 12/31/2023 Opioid abuse ([facility]) 12/31/2023 Obesity (BMI 30-39.9) 12/31/2023 Cervical cancer screening 12/31/2023 Nausea 01/07/2024 History of opioid abuse ([facility]) 2018 Resolved Ambulatory Problems Diagnosis Date Noted Obesity (BMI 30.0-34.9) 06/27/2015 History of ectopic 12/31/2023 BMI 28.0-28.9,adult 12/31/2023 No Additional Past Medical History HISTORY PAST MEDICAL HISTORY SOCIAL HISTORY Past Medical History: Diagnosis Date Anxiety and depression ([facility]) Bacterial vaginosis 10/07/2023 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 History of ectopic 12/31/2023 History of opioid abuse ([facility]) 2018 using subtex Hypertension ([facility]) 12/31/2023 Hypothyroidism ([facility]) 12/31/2023 Opioid abuse ([facility]) 12/31/2023 Thyroid nodule ([facility]) 12/31/2023 Tobacco user 12/31/2023 Visual impairment 12/31/2023 [...] of: ATILIO Soliz documented in this encounter [facility] 09-14-2024 Miscellaneous Notes Addended by: RENETTA LEAL on: 09/14/2024 03:28 PM Modules accepted: Orders documented in this encounter [facility] 09-14-2024 Note Addended by: RENETTA YORK on: 09/14/2024 03:28 PM Modules accepted: Orders [facility] 09-14-2024 Note Addended by: RENETTA YORK on: 09/14/2024 03:28 PM Modules accepted: Orders [facility] 08-10-2024 History of Presen t illness [...] Noted Bacterial vaginosis 10/07/2023 Anxiety and depression ([facility]) 12/20/2020 Attention deficit hyperactivity disorder (ADHD), combined type ([facility]) 10/15/2019 Encounter for long-term (current) use of high-risk medication 12/20/2020 Sinus tachycardia 12/20/2020 Uncomplicated opioid dependence ([facility]) 10/15/2019 Hypertension ([facility]) 12/31/2023 Vitamin D deficiency 12/31/2023 Thyroid nodule ([facility]) 12/31/2023 Hypothyroidism (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) 12/31/2023 Obesity (BMI 30-39.9) 12/31/2023 Cervical cancer screening 12/31/2023 Nausea 01/07/2024 History of opioid abuse ([facility]) 2018 Resolved Ambulatory Problems Diagnosis Date Noted Obesity (BMI 30.0-34.9) 06/27/2015 History of ectopic 12/31/2023 BMI 28.0-28.9,adult 12/31/2023 No Additional Past Medical History HISTORY PAST MEDICAL HISTORY SOCIAL HISTORY Past Medical History: Diagnosis Date Anxiety and depression (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) 2018 using subtex Hypertension ([facility]) 12/31/2023 Hypothyroidism ([facility]) 12/31/2023 Opioid abuse ([facility]) 12/31/2023 Thyroid nodule ([facility]) 12/31/2023 Tobacco user 12/31/2023 Visual impairment 12/31/2023 [...] note reviewed. Exam conducted with a manager cleaning present. Vitals: Estimated body mass index is [...] section and content) DATE CREATED AUTHOR 03/17/2021 [facility] DATE CREATED AUTHOR AUTHOR'S ORGANIZ ATION 08/23/2021 [facility] DATE CREATED AUTHOR AUTHOR'S ORGANIZ ATION 02/23/2023 [facility] DATE CREATED AUTHOR AUTHOR'S ORGANIZ ATION 07/02/2024 [facility] DATE CREATED AUTHOR AUTHOR'S ORGANIZ ATION 09/26/2024 [facility] DATE CREATED AUTHOR AUTHOR'S ORGANIZ ATION 10/16/2024 [facility] EPIC Care Teams (unrecognized sec tion and content) Car Deliverer Relationship Specialty Start Date End Date Billy Lopez MD [address] [place] [phone] PCP - General Family Medicine 11/21/23 Merry Arceo NP [address] [place] [phone] Nurse Practitioner Family Medicine 11/03/22 Car Deliverer Relationship Specialty Start Date End Date Billy Lopez MD [address] [place] [phone] PCP - General Family Medicine 11/21/23 Merry Arceo NP [address] [place] [phone] Nurse Practitioner Family Medicine 11/03/22 Car Deliverer Relationship Specialty Start Date End Date Billy Lopez MD [address] [place] [phone] PCP - General Family Medicine 11/21/23 Merry Arceo NP [address] [place] [phone] Nurse Practitioner Family Medicine 11/03/22 Car Deliverer Relationship Specialty Start Date End Date Billy Lopez MD [address] [place] [phone] PCP - General Family Medicine 11/21/23 Merry Arceo NP [address] [place] [phone] Nurse Practitioner Family Medicine 11/03/22 Car Deliverer Relationship Specialty Start Date End Date Billy Lopez MD [address] [place] [phone] PCP - General Family Medicine 11/21/23 Merry Arceo NP [address] [place] [phone] Nurse Practitioner Family Medicine 11/03/22 Car Deliverer Relationship Specialty Start Date End Date Billy Lopez MD [address] [place] [phone] PCP - General Family Medicine 11/21/23 Merry Arceo NP [address] [place] [phone] Nurse Practitioner Family Medicine 11/03/22 Car Deliverer Relationship Specialty Start Date End Date Billy Lopez MD [address] [place] [phone] PCP - General Family Medicine 11/21/23 Merry Arceo NP [address] [place] [phone] Nurse Practitioner Family Medicine 11/03/22 Car Deliverer Relationship Specialty Start Date End Date Billy Lopez MD [address] [place] [phone] PCP - General Family Medicine 11/21/23 Merry Arceo NP [address] [place] [phone] Nurse Practitioner Family Medicine 11/03/22 Car Deliverer Relationship Specialty Start Date End Date Billy Lopez MD [address] [place] [phone] PCP - General Family Medicine 11/21/23 Merry Arceo NP [address] [place] [phone] Nurse Practitioner Family Medicine 11/03/22 Reason for [...] BE BASED ON THE PRIMARY CLINICAL RECORDS. [facility] [employer] [facility]. provides no warranty or guarantee of the accuracy or completeness of information in this document.
[2024-10-19] MEDS: 0.9 % SODIUM CHLORIDE 1,000 ML 1000 ML IV ×2 (07:15→08:15)
[2024-10-19 07:38] LABS: Basophils Percent Auto 0.1 % (0.2-2.0); Eosinophils Absolute Auto 0.1 10^3/uL (0.0-0.7); Eosinophils Percent Auto 0.9 % (0.9-7.0); Hematocrit 34.9 % (36.0-48.0); Hemoglobin 11.9 g/dL (12.0-16.0); Immature Granulocytes Abs Auto 0.02 10^3/uL (0.00-0.03); Immature Granulocytes Pct Auto 0.2 % (0.0-0.5); Lymphocytes Absolute Auto 2.3 10^3/uL (1.2-3.8); Lymphocytes Percent Auto 24.1 % (20.5-60.0); Mean Corpuscular HGB Conc 34.1 g/dL (29.9-35.2); Mean Corpuscular Hemoglobin 30.8 pg (26.7-34.0); Mean Corpuscular Volume 90.4 fL (81.0-99.0); Mean Platelet Volume 10.9 fL (9.5-13.5); Monocytes Absolute Auto 0.6 10^3/uL (0.3-0.8); Monocytes Percent Auto 6.5 % (1.7-12.0); Neutrophils Absolute Auto 6.4 10^3/uL (1.4-6.5); Neutrophils Percent Auto 68.2 % (43.0-75.0); Platelet Count 223 10^3/uL (150-450); Red Blood Count 3.86 10^6/uL (4.20-5.40); Red Cell Distribution Width 13.8 % (11.0-15.0); White Blood Count 9.4 10^3/uL (4.0-11.0)
[2024-10-19 07:54] LABS: Amphetamine Screen Urine NEGATIVE (NEGATIVE); Barbiturates Screen Urine NEGATIVE (NEGATIVE); Benzodiazepines Screen Urine NEGATIVE (NEGATIVE); Buprenorphine Screen Urine POSITIVE (NEGATIVE); Cannabinoid Screen Urine NEGATIVE (NEGATIVE); Cocaine Screen Urine NEGATIVE (NEGATIVE); Methadone Screen Urine NEGATIVE (NEGATIVE); Methamphetamines Screen Urine NEGATIVE (NEGATIVE); Opiate Screen Urine NEGATIVE (NEGATIVE); Oxycodone Screen Urine NEGATIVE (NEGATIVE); Phencyclidine Screen Urine NEGATIVE (NEGATIVE); Tricyclic Antidepressant Urine NEGATIVE (NEGATIVE)
[2024-10-19] MEDS: FAMOTIDINE/PF 20 MG/2 ML VIAL IV (08:47)
[2024-10-19] MEDS: CITRIC ACID/SODIUM CITRATE 30 ML SOLUTION ORACIT SHOHL'S SOLN PO (08:47)
[2024-10-19] MEDS: CEFAZOLIN SODIUM/DEXTROSE,ISO 2 GM/50 ML PIGGYBACK IV ×2 (08:47→15:35)
[2024-10-19] MEDS: OXYTOCIN/0.9 % SODIUM CHLORIDE 20 UNITS/1,000 ML PLAST..BAG 125 UNIT IV (09:50)
--- NOTE | 2024-10-19 10:18 | PM.ONB ---
Brief Operative Note Date of procedure: 10/19/24 Pre-op diagnosis general: iup at 39wks, ho substance abuse, previous c/s, desires permanent sterilization Post-op diagnosis: same as pre-op Procedure: NAME OF PROCEDURE: [ section with bilateral salpingectomy ] PROCEDURE: Patient was taken back to the Operating Room where she was given a spinal anesthesia with Duramorph without difficulty. She was prepped and draped in the normal sterile fashion. A Pfannenstiel skin incision was then made 2?cm above the symphysis pubis and carried down to underlying rectus fascia using a Bovie. The fascia was incised in the midline and extended laterally using Tracy scissors. Two Genaro clamps were placed on the superior aspect of the fascia and dissected off the underlying rectus muscles. The same was performed on the inferior aspect as well. The muscles were then in the midline. Peritoneum was identified and entered bluntly. The peritoneum was then extended superiorly and inferiorly with good visualization of the bladder. The bladder blade was inserted. Vesicouterine peritoneum was identified, tented up, and entered with Metzenbaum scissors. A bladder flap was then created digitally. The bladder blade was reinserted. A low transverse incision was made on the patient's uterus and extended laterally digitally. The infant was then delivered atraumatically after the bladder blade was removed in the cephalic position. The cord was clamped and cut. Cord blood was obtained. The infant was handed off to awaiting team. The patient's placenta was spontaneously delivered. The uterus was then exteriorized. The uterus was cleared of all clots and debris. The bladder blade was reinserted. The patient's uterine incision was closed using #0 Vicryl in a running lock fashion. Excellent hemostasis was assured.? The rt tube was identified and grasped with babock, the ligasure was used to transect and ligate the tube in its entirity, this was done on the contralateral side as well. The uterus was then returned to the patient's abdomen. The patient's abdomen was copiously irrigated using warm saline. Peritoneal gutters were cleared of all clots and debris. Again excellent hemostasis was assured. The patient's fascia was closed using #0 Vicryl in a running fashion. The patient's skin was closed using 4-0 Vicryl subcuticularly. The patient tolerated the procedure well. Sponge, lap, and needle counts were correct x2. The patient was taken to the Recovery Room in stable condition. Anesthesia: spinal Surgeon: Mushtaq Ha Vibration Technician: Marj Kang Estimated blood loss (mL): 600 Pathology: other (placenta and tubes) Condition: stable Disposition: floor
--- NOTE | 2024-10-19 10:20 | P.OBPRC_ITS ---
Procedure Senior Director Finance: Marj Kang Estimated blood loss (mL): 600 Disposition: floor Anesthesia type: Spinal
--- NOTE | 2024-10-19 14:42 | SWNOTE1 ---
ROCHELLE received a call that consult being placed. ROCHELLE notified that pt has been clean for 5 years, on subutex 8mg. SW to see pt today or tomorrow morning to complete assessment.
[2024-10-19] MEDS: KETOROLAC TROMETHAMINE 30 MG/ML VIAL IVP ×2 (15:37→21:08)
[2024-10-19] MEDS: ACETAMINOPHEN 500 MG TABLET 1000 MG PO (18:19)
[2024-10-19] MEDS: OXYCODONE HCL/ACETAMINOPHEN 5MG/325MG 1 TAB PO (19:57)
[2024-10-19] MEDS: ENOXAPARIN SODIUM 40 MG/0.4 ML SYRINGE SUBQ (19:57)
[2024-10-20] MEDS: ACETAMINOPHEN 500 MG TABLET 1000 MG PO ×2 (02:39→08:58)
[2024-10-20] MEDS: SIMETHICONE 80 MG TAB.CHEW PO (03:02)
[2024-10-20] MEDS: KETOROLAC TROMETHAMINE 30 MG/ML VIAL IVP ×4 (03:02→21:02)
[2024-10-20 03:07] VITALS: BP 116/73; PULSE 72; TEMP 36.8
[2024-10-20 06:39] LABS: Basophils Percent Auto 0.1 % (0.2-2.0); Eosinophils Absolute Auto 0.1 10^3/uL (0.0-0.7); Eosinophils Percent Auto 0.6 % (0.9-7.0); Hematocrit 25.7 % (36.0-48.0); Hemoglobin 8.5 g/dL (12.0-16.0); Immature Granulocytes Abs Auto 0.04 10^3/uL (0.00-0.03); Immature Granulocytes Pct Auto 0.4 % (0.0-0.5); Lymphocytes Absolute Auto 2.8 10^3/uL (1.2-3.8); Lymphocytes Percent Auto 25.9 % (20.5-60.0); Mean Corpuscular HGB Conc 33.1 g/dL (29.9-35.2); Mean Corpuscular Hemoglobin 30.7 pg (26.7-34.0); Mean Corpuscular Volume 92.8 fL (81.0-99.0); Mean Platelet Volume 10.4 fL (9.5-13.5); Monocytes Absolute Auto 0.8 10^3/uL (0.3-0.8); Monocytes Percent Auto 7.6 % (1.7-12.0); Neutrophils Absolute Auto 7.1 10^3/uL (1.4-6.5); Neutrophils Percent Auto 65.4 % (43.0-75.0); Platelet Count 184 10^3/uL (150-450); Red Blood Count 2.77 10^6/uL (4.20-5.40); Red Cell Distribution Width 14.1 % (11.0-15.0); White Blood Count 10.9 10^3/uL (4.0-11.0)
--- NOTE | 2024-10-20 07:43 | PM.OBPN ---
OB - PN: Subj Subjective Patient comments: no complaints and pain well controlled [place] status: doing well Exam Constitutional Vital Signs, click to edit/add: Last Vital Signs Temp 98.3 F 10/20/24 03:07 Pulse 72 10/20/24 03:07 Resp 16 10/20/24 03:33 BP 116/73 10/20/24 03:07 Pulse Ox 96 10/19/24 12:54 O2 Del Method Room Air 10/20/24 03:33 Documenting provider has reviewed patient's vital signs: yes Common normals: no apparent distress Respiratory Common normals: clear to auscultation bilaterally Cardio Common normals: regular rate and regular rhythm GI Common normals: Normal to inspection, nondistended, normoactive bowel sounds present Extremity Common normals: no clubbing, cyanosis or edema and no calf tenderness Results Labs Labs: Short CBC 10/20/24 Range/Units 06:25 WBC 10.9 (4.0-11.0) 10^3/uL Hgb 8.5 L (12.0-16.0) g/dL Hct 25.7 L (36.0-48.0) % Plt Count 184 (150-450) 10^3/uL Urinary Catheter Management Urinary Catheter Management Urethral: Cath placed during this visit: yes, but has since been removed by the nurse Insertion date: 10/19/24 Insertion time: 09:08 Removal date: 10/20/24 Removal time: 06:00 OB - PN: A/P Plan - day: 1 Plan: routine postop care Time Spent with Patient Time: Total time spent is greater than 50% in coordination of care (as documented) at patient's floor/unit and/or counseling patient: Total time spent with greater than 50% in coordination of care (as documented) at patient's floor/unit and/or counseling patient: less than 15 minutes
[2024-10-20 08:30] VITALS: TEMP 36.7
[2024-10-20] MEDS: LEVOTHYROXINE SODIUM 175 MCG TABLET PO (08:30)
[2024-10-20] MEDS: BUPRENORPHINE HCL 8 MG 12 EACH SL (08:30)
[2024-10-20 08:51] VITALS: BP 126/90
[2024-10-20] MEDS: DOCUSATE SODIUM 100 MG CAPSULE PO ×2 (08:58→21:03)
[2024-10-20] MEDS: BUPROPION HCL 150 MG SR TABLET 12H PO ×2 (09:09→21:03)
--- NOTE | 2024-10-20 09:51 | SWNOTE1 ---
SW met with pt to discuss positive drug screen for Buprenorphine. SW spoke with nurse prior to going in and pt is actually prescribed 12mg of Subutex, but had been trying to wean herself off by only taking [address] Ha recommended to pt to continue the prescribed amount at this time. Pt was in agreement. SW spoke with pt. Pt has 2 other children and her significant other in the home. The 2 children are the ages of 7 and 10 and they are boys. Pt voiced she has great support between her significant other and family members. Pt has everything they need at home for baby. Pt did in quire about any resources that would assist with formula. She stated they have some and they have coupons and the hospital will send some with her, but she was not sure if there was any places out there that will assist. SW to check in to that and get back to pt. Pt voiced she is feeling well, much better than last night. She voiced baby is doing well. She did not go through any post- depression with her other 2, but aware of the signs symptoms. Pt then asked her about her Subutex. She admitted she was addicted to pain meds in the past. She has been sober for 5-6 years. She is prescribed 12 mg, but admitted to trying to wean off of it. She voiced at the beginning of her she tried to talk to her prescribing doctor to wean down, but they wanted to keep her at 12mg. When she first started it was 16 mg, but after a year or 2 they took it down. She voiced that she does not want to be on it for the rest of her life. SW did express to pt the importance of following the orders of the prescribing doctor and at the same time fight for herself as a patient to eventually be weaned off. Pt voiced understanding. Pt goes to [facility] in [place]. She goes to a monthly appointment. She graduated from the counseling, but can go to see Erendira in counseling as needed. SW and pt spoke about the referral to CPS. Pt did voiced concerns about CPS coming in and taking her baby. SW advised pt that is not the case. CPS may open a case, but it will be for any resources that may be needed in the home and to assist in the home if needed. Pt is appropriate with baby, no concerns. Pt voiced understanding and no further questions at this time. Referral made to [facility] CPS. SW called [facility] in [place] and [facility] in [place] in regards to assistance with formula. SW left message at both places.
--- NOTE | 2024-10-20 10:42 | SWNOTE1 ---
Nurse called and pt would like to talk to SW. SW stopped back in. Pt let SW that she has been doing some research and 4-5 months ago she took some mucinex and she ready that could pop a false positive for amphetamines. She is also using vicks vapo rub/chapstick and she was concerned about it causing false positive in cord as well. SW advised pt that SW will document this. She did ask if cord came back positive for amphetamines if we could send to lab. At this time SW was not positive, but could assess the situation of this happened. Pt voiced she was just thinking of everything and was truly concerned about CPS and has heard horror stories about CPS. SW advised pt again if CPS does become involved it will be to assist with any resources in the home and that CPS wants families to stay together, not tear them apart. SW let pt know if she has further questions to let SW know.
--- NOTE | 2024-10-20 12:37 | SWNOTE1 ---
ROCHELLE received a call back from Joanna at [facility]. She stated they can help. Pt will need to call and schedule an appointment with them and they will review there services. All services are free. She stated once she has apt they can get her some formula. Due to the holidays coming up, she stated if pt calls and requests to speak to Joanna today she can do an emergency assessment on the phone and get her some formula, then pt will need to come in at later date to complete formal assessment in person. ROCHELLE notified pt of this and she voiced understanding. ROCHELLE advised pt that she should call today.
[2024-10-20] MEDS: OXYCODONE HCL/ACETAMINOPHEN 5MG/325MG 1 TAB PO ×2 (13:13→22:25)
[2024-10-20 17:00] VITALS: TEMP 36.7
[2024-10-20 17:04] VITALS: O2SAT 97
[2024-10-20 17:05] VITALS: BP 116/77; O2SAT 97
--- NOTE | 2024-10-20 19:25 | W.PC.ACHO ---
Registration Status: ADM IN Primary Language: Malagasy Preferred Language: Malagasy Report given to Fernando YOUNGBLOOD at 1903. Care relinquished. Active Medications Generic Name Dose Route Start Last Admin Trade Name Keiko PRN Reason Stop Dose Admin Acetaminophen 1,000 mg 10/19/24 13:13 10/20/24 08:58 Acetaminophen 500 Mg Tablet PO 1,000 mg Q6H PRN Administration Pain Al Hydroxide/Mg Hydroxide 2,400 mg 10/19/24 10:21 Magnesium Hydroxide 2,400 Mg/10 Ml Oral.Susp PO Q6H PRN Dyspepsia Bupropion HCl 150 mg 10/20/24 09:00 10/20/24 09:09 Bupropion Hcl 150 Mg Sr Tablet 12h PO 150 mg BID MATT Administration Diphtheria/Pertussis/Tetanus Vacc 0.5 ml 10/21/24 09:00 Adacel Diph,Pertuss(Acell),Tet Vac/Pf 0.5 Ml Adult Syringe IM 10/21/24 09:01 .ONCE ONE Docusate Sodium 100 mg 10/20/24 09:00 10/20/24 08:58 Docusate Sodium 100 Mg Capsule PO 100 mg BID MATT Administration Enoxaparin Sodium 40 mg 10/19/24 20:00 10/19/24 19:57 Enoxaparin Sodium 40 Mg/0.4 Ml Syringe SUBQ 40 mg Q24H MATT Administration Promethazine HCl 25 mg/ Sodium 51 mls @ 204 mls/hr 10/19/24 10:21 Chloride IV Q6H PRN Nausea And Vomiting Ibuprofen 800 mg 10/19/24 10:21 Ibuprofen 400 Mg Tablet PO Q8H PRN Pain Ketorolac Tromethamine 30 mg 10/19/24 10:21 10/20/24 14:59 Ketorolac Tromethamine 30 Mg/Ml Vial IVP 10/21/24 10:22 30 mg Q6H PRN Administration Pain Levothyroxine Sodium 175 mcg 10/20/24 09:00 10/20/24 08:30 Levothyroxine Sodium 175 Mcg Tablet PO 175 mcg ACB MATT Administration Measles/Mumps/Rubella Vaccine Live 0.5 ml 10/21/24 09:00 Measles,Mumps,Rubella Vacc/Pf 0.5 Ml Vial SQ 10/21/24 09:01 .ONCE ONE Buprenorphine Hcl 8 12 mg 10/20/24 09:00 10/20/24 08:30 Mg Tablet, SL 12 mg Sublingual DAILY MATT Administration Ondansetron HCl 4 mg 10/19/24 10:21 Ondansetron Pf 4 Mg/2 Ml Vial IV Q6H PRN Nausea And Vomiting Ondansetron HCl 4 mg 10/19/24 10:21 Ondansetron 4 Mg Rapdis Tablet PO Q6H PRN Nausea And Vomiting Oxycodone/Acetaminophen 1 tab 10/19/24 10:21 10/20/24 13:13 Oxycodone Hcl/Acetaminophen 5mg/325mg PO 1 tab Q4H PRN Administration Pain Scale 4-6 Oxycodone/Acetaminophen 2 tab 10/19/24 10:21 Oxycodone Hcl/Acetaminophen 5mg/325mg PO Q4H PRN Pain Scale 7-10 Senna 17.2 mg 10/19/24 20:00 Sennosides 8.6 Mg Tablet PO QHS PRN Constipation Simethicone 80 mg 10/19/24 10:21 10/20/24 03:02 Simethicone 80 Mg Tab.Chew PO 80 mg QID PRN Administration Abdominal Distention Respiratory Pulse Oximetry 97 Pulse Oximetry 97 Oxygen Delivery Method Room Air Oxygen Delivery Method Room Air Oxygen Delivery Method Room Air Oxygen Delivery Method Room Air Cardiology Heart Sounds Strong,Regular Heart Sounds Strong,Regular Bowels Bowel Pattern No Bowel Movement Bowel Pattern No Bowel Movement Renal Bladder Pattern Continent Bladder Pattern Continent Catheter Urinary Catheter Date of 10/19/24 Insertion [Urethral] Urinary Catheter Time of 09:08 Insertion [Urethral] Date Urinary Catheter Removed 10/20/24 [Urethral] Date Urinary Catheter Removed 10/20/24 [Urethral] Time Urinary Catheter 06:00 Discontinued [Urethral] Time Urinary Catheter 06:00 Discontinued [Urethral]
[2024-10-20] MEDS: ENOXAPARIN SODIUM 40 MG/0.4 ML SYRINGE SUBQ (20:24)
[2024-10-21 00:08] VITALS: BP 127/86
[2024-10-21] MEDS: KETOROLAC TROMETHAMINE 30 MG/ML VIAL IVP (03:58)
[2024-10-21] MEDS: OXYCODONE HCL/ACETAMINOPHEN 5MG/325MG 1 TAB PO ×3 (05:21→20:03)
[2024-10-21] MEDS: LEVOTHYROXINE SODIUM 175 MCG TABLET PO (06:46)
[2024-10-21 08:06] VITALS: BP 127/72
[2024-10-21 08:10] VITALS: BP 127/72; PULSE 98; TEMP 37; O2SAT 97
[2024-10-21] MEDS: DOCUSATE SODIUM 100 MG CAPSULE PO ×2 (08:26→21:53)
[2024-10-21] MEDS: BUPROPION HCL 150 MG SR TABLET 12H PO ×2 (08:26→21:54)
[2024-10-21] MEDS: BUPRENORPHINE HCL 8 MG 12 EACH SL (09:20)
[2024-10-21 16:45] VITALS: BP 127/83; PULSE 107; TEMP 36.9; O2SAT 98
[2024-10-21 16:48] VITALS: BP 127/83
--- NOTE | 2024-10-21 19:09 | W.PC.ACHO ---
Registration Status: ADM IN Primary Language: Angolan Preferred Language: Angolan Report on pain control & meds, +BM, Bonding with baby. Active Medications Generic Name Dose Route Start Last Admin Trade Name Freq PRN Reason Stop Dose Admin Acetaminophen 1,000 mg 10/19/24 13:13 10/20/24 08:58 Acetaminophen 500 Mg Tablet PO 1,000 mg Q6H PRN Administration Pain Al Hydroxide/Mg Hydroxide 2,400 mg 10/19/24 10:21 Magnesium Hydroxide 2,400 Mg/10 Ml Oral.Susp PO Q6H PRN Dyspepsia Bupropion HCl 150 mg 10/20/24 09:00 10/21/24 08:26 Bupropion Hcl 150 Mg Sr Tablet 12h PO 150 mg BID MATT Administration Docusate Sodium 100 mg 10/20/24 09:00 10/21/24 08:26 Docusate Sodium 100 Mg Capsule PO 100 mg BID MATT Administration Enoxaparin Sodium 40 mg 10/19/24 20:00 10/20/24 20:24 Enoxaparin Sodium 40 Mg/0.4 Ml Syringe SUBQ 40 mg Q24H MATT Administration Promethazine HCl 25 mg/ Sodium 51 mls @ 204 mls/hr 10/19/24 10:21 Chloride IV Q6H PRN Nausea And Vomiting Ibuprofen 800 mg 10/19/24 10:21 Ibuprofen 400 Mg Tablet PO Q8H PRN Pain Levothyroxine Sodium 175 mcg 10/20/24 09:00 10/21/24 06:46 Levothyroxine Sodium 175 Mcg Tablet PO 175 mcg ACB MATT Administration Buprenorphine Hcl 8 12 mg 10/20/24 09:00 10/21/24 09:20 Mg Tablet, SL 12 mg Sublingual DAILY MATT Administration Ondansetron HCl 4 mg 10/19/24 10:21 Ondansetron Pf 4 Mg/2 Ml Vial IV Q6H PRN Nausea And Vomiting Ondansetron HCl 4 mg 10/19/24 10:21 Ondansetron 4 Mg Rapdis Tablet PO Q6H PRN Nausea And Vomiting Oxycodone/Acetaminophen 1 tab 10/19/24 10:21 10/21/24 15:24 Oxycodone Hcl/Acetaminophen 5mg/325mg PO 1 tab Q4H PRN Administration Pain Scale 4-6 Oxycodone/Acetaminophen 2 tab 10/19/24 10:21 Oxycodone Hcl/Acetaminophen 5mg/325mg PO Q4H PRN Pain Scale 7-10 Senna 17.2 mg 10/19/24 20:00 Sennosides 8.6 Mg Tablet PO QHS PRN Constipation Simethicone 80 mg 10/19/24 10:21 10/20/24 03:02 Simethicone 80 Mg Tab.Chew PO 80 mg QID PRN Administration Abdominal Distention Respiratory Pulse Oximetry 98 Pulse Oximetry 97 Oxygen Delivery Method Room Air Oxygen Delivery Method Room Air Oxygen Delivery Method Room Air Bowels Bowel Pattern No Bowel Movement Date of Last Bowel Movement [ 10/21/24 All Quadrants] Renal Bladder Pattern Continent
[2024-10-21] MEDS: ENOXAPARIN SODIUM 40 MG/0.4 ML SYRINGE SUBQ (20:03)
[2024-10-21] MEDS: IBUPROFEN 400 MG TABLET 800 MG PO (21:54)
[2024-10-22] VITALS: BP 134/87
[2024-10-22 04:00] VITALS: TEMP 36.7
[2024-10-22] MEDS: IBUPROFEN 400 MG TABLET 800 MG PO ×2 (05:39→14:35)
[2024-10-22] MEDS: LEVOTHYROXINE SODIUM 175 MCG TABLET PO (06:48)
[2024-10-22 07:40] VITALS: BP 126/80
[2024-10-22 07:45] VITALS: TEMP 36.6
--- NOTE | 2024-10-22 08:07 | PM.OBPN ---
OB - PN: Subj Subjective Patient comments: no complaints and pain well controlled [place] status: doing well Exam Constitutional Vital Signs, click to edit/add: Last Vital Signs Temp 98.0 F 10/22/24 04:00 Pulse 107 H 10/21/24 16:45 Resp 16 10/21/24 16:45 BP 126/80 10/22/24 07:40 Pulse Ox 98 10/21/24 16:45 O2 Del Method Room Air 10/21/24 16:45 Documenting provider has reviewed patient's vital signs: yes Common normals: no apparent distress Respiratory Common normals: normal respiratory effort and clear to auscultation bilaterally Cardio Common normals: regular rate and regular rhythm GI Common normals: Normal to inspection, nondistended, normoactive bowel sounds present Extremity Common normals: no calf tenderness Urinary Catheter Management Urinary Catheter Management Urethral: Cath placed during this visit: yes, but has since been removed by the nurse Insertion date: 10/19/24 Insertion time: 09:08 Removal date: 10/20/24 Removal time: 06:00 OB - PN: A/P Plan - day: 3 Plan: routine postop care, discharge home and other (fu 1wk) Time Spent with Patient Time: Total time spent is greater than 50% in coordination of care (as documented) at patient's floor/unit and/or counseling patient: Total time spent with greater than 50% in coordination of care (as documented) at patient's floor/unit and/or counseling patient: less than 15 minutes
[2024-10-22] MEDS: DOCUSATE SODIUM 100 MG CAPSULE PO (08:53)
[2024-10-22] MEDS: BUPRENORPHINE HCL 8 MG 12 EACH SL (08:53)
[2024-10-22] MEDS: BUPROPION HCL 150 MG SR TABLET 12H PO (08:53)
[2024-10-22] MEDS: ADACEL DIPH,PERTUSS(ACELL),TET VAC/PF 0.5 ML ADULT SYRINGE IM (14:37)
[2024-10-23 16:08] LABS: Buprenorphine Positive (.); Buprenorphine Conf, MS, UR 352 ng/mL (Cutoff=10); Norbuprenorphine Positive (.); Norbuprenorphine Conf, MS,UR >2000 ng/mL (Cutoff=10)
== END 2024-10-22 14:50 | disposition home or self-care (01) | DRG 539 ==
PROVIDERS: Admitting Provider Obstetrics & Gynecology; PCP Nurse Practitioner; Visit Provider Obstetrics & Gynecology
DX: O34.211 Maternal care for low transverse scar from previous cesarean delivery (principal); O36.5990 Maternal care for other known or suspected poor fetal growth, unspecified trimester, not applicable or unspecified; O99.334 Smoking (tobacco) complicating childbirth; F17.290 Nicotine dependence, other tobacco product, uncomplicated; O99.284 Endocrine, nutritional and metabolic diseases complicating childbirth; E06.3 Autoimmune thyroiditis; O99.324 Drug use complicating childbirth; F11.10 Opioid abuse, uncomplicated; O99.344 Other mental disorders complicating childbirth; F32.A Depression, unspecified; F41.9 Anxiety disorder, unspecified; Z3A.39 39 weeks gestation of pregnancy; Z37.0 Single live birth; Z88.8 Allergy status to other drugs, medicaments and biological substances; Z79.890 Hormone replacement therapy; Z79.899 Other long term (current) drug therapy
CPT/HCPCS: 36415; 51702; 59025; 80299; 80307; 85025; 86850; 86900; 86901; 88302; 88307; 90715; 94667; 94668; J0690; J1650; J1885; J2590

== ENCOUNTER 2025-10-17 09:44 | Outpatient (OUT) | payer MEDICAID, SELFPAY ==
[2025-10-17 10:09] LABS: Hematocrit 38.3 % (36.0-48.0); Hemoglobin 12.9 g/dL (12.0-16.0); Immature Granulocytes Abs Auto 0.01 10^3/uL (0.00-0.03); Immature Granulocytes Pct Auto 0.1 % (0.0-0.5); Lymphocytes Absolute Auto 2.6 10^3/uL (1.2-3.8); Mean Corpuscular HGB Conc 33.7 g/dL (29.9-35.2); Mean Corpuscular Hemoglobin 30.6 pg (26.7-34.0); Mean Corpuscular Volume 90.8 fL (81.0-99.0); Platelet Count 282 10^3/uL (150-450); Red Blood Count 4.22 10^6/uL (4.20-5.40); White Blood Count 8.7 10^3/uL (4.0-11.0)
[2025-10-17 10:44] LABS: Alanine Aminotransferase 35 U/L (14-59); Albumin Globulin Ratio 0.8; Albumin Level 3.3 g/dL (3.4-5.0); Alkaline Phosphatase 53 U/L (46-116); Anion Gap 11.6; Aspartate Amino Transferase 18 U/L (15-37); Blood Urea Nitrogen 12.0 mg/dL (7.0-18.0); Calcium 9.1 mg/dL (8.5-10.1); Carbon Dioxide 25.9 mmol/L (21.0-32.0); Chloride 106 mmol/L (98-107); Cholesterol 192 mg/dL (<=200); Estimated GFR (African America >60 (>=60 mL/min/1.73m^2); Estimated GFR (Non-African Ame >60 (>=60 mL/min/1.73m^2); Globulin 3.9 g/dL; Glucose 104 mg/dL (74-106); HDL Cholesterol 43 mg/dL (40-60); Potassium 4.5 mmol/L (3.5-5.1); Sodium 139 mmol/L (136-145); Thyroid Stimulating Hormone 1.125 uIU/mL (0.358-3.740); Total Protein 7.2 g/dL (6.4-8.2); Triglycerides 159 mg/dL (<=150); VLDL CHOLESTEROL 31.8 mg/dL
[2025-10-17 10:49] LABS: Glucose Urine UA NEGATIVE (NEGATIVE)
[2025-10-17 11:46] LABS: Cast Seen? NONE SEEN #/LPF (NONE SEEN); Crystals Seen? None Seen #/HPF (None Seen)
== END 2025-10-17 09:45 | disposition home or self-care (01) ==
PROVIDERS: PCP Nurse Practitioner; Visit Provider Nurse Practitioner
DX: E55.9 Vitamin D deficiency, unspecified (principal); R00.0 Tachycardia, unspecified; E66.01 Morbid (severe) obesity due to excess calories; E03.9 Hypothyroidism, unspecified; I10 Essential (primary) hypertension; F17.210 Nicotine dependence, cigarettes, uncomplicated
CPT/HCPCS: 36415; 80053; 80061; 81001; 82043; 82306; 82570; 84439; 84443; 85025